=== PATIENT | female | born 1960 | race Caucasian/White ===

== ENCOUNTER 2017-11-21 17:51 | Emergency (ER) | payer BC, SELFPAY ==
[2017-11-21 17:53] VITALS: BP 120/68; PULSE 72; RESP 16; TEMP 36.8; O2SAT 98; BMI 24.0
--- NOTE | 2017-11-21 18:10 | ED.VISSUMM ---
- ER Visit Summary Date of Service: 11/21/17 Chief Complaint: Allergic reaction History of Present Illness: The patient is a 57 F presenting with allergic reaction. Patient states that she was outside spraying weeds with weed killer. She states she was wearing gloves. She believes she was stung by a bee on her left forearm. She began to have itching all over. She took 2 Benadryl which improved her itching. She then noticed an increasing rash of her trunk. Denies difficulty breathing or swallowing. Denies sensation of tongue swelling or throat swelling. Denies other complaints. Physical Examination: Vitals are stable. Patient is afebrile. Alert no acute distress. HEENT exam is unremarkable. No tongue swelling, no pharyngeal edema Neck is supple. Lungs are clear and equal bilaterally. Heart is regular rate and rhythm. Abdomen is soft nontender nondistended. Extremities are unremarkable. Skin is warm and dry. Maculopapular rash to the trunk and left upper extremity. No focal neurologic deficit. Remainder of exam is unremarkable. Emergency Department Course and Treatment: Patient is given Solu-Medrol IV. She was observed in the ED and has improvement of her symptoms. She is requesting to go home. Advised signs and symptoms for which to return to the ED. She is given a prescription for prednisone. Advised to return to ED for any worsening complaints. Advised to follow-up with primary care physician. Disposition: Discharge home Impression: Allergic reaction This note was generated with 2Peer (Qlipso) dictation software. It may contain incorrect words, spelling, and punctuation that were not noted in review of the chart prior to signing ED Disposition - Plan for ED Patient: Disposition: Home or Assisted Living Chief Complaint: Allergic Reaction Instructions: ED Bite Sting Insect Gen Allergic React Prescriptions: Prednisone 20 mg PO DAILY #5 tablet Referrals: Linda Tubbs MD [Primary Care Provider] -
[2017-11-21] MEDS: MethylPREDNISolone 125 MG/2 ML Vial IV (18:16)
--- NOTE | 2017-11-21 19:02 | ED.DEP ---
ED Disposition - Plan for ED Patient: Chief Complaint: Allergic Reaction Instructions: ED Bite Sting Insect Gen Allergic React Prescriptions: Prednisone 20 mg PO DAILY #5 tablet Referrals: Linda Tubbs MD [Primary Care Provider] -
[2017-11-21 19:39] VITALS: BP 119/77; PULSE 69; RESP 16; O2SAT 99
== END 2017-11-21 19:40 | disposition home or self-care (01) ==
LOC: ED 18:49
PROVIDERS: Emergency Provider Emergency Medicine; Family Provider Internal Medicine; PCP Internal Medicine
DX: T63.441A Toxic effect of venom of bees, accidental (unintentional), initial encounter (principal); R23.8 Other skin changes; Y92.9 Unspecified place or not applicable; E78.00 Pure hypercholesterolemia, unspecified; F32.9 Major depressive disorder, single episode, unspecified; Z79.899 Other long term (current) drug therapy
CPT/HCPCS: 96374; 99283; A4216

== ENCOUNTER → 2018-06-22 08:46 | Outpatient (CLI) | payer BC, SELFPAY ==
--- NOTE | 2018-06-22 08:49 | BI_ITS ---
MAMMOGRAPHY - BILATERAL SCREENING REASON FOR EXAM: Female, 57 years old. Routine annual screening examination. PERTINENT HISTORY: Non-contributory. TECHNIQUE: Digital bilateral breast jermaine (3D mammographic acquisition) in the CC and MLO projections. 2-D mediolateral oblique (MLO) and craniocaudad (CC) views of both breasts were obtained. CAD: Full Field Digital Mammography with Computer Added Detection was performed. COMPARISON: Comparison is made with prior study dated March 08, 2017 and March 04, 2016. FINDINGS: Breast Composition: There are scattered areas of fibroglandular density. There are no dominant masses or suspicious calcifications. No other significant abnormalities are identified. There has been no significant change since the prior study. BI/SCREENING MAMM (CAD), BILAT IMPRESSION: Stable bilateral screening mammogram. Yearly follow-up mammogram recommended. (A) ASSESSMENT CATEGORY: BIRADS Category 1: Negative. A letter regarding these results will be sent to the patient by the facility within 30 days. Approximately 10% of breast cancers are not detected by mammography. A normal mammogram should not delay biopsy of a clinically suspicious abnormality. [id number] Electronically Signed: Pancho Lopez, at 10:30 EST , Service support ,
[2018-06-26 09:49] LABS: HPV APTIMA, High Risk Negative (Negative)
== END ==
PROVIDERS: Family Provider Internal Medicine; PCP Internal Medicine; Referring Provider Obstetrics & Gynecology; Visit Provider Obstetrics & Gynecology
DX: Z12.4 Encounter for screening for malignant neoplasm of cervix (principal); Z12.31 Encounter for screening mammogram for malignant neoplasm of breast
CPT/HCPCS: 77063; 77067; 87624; 88175; G0145

== ENCOUNTER → 2018-09-16 | Outpatient (CLI) | payer BC, SELFPAY ==
[2018-06-22 09:31] VITALS: BMI 24.4
--- NOTE | 2018-09-16 08:19 | CT_ITS ---
STUDY: CT BRAIN WITH AND WITHOUT CONTRAST REASON FOR EXAM: Female, 58 years old. Severe headaches. RADIATION DOSAGE (If Supplied By Facility): CTDIvol = ( 44.99 ) mGy, DLP = ( 1468.48 ) mGycm TECHNIQUE: Transaxial CT imaging of the brain was performed pre and post contrast administration. The examination was performed with intravenous administration of 50 IV Isovue 370. Individualized dose optimization techniques were used for this CT. COMPARISON: None. FINDINGS: Normal soft tissue structures. Normal calvarium. Normal size ventricles and extra-axial spaces for the patient's age. Normal white matter tracts of the cerebral hemispheres. Normal basal ganglia and thalami. Normal brainstem. Normal cerebellum. There is no intracranial hemorrhage. There are no findings of an acute ischemic infarction. Normal visualized paranasal sinuses. CT/Brain/Head W/WO Contrast IMPRESSION: Normal unenhanced and enhanced CT scan of the brain. Electronically Signed: Pancho Lopez, at 14:17 EDT , Service support ,
== END | disposition home or self-care (01) ==
PROVIDERS: Family Provider Internal Medicine; PCP Internal Medicine; Referring Provider Internal Medicine; Visit Provider Internal Medicine
DX: R51 Headache (principal)
CPT/HCPCS: 70470; Q9967

== ENCOUNTER 2019-12-13 17:00 | Outpatient (RCR) | payer BC, SELFPAY ==
[2018-06-22 09:31] VITALS: BMI 24.4
--- NOTE | 2019-10-31 12:14 | HP.PTEVAL_ITS ---
Patient's Visit Information SHREYA LEARY is a 59 year old F referred to Physical Therapy by Dr. Gill Rene MD with a diagnosis of Impingement Syndrome L shoulder. Date of Evaluation: 10/31/19 Physical Therapist: WON Hastings - Visit Plan Frequency: 2-3x /Week Duration: 4 Weeks Plan: 2-3X/ week for 4 weeks for postural and scapular strength, PROM, AAROM, AROM, strengthening of the RC starting at below 90 degrees elevation and progressing to above 90 degrees elevation with HEP and modalities as needed. 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 Pt started having pain in her L shoulder last year sometime..... She has torqued her shoulder before and got a shot and it took care of it.... this time the shot did not help. This was at the end of June and did PT at home because she had sheets at home from the last time she was in PT. They went back in and had an MRI and she really wanted to do PT because she is done with it. She reports thtat she has constant throbbing but sometimes she does not notice it because she is used to it. It wakes her up at night and she notices that she has babysat her 1 year old beto daughter..... Sometimes the pain is across the front of the shoulder or along the deltiod. She now is compensates actoss her neck... Depends on what she has done. She is in the shower and uses the shower to crawl up the wall. SHe can not get her arm behind her back. Last Wed she got 2 hots and since then she can do her hair... it still hurts but it is better. She feels that she has gotten a little better cause she can now reach to do her hair with effort. She is Right handed. Wakes her up if she is laying on it. It is not jabbing like it used to be. No N&T. YES... she has neck pain she believes due to overcompenstation - Pain L shoulder pain Pain Intensity (Out of 10): 4 - Objective Posture: sit with L arm slightly in front of her... L shoulder flexion 130 degrees, abd 124 degrees, PSIS on the L IR, ER 49 degrees. R shoulder flexion, abd full ROM.... IR to T2 and ER, Er to 70 degrees. MMT: L shoulder: 4-/5 abdm flex , ER and IR. R shoulder: 4/5 flex, abd, ER andn IR. +HK for impingement. + Empty can for weakness and pain. Tender to palpation under the L acrominion. Discussed sleeping, daily posture, icing, sitting posture, and repetitive IR movements. - Goals Goal 1:: I HEP Goal Time Frame: 4-6 Weeks Goal 2:: Increase L shoulder AROM to 165 degrees elevation with no pain Goal Time Frame: 4-6 Weeks Goal 3:: Increase L shoulder strength by 1/2 muscle grade (at time of eval: L s houlder: 4-/5 abdm flex , ER and IR). Goal Time Frame: 4-6 Weeks Goal 4:: Decrease pain to less than 1/10 wtih overhead activities Goal Time Frame: 4-6 Weeks Goal 5:: Be able to sleep through the night without waking up in pain Goal Time Frame: 4-6 Weeks - Rehabilitation Potential Rehabilitation Potential: Good - Anticipated Interventions Patient/Client Instruction: Educate patient on: Condition, Plan of Care For the Purpose of:: To decrease pain, To decrease swelling/inflammation, To increase ROM, To improve nutrient delivery to tissue, To improve muscle performa nce and motor function, To improve ability to perform ADL's, To increase tolerance to activity/condition/position, To decrease level of supervision to perform tasks, To improve ability of physical actions for home/community/work/leisure, To improve health of tissue, To decrease soft tissue restriction, To increase flexibility/ROM Therapeutic Exercise to Include: Strength training, Postural training, Flexibilty training, Passive ROM, Active ROM, Scapular Strength/Stabilization For the Purpose of:: To decrease pain, To decrease swelling/inflammation, To increase ROM, To improve nutrient delivery to tissue, To improve muscle performance and motor function, To improve ability to perform ADL's, To increase tolerance to activity/condition/position, To improve performance and independence with ADL's, To decrease level of supervision to perform tasks, To improve ability of physical actions for home/community/work/leisure, To improve health of tissue, To decrease soft tissue restriction, To increase flexibility/ROM Manual Therapy Techniques to Include: Passive ROM, Soft tissue mobilization For the Purpose of:: To decrease pain, To decrease swelling/inflammation, To increase ROM, To improve nutrient delivery to tissue IF ES: Yes Cryotherapy (ice pack, ice massage): Yes Ultrasound (thermal/non thermal): Yes For the Purpose of:: To decrease pain, To decrease swelling/inflammation, To increase ROM, To improve nutrient delivery to tissue Thank you for the opportunity to evaluate your patient. For Medicare and Medicare HMO plans, please review the plan of care and approve it. It will need to be FAXED BACK to us at [phone] for Medicare purposes. For Medicare only, by signing this I certify the plan of care. Please let me know if there are questions or concerns regarding this plan of care. Physician Signature: Date:
--- NOTE | 2019-11-22 12:06 | HP.PTREVAL ---
Dr. Gill Rene MD, It has been my pleasure to treat SHREYA LEARY over the last 7 visits for Impingement Syndrome L shoulder. Please see the progress note below for an update on the physical therapy plan of care! Subjective: 5/10 today from doing exercises today and it is aching. Still struggles with washing her back, curling her hair, turning the steering wheel, lifting child or moderate heavy bag, quick movements, gardening, canoeing, make bed and ride bike. She has improved in the fact she can raise her arm overhead and can sleep better at night. She wakes up in pain ever so often still with pain. Objective/Function: L shoulder flex 145 degrees. L shoulder abd 145 degrees. L IR slowly with effort to L5 ( increase pain). L ER 35 degrees. L shoulder MMT: flex 4-/5, abd 4-/5, ER 4-/5, IR 4/5 Plan Plan: Would like to see pt for 8 additional visit for manual stretching of the L shoulder anteior and posterior joint capsule, PROM, Scapular stability and RC strengthening with US if needed for increase pain and soreness. Goals Goal 1:: I HEP Goal Time Frame: 4-6 Weeks Goal Progress: Progressing Goal 2:: Increase L shoulder AROM to 165 degrees elevation with no pain Goal Time Frame: 4-6 Weeks Goal Progress: Progressing Goal 3:: Increase L shoulder strength by 1/2 muscle grade (at time of eval: L shoulder: 4-/5 abdm flex , ER and IR). Goal Time Frame: 4-6 Weeks Goal 4:: Decrease pain to less than 1/10 wtih overhead activities Goal Time Frame: 4-6 Weeks Goal Progress: Progressing Goal 5:: Be able to sleep through the night without waking up in pain Goal Time Frame: 4-6 Weeks Goal Progress: Progressing Anticipated Interventions Patient/Client Instruction: Educate patient on: Condition, Plan of Care For the Purpose of:: To decrease pain, To decrease swelling/inflammation, To increase ROM, To improve nutrient delivery to tissue, To improve muscle performance and motor function, To improve ability to perform ADL's, To increase tolerance to activity/condition/position, To decrease level of supervision to perform tasks, To improve ability of physical actions for home/community/work/leisure, To improve health of tissue, To decrease soft tissue restriction, To increase flexibility/ROM Therapeutic Exercise to Include: Strength training, Postural training, Flexibilty training, Passive ROM, Active ROM, Scapular Strength/Stabilization For the Purpose of:: To decrease pain, To decrease swelling/inflammation, To increase ROM, To improve nutrient delivery to tissue, To improve muscle performance and motor function, To improve ability to perform ADL's, To increase tolerance to activity/condition/position, To improve performance and independence with ADL's, To decrease level of supervision to perform tasks, To improve ability of physical actions for home/community/work/leisure, To improve health of tissue, To decrease soft tissue restriction, To increase flexibility/ROM Manual Therapy Techniques to Include: Passive ROM, Soft tissue mobilization For the Purpose of:: To decrease pain, To decrease swelling/inflammation, To increase ROM, To improve nutrient delivery to tissue IF ES: Yes Cryotherapy (ice pack, ice massage): Yes Ultrasound (thermal/non thermal): Yes For the Purpose of:: To decrease pain, To decrease swelling/inflammation, To increase ROM, To improve nutrient delivery to tissue Please do not hesitate to contact me at [phone] by phone or if you have questions or concerns regarding this new plan of care! Sincerely, WON Hastings
--- NOTE | 2019-12-13 18:49 | HP.PTREVAL_ITS ---
Dr. Gill Rene MD, It has been my pleasure to treat SHREYA LEARY over the last 11 visits for Impingement Syndrome L shoulder. Please see the progress note below for an update on the physical therapy plan of care! Subjective: Pt reports that her IR is much better and she can reach up her back better since the scapular MT and ball at home. BUT not her anterior shoulder is painful from working on her IR ROM. Pt reports that she still has pain with certain movements with her shoulder and she tries to not over use it. Objective/Function: L shoulder flex and abd to 140 degrees AROM. ER to 44 degrees on the R. IR to T12 with increase pain at end range on the R. PROM R shoulder flex to appro 170 degrees and then pt had increase posterior shoulder pain. PROM R shoulder ABD to approx 175 degrees with pain at end range. Pain with End range PROM ER still. Plan Plan: Ask insurance for 4 additional visits as we are continuing to make progress with MT, mobilizations and HEP Goals Goal 1:: I HEP Goal Time Frame: 4-6 Weeks Goal Progress: Progressing Goal 2:: Increase L shoulder AROM to 165 degrees elevation with no pain Goal Time Frame: 4-6 Weeks Goal Progress: Progressing Goal 3:: Increase L shoulder strength by 1/2 muscle grade (at time of eval: L shoulder: 4-/5 abdm flex , ER and IR). Goal Time Frame: 4-6 Weeks Goal 4:: Decrease pain to less than 1/10 wtih overhead activities Goal Time Frame: 4-6 Weeks Goal Progress: Progressing Goal 5:: Be able to sleep through the night without waking up in pain Goal Time Frame: 4-6 Weeks Goal Progress: Progressing Anticipated Interventions Patient/Client Instruction: Educate patient on: Condition, Plan of Care For the Purpose of:: To decrease pain, To decrease swelling/inflammation, To increase ROM, To improve nutrient delivery to tissue, To improve muscle performance and motor function, To improve ability to perform ADL's, To increase tolerance to activity/condition/position, To decrease level of supervision to perform tasks, To improve ability of physical actions for home/community/work/leisure, To improve health of tissue, To decrease soft tissue restriction, To increase flexibility/ROM Therapeutic Exercise to Include: Strength training, Postural training, Flex ibilty training, Passive ROM, Active ROM, Scapular Strength/Stabilization For the Purpose of:: To decrease pain, To decrease swelling/inflammation, To increase ROM, To improve nutrient delivery to tissue, To improve muscle performance and motor function, To improve ability to perform ADL's, To increase tolerance to activity/condition/position, To improve performance and in dependence with ADL's, To decrease level of supervision to perform tasks, To improve ability of physical actions for home/community/work/leisure, To improve health of tissue, To decrease soft tissue restriction, To increase flexibility/ROM Manual Therapy Techniques to Include: Passive ROM, Soft tissue mobilization For the Purpose of:: To decrease pain, To decrease swelling/inflammation, To increase ROM, To improve nutrient delivery to tissue IF ES: Yes Cryotherapy (ice pack, ice massage): Yes Ultrasound (thermal/non thermal): Yes For the Purpose of:: To decrease pain, To decrease swelling/inflammation, To increase ROM, To improve nutrient delivery to tissue Please do not hesitate to contact me at [phone] by phone or if you have questions or concerns regarding this new plan of care! Sincerely, Saniya Pedro, MPT
--- NOTE | 2020-02-14 13:18 | HP.PTDCNRP_ITS ---
SHREYA LEARY was seen in my office for initial evaluation on 10/31/19. The following Plan of Care was established for this patient: Initial Frequency: 2-3x /Week Initial Duration: 4 Weeks Patient/Client Instruction: Educate patient on: Condition, Plan of Care For the Purpose of:: To decrease pain, To decrease swelling/inflammation, To increase ROM, To improve nutrient delivery to tissue, To improve muscle performance and motor function, To improve ability to perform ADL's, To increase tolerance to activity/condition/position, To decrease level of supervision to perform tasks, To improve ability of physical actions for home/community/work/leisure, To improve health of tissue, To decrease soft tissue restriction, To increase flexibility/ROM Therapeutic Exercise to Include: Strength training, Postural training, Flexibilty training, Passive ROM, Active ROM, Scapular Strength/Stabilization For the Purpose of:: To decrease pain, To decrease swelling/inflammation, To increase ROM, To improve nutrient delivery to tissue, To improve muscle performance and motor function, To improve ability to perform ADL's, To increase tolerance to activity/condition/position, To improve performance and independence with ADL's, To decrease level of supervision to perform tasks, To improve ability of physical actions for home/community/work/leisure, To improve health of tissue, To decrease soft tissue restriction, To increase flexibility /ROM Manual Therapy Techniques to Include: Passive ROM, Soft tissue mobilization For the Purpose of:: To decrease pain, To decrease swelling/inflammation, To increase ROM, To improve nutrient delivery to tissue IF ES: Yes Cryotherapy (ice pack, ice massage): Yes Ultrasound (thermal/non thermal): Yes For the Purpose of:: To decrease pain, To decrease swelling/inflammation, To increase ROM, To improve nutrient delivery to tissue This patient was last seen in our office 12/13/19. Pertinent comments regarding their Physical therapy will appear below: DC PT due to lack of additional insurance visits. At this point I will be discontinuing this patient from physical therapy. I would be happy to see this patient again in the future if found appropriate by the physician. Thank you! Saniya Pedro, MPT
== END 2019-12-13 19:00 | disposition home or self-care (01) ==
LOC: PT 17:00
PROVIDERS: PCP Internal Medicine; Referring Provider Orthopaedic Surgery Hand Surgery; Visit Provider Orthopaedic Surgery Hand Surgery
DX: M75.42 Impingement syndrome of left shoulder (principal)
CPT/HCPCS: 97110; 97140; 97161; 97164; 97530

== ENCOUNTER → 2020-02-07 08:25 | Outpatient (CLI) | payer BC, SELFPAY ==
[2018-06-22 09:31] VITALS: BMI 24.4
--- NOTE | 2020-02-07 08:25 | BI_ITS ---
MAMMOGRAPHY - BILATERAL SCREENING REASON FOR EXAM: Female, 59 years old. Routine annual screening examination. PERTINENT HISTORY: Non-contributory. TECHNIQUE: Digital bilateral breast katie (3D mammographic acquisition) in the CC and MLO projections. 2-D mediolateral oblique (MLO) and craniocaudad (CC) views of both breasts were obtained. CAD: Full Field Digital Mammography with Computer Added Detection was performed. COMPARISON: Comparison is made with prior study dated 06/22/2018 and 03/08/2017. FINDINGS: Breast Composition: There are scattered areas of fibroglandular density. There are no dominant masses or suspicious calcifications. No other significant abnormalities are identified. There has been no significant change since the prior study. BI/SCREEN MAMM (CAD) W/KATIE BILAT IMPRESSION: Stable bilateral screening mammogram. Yearly follow-up mammogram recommended. (A) ASSESSMENT CATEGORY: BIRADS Category 1: Negative. A letter regarding these results will be sent to the patient by the facility within 30 days. Approximately 10% of breast cancers are not detected by mammography. A normal mammogram should not delay biopsy of a clinically suspicious abnormality. [id number] Electronically Signed: Pancho Lopez, at 9:32 EDT , Service support ,
== END ==
PROVIDERS: PCP Internal Medicine; Referring Provider Obstetrics & Gynecology; Visit Provider Obstetrics & Gynecology
DX: Z12.31 Encounter for screening mammogram for malignant neoplasm of breast (principal)
CPT/HCPCS: 77063; 77067

== ENCOUNTER → 2021-02-13 12:43 | Outpatient (CLI) | payer BC, SELFPAY ==
--- NOTE | 2021-02-13 12:45 | BI_ITS ---
MAMMOGRAPHY - BILATERAL SCREENING REASON FOR EXAM: Female, 60 years old. Routine annual screening examination. PERTINENT HISTORY: Non-contributory. TECHNIQUE: Digital bilateral breast katie (3D mammographic acquisition) in the CC and MLO projections. 2-D mediolateral oblique (MLO) and craniocaudad (CC) views of both breasts were obtained. CAD: Full Field Digital Mammography with Computer Added Detection was performed. COMPARISON: Comparison is made with prior study dated 02/07/2020 and 06/22/2018. FINDINGS: Breast Composition: There are scattered areas of fibroglandular density. There are no dominant masses or suspicious calcifications. Stable small benign-appearing bilateral axillary lymph nodes. No other significant abnormalities are identified. There has been no significant change since the prior study. BI/SCRN MAMM (CAD)W/KATIE BILAT IMPRESSION: Stable bilateral screening mammogram. Yearly follow-up mammogram recommended. (A) ASSESSMENT CATEGORY: BIRADS Category 2: Benign. A letter regarding these results will be sent to the patient by the facility within 30 days. Approximately 10% of breast cancers are not detected by mammography. A normal mammogram should not delay biopsy of a clinically suspicious abnormality. [id number] Electronically Signed: Pancho Lopez MD at 14:14 EDT , Service support ,
== END ==
PROVIDERS: PCP Internal Medicine; Referring Provider Obstetrics & Gynecology; Visit Provider Obstetrics & Gynecology
DX: Z12.31 Encounter for screening mammogram for malignant neoplasm of breast (principal)
CPT/HCPCS: 77063; 77067

== ENCOUNTER → 2021-09-02 | Outpatient (CLI) | payer BC, SELFPAY ==
--- NOTE | 2021-09-02 10:25 | US_ITS ---
EXAM: US ABDOMEN LIMITED, RIGHT UPPER QUADRANT CLINICAL INDICATION: POSTPRANDIAL RUQ PAIN TECHNIQUE: Real-time ultrasound of the right upper quadrant with image documentation. This report was created using [employer] report generation technology. COMPARISON: None. FINDINGS: LIVER: 1.1 cm x 0.8 cm x 1 cm simple-appearing cyst in the left lobe of the liver. Also 1.5 cm x 1.2 cm x 1.4 cm right lobe hepatic cyst. Small hyperechoic focus in the right lobe of the liver measuring 8.3 mm maximum diameter may be small focus of focal fat or hemangioma, most likely benign and incidental. The liver is 13.7 cm in length, normal size. No intrahepatic biliary ductal dilation. GALLBLADDER: Normal gallbladder, only mildly distended with fold. Normal 2 mm wall.. No shadowing gallstone. No pericholecystic fluid. Negative sonographic Bob''s sign. COMMON BILE DUCT: Common duct 1.1 cm, mildly dilated, uncertain chronicity. PANCREAS: Tiny 7 mm x 6 mm x 7 mm cystic structure in the tail of the pancreas. Otherwise unremarkable pancreas. No pancreatic ductal dilatation. RIGHT KIDNEY: Right kidney 10.2 cm x 3.5 cm x 5.1 cm. There is no hydronephrosis. No shadowing calculus. No focal lesion or perinephric collection is demonstrated. US/Abdomen Limited IMPRESSION: 1. Normal gallbladder. 2. Mildly dilated common duct, please correlate with bilirubin. 3. CT could be considered if there is clinical suspicion for choledocholithiasis or duct stricture or obstructing mass. The proximal pancreas is not optimally seen. 4. Small hepatic cysts and tiny subcentimeter indeterminate cystic lesion in the tail of the pancreas. Since the pancreatic lesion is not clearly incidental and due to the patient''s age, CT or MRI with pancreas protocol is recommended. Electronically Signed: María Brown MD at 6:05 EDT ,
== END | disposition home or self-care (01) ==
LOC: US 10:16
PROVIDERS: PCP Internal Medicine; Visit Provider Internal Medicine
DX: R10.11 Right upper quadrant pain (principal)
CPT/HCPCS: 76705

== ENCOUNTER → 2021-09-03 | Outpatient (CLI) | payer BC, SELFPAY ==
--- NOTE | 2021-09-03 14:04 | CT_ITS ---
STUDY: CT ABDOMEN WITH CONTRAST REASON FOR EXAM: Female, 61 years old. PANCREATIC CYST/PSEUDOCYST -- DO PANCREASE PROTOCOL AND LOOK AT COMMON BILE DUCT RADIATION DOSAGE (If Supplied By Facility): CTDIvol = ( 8.60 ) mGy, DLP = ( 651.15 ) mGycm TECHNIQUE: Transaxial images were obtained post I.V. administration of IV 100mL Isovue-300, and without oral contrast. Sagittal and coronal images were reconstructed. Individualized dose optimization techniques were used for this CT. COMPARISON: Comparison is made with prior sonogram of the right upper quadrant dated 09/02/2021. FINDINGS: The visualized lung bases are unremarkable. The visualized portions of the heart are within normal limits. 2 small cysts are seen in the medial aspect of the right lobe of liver. The largest cyst measures 1.5 cm. And one some mucous cyst is also seen in the left lobe the common bile duct measures 1.6 cm in transverse dimension. Mildly prominent pancreatic duct. There is enlargement of the head of the pancreas measuring 2.6 cm x 3.1 cm. An 8mm cyst is seen in the tail of the pancreas. Normal spleen. Normal bilateral adrenal glands. Normal right kidney. Normal left kidney. Normal visualized stomach. Normal small intestine. Normal colon. The appendix is visualized and appears normal. There is scattered atherosclerotic calcification of the abdominal aorta, without a demonstrated aneurysm. Normal inferior vena cava. Normal retroperitoneum. Normal abdominal wall. There are degenerative changes of the visualized lumbar spine. CT/Abdomen WITH IV Contrast IMPRESSION: Small hepatic cysts. Mildly dilated common bile duct. Slight prominence of the head of the pancreas. 8 mm cyst in the tail of the pancreas. Correlation with MRCP recommended. Electronically Signed: Pancho Lopez MD at 14:25 EDT ,
[2021-09-03 14:05] LABS: CREATININE FINGERSTICK < 0.9 mg/dL (0.55-1.02); EGFR FINGERSTICK > 60.0000 mL/min (>60)
== END | disposition home or self-care (01) ==
LOC: CT 11:36
PROVIDERS: PCP Internal Medicine; Referring Provider Internal Medicine; Visit Provider Internal Medicine
DX: K83.8 Other specified diseases of biliary tract (principal); K86.9 Disease of pancreas, unspecified
CPT/HCPCS: 74160; Q9967

== ENCOUNTER → 2021-09-05 | Outpatient (CLI) | payer BC, SELFPAY ==
--- NOTE | 2021-09-05 09:15 | MRI_ITS ---
EXAM: MR ABDOMEN WITHOUT INTRAVENOUS CONTRAST, MRCP PROTOCOL CLINICAL INDICATION: ABN CT TECHNIQUE: Multiplanar and multisequence MR images of the abdomen without intravenous contrast obtained with MRCP sequence. Three-dimensional post-processing reconstructions were performed. This report was created using [employer] report generation technology. COMPARISON: CT abdomen 09/03/2021 FINDINGS: LOWER THORAX: Unremarkable. No pleural effusion. LIVER: Several small cystic lesions are identified within the liver. GALLBLADDER AND BILE DUCTS: Common bile duct measures 11 mm in maximum diameter without evidence of an obstructing stone or mass. No gallbladder distention or wall edema. PANCREAS: No mass noted within the head of the pancreas. 6 mm cyst noted along the body of the pancreas as well as 3 mm cyst involving the tail of the pancreas. Pancreatic duct is normal. SPLEEN: Unremarkable. Non-enlarged. ADRENALS: Unremarkable. No nodules. KIDNEYS AND URETERS: Unremarkable. Normal renal size and position. No hydronephrosis. INTRAPERITONEAL SPACE: Unremarkable. No ascites or other fluid collection. VASCULATURE: Unremarkable. Abdominal aorta is non-dilated. LYMPH NODES: No enlarged lymph nodes. MRI/Abdomen without Contrast IMPRESSION: 1. No evidence of solid pancreatic mass. 2. Simple appearing cystic lesions within the liver and pancreas. 3. Distended common bile duct without evidence of an obstructing stone or mass. Electronically Signed: Shay Arreola MD at 11:13 EDT ,
== END | disposition home or self-care (01) ==
LOC: MRI 08:41
PROVIDERS: PCP Internal Medicine; Referring Provider Internal Medicine; Visit Provider Internal Medicine
DX: R93.5 Abnormal findings on diagnostic imaging of other abdominal regions, including retroperitoneum (principal)
CPT/HCPCS: 74181

== ENCOUNTER → 2022-02-23 | Outpatient (CLI) | payer BC, SELFPAY ==
--- NOTE | 2022-02-23 10:25 | BI_ITS ---
MAMMOGRAPHY - BILATERAL SCREENING REASON FOR EXAM: Female, 61 years old. Routine annual screening examination. PERTINENT HISTORY: Non-contributory. TECHNIQUE: Digital bilateral breast katie (3D mammographic acquisition) in the CC and MLO projections. 2-D mediolateral oblique (MLO) and craniocaudad (CC) views of both breasts were obtained. CAD: Full Field Digital Mammography with Computer Added Detection was performed. COMPARISON: Comparison is made with prior study 02/13/2021 and 02/07/2020. FINDINGS: Breast Composition: There are scattered areas of fibroglandular density. There are no dominant masses or suspicious calcifications. No other significant abnormalities are identified. There has been no significant change since the prior study. BI/SCRN MAMM (CAD)W/KATIE BILAT IMPRESSION: Stable bilateral screening mammogram. Yearly follow-up mammogram recommended. (A) ASSESSMENT CATEGORY: BIRADS Category 1: Negative. A letter regarding these results will be sent to the patient by the facility within 30 days. Approximately 10% of breast cancers are not detected by mammography. A normal mammogram should not delay biopsy of a clinically suspicious abnormality. [id number] Electronically Signed: Pancho Lopez MD at 12:07 EDT ,
== END | disposition home or self-care (01) ==
LOC: OPBI 10:24
PROVIDERS: PCP Internal Medicine; Visit Provider Internal Medicine
DX: Z12.31 Encounter for screening mammogram for malignant neoplasm of breast (principal)
CPT/HCPCS: 77063; 77067

== ENCOUNTER → 2022-11-26 | Outpatient (CLI) | payer BC, SELFPAY ==
--- NOTE | 2022-11-26 10:07 | ECHOD_ITS ---
Reason For Study: Murmur Procedure This was a 2D Doppler, Color Flow transthoracic echocardiogram. Exam performed in department. Left Ventricle Normal LV size. Left ventricular systolic function is normal. The estimated ejection fraction is 55 %. No regional wall motion abnormalities noted. Right Ventricle Normal RV size. Normal systolic function. Atria Normal left atrium. Normal right atrium. Mitral Valve Bileaflet diffuse mitral valve thickening. Mild (1+) eccentric mitral valve insufficiency. Tricuspid Valve Normal tricuspid valve. Mild tricuspid valve insufficiency. Pulmonary artery systolic pressure is 20 mmHg. Aortic Valve Trisinus/trileaflet aortic valve. Trivial aortic valve insufficiency. Pulmonic Valve Normal pulmonic valve. Great Vessels Normal aortic root. The pulmonary artery is normal size. Normal inferior vena cava. Pericardium/Pleural No pericardial effusion. MMode/2D Measurements & Calculations LVIDd: 4.7 cm IVSd: 0.89 cm Ao root diam: 3.0 cm LVIDs: 3.0 cm LVPWd: 0.94 cm LA dimension: 3.5 cm RVDd: 3.6 cm FS: 36.0 % LAV(MOD-bp): 45.9 ml LVAd ap4: 26.6 cm2 SV(MOD-sp4): 51.4 ml LAV(MOD-bp) Indexed: 26.6 ml/m2 LVLd ap4: 7.6 cm LAV(MOD-sp2): 49.7 ml EDV(MOD-sp4): 76.7 ml LAV(MOD-sp4): 41.3 ml EDV(sp4-el): 78.9 ml LVAs ap4: 13.9 cm2 LVLs ap4: 6.4 cm ESV(MOD-sp4): 25.3 ml ESV(sp4-el): 25.6 ml EF(MOD-sp4): 67.0 % EF(sp4-el): 67.5 % SV(sp4-el): 53.3 ml LA A4 area: 16.3 cm2 RA A4 area: 13.9 cm2 Time Measurements MV dec time: 0.25 sec Doppler Measurements & Calculations MV E max bj: 80.8 cm/sec Lat Peak E' Bj: 11.4 cm/sec Med Peak E' Bj: 11.5 cm/sec MV A max bj: 77.8 cm/sec E/E' lat: 7.1 E/E' med: 7.0 MV E/A: 1.0 MV V2 max: 97.9 cm/sec MV P1/2t max bj: 96.9 cm/sec Ao V2 max: 152.8 cm/sec MV max P.8 mmHg MV P1/2t: 95.0 msec Ao max P.3 mmHg MV V2 mean: 59.3 cm/sec Ao V2 mean: 98.9 cm/sec MV mean P.7 mmHg MV dec slope: 298.9 cm/sec2 Ao mean P.6 mmHg MV V2 VTI: 40.4 cm MVA(P1/2t): 2.3 cm2 Ao V2 VTI: 33.3 cm AV (velocity ratio): 0.73 AI max bj: 364.7 cm/sec LV V1 max: 106.2 cm/sec MR max bj: 444.6 cm/sec AI max P.4 mmHg LV V1 max P.5 mmHg MR max P.1 mmHg AI dec slope: 116.1 cm/sec2 LV V1 mean P.6 mmHg AI P1/2t: 919.7 msec LV V1 mean: 75.7 cm/sec LV V1 VTI: 24.5 cm PA V2 max: 86.2 cm/sec PI dec slope: 197.3 cm/sec2 TR max bj: 203.9 cm/sec PA V2 mean: 61.9 cm/sec TR max P.6 mmHg ECHO/Echo Complete Interpretation Summary Normal LV size. Left ventricular systolic function is normal. The estimated ejection fraction is 55 %. Pulmonary artery systolic pressure is 20 mmHg. Ordering Physician: Linda Tubbs Referring Physician: Linda Tubbs Performed By: Richard Benites RCS
== END | disposition home or self-care (01) ==
LOC: CVS 10:05
PROVIDERS: PCP Internal Medicine; Referring Provider Internal Medicine; Visit Provider Internal Medicine
DX: Z12.31 Encounter for screening mammogram for malignant neoplasm of breast (principal); Z78.0 Asymptomatic menopausal state; R01.1 Cardiac murmur, unspecified
CPT/HCPCS: 93306

== ENCOUNTER → 2023-03-12 | Outpatient (CLI) | payer BC, SELFPAY ==
[2023-03-19 12:08] LABS: HPV APTIMA, High Risk Negative (Negative)
== END | disposition home or self-care (01) ==
LOC: LABSPEC 17:08
PROVIDERS: PCP Internal Medicine; Visit Provider Obstetrics & Gynecology
DX: Z12.4 Encounter for screening for malignant neoplasm of cervix (principal)
CPT/HCPCS: 87624; 88175; G0145

== ENCOUNTER → 2023-03-12 | Outpatient (CLI) | payer BC, SELFPAY ==
--- NOTE | 2023-03-12 13:44 | BI_ITS ---
MAMMOGRAPHY - BILATERAL SCREENING REASON FOR EXAM: Female, 62 years old. Routine annual screening examination. PERTINENT HISTORY: Non-contributory. TECHNIQUE: Digital bilateral breast katie (3D mammographic acquisition) in the CC and MLO projections. 2-D mediolateral oblique (MLO) and craniocaudad (CC) views of both breasts were obtained. CAD: Full Field Digital Mammography with Computer Added Detection was performed. COMPARISON: Comparison is made with prior examination dated February 23, 2022 and February 13, 2021. FINDINGS: Breast Composition: There are scattered areas of fibroglandular density. There are no dominant masses or suspicious calcifications. No other significant abnormalities are identified. There has been no significant change since the prior study. BI/SCRN MAMM (CAD)W/KATIE BILAT IMPRESSION: Stable bilateral screening mammogram. Yearly follow-up mammogram recommended. (A) ASSESSMENT CATEGORY: BIRADS Category 1: Negative. A letter regarding these results will be sent to the patient by the facility within 30 days. Approximately 10% of breast cancers are not detected by mammography. A normal mammogram should not delay biopsy of a clinically suspicious abnormality. [id number] Electronically Signed: Pancho Lopez MD at 14:54 EST ,
== END | disposition home or self-care (01) ==
LOC: OPBI 13:44
PROVIDERS: PCP Internal Medicine; Referring Provider Internal Medicine; Visit Provider Internal Medicine
DX: Z12.31 Encounter for screening mammogram for malignant neoplasm of breast (principal)
CPT/HCPCS: 77063; 77067

== ENCOUNTER 2023-04-11 03:32 | Emergency (ER) | payer BC, SELFPAY ==
[2023-04-11 03:33] VITALS: BP 124/76; PULSE 67; RESP 16; TEMP 35.8; O2SAT 99; BMI 27.3
--- NOTE | 2023-04-11 03:40 | EKG12_ITS ---
Test Reason : DYSRHYTHMIA Blood Pressure : / mmHG Vent. Rate : 063 BPM Atrial Rate : 063 BPM P-R Int : 166 ms QRS Dur : 088 ms QT Int : 442 ms P-R-T Axes : 056 -21 021 degrees QTc Int : 452 ms Normal sinus rhythm Normal ECG Confirmed by REKHA RENE, LILY ([id number]), editorial assistant EMILY VELAZCO ([id number]) on 04/12/2023 1:26:11 PM Referred By: Confirmed By:LILY DA SILVA MD
--- NOTE | 2023-04-11 04:00 | EX.ED.DYSGE1 ---
HPI History of Present Illness Chief Complaint: Other, Pain/Inj Informant: patient and spouse/S.O. Narrative Narrative: 62-year-old female presenting to the emergency room with a chief complaint of neck pain. Patient states she went to bed around 20 to 30 hours feeling fine. She woke around 0200 hrs. with a discomfort in her left side of her neck. She states starts at the base of the neck extends over to the shoulder down near the shoulder blade. Nothing seems to make it better or worse. She states this is causing her anxiety as 2 of her friends have recently had heart attacks. She notes a family history of coronary artery disease. Patient denies any actual chest pain. She states she is not really short of breath. No vomiting. No abdominal pain. No known injuries. No paresthesias in the arm or weakness. [facility] Medical History Anxiety Arthritis History of abnormal cervical Pap smear Hyperlipidemia Sjogrens syndrome Home Medications citalopram 20 mg tablet 20 mg PO QDAY #90 tabs 09/13/17 [Rx Last Taken Unknown] hydroxychloroquine 200 mg tablet 200 mg PO DAILY 11/21/17 [History Last Taken Unknown] vit B complex-methyltetrahydrofolate glucosamine 680 mcg DFE capsule 1 cap PO DAILY 03/09/22 [History Last Taken Unknown] vitamin D3 1,250 mcg (50,000 unit)-vitamin K2 200 mcg capsule 1 cap PO DAILY 03/09/22 [History Last Taken Unknown] rosuvastatin 10 mg tablet (Crestor) 10 mg PO DAILY 03/12/23 [History Last Taken Unknown] diazepam 5 mg tablet 5 mg PO QHS 04/11/23 [History Last Taken Unknown] zolpidem 5 mg tablet 5 mg PO QHS PRN sleep 04/11/23 [History Last Taken Unknown] Allergy/AdvReac Type Severity Reaction Status Date / Time Sulfa (Sulfonamide Allergy Hives Verified 04/11/23 03:33 Antibiotics) Family History Sister Brain tumor Surgical History History of carpal tunnel surgery History of endometrial ablation Hx of foot surgery Social History Smoking Status: Never smoker alcohol intake: never substance use type: does not use caffeine: Yes what type of physical activity do you participate in: none seatbelt use: always do you feel safe at home: Yes additional social history: Todd- ROS ROS ED Constitutional Constitutional ED: Denies chills or weight loss Eyes Eyes: Denies change in vision or diplopia ENT ENT ED: Denies ear pain, rhinorrhea or sore throat Cardiovascular Cardiovascular: Denies chest pain, orthopnea, palpitations or racing heartbeat Respiratory/Chest Respiratory/Chest: Denies cough, dyspnea or orthopnea Gastrointestinal Gastrointestinal: Denies abdominal pain, diarrhea, nausea or vomiting Genitourinary Genitourinary ED: Denies dysuria, hematuria or urinary frequency Musculoskeletal Musculoskeletal: Reports neck pain; Denies arthralgias, back pain or myalgias Integumentary Denies abscess or rash Neurologic Neurologic: Denies headache(s) or weakness Psychiatric Psychiatric: Denies anxiety, depression, suicidal ideation or suicidal thoughts Endocrine Endocrinology: Denies polydipsia, polyphagia or polyuria Allergic/Immunologic Allergic/Immunologic ED: Denies mouth swelling, tongue swelling or urticaria EXAM Physical Exam Const Vital Signs: 04/11/23 03:33 04/11/23 03:35 Temperature 96.5 F L Temperature Source Temporal Pulse Rate 67 Respiratory Rate 16 Respiratory Effort Normal Respiratory Pattern Normal Blood Pressure 124/76 H Blood Pressure Mean 92 Pulse Ox 99 Positive well nourished and well developed General Appearance ED: well developed HEENT Reports normocephalic, head/scalp atraumatic and moist mucous membranes Eyes PERRL and EOMs intact bilaterally Neck no lymphadenopathy, supple and no JVD Neck Narrative: Neck is nontender. I do not appreciate any areas of muscle spasm. Full range of motion. Resp normal respiratory effort and clear to auscultation bilaterally Cardio regular rate, regular rhythm and no murmurs GI normal to inspection, nondistended, normoactive bowel sounds and non-tender Palpation: soft Back/Spine no CVA tenderness and normal ROM Extremity normal to inspection General Extremety ED: Negative for edema General Extremity: Negative for edema Neuro oriented x3 and CN's II-XII intact bilaterally Sensorium / Orientation: alert Motor Exam: strength 5/5 throughout Psych mental status grossly normal Mood & Affect: anxious; Negative for depressed or tearful Skin no rashes or lesions noted and no wounds MDM MDM MDM Narrative Medical decision making narrative: My independent interpretation of the single view chest x-ray is no acute process. Troponin high-sensitivity is 8. D-dimer H corrects normal 0.58. White count 3.9 hemoglobin of 12. Platelet count of 217. EKG is a normal sinus rhythm. Patient received a dose of Toradol and resting more comfortably. Delta troponin was obtained and is negative. At this point I do not believe that this is representing acute coronary syndrome. I do not see evidence of pulmonary embolism pneumothorax or pneumonia. This could very well be musculoskeletal pain mixed with some anxiety which the patient does acknowledge is possible given her friends with recent ACS. History & Record Review Discussion w/independent historian: Patient and Significant other Lab Data Attestation: I reviewed the patient's lab results. Labs: Laboratory Results - last 24 hr 04/11/23 04:23 WBC 3.9 L RBC 3.78 L Hgb 12.0 Hct 35.2 L MCV 93.1 MCH 31.7 MCHC 34.1 RDW Std Deviation 44.0 H RDW Coeff of Iris 12.9 Plt Count 217 MPV 9.7 Immature Gran % (Auto) 0.000 Neut % (Auto) 39.6 L Lymph % (Auto) 37.6 [place] % (Auto) 12.4 H Eos % (Auto) 9.6 H Baso % (Auto) 0.8 Absolute Neuts (auto) 1.5 L Absolute Lymphs (auto) 1.45 Nucleated RBC % 0 D-Dimer Quant (PE/DVT) 0.58 H* Sodium 143 Potassium 3.5 Chloride 111 H Carbon Dioxide 26.0 Anion Gap 6 BUN 16 Creatinine 0.67 Estim Creat Clear Calc 74.21 Est GFR (MDRD) Af Amer 115 Est GFR (MDRD) Non-Af 95 BUN/Creatinine Ratio 24.0 H Glucose 99 Calcium 8.5 Troponin I High Sens 8 Radiography Diagnostic Testing: Clinical Impression(s) from Imaging Studies Chest X-Ray 04/11/23 04:30 IMPRESSION: No radiographic evidence of acute cardiopulmonary disease. Electronically Signed: Jeffery Samson MD at 4:55 EST , EKG Initial EKG: Attestation: I personally reviewed and interpreted this EKG as follows: Comments: Normal sinus rhythm ventricular rate of 63 bpm. Discharge Plan Triage Chief Complaint: Other, Pain/Inj ED Provider: Daniel العلي Dx/Rx/DC Orders Prescriptions: No Action vitamin D3-vitamin K2 1,250-200 mcg capsule 1 cap PO DAILY vit B [id number]-[id number] 400 mcg DFE capsule 1 cap PO DAILY rosuvastatin [Crestor] 10 mg tablet 10 mg PO DAILY hydroxychloroquine 200 MG tablet 200 mg PO DAILY diazepam 5 mg tablet 5 mg PO QHS Patient Comments: take 1 tablet by mouth at bedtime zolpidem 5 mg tablet 5 mg PO QHS PRN (Reason: sleep) citalopram 20 mg tablet 20 mg PO QDAY Qty: 90 4RF Primary Care Provider: Linda Tubbs Referrals: Linda Tubbs MD [Primary Care Provider] -
[2023-04-11 04:30] LABS: Absolute Lymphocyte Count 1.45 X10^3/uL (0.83-4.51); Absolute Neutrophil Count 1.5 X10^3/uL (2.0-7.7); Basophil# 0.03 X10^3/uL; Basophil% 0.8 % (0-1); Eosinophil# 0.37 X10^3/uL; Eosinophils% 9.6 % (0-5); Hematocrit 35.2 % (37-47); Lymphocyte # 1.45 X10^3/ul (0.83-4.51); Lymphocyte % 37.6 % (19-41); Mean Corp Hgb Conc 34.1 g/dL (32-36); Mean Corpuscular Hgb 31.7 pg (27.0-32.0); Mean Corpuscular Volume 93.1 fL (81-99); Mean Platelet Vol. 9.7 fl (6.2-12.0); Monocyte# 0.48 X10^3/uL; Monocyte% 12.4 % (0-10); NRBC Flagged by Analyzer 0 % (0-5); Neutrophil # 1.53 X10^3/uL (2.7-7.7); Neutrophil % 39.6 % (47-70); Platelet Count 217 K/mm3 (150-450); RBC Distribution Width CV 12.9 % (11.6-14.6); Red Blood Count 3.78 M/mm3 (4.2-5.4); White Blood Count 3.9 K/mm3 (4.4-11.0)
--- NOTE | 2023-04-11 04:30 | RAD_ITS ---
EXAM: XR CHEST, 1 VIEW CLINICAL INDICATION: pain TECHNIQUE: Frontal view of the chest. COMPARISON: No relevant prior studies available. FINDINGS: LUNGS AND PLEURAL SPACES: Unremarkable. No consolidation or edema. No pneumothorax. No effusion. HEART: Unremarkable. Cardiac silhouette not enlarged. MEDIASTINUM: Central airways and mediastinal contour are unremarkable. BONES/JOINTS: Unremarkable. No acute fracture. SOFT TISSUES: Unremarkable. RAD/Chest 1 View (Portable) IMPRESSION: No radiographic evidence of acute cardiopulmonary disease. Electronically Signed: Jeffery Samson MD at 4:55 EST ,
[2023-04-11 04:49] LABS: D-Dimer Quantitative (DVT/PE) 0.58 FEU/ug/m (0.27-0.49)
[2023-04-11 04:55] LABS: Anion Gap 6 (5-15); BUN 16 mg/dL (7-18); Calcium,Total 8.5 mg/dL (8.5-10.1); Chloride 111 mmol/L (98-107); Creatinine, Serum 0.67 mg/dL (0.55-1.02); EST Glomerular Filtration Rate 95 mL/min (>60); Est Glom Filt Rate - Afr Amer 115 mL/min (>60); Estimated Creatinine Clearance 74.21 ml/min; Glucose 99 mg/dL (74-106); Potassium 3.5 mmol/L (3.5-5.1); Sodium Level 143 mmol/L (136-145); Troponin-I HS 8 pg/mL (3.0-54.0)
[2023-04-11] MEDS: Ketorolac 30 MG/ML Syringe IV (05:11)
[2023-04-11 06:04] VITALS: BP 123/86
[2023-04-11 06:57] LABS: Troponin-I HS 9 pg/mL (3.0-54.0)
== END 2023-04-11 07:17 | disposition home or self-care (01) ==
PROVIDERS: Emergency Provider Emergency Medicine; PCP Internal Medicine; Visit Provider Emergency Medicine
DX: M54.2 Cervicalgia (principal); E78.5 Hyperlipidemia, unspecified; Z79.899 Other long term (current) drug therapy
CPT/HCPCS: 71045; 80048; 84484; 85025; 85379; 93005; 96374; 99284; A4216

== ENCOUNTER → 2024-04-03 | Outpatient (CLI) | payer BC, SELFPAY ==
--- NOTE | 2024-04-03 07:35 | BI_ITS ---
MAMMOGRAPHY - BILATERAL SCREENING REASON FOR EXAM: Female, 63 years old. Routine annual screening examination. PERTINENT HISTORY: Non-contributory. TECHNIQUE: Digital bilateral breast katie (3D mammographic acquisition) in the CC and MLO projections. 2-D mediolateral oblique (MLO) and craniocaudad (CC) views of both breasts were obtained. CAD: Full Field Digital Mammography with Computer Added Detection was performed. COMPARISON: Comparison is made with prior study March 12, 2023 and February 23, 2022. FINDINGS: Breast Composition: There are scattered areas of fibroglandular density. There are no dominant masses or suspicious calcifications. Stable small benign-appearing bilateral axillary lymph nodes. No other significant abnormalities are identified. There has been no significant change since the prior study. BI/SCRN MAMM (CAD)W/KATIE BILAT IMPRESSION: Stable bilateral screening mammogram. Yearly follow-up mammogram recommended. (A) ASSESSMENT CATEGORY: BIRADS Category 2: Benign. A letter regarding these results will be sent to the patient by the facility within 30 days. Approximately 10% of breast cancers are not detected by mammography. A normal mammogram should not delay biopsy of a clinically suspicious abnormality. [id number] Electronically Signed: Pancho Lopez MD at 8:25 EST ,
== END | disposition home or self-care (01) ==
PROVIDERS: PCP Internal Medicine; Referring Provider Internal Medicine; Visit Provider Internal Medicine
DX: Z12.31 Encounter for screening mammogram for malignant neoplasm of breast (principal)
CPT/HCPCS: 77063; 77067

== ENCOUNTER → 2024-12-22 | Outpatient (CLI) | payer MEDICARE, BC, SELFPAY ==
[2024-12-22 12:59] LABS: Hematocrit 37.6 % (37-47); Hemoglobin 12.6 g/dL (12.0-15.0); Immature Granulocytes Count 0.010 X10^3/uL (0.0-0.0); Mean Corp Hgb Conc 33.5 g/dL (32-36); Mean Corpuscular Volume 93.8 fL (81-99); Mean Platelet Vol. 11.1 fl (6.2-12.0); NRBC Flagged by Analyzer 0 % (0-5); Platelet Count 223 K/mm3 (150-450); RBC Distribution Width CV 12.7 % (11.6-14.6); RBC Distribution Width SD 43.8 fl (35.1-43.9); Red Blood Count 4.01 M/mm3 (4.2-5.4); White Blood Count 3.5 K/mm3 (4.4-11.0)
== END | disposition home or self-care (01) ==
LOC: MTLAB 10:09
PROVIDERS: PCP Internal Medicine; Referring Provider Internal Medicine; Visit Provider Internal Medicine
DX: D72.9 Disorder of white blood cells, unspecified (principal)
CPT/HCPCS: 36415; 85025

== ENCOUNTER → 2025-03-19 | Outpatient (CLI) | payer MEDICARE, BC, SELFPAY ==
[2025-03-19 15:09] LABS: Hematocrit 39.4 % (37-47); Hemoglobin 13.3 g/dL (12.0-15.0); Immature Granulocytes Count 0.010 X10^3/uL (0.0-0.0); Mean Corp Hgb Conc 33.8 g/dL (32-36); Mean Corpuscular Volume 92.7 fL (81-99); Mean Platelet Vol. 10.6 fl (6.2-12.0); NRBC Flagged by Analyzer 0 % (0-5); Platelet Count 254 K/mm3 (150-450); RBC Distribution Width CV 12.8 % (11.6-14.6); RBC Distribution Width SD 44.1 fl (35.1-43.9); Red Blood Count 4.25 M/mm3 (4.2-5.4); White Blood Count 3.5 K/mm3 (4.4-11.0)
[2025-03-19 16:01] LABS: AST(SGOT) 74 U/L (<=31); Alanine Aminotransfer ALT/SGPT 38 U/L (<=34); Albumin, Serum 4.4 g/dL (3.4-4.8); Alkaline Phosphatase 60 U/L (35-104); Anion Gap 12 (5-15); BUN 12 mg/dL (4-19); BUN/Creat Ratio 14.6 RATIO (10-20); Calcium,Total 9.3 mg/dL (7.6-11.0); Carbon Dioxide 25.8 mmol/L (21.0-32.0); Chloride 101 mmol/L (98-108); Globulin 3.1 g/dL (2.2-4.2); Glucose 94 mg/dL (70-99); Potassium 4.1 mmol/L (3.3-5.1); Vitamin D,25 Hydroxy 51.6 ng/mL (30-100)
== END | disposition home or self-care (01) ==
LOC: CIMLAB 11:49
PROVIDERS: PCP Internal Medicine; Referring Provider Internal Medicine; Visit Provider Internal Medicine
DX: E55.9 Vitamin D deficiency, unspecified (principal); M35.00 Sjogren syndrome, unspecified
CPT/HCPCS: 36415; 80053; 82306; 85025

== ENCOUNTER 2025-03-24 10:12 | Emergency (ER) | payer MEDICARE, BC, SELFPAY ==
[2025-03-24 10:14] VITALS: BP 125/75; PULSE 72; RESP 18; TEMP 36; O2SAT 98; BMI 25.3
--- NOTE | 2025-03-24 10:26 | RAD_ITS ---
PROCEDURE: SHOULDER MIN 2 VIEWS 03/24/2025 REASON FOR EXAM: FALL, PAIN TECHNIQUE: Procedure Code: RADSH Modality: DX Procedure: SHOULDER MIN 2 VIEWS Laterality: Left FINDINGS: No acute fracture or dislocations. No acute soft tissue abnormalities. No radiographic foreign body. RAD/Shoulder min 2 Views IMPRESSION: No acute fracture or dislocations. Reading Location: [id number]
--- NOTE | 2025-03-24 10:26 | RAD_ITS ---
PROCEDURE: CHEST PA AND LATERAL 03/24/2025 REASON FOR EXAM: LEFT SIDED CHEST WALL PAIN AFTER FALL TECHNIQUE: Procedure Code: RADCXR Modality: DX Procedure: CHEST PA AND LATERAL COMPARISON: 02/16/2024 FINDINGS: No focal consolidation. No pleural effusion or pneumothorax. Cardiac silhouette is within normal limits. No acute fractures. RAD/Chest PA and Lateral IMPRESSION: No focal consolidations. No acute fractures on this limited chest radiograph. Reading Location: [id number]
--- NOTE | 2025-03-24 10:29 | EX.ED.UPPERE ---
HPI History of Present Illness Chief Complaint: Upper Extremity Injury Narrative Narrative: Patient is a 64-year-old female presenting to the emergency department for left shoulder pain after a fall 1 week ago. She states [place] cow maneuver on the ground that she was try to walk around when she tripped and fell. She states that she thinks she tucked her left arm up under her chest. She states that she did not hit her head had no loss of consciousness and is not on any oral anticoagulation. Denies any other injuries. Denies any neck or back pain. States that she has been taking Aleve at home for pain control. She states that the pain is still present which is why she is here today. She is that she was able to work out still. [facility] Medical History (Updated 03/24/25 @ 11:[address] Gely Saunders MD) Non-smoker Sjogrens syndrome History of abnormal cervical Pap smear Hyperlipidemia Arthritis Anxiety Home Medications ?Medication ?Instructions ?Recorded ?Last Taken ?Type citalopram 20 mg tablet 20 mg PO QDAY #90 tabs 09/13/17 Unknown Rx hydroxychloroquine 200 mg tablet 200 mg PO DAILY 11/21/17 Unknown History vit B 1 cap PO DAILY 03/09/22 Unknown History complex-methyltetrahydrofolate glucosamine 680 mcg DFE capsule vitamin D3 1,250 mcg (50,000 1 cap PO DAILY 03/09/22 Unknown History unit)-vitamin K2 200 mcg capsule rosuvastatin 10 mg tablet (Crestor) 10 mg PO DAILY 03/12/23 Unknown History diazepam 5 mg tablet 5 mg PO QHS 04/11/23 Unknown History zolpidem 5 mg tablet 5 mg PO QHS PRN sleep 04/11/23 Unknown History Allergy/AdvReac Type Severity Reaction Status Date / Time Sulfa (Sulfonamide Allergy Hives Verified 03/24/25 10:14 Antibiotics) Family History Sister Brain tumor Surgical History History of endometrial ablation History of carpal tunnel surgery Hx of foot surgery Social History number of children: 2 Smoking Status: Never smoker alcohol intake: never substance use type: does not use caffeine: Yes what type of physical activity do you participate in: none seatbelt use: always do you feel safe at home: Yes additional social history: - Todd ROS ROS ED ROS Narrative see HPI EXAM Physical Exam Narrative Exam Narrative: Vital signs: Reviewed General: Alert and orientedx3. No acute distress. Well-appearing, nontoxic. HEENT: Head is normocephalic and atraumatic, sinuses nontender, pupils equal round and reactive. Nares are patent. Oropharynx and throat exams normal. Neck: Supple without lymphadenopathy nontender. No midline cervical spinal tenderness to palpation. No step-offs or deformities. Cardiovascular: Regular rate and rhythm, no murmurs. No rubs or gallops. Normal S1 and S2 Respiratory: Clear to auscultation bilaterally. No wheezes, rales, rhonchi Chest: There is mild left lateral chest wall tenderness to palpation. No crepitus, ecchymosis or erythema. Abdominal: Soft and nontender. Normal bowel sounds. No guarding or rebound. Nonsurgical abdomen Extremities: No tenderness to palpation of the left clavicle. There is some very mild tenderness to palpation of the proximal humerus. No tenderness to palpation of the distal humerus, elbow, forearm, wrist or hand. Radial pulse intact. Sensation and tact specifically over the axillary nerve. Patient able to fully AB duct and adduct the left shoulder. No midline thoracic or lumbar spinal tenderness to palpation. No step-offs or deformities. Skin: No rash or redness. The rest of the physical exam is unremarkable Const Vital Signs: 03/24/25 10:14 Temperature 96.8 F L Temperature Source Temporal Pulse Rate 72 Respiratory Rate 18 Blood Pressure 125/75 H Blood Pressure Mean 91 Pulse Ox 98 Oxygen Delivery Method Room Air MDM MDM MDM Narrative Medical decision making narrative: Patient is a 64-year-old female presenting to the emergency department for a fall and left shoulder pain. Patient was seen and examined. Vitals are stable. Patient resting in bed comfortably no acute distress. Differential includes but is not limited to: Shoulder sprain, fracture, dislocation, rib fractures, pneumothorax Patient offered analgesia but declined at this time. X-ray of the left shoulder and chest x-ray were obtained. X-rays reviewed by myself. On chest x-ray reviewed there is no pneumothorax and no rib fractures that I see. On review of the shoulder x-ray there is no clavicle fracture, humerus fracture, no dislocations. Radiology read in agreement with negative reads for both. Patient and at bedside were updated on the negative x-rays. Instructed on RICE therapy for home. Patient discharged from the Emergency Department. I do not feel that the patient's evaluation reveals any acute reason for admission at this time. I instructed them to either follow-up with their primary care physician or promptly return to the Emergency Department for reevaluation should symptoms worsen or new symptoms develop. I explained what symptoms would indicate the need to return to the emergency department. Shared decision making was used. The patient voiced understanding of the treatment plan and is agreeable with it. Clinical impression Fall Left shoulder pain Chest wall pain History & Record Review Discussion w/independent historian: Patient and Significant other Radiography Chest X-Ray - ED: 2 View, Read by ED Physician, Normal, Lungs (no pneumo), No Acute Disease and No Infiltrates X-Ray: Read by ED Physician and No Fracture Discharge Plan Triage Chief Complaint: Upper Extremity Injury Other Complaint: Back ED Provider: Gely Saunders Dx/Rx/DC Orders Clinical Impression: Acute shoulder pain due to trauma, Acute chest wall pain, Fall Instructions: ED Contusion, Upper Extremity, ED Fall Prevention, ED RICE Prescriptions: No Action vitamin D3-vitamin K2 1,250-200 mcg capsule 1 cap PO DAILY vit B [id number] 400 mcg DFE capsule 1 cap PO DAILY rosuvastatin [Crestor] 10 mg tablet 10 mg PO DAILY hydroxychloroquine 200 MG tablet 200 mg PO DAILY diazepam 5 mg tablet 5 mg PO QHS Patient Comments: take 1 tablet by mouth at bedtime zolpidem 5 mg tablet 5 mg PO QHS PRN (Reason: sleep) citalopram 20 mg tablet 20 mg PO QDAY Qty: 90 4RF Primary Care Provider: Linda Tubbs Referrals: Linda Tubbs MD [Primary Care Provider, Internal Medicine] - As soon as possible Activity Restrictions/Additional Instructions: Refer to the RICE therapy below to help with pain. Your evaluation in the Emergency Department did not reveal any acute reason for admission. However, I want to emphasize that you may be early in the course of a disease process or illness even if it is not present. For this reason you should follow-up within 24 hours for reevaluation with either your primary care physician or if necessary back here in the Emergency Department. You should return to the Emergency Department immediately if your symptoms worsen or new symptoms develop. Print Language: Citizen [place] Disposition Disposition: Home, Self Care
--- OUTSIDE RECORDS SUMMARY | 2025-03-24 10:53 | XMS RPT_ITS | CCD ---
Author Organization [facility] Care Team Providers Care Assistant Financial Accountant Name Role Phone Julia Brown Unavailable Deacon Smith Unavailable Maira Maravilla Unavailable Ho Alvarado Unavailable Hearing Services-- Pat Kat, [place] Unavail able Gama Swann Unavailable JASPAL Gary Unavailable Unavailable Unavailable Unavailable Unavailable Unavailable Manchak, Esme Unavailable Unavailable Gravius, Nicole Unavailable Unavailable Fast, Sally A Unavailable Manmiguelk, Esme Unavailable Unavailable Gravius, Nicole Unavailable Unavailable JASPAL Gary Unavailable Unavailable Julia Brown MD Unavailable Deacon Smith MD Unavailable Maira Maravilla Unavailable Dr. Ho Alvarado Unavailable Hearing Services-- Pat Kat, [place] Unavail able Shree Gama Unavailable Manlizbeth PEDRO, Esme Unavailable Unavailable Scarlet Hazel LPN Unavailable Unavailable Unavailable Unavailable JASPAL Gary LPN Unavailable Unavailable Julia Brown MD Unavailable Slalexus GREENEN, Saniya Unavailable Unavailable Julia Brown MD Attending Unavailable Julia Brown MD Referring Unavailable Julia Brown MD Consulting Unavailable [place] WILLIS, Kayela Unavailable Unavailable Dr. Julia Brown Primary Care Provider Dr. Sebastian Chin Attending Provider Dr. Julia Brown Primary Care Provider Dr. Sebastian Chin Attending Provider Dr. Julia Brown Referring Provider Dr. Susie Muir Attending Provider Julia Brown MD Primary Care Provider JULIA BROWN Primary Care Unavailable Rui, Dr. Mckeon Primary Care Provider Bonezzi, Julia Referring Unavailable Bonezzi, Julia Primary Care Unavailable Susie Muir Attending Unavailable Elsy, Sebastian Attending Unavailable Bonezzi, Julia Primary Care Unavailable Bonezzi, Julia Attending Unavailable Bonezzi, Julia Referring Unavailable Bonezzi, Julia Primary Care Unavailable Bonezzi, Julia Attending Unavailable Bonezzi, Julia Referring Unavailable Bonezzi, Julia Primary Care Unavailable Rui RENE, Dr. Mckeon Primary Care Physician [phone] Rui RENE, Dr. Mckeon Attending Physician Rui RENE, Dr. Mckeon Referring Provider Allergies Allergy Classification Reported Allergen(s) Allergy Type Date of Onset Reaction(s) Facility Amoxicillin / Clavulanate (4 sources) Amoxicillin / Clavulanate; Translations: [Augmentin *PENICILLINS*] Drug All[facility] Work Phone: Comment on above: diarrhea Cephalosporins (antibiotic) (4 sources) cefdinir; Translations: [Cefdinir *CEPHALOSPORINS*] Drug Allergy [facility] Work Phone: Sulfonamides (antibiotic) (1 source) Sulfonamides (Antibiotic); Translations: [SULFA (SULFONAMIDE ANTIBIOTICS)] Drug Allergy 4 [facility] Repository (20 sources) Amoxicillin / Clavulanate; Translations: [Augmentin *PENICILLINS*] Drug Allergy [facility] Work Phone: Comment on above: diarrhea (20 sources) cefdinir; Translations: [Cefdinir *CEPHALOSPORINS*] Drug Allergy [facility] Work Phone: (1 source) allergy to substance [facility] Work Phone: (20 sources) LevoFLOXacin *CHEMICALS*; Translations: [LevoFLOXacin *CHEMICALS*] drug allergy [facility] Work Phone: (1 source) allergy to substance [facility] Work Phone: (1 source) allergy to substance [facility] Work Phone: (1 source) allergy to substance [facility] Work Phone: (1 source) allergy to substance [facility] Work Phone: (1 source) allergy to substance [facility] Work Phone: (1 source) allergy to substance [facility] Work Phone: (1 source) allergy to substance [facility] Work Phone: (1 source) allergy to substance [facility] Work Phone: (1 source) allergy to substance [facility] Work Phone: (1 source) allergy to substance [facility] Work Phone: (1 source) allergy to substance [facility] Work Phone: (1 source) allergy to substance [facility] Work Phone: (1 source) allergy to substance [facility] Work Phone: (1 source) allergy to substance [facility] Work Phone: (1 source) allergy to substance [facility] Work Phone: (20 sources) sulfate (Renamed from Aspirin (Salicylates)) allergy to substance [facility] Work Phone: (20 sources) Acetaminophen / HYDROcodone; Translations: [HYDROcodone-Acet aminophen *ANALGESICS - OPIOID*] Drug Allergy [facility] Work Phone: Comment on above: nausea and vomiting (11 sources) Sulfonamides (Antibiotic); Translations: [Sulfa (Sulfonamide Antibiotics)] Allergy to substance 4 [facility] Medications Current Medications Medication Drug Class(es) Dates Sig (Normalized) Sig (Original) cycloSPORINE 0.5 mg/ml ophthalmic suspension (1 source) Calcineurin Inhibitor Immunosuppressant Start: 06-30-2016 RESTASIS 0.05 % ophthalmic emulsion diazePAM 5 mg oral tablet (2 sources) Benzodiazepine Start: 04-11-2023 take 1 tablet by mouth at bedtime doxycycline hyclate 100 mg oral tablet (20 sources) Tetracycline-class Drug Start: 10-29-2023 End: 11-05-2023 take 1 tablet by mouth twice daily doxycycline (VIBRA-TABS) 100 mg tablet Indications: Rhinosinusitis Take 1 tablet by mouth two times a day for 7 days. 14 tablet 0 10/29/2023 11/05/2023 Active Start: 09-20-2018 End: 09-27-2018 take 1 tablet by mouth twice daily Doxycycline Hyclate 100 MG Oral Tablet 1 (one) Tablet bid for 7 days Quantity: 14 {Tablet} Refills: 0 Ordered: 20-Sep-2018 Esme Boston CMA Start : 20-Sep-2018 End : 27-Sep-2018 Inactive fluticasone propionate 0.05 mg/actuat metered dose nasal spray (20 sources) Corticosteroid Start: 06-03-2018 take 2 spray(s) by mouth once daily fluticasone (FLONASE) 50 mcg/actuation nasal spray Indications: Sinobronchitis Use 2 Sprays in each nostril once daily. Rinse mouth after use. 1 Bottle 0 06/03/2018 Active Start: 09-16-2017 Flonase 50 MCG /ACT Nasal Suspension 1 (one) [place] 2 spray each day on left nostril for 0 days Quantity: 1 {Bottle} Refills: 0 Ordered: 16-Sep-2017 Rui RENE, Julia South MD Start : 16-Sep-2017 Active hydroxychloroquine sulfate 200 mg oral tablet (20 sources) Antimalarial, Antirheumatic Agent Start: 09-16-2017 Plaquenil 200 MG Oral Tablet 1 1/2 Tablet Tablet bid for 0 days Quantity: 60 {Tablet} Refills: 0 Ordered: 16-Sep-2017 Julia Brown MD, MD, Dana M Start : 16-Sep-2017 Active Start: 07-21-2016 take 1 tablet by mouth once da amrita methylPREDNISolone (1 source) Corticosteroid Start: 10-29-2023 End: 11-04-2023 methylPREDNISolone (MEDROL, ALYSE,) 4 mg Dose-Pack Indications: Acute cough Follow dosing instructions, take with food. 21 tablet 0 10/29/2023 11/04/2023 Active multivitamin ORAL tablet (1 source) take 1 tablet by mouth once daily multivitamin ORAL tablet Take 1 tablet by mouth once daily. 0 Active rosuvastatin calcium 10 mg oral tablet (20 sources) HMG-CoA Reductase Inhibitor Start: 03-12-2023 take 1 tablet by mouth once daily Start: 10-26-2022 take 1 tablet by angel th in the morning rosuvastatin 10 mg oral tablet 1 (one) Tablet in am for 0 days Quantity: 30 {Tablet} Refills: 6 Ordered: 26-Oct-2022 Julia Brown MD, MD, Dana M Start : 26-Oct-2022 Active Start: 06-08-2016 End: 06-08-2016 take 1 tablet by mouth in the morning Rosuvastatin Calcium 10 MG Oral Tablet 1 (one) Tablet Tablet in am for 0 days Quantity: 30 {Tablet} Refills: 6 Ordered: 08-Jun-2016 Julia Brown MD, MD, Dana M Start : 08-Jun-2016 End : 08-Jun-2016 Inactive Comments: myalgia Comment on above: myalgia Vit B Dfzt-Y-Snvrbrfqjvhack te (4 sources) Start: 03-09-2022 take 1 capsule by mouth once daily Vit B Ooca-S-Yjduekpibnsxxi te Active 1 CAP PO DAILY March 09, 2022 12:00am Start: 03-09-2022 Vit B Comp-M-T etrahydrofolate Active CAP PO March 09, 2022 12:00am Start: 03-09-2022 Vit B Comp-M-T etrahydrofolate Active CAP PO March 09, 2022 1:00am Vit B Fmrh-J-Vzgfdqbsdflleth e 400 mcg DFE capsule (1 source) Start: 03-09-2022 Vitamin D3-Vitamin K2 (5 sources) Start: 03-09-2022 Start: 03-09-2022 take 1 capsule by [facility] once daily Vitamin D3-Vitamin K2 Active 1 CAP PO DAILY March 09, 2022 12:00am Start: 03-09-2022 Vitamin D3-Vit cavazos K2 Active CAP PO March 09, 2022 12:00am Start: 03-09-2022 Vitamin D3-Vit cavazos K2 Active CAP PO March 09, 2022 1:00am zolpidem tartrate 5 mg oral tablet (20 sources) gamma-Aminobutyric Acid-ergic Agonist Start: 04-11-2023 take 1 tablet by mouth at bedtime as needed for sleep Start: 04-23-2022 Ambien 5 mg or al tablet 1 (one) Tablet at night prn for 0 days Quantity: 30 {Tablet} Refills: 3 Ordered: 26-Oct-2022 Julia Brown MD, MD, Dana M Start : 26-Oct-2022 Active Comments: thirty Start: 08-06-2021 Ambien 5 MG Or al Tablet 1 (one) Tablet at night prn for 0 days Quantity: 30 {Tablet} Refills: 3 Ordered: 06-Aug-2021 Julia Brown MD, MD, Dana M Start : 06-Aug-2021 Active Comments: [id number] [facility] to [facility] Start: 08-22-2020 Ambien 5 MG Or al Tablet 1 (one) Tablet at night prn for 0 days Quantity: 30 {Tablet} Refills: 3 Ordered: 22-Aug-2020 Rui RENE, Julia South MD Start : 22-Aug-2020 Active Comments: thirty Start: 02-07-2020 Ambien 5 MG Or al Tablet 1 (one) Tablet at night prn for 0 days Quantity: 30 {Tablet} Refills: 3 Ordered: 07-Feb-2020 Julia Brown MD, MD, Dana M Start : 07-Feb-2020 Active Comments: [id number] [facility] to [facility] Start: 07-21-2016 Ambien 5 MG Or al Tablet 1 (one) Tablet at night prn for 0 days Quantity: 30 {Tablet} Refills: 3 Ordered: 30-Jun-2019 Julia Brown MD, MD, Dana M Start : 30-Jun-2019 Active Comments: [id number] called to [facility] AMBIEN ALYSE 5 MG TAB Comment on above: 5-13-19 called to [facility] [id number] goff d to [facility] [id number] called to [facility] ayden reviewed Completed/Discontinued Medications Medication Drug Class(es) Dates Sig (Normalized) Sig (Original) acetaminophen 300 mg / codeine phosphate 30 mg oral tablet (20 sources) Opioid Agonist Start: 06-30-2019 End: 06-16-2021 take 1-2 tablets by mouth every six hours as needed for pain Tylenol with Codeine #3 300-30 MG Oral Tablet 1-2 Tablet every 6 hours prn pain for 0 days Quantity: 20 {Tablet} Refills: 0 Ordered: 30-Jun-2019 Julia Brown MD, MD, Dana M Start : 30-Jun-2019 End : 16-Jun-2021 Discontinued Comments: This order discontinued per -. Start: 08-09-2017 End: 09-16-2017 take 1-2 tablets by mouth every six hours as needed for pain Tylenol with Codeine #3 300-30 MG Oral Tablet 1-2 Tablet every 6 hours prn pain for 0 days Quantity: 20 {Tablet} Refills: 0 Ordered: 16-Sep-2017 JASPAL Gary LPN Start : 09-Aug-2017 End : 16-Sep-2017 Inactive Comments: twenty Comment on above: twenty This order discontin ued per -Span. acetaminophen 325 mg / HYDROcodone bitartrate 5 mg oral tablet (20 sources) Opioid Agonist Start: 05-09-19 End: 06-16-19 HYDROcodone-Acetam inophen 5-325 MG Oral Tablet 1-2 Tablet every 6 hours as needed for pain for 0 days Quantity: 20 {Tablet} Refills: 0 Ordered: 16-Jun-2021 JASPAL Gary LPN Start : 09-May-2021 End : 16-Jun-2021 Inactive Comments: Medication taken as needed. twenty Comment on above: Medication taken as needed. twenty [id number] 200 actuat albuterol 0.09 mg/actuat metered dose inhaler (20 sources) beta2-Adrenergic Agonist Start: 07-20-19 13 End: 03-13-20 14 take 2 puff(s) by inhalation three times daily as needed PROAIR HFA, 108 (90 Base)MCG/ACT (Inhalation Aerosol Solution) 2 (two) Puff(s) tid prn for 0 days Quantity: 1 {[place](s)} Refills: 0 Ordered: 13-Mar-2014 Padmini Coe RN Start : 19-Jul-2012 End : 13-Mar-2014 Inactive Start: 07-19-2012 End: 03-13-2014 take 2 puff(s) by inhalation three times daily as needed PROAIR HFA, 108 (90 Base)MCG/ACT (Inhalation Aerosol Solution) 2 (two) Puff(s) tid prn for 0 days Quantity: 1 {[place](s)} Refills: 0 Ordered: 13-Mar-2014 Padmini Coe RN Start : 19-Jul-2012 End : 13-Mar-2014 Inactive aspirin 81 mg chewable tablet (20 sources) Platelet Aggregation Inhibitor, Nonsteroidal Anti-inflammatory Drug Start: 09-16-2017 End: 08-25-2021 take 1 tablet by mouth in the morning Aspirin 81 81 MG Oral Tablet Chewable 1 (one) Tablet Tablet in am for 0 days Quantity: 30 {Tablet} Refills: 0 Ordered: 25-Aug-2021 Rui RENE, Julia South MD Start : 16-Sep-2017 End : 25-Aug-2021 Discontinued Start: 07-14-2010 End: 03-03-2012 ASPIRIN EC LO-DOSE, 81MG (Or al Tablet Delayed Release) [address] daily for 0 days Quantity: 30 {Tablet_DR} Refills: 0 Ordered: 03-Mar-2012 Padmini Coe RN Start : 14-Jul-2010 End : 03-Mar-2012 Inactive azithromycin 250 mg oral tablet (20 sources) Macrolide Antimicrobial Start: 07-07-2010 End: 07-14-2010 ZITHROMAX Z-ALYSE, 250MG (Oral Tablet) 1 Tablet uad for 0 days Quantity: 1 {Package(s)} Refills: 0 Ordered: 14-Jul-2010 JASPAL Gary LPN Start : 07-Jul-2010 End : 14-Jul-2010 Inactive Comments: will call if need Comment on above: will call if need benzonatate 100 mg oral capsule (20 sources) Non-narcotic Antitussive Start: 07-19-2012 End: 12-22-2013 take 1 capsule by mouth three times daily TESSALON PERLES, 100MG (Oral Capsule) 1 Capsule tid for 0 days Quantity: 30 {Capsule} Refills: 0 Ordered: 22-Dec-2013 JASPAL Gary LPN Start : 19-Jul-2012 End : 22-Dec-2013 Inactive augmented betamethasone 0.5 mg/ml topical cream (20 sources) Corticosteroid Start: 06-20-2018 End: 09-05-2018 Betamethasone Dipropionate Aug 0.05 % External Cream uad Application Application apply to affected area(s) prn for 0 days Quantity: 30 {Gram} Refills: 3 Ordered: 05-Sep-2018 JASPAL Gary LPN Start : 20-Jun-2018 End : 05-Sep-2018 Inactive cefdinir 300 mg oral capsule (20 sources) Cephalosporin Antibacterial Start: 03-22-2017 End: 03-31-2017 take 1 capsule by mouth twice daily Cefdinir 300 MG Oral Capsule 1 (one) Capsule Capsule bid for 0 days Quantity: 20 {Capsule} Refills: 0 Ordered: 31-Mar-2017 Amy Huizar Start : 22-Mar-2017 End : 31-Mar-2017 Discontinued cefuroxime 500 mg oral tablet (20 sources) Cephalosporin Antibacterial Start: 06-18-2022 End: 10-26-2022 take 1 tablet by mouth twice daily cefUROXime axetiL 500 mg oral tablet 1 (one) Tablet bid for 0 days Quantity: 20 {Tablet} Refills: 0 Ordered: 26-Oct-2022 Rui RENE, Julia Brown MD, Julia Bhardwaj Start : 18-Jun-2022 End : 26-Oct-2022 Inactive Start: 06-16-2021 End: 08-19-2021 take 1 tablet by mouth twice daily Cefuroxime Axetil 500 MG Oral Tablet 1 (one) Tablet bid for 0 days Quantity: 20 {Tablet} Refills: 0 Ordered: 19-Aug-2021 JASPAL Gary LPN Start : 16-Jun-2021 End : 19-Aug-2021 Inactive Start: 05-08-2021 take 1 tablet by angel twice daily Cefuroxime Axetil 500 MG Oral Tablet 1 (one) Tablet bid for 0 days Quantity: 20 {Tablet} Refills: 0 Ordered: 08-May-2021 Julia Brown MD, MD, Dana M Start : 08-May-2021 Active cholecalciferol 1.25 mg oral tablet (9 sources) Vitamin D Start: 02-07-2020 End: 03-09-2022 Cholecalciferol (Vitamin D3) (Dialyvite Vitamin D3 Max) 1,250 mcg (50,000 unit) tablet Discontinued 1250 ug PO EVERY WEEK February 07, 2020 12:00am March 09, 2022 9:43am citalopram 20 mg oral tablet (20 sources) Serotonin Reuptake Inhibitor Start: 12-12-2018 take 1 tablet by mouth once daily Citalopram Hydrobromide 10 MG Oral Tablet 1 (one) Tablet qd for 0 days Quantity: 90 {Tablet} Refills: 3 Ordered: 12-Dec-2018 Julia Brown MD, MD, Dana M Start : 12-Dec-2018 Active Comments: Mail order. Start: 05-12-2018 take 1 tablet by angel th once daily, then take 1 tablet by mouth once daily Citalopram Hydrobromide 10 MG Oral Tablet 1 (one) Tablet qd for 0 days Quantity: 30 {Tablet} Refills: 0 Ordered: 12-May-2018 Julia Brown MD, MD, Dana M Start : 12-May-2018 Active Comments: 05-12-18 patient says only taking one qd and she is fine Start: 09-16-2017 take 5.5 tablets by mouth once daily Citalopram Hydrobromide 10 MG Oral Tablet 11/2 Tablet qd for 0 days Quantity: 30 {Tablet} Refills: 0 Ordered: 16-Sep-2017 Julia Brown MD, MD, Dana M Start : 16-Sep-2017 Active Start: 03-09-2016 End: 09-13-2017 take 1 tablet by mouth once daily Citalopram 20 mg tablet Discontinued 20 mg PO daily August 30, 2017 12:00am September 13, 2017 8:08pm Comment on above: 05-12-18 patient says only taking one qd and she is fine Mail order. 24 hr clarithromycin 500 mg extended release oral tablet (20 sources) Macrolide Antimicrobial Start: 3 End: 3 take 2 tablets by mouth once daily BIAXIN XL PAC, 500MG (Oral Tablet Extended Release 24 Hour) 2 (two) Tablet ER 24HR daily for 10 days Quantity: 20 {Tablet_ER_24HR} Refills: 0 Ordered: 19-Jul-2012 Supriya Neumann Start : 19-Jul-2012 End : 29-Jul-2012 Inactive Start: 07-19-2012 End: 07-29-2012 take 2 tablets by mouth once daily BIAXIN XL PAC, 500MG (Oral Tablet Extended Release 24 Hour) 2 (two) Tablet ER 24HR daily for 10 days Quantity: 20 {Tablet_ER_24HR} Refills: 0 Ordered: 19-Jul-2012 Supriya Neumann CNP Start : 19-Jul-2012 End : 29-Jul-2012 Inactive codeine phosphate 2 mg/ml / guaiFENesin 20 mg/ml oral solution (20 sources) Opioid Agonist Start: 08-08-2018 End: 09-05-2018 take 5 mL by mouth every six hours as needed Cheratussin AC 100-10 MG/5ML Oral Syrup 5 Milliliter every 6 hours prn for 0 days Quantity: 60 {Milliliter} Refills: 0 Ordered: 05-Sep-2018 JASPAL Gary LPN Start : 08-Aug-2018 End : 05-Sep-2018 Inactive Start: 07-07-2010 End: 07-14-2010 CHERATUSSIN AC, 100-10MG/5ML (Oral Syrup) 1-2 Teaspoon(s) every 6 hours prn for 0 days Quantity: 6 {Ounce(s)} Refills: 0 Ordered: 14-Jul-2010 JASPAL Gary Start : 07-Jul-2010 End : 14-Jul-2010 Inactive ergocalciferol 1.25 mg oral capsule (20 sources) Provitamin D2 Compound Start: 08-25-2021 End: 08-25-2021 take 1 capsule by mouth every week Ergocalciferol 1.25 MG (04533 UT) Oral Capsule 1 (one) Capsule q weekly for 0 days Quantity: 12 {Capsule} Refills: 3 Ordered: 25-Aug-2021 Rui RENE, Julia Brown MD, Julia Bhardwaj Start : 25-Aug-2021 End : 25-Aug-2021 Discontinued Comments: Mail order. Start: 07-16-2020 take 1 capsule by mo tnh every week Ergocalciferol 1.25 MG (20613 UT) Oral Capsule 1 (one) Capsule q weekly for 0 days Quantity: 12 {Capsule} Refills: 3 Ordered: 16-Jul-2020 Julia Brown MD, MD, Dana M Start : 16-Jul-2020 Active Comments: Mail order. Start: 08-28-2019 take 1 capsule by mo ut every week Ergocalciferol 1.25 MG (38784 UT) Oral Capsule 1 (one) Capsule q weekly for 0 days Quantity: 12 {Capsule} Refills: 3 Ordered: 28-Aug-2019 Rui RENE, Julia South MD Start : 28-Aug-2019 Active Comments: Mail order. Start: 09-28-2018 take 1 capsule by mo [facility] every week Ergocalciferol 71328 UNIT Oral Capsule 1 (one) Capsule q weekly for 0 days Quantity: 90 {Capsule} Refills: 3 Ordered: 28-Sep-2018 Rui RENE, Julia South MD Start : 28-Sep-2018 Active Comments: Mail order. Start: 09-16-2017 take 1 capsule by mo [facility] every week Ergocalciferol [id number] UNIT Oral Capsule 1 (one) Capsule q weekly for 0 days Quantity: 12 {Capsule} Refills: 3 Ordered: 15-Jul-2018 Julia Brown MD, MD, Dana M Start : 15-Jul-2018 Active Start: 06-17-2016 ergocalciferol , vitamin D2, (DRISDOL) 50,000 unit capsule Comment on above: Mail order. estradiol 0.01 mg vaginal insert (20 sources) Estrogen Start: 12-22-2013 End: 11-03-2016 Vagifem 10 MCG Vaginal Tablet 1 Tablet three times a week for 0 days Quantity: 12 {Tablet} Refills: 7 Ordered: 03-Nov-2016 JASPAL Gary LPN Start : 22-Dec-2013 End : 03-Nov-2016 Inactive FLUoxetine 10 mg oral capsule (20 sources) Serotonin Reuptake Inhibitor Start: 11-01-2014 End: 11-03-2016 take 1 capsule by mouth once daily FLUoxetine HCl 10 MG Oral Capsule 1 Capsule qd for 0 days Quantity: 90 {Capsule} Refills: 3 Ordered: 03-Nov-2016 JASPAL Gary LPN Start : 01-Nov-2014 End : 03-Nov-2016 Inactive Comments: Mail order. take 1 tablet by mouth once carl y SARAFEM, 10MG (Oral Tablet) 1 qd (10 MG) Inactive Comment on above: Mail order. hydrocortisone valerate 2 mg/ml topical cream (20 sources) Corticosteroid Start: 11-24-2022 hydrocortisone valerate 0.2 % topical cream uad Cream apply bid prn on ezcema for 0 days Quantity: 15 {Gram} Refills: 1 Ordered: 24-Nov-2022 Julia Brown MD, MD, Dana M Start : 24-Nov-2022 Active Start: 10-26-2022 hydrocortisone valerate 0.2 % topical cream uad Cream apply bid prn on ezcema for 0 days Quantity: 15 {Gram} Refills: 1 Ordered: 26-Oct-2022 Julia Brown MD, MD, Julia Bhardwaj Start : 26-Oct-2022 Active Start: 06-20-2018 End: 06-22-2019 Hydrocortisone Valerate 0.2 % External Cream uad Cream apply bid for 0 days Quantity: 15 {Gram} Refills: 3 Ordered: 22-Jun-2019 JASPAL Gary LPN Start : 20-Jun-2018 End : 22-Jun-2019 Inactive Start: 03-08-2017 End: 09-16-2017 Hydrocortisone Valerate 0.2 % External Cream uad Cream apply bid for 0 days Quantity: 1 {Tube} Refills: 3 Ordered: 16-Sep-2017 JASPAL Gary Start : 08-Mar-2017 End : 16-Sep-2017 Inactive hydrOXYzine hydrochloride 25 mg oral tablet (20 sources) Antihistamine Start: 03-19-2020 End: 08-25-2021 take 1 tablet by mouth every six hours as needed hydrOXYzine HCl 25 MG Oral Tablet 1 (one) Tablet q 6 hours prn itching for 0 days Quantity: 20 {Tablet} Refills: 0 Ordered: 25-Aug-2021 JASPAL Gary LPN Start : 19-Mar-2020 End : 25-Aug-2021 Inactive Start: 02-08-2018 End: 06-22-2019 take 1 tablet by mouth every six hours as needed hydrOXYzine HCl 25 MG Oral Tablet 1 (one) Tablet Tablet q 6 hours prn itching for 0 days Quantity: 20 {Tablet} Refills: 0 Ordered: 22-Jun-2019 JASPAL Gary LPN Start : 08-Feb-2018 End : 22-Jun-2019 Inactive ibuprofen 600 mg oral tablet (20 sources) Nonsteroidal Anti-inflammatory Drug Start: 06-08-2012 End: 03-13-2014 take 1 tablet by mouth every eight hours as needed IBUPROFEN, 600MG (Oral Tablet) 1 Tablet q 8 hr prn with food for 0 days Quantity: 90 {Tablet} Refills: 0 Ordered: 13-Mar-2014 Padmini Coe RN Start : 08-Jun-2012 End : 13-Mar-2014 Inactive Start: 11-20-2010 take 200-400 mg by m outh every two hours as needed ibuprofen (ADVIL) 200 mg ORAL tablet Take 1-2 tablets by mouth every 2 hours as needed. FOR PAIN. 0 11/20/2010 Active levoFLOXacin 500 mg oral tablet (20 sources) Quinolone Antimicrobial Start: 03-31-2017 End: 04-07-2017 take 1 tablet by mouth once daily LevoFLOXacin 500 MG Oral Tablet 1 (one) Tablet daily for 7 days Quantity: 7 {Tablet} Refills: 0 Ordered: 31-Mar-2017 Amy Huizar Start : 31-Mar-2017 End : 07-Apr-2017 Inactive Comments: with probiotic Comment on above: with probiotic LORazepam 0.5 mg oral tablet (20 sources) Benzodiazepine Start: 12-22-2013 End: 11-03-2016 Ativan 0.5 MG Oral Tablet 1 (one) Tablet Tablet at night prn sleep for 0 days Quantity: 30 {Tablet} Refills: 0 Ordered: 03-Nov-2016 JASPAL Gary LPN Start : 22-Dec-2013 End : 03-Nov-2016 Inactive Comments: thirty Comment on above: thirty metaxalone 800 mg oral tablet (20 sources) Start: 06-21-2012 End: 12-22-2013 take 1 tablet by mouth three times daily as needed METAXALONE, 800MG (Oral Tablet) 1 Tablet tid prn for 0 days Quantity: 30 {Tablet} Refills: 0 Ordered: 22-Dec-2013 JASPAL Gary LPN Start : 21-Jun-2012 End : 22-Dec-2013 Inactive Comments: thirty Comment on above: thirty omeprazole 20 mg delayed release oral tablet (20 sources) Proton Pump Inhibitor Start: 01-05-2022 take 1 tablet by mouth in the morning omeprazole 20 mg oral tablet, delayed release (enteric coated) 1 (one) Tablet in am for 0 days Quantity: 30 {Tablet} Refills: 1 Ordered: 05-Jan-2022 Rui RENE, Julia South MD Start : 05-Jan-2022 Active Start: 10-17-2021 take 1 tablet by angel th in the morning Omeprazole 20 MG Oral Tablet Delayed Release 1 (one) Tablet in am for 0 days Quantity: 30 {Tablet} Refills: 1 Ordered: 17-Oct-2021 Rui RENE, Julia South MD Start : 17-Oct-2021 Active Start: 08-25-2021 take 1 tablet by angel th in the morning Omeprazole 20 MG Oral Tablet Delayed Release 1 (one) Tablet in am for 0 days Quantity: 30 {Tablet} Refills: 1 Ordered: 25-Aug-2021 Rui RENE, Julia Brown MD, Julia Bhardwaj Start : 25-Aug-2021 Active ospemifene 60 mg oral tablet (20 sources) Start: 06-27-2018 End: 03-12-2023 take 1 tablet by mouth once daily at mealtime Ospemifene (Osphena) 60 mg tablet Discontinued 0 .ROUTE .COMPLEX 90 3 May 18, 2022 9:50am March 12, 2023 3:39pm take 1 tablet by mouth once daily WITH A HIGH FAT MEAL prasterone 50 mg oral capsule (20 sources) Start: 03-03-2012 End: 03-13-2014 take 1 capsule by mouth once daily DHEA, 50MG (Oral Capsule) 1 Capsule daily for 0 days Quantity: 30 {Capsule} Refills: 0 Ordered: 13-Mar-2014 Padmini Coe RN Start : 03-Mar-2012 End : 13-Mar-2014 Inactive predniSONE 20 mg oral tablet (20 sources) Start: 06-18-2022 End: 10-26-2022 predniSONE 20 mg oral tablet 1 (one) Tablet bid for three days for 0 days Quantity: 6 {Tablet} Refills: 0 Ordered: 26-Oct-2022 Griffin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 [facility] [address] [place], [address] Hemoglobin (Bld) [Mass/Vol] 12.6 g/dL Normal 12.0-15.0 [facility] Comment on above: Performed By: #### L 100.0100 #### [facility] [address] [place], [address] IG% 0.300 Normal 0.0-0.9 [facility] Comment on above: Result Comment: IG% - Immature Granulocytes (promyelocytes, myelocytes and metamyelocytes) > 1% indicates that a LEFT SHIFT is Present. Performed By: #### L 100.0100 #### [facility] [address] [place], [address] Lymphocytes/100 WBC (Bld) 32.7 % Normal 19-41 [facility] Comment on above: Performed By: #### L 100.0100 #### [facility] [address] [place], [address] MCH (RBC) [Entitic mass] 31.4 pg Normal 27.0-32.0 [facility] Comment on above: Performed By: #### L 100.0100 #### [facility] [address] [place], [address] MCHC (RBC) [Mass/Vol] 33.5 g/dL Normal 32-36 [facility] Comment on above: Performed By: #### L 100.0100 #### [facility] [address] [place], [address] MCV (RBC) [Entitic vol] 93.8 fL Normal 81-99 [facility] Comment on above: Performed By: #### L 100.0100 #### [facility] [address] [place], [address] Monocytes/100 WBC (Bld) 13.3 % High 0-10 [facility] Comment on above: Performed By: #### L 100.0100 #### [facility] [address] [place], [address] Neutrophils/100 WBC (Bld) 39.2 % Low 47-70 [facility] Comment on above: Performed By: #### L 100.0100 #### [facility] [address] [place], [address] Nucleated RBC (Bld) [#/Vol] 0 10*3/uL Normal 0-5 [facility] Comment on above: Performed By: #### L 100.0100 #### [facility] [address] [place], [address] Platelet mean volume (Bld) [Entitic vol] 11.1 fL Normal 6.2-12.0 [facility] Comment on above: Performed By: #### L 100.0100 #### [facility] [address] [place], [address] Platelets (Bld) [#/Vol] 223 10*3/uL Normal 150-450 [facility] Comment on above: Performed By: #### L 100.0100 #### [facility] [address] [place], [address] RBC (Bld) [#/Vol] 4.01 10*6/uL Low 4.2-5.4 [facility] Comment on above: Performed By: #### L 100.0100 #### [facility] [address] [place], [address] RDW SD 43.8 fl Normal 35.1-43.9 [facility] Comment on above: Performed By: #### L 100.0100 #### [facility] [address] [place], [address] WBC (Bld) [#/Vol] 3.5 10*3/uL Low 4.4-11.0 [facility] Comment on above: Performed By: #### L 100.0100 #### [facility] [address] [place], [address] Eosinophil percentageOrdered By: Julia Brown on 12-22-2024 Eosinophils/100 WBC (Bld) 13.3 % High 0-5 [facility] Erythrocyte distribution wid th ratioOrdered By: Julia Brown on 12-22-2024 Erythrocyte distribution width (RBC) [Ratio] 12.7 % 11.6-14.6 [facility] Erythrocyte distribution wid th standard deviationOrdered By: Julia Brown on 12-22-2024 Erythrocyte distribution width (RBC) [Ratio] 43.8 fl 35.1-43.9 [facility] Hematocrit Auto (Bld) [Volum e fraction]Ordered By: Julia Brown on 12-22-2024 Hematocrit (Bld) [Volume fraction] 37.6 % 37-47 [facility] Hemoglobin measurementOrdere d By: Julia Brown on 12-22-2024 Hemoglobin (Bld) [Mass/Vol] 12.6 g/dL 12.0-15.0 [facility] Immature granulocytes/100 WB C Auto (Bld)Ordered By: Julia Brown on 12-22-2024 Immature granulocytes/100 WBC (Bld) 0.300 % 0.0-0.9 [facility] Comment on above: IG% - Immature Granu locytes (promyelocytes, myelocytes and metamyelocytes) > 1% indicates that a LEFT SHIFT is Present. MCV (mean corpuscular volume ) determinationOrdered By: Julia Brown on 12-22-2024 MCV (RBC) [Entitic vol] 93.8 fL 81-99 [facility] Mean corpuscular hemoglobin (MCH) determinationOrdered By: Julia Brown on 12-22-2024 MCH (RBC) [Entitic mass] 31.4 pg 27.0-32.0 [facility] Mean corpuscular hemoglobin concentration (MCHC) determinationOrdered By: Julia Brown on 12-22-2024 MCHC (RBC) [Mass/Vol] 33.5 g/dL 32-36 [facility] Mean platelet volume determi nationOrdered By: Julia Brown on 12-22-2024 Platelet mean volume (Bld) [Entitic vol] 11.1 fL 6.2-12.0 [facility] Monocyte percentageOrdered B y: Julia Brown on 12-22-2024 Monocytes/100 WBC (Bld) 13.3 % High 0-10 [facility] Neutrophil percentageOrdered By: Julia Brown on 12-22-2024 Neutrophils/100 WBC (Bld) 39.2 % Low 47-70 [facility] Nucleated red blood cell per centageOrdered By: Julia Brown on 12-22-2024 Nucleated RBC/100 WBC (Bld) [Ratio] 0 % 0-5 [facility] Platelet countOrdered By: Paras Brown on 12-22-2024 Platelets (Bld) [#/Vol] 223 10*3/uL 150-450 [facility] RBC Auto (Bld) [#/Vol]Ordere d By: Julia Rui on 12-22-2024 RBC (Bld) [#/Vol] 4.01 10*6/uL Low 4.2-5.4 [facility] White blood cell (WBC) count Ordered By: Julia Rui on 12-22-2024 WBC (Bld) [#/Vol] 3.5 10*3/uL Low 4.4-11.0 [facility]ger Office Visit Reporton 04-03-2024 [facility] Office Visit Report [facility] [address], [address] [place] [address] OFFICE VISIT Date of Service: 04/03/24 MR#: [id number] Acct: [id number] Name: SARAH LEARY Rep #: [id number] : 1960 Provider: Dr. Susie ceja MD Age/Sex: 63/F [place] [facility] [place]: Signed Intake Vital Signs 03/12/23 14:44 04/11/23 03:33 02/16/24 12:12 04/03/24 08:01 Height 5 ft 4 in 5 ft 4 in 5 ft 4 in 5 ft 4 in Weight: 151 lb BMI 25.9 BP 116/75 Intake Visit Reasons: Annual (ETL LEAD) [employer] Required: No Is patient in pain?: No Feel stressed/tense/nervous/an xious/difficulty sleeping: not at all Allergies Sulfa (Sulfonamide Antibiotics) Allergy (Verified 04/03/24 08:03) Hives Medications ???Medication ???Instructions ???Recorded ???Confirmed ???Type citalopram 20 mg tablet 20 mg PO QDAY #90 tabs 09/13/17 04/03/24 Rx hydroxychloroquine 200 mg tablet 200 mg PO DAILY 11/21/17 04/03/24 History vit B 1 cap PO DAILY 03/09/22 04/03/24 History complex-methyltetrahydrof olate glucosamine 680 mcg DFE capsule vitamin D3 1,250 mcg (50,000 1 cap PO DAILY 03/09/22 04/03/24 History unit)-vitamin K2 200 mcg capsule rosuvastatin 10 mg tablet (Crestor) 10 mg PO DAILY 03/12/23 04/03/24 History diazepam 5 mg tablet 5 mg PO QHS 04/11/23 04/03/24 History zolpidem 5 mg tablet 5 mg PO QHS PRN sleep 04/11/23 04/03/24 History Is last menstrual period known: No Post menopausal: Yes Patient : No : No [facility] Medical History (Updated 04/19/23 @ 00:00 by Zahra King) Sjogrens syndrome History of abnormal cervical Pap smear Hyperlipidemia Arthritis Anxiety Surgical History History of endometrial ablation History of carpal tunnel surgery Hx of foot surgery Family History Sister Brain tumor Social History (Updated 04/03/24 @ 08:05 by Marisela Monroy) number of children: 2 Smoking Status: Never smoker alcohol intake: never substance use type: does not use caffeine: Yes what type of physical activity do you participate in: none seatbelt use: always do you feel safe at home: Yes additional social history: - Mary History 2 Elective abortions Hx Para 2 Spontaneous abortions Hx # Term Pregnancies Ectopic pregnancies Hx # Pregnancies Multiple births # of living children Past Pregnancies Del. Date Name GA/Weeks Outcome Route Bth Weight Infant Gen Labor Lgth Anesthesia Del Locatn Provider FOB Unknown 1986 Kamran Unknown 1989 Rosario HPI Encounter for routine gynecological examination Details: SARAH LEARY is a 63 year old who presents for annual exam. Last PAP: 03/12/2023 - showed atrophy and inflammation History of abnormal PAP: no severe Last mammogram: today History of abnormal mammogram: Colon cancer screening: Up to date on colonoscopy Other preventative health care screenings: Dr. Brown - PCP monitors routine labs Female Reproductive History Questions: metorrhagia: No, sexually active: Yes, dyspareunia: No and PCB: No Menopausal Symptoms: No hot flashes, No night sweats, No weight change, No mood changes, No difficulty concentrating, No sleep problems and No change in libido ROS Const Constitutional: Reports as per HPI; Denies fatigue, increased appetite, poor appetite, night sweats, weight gain or weight loss Cardio Card: Denies chest pain Resp Resp: Denies cough or dyspnea GI GI: Reports as per HPI; Denies abdominal pain, bloating, constipation, nausea or vomiting : Reports as per HPI and other; Denies difficulty voiding, dysuria, hematuria, hot flashes, nipple discharge, pelvic pain, prolapse symptoms, urinary frequency, urinary incontinence, urinary urgency, vaginal discharge, vaginal dryness, vaginal odor or vaginal pruritus Skin Skin/Breast: Denies changing lesions, breast mass, breast pain, breast skin changes or nipple discharge Psych Psych: Denies anxiety, change in libido, depression or difficulty concentrating Exam Const General: cooperative, healthy appearing, comfortable, no acute distress, well developed and well groomed HENMT Head: normal to inspection and normocephalic Ears: hearing grossly normal bilaterally and external ears normal Nose: external nose normal Face and sinus: normal facial exam Neck Neck: normal visual inspection, full ROM and no lymphadenopathy Thyroid: thyroid normal Chest Chest palpation inspection: normal inspection of the chest Breast inspection: normal inspection of the breasts and normal inspection of the axillae Breast palpation: normal palpation of the breasts, normal palpation of the axillae and no axillary lymphaden (more content not included)... Normal [facility] SCRN MAMM (CAD)W/KATIE BILATo n 04-03-2024 SCRN MAMM (CAD)W/KATIE BILAT [facility] Services [address] [place], [place] [id number] SCRN MAMM (CAD)W/KATIE BILAT MR#: [id number] Acct: [id number] Name: SARAH LEARY Rep #: [id number] : 1960 F 63 From: Pancho norton MD PCP: Dr. Julia Brown MD Status: REG [facility] Study: SCRN MAMM (CAD)W/KATIE BILAT Date of Exam: 01/17 Exam# [id number] Ordering Dr: Julia Brown MD [id number] MAMMOGRAPHY - BILATERAL SCREENING REASON FOR EXAM: Female, 63 years old. Routine annual screening examination. PERTINENT HISTORY: Non-contributory. TECHNIQUE: Digital bilateral breast katie (3D mammographic acquisition) in the CC and MLO projections. 2-D mediolateral oblique (MLO) and craniocaudad (CC) views of both breasts were obtained. CAD: Full Field Digital Mammography with Computer Added Detection was performed. COMPARISON: Comparison is made with prior study March 12, 2023 and February 23, 2022. FINDINGS: Breast Composition: There are scattered areas of fibroglandular density. There are no dominant masses or suspicious calcifications. Stable small benign-appearing bilateral axillary lymph nodes. No other significant abnormalities are identified. There has been no significant change since the prior study. BI/SCRN MAMM (CAD)W/KATIE BILAT IMPRESSION: Stable bilateral screening mammogram. Yearly follow-up mammogram recommended. (A) ASSESSMENT CATEGORY: BIRADS Category 2: Benign. A letter regarding these results will be sent to the patient by the facility within 30 days. Approximately 10% of breast cancers are not detected by mammography. A normal mammogram should not delay biopsy of a clinically suspicious abnormality. [id number] Electronically Signed: Pancho Lopez MD at 8:25 EST , CC: Dr. Julia Brown MD Assistant In Nursing: Signed Normal [facility] Chest PA and Lateralon 02-15 Chest PA and Lateral [facility] [address] [place] [address] Chest PA and Lateral MR#: [id number] Acct: [id number] Name: SARAH LEARY Rep #: [id number] : 1960 F 63 From: Ray Pardo MD PCP: Dr. Julia Brown MD Status: DEP AMB Study: Chest PA and Lateral Date of Exam: 02/16/24 Exam# [id number] Ordering Dr: Julia Brown MD [id number] EXAM: XR CHEST, 2 VIEWS CLINICAL INDICATION: cough TECHNIQUE: Frontal and lateral views of the chest. COMPARISON: 04/11/2023 FINDINGS: LUNGS AND PLEURAL SPACES: Unremarkable. No consolidation or edema. No pneumothorax. No effusion. HEART: Unremarkable. Cardiac silhouette not enlarged. MEDIASTINUM: Central airways and mediastinal contour are unremarkable. BONES/JOINTS: Unremarkable. No acute fracture. SOFT TISSUES: Unremarkable. RAD/Chest PA and Lateral IMPRESSION: No radiographic evidence of acute cardiopulmonary disease. Electronically Signed: Ray Pardo MD at 23:58 EDT , CC: Dr. Julia Brown MD [facility]: [facility] ([facility] ) ----- SARAH LEARY ([id number]) 1960 F Date Time Provider Department 10/29/23 7:45 PM [facility] During your visit today, we recorded the following information about you: Temperature Pulse Respiration Blood pressure 99.9 degrees 78/minute 16/minute 106/60 Weight 67.6 kg Sukhjinder Martin APRN.MACHINE MAINTENANCE REPAIRER 10/29/2023 8:01 PM Signed CC: Patient presents with: Cough: Congestion x2 weeks HPI: Sarah Leary is a 63 year old female who presents to the office with complaint of head congestion and cough, nonproductive for 2 weeks. Symptoms are worsening Associated symptoms includes wheezing and dyspnea. Denies fever, nausea, vomiting , and diarrhea. Treatments tried include nothing so far. with no relief of symptoms. Sick contacts: unknown. History of asthma, frequent episodes of bronchitis, chronic bronchitis, bronchiectasis or COPD: No Smoker: No Seasonal/environmental allergies: No The ROS is otherwise negative. The patient's pmh, medications, allergies, and past visits are reviewed. PHYSICAL EXAM: BP 106/60 Pulse 78 Temp 37.7 ?C (99.9 ?F) Resp 16 Wt 67.6 kg (149 lb 0.5 oz) LMP 02/13/2006 SpO2 97% BMI 25.76 kg/m? General appearance: alert, cooperative, pleasant, in no acute distress Head: Normocephalic Eyes: EOM's intact, conjunctiva pink and moist, no icterus, sclera white, non-injected Ears: Right ear: External ear/canal- Normal, TM - clear with good landmarks. Left ear: External ear/canal- Normal, TM - clear with good landmarks Oropharynx:moist without lesions, No erythema, exudates or tonsillar hypertrophy. Heart: Negative. RRR without obvious murmur, gallop, or rubs. No ectopy. Lungs: clear to auscultation, without rales or wheeze, good air exchange PAST MEDICAL HISTORY Diagnosis Date Depression Excessive or frequent menstruation Resolved Mixed hyperlipidemia Hyperlipidemia PAST SURGICAL HISTORY Procedure Laterality Date DILATION AND CURETTAGE DXAND/THER NONOBSTETRIC 1984 LIG/TRNSXJ FLP TUBE ABDL/VAG APPR UNI/BI Tubal ligation PAST SURGICAL HISTORY OF 2004 finger PAST SURGICAL HISTORY OF 01/12/06 marisel PAST SURGICAL HISTORY OF carpal tunnel PAST SURGICAL HISTORY OF planter fascitis ALLERGIES Sulfa (Sulfonamide Antibiotics) MEDICATIONS fluticasone (FLONASE) 50 mcg/actuation nasal spray Use 2 Sprays in each nostril once daily. Rinse mouth after use. RESTASIS 0.05 % ophthalmic emulsion ergocalciferol, vitamin D2, (DRISDOL) 50,000 unit capsule hydroxychloroquine (PLAQUENIL) 200 mg tablet simvastatin (ZOCOR) 10 mg tablet zolpidem (AMBIEN) 5 mg tablet citalopram (CELEXA) 20 mg tablet Take 1 tablet by mouth once daily. ibuprofen (ADVIL) 200 mg ORAL tablet Take 1-2 tablets by mouth every 2 hours as needed. FOR PAIN. methylPREDNISolone (MEDROL, ALYSE,) 4 mg Dose-Pack Follow dosing instructions, take with food. doxycycline (VIBRA-TABS) 100 mg tablet Take 1 tablet by mouth two times a day for 7 days. traZODone (DESYREL) 50 mg tablet Take 1 tablet by mouth daily at bedtime. AMBIEN ALYSE 5 MG TAB LORazepam (ATIVAN) 0.5 mg tab Take by mouth three times daily as needed. multivitamin ORAL tablet Take 1 tablet by mouth once daily. FAMILY HISTORY Problem Relation Age of Onset Heart Father By-pass surgery Diabetes Mother Hypertension Father Allergies Mother Cancer Sister Brain Heart Failure Sister Arthritis Mother Heart Failure Father Social History Tobacco Use Smoking status: Never Smokeless tobacco: Never Substance Use Topics Alcohol use: Yes Comment: 2 glass of wine Occasionally Drug use: No ASSESSMENT/PLAN: 1. Rhinosinusitis - ICD9: 473.9, ICD10: J32.9 (primary diagnosis) - DOXYCYCLINE HYCLATE 100 MG TABLET 2. Acute cough - ICD9: 786.2, ICD10: R05.1 - METHYLPREDNISOLONE 4 MG TABLETS IN A DOSE PACK Treated for sinus infection and possible pneumonia no xray available at this time. Prescription instructions reviewed with patient as applicable. Potential red flag symptoms discussed with the patient. Reviewed appropriate action plan to take if red flag symptoms occur. Patient agreeable to treatment plan. Sukhjinder Martin APRN.MACHINE MAINTENANCE REPAIRER Allergies As of Date: 10/29/2023 Noted Allergy Reaction SULFA (SULFONAMIDE ANTIBIOTICS) 12/27/2013 2 - Rash Date Reviewed: 10/29/2023 Reviewed by: Tamiko Alvarado - Fully Assessed Reason for Visit: Cough [28] Cmt: Congestion x2 weeks Primary Visit Diagnosis:Rhinosinusitis [J32.9] Other Visit Diagnosis:Acute cough [R05.1] Order(s):methylPREDNISolo ne (MEDROL, ALYSE,) 4 mg Dose-PackFollow dosing instructions, take with food.Disp: 21 tabletRfl: 0 doxycycline (VIBRA-TABS) 100 mg tabletTake 1 tablet by mouth two times a day for 7 days.Disp: 14 tabletRfl: 0 Prescriptions as of 10/29/2023 - methylPREDNISolone (MEDROL, ALYSE,) 4 mg Dose-Pack Follow dosing instruc (more content not included)... Normal [facility] Absolute lymphocyte countOrd ered By: Daniel Marcelo on 04-11-2023 Lymphocytes Auto (Unsp spec) [#/Vol] 1.45 10*3/uL 0.83-4.51 [facility] Basophil percentageOrdered B y: Daniel Marcelo on 04-11-2023 Basophils/100 WBC (Bld) 0.8 % 0-1 [facility] Chloride [Moles/Vol] 111 mmol/L 98-107 [facility] Eosinophils/100 WBC (Bld) 9.6 % 0-5 [facility] Glucose [Mass/Vol] 99 mg/dL 74-106 [facility] Neutrophils (Bld) [#/Vol] 1.5 10*3/uL 2.0-7.7 [facility] Neutrophils/100 WBC (Bld) 39.6 % 47-70 [facility] Potassium [Moles/Vol] 3.5 mmol/L 3.5-5.1 [facility] Sodium [Moles/Vol] 143 mmol/L 136-145 [facility] WBC (Bld) [#/Vol] 3.9 10*3/uL 4.4-11.0 [facility] Blood erythrocytes count (nu mber/volume)Ordered By: Daniel Marcelo on 04-11-2023 RBC (Bld) [#/Vol] 3.78 10*6/uL 4.2-5.4 [facility] Blood hemoglobin measurement (mass/volume)Ordered By: Daniel Marcelo on 04-11-2023 Hemoglobin (Bld) [Mass/Vol] 12.0 g/dL 12.0-15.0 [facility] Blood lymphocytes/100 leukoc ytesOrdered By: Daniel Marcelo on 04-11-2023 Lymphocytes/100 WBC (Bld) 37.6 % 19-41 [facility] Blood monocytes/100 leukocyt esOrdered By: Daniel Marcelo on 04-11-2023 Monocytes/100 WBC (Bld) 12.4 % 0-10 [facility] Blood platelet mean volumeOr dered By: Daniel Marcelo on 04-11-2023 Platelet mean volume (Bld) [Entitic vol] 9.7 fL 6.2-12.0 [facility] Determination of erythrocyte mean corpuscular volume (MCV)Ordered By: Daniel Marcelo on 04-11-2023 MCV (RBC) [Entitic vol] 93.1 fL 81-99 [facility] Hematocrit Auto (Bld) [Volum e fraction]Ordered By: Daniel Marcelo on 04-11-2023 Hematocrit (Bld) [Volume fraction] 35.2 % 37-47 [facility] - Chemistry and C hemistry - challengeOrdered By: Daniel Marcelo on 04-11-2023 CO2 [Moles/Vol] 26.0 mmol/L 21.0-32.0 [facility] Urea nitrogen/Creatinine [Mass ratio] 24.0 mg/mg 10-20 [facility] - Hematology and Cell countsOrdered By: Daniel Marcelo on 04-11-2023 Erythrocyte distribution width (RBC) [Entitic vol] 44.0 fL 35.1-43.9 [facility] Erythrocyte distribution width (RBC) [Ratio] 12.9 % 11.6-14.6 [facility] Immature granulocytes/100 WBC (Bld) 0.000 % 0.0-0.9 [facility] Comment on above: IG% - Immature Granu locytes (promyelocytes, myelocytes and metamyelocytes) > 1% indicates that a LEFT SHIFT is Present. MCH (RBC) [Entitic mass] 31.7 pg 27.0-32.0 [facility] Nucleated RBC/100 WBC (Bld) [Ratio] 0 % 0-5 [facility] MCHC Auto (RBC) [Mass/Vol]Or dered By: Daniel Marcelo on 04-11-2023 MCHC (RBC) [Mass/Vol] 34.1 g/dL 32-36 [facility] No Panel InformationOrdered By: Daniel Marcelo on 04-11-2023 Troponin I High Sensitivity 9 pg/mL 3.0-54.0 [facility] Comment on above: Please Note: New [place] t Units and Gender Specific Reference Ranges. For more information see Policy Stat Procedure [place] High Sensitivity Troponin (TNIH) and attachments. D-Dimer Quantitative (PE/DVT) 0.58 FEU/ug/m 0.27-0.49 [facility] Comment on above: D-Dimer ELEVATED (>0 .49): Additional studies and clinicalassessments are indicated to conclude diagnosis of:Deep Vein Thrombosis (DVT) or Pulmonary Embolism (PE)CRITICAL VALUE VERIFIED. CALLED TO DR. DANIEL MARCELO04/11/23 1109 Deacon Turner.RESULTS READ BACK BY SAME . Estimated Creatinine Clearance Calc 74.21 ml/min [facility] Estimated GFR (MDRD) Amer 115 mL/min >60 [facility] Comment on above: GFR Calc Estimated GFR (MDRD) Non-Af Amer 95 mL/min >60 [facility] Comment on above: Non- GFR Calc Platelets bldOrdered By: Koko Marcelo on 04-11-2023 Platelets (Bld) [#/Vol] 217 10*3/uL 150-450 [facility] Serum or plasma calcium fely urement (mass/volume)Ordered By: Daniel Marcelo on 04-11-2023 Calcium [Mass/Vol] 8.5 mg/dL 8.5-10.1 [facility] Serum or plasma creatinine m easurement (mass/volume)Ordered By: Daniel Marcelo on 04-11-2023 Creatinine [Mass/Vol] 0.67 mg/dL 0.55-1.02 [facility] Comment on above: The validity of the calculated GFR & GFRAA in patients over 70 years has not been determined. Clinical correlation is essential. Serum or plasma urea nitroge n measurement (mass/volume)Ordered By: Daniel Marcelo on 04-11-2023 Urea nitrogen [Mass/Vol] 16 mg/dL 7-18 [facility] Thin prep Papanicolaou smear with manual screeningOrdered By: Daniel Marcelo on 04-11-2023 Thin prep Papanicolaou smear with manual screening 6 5-15 [facility] Cervical or vagninal specime n microscopic examination by cytology stain (reported asOrdered By: Susie Muir on 03-12-2023 Cytology report Cyto stain Doc (Cvx/Vag) Comment . [facility] Comment on above: The Pap smear is a s creening test designed to aid in thedetection of premalignant and malignant conditions of theuterine cervix. It is not a diagnostic procedure andshould not be used as the sole means of detecting cervicalcancer. Both false-positive and false-negative reports dooccur. Detection in cervical specim en of any of human papilloma virus (HPV) 16, 18, 31, 33,Ordered By: Susie Muir on 03-12-2023 HPV 16+18+31+33+35+39+45+ 51+52+56+58+59+66+68 DNA Probe+sig amp Ql (Cvx) Negative Negative [facility] Comment on above: This nucleic acid am plification test detects fourteen high- risk HPV types (16,18,31,33,35,39,45,51,52,56,58,59,66,68)without differentiation. Laboratory - CytologyOrdered By: Susie uMir on 03-12-2023 Fountain Worker Cyto stain Nom (Cvx/Vag) [ID] Comment . [facility] Comment on above: Nikki cohen, School Business Manager (ASCP) Laboratory - Miscellaneous t estsOrdered By: Susie Muir on 03-12-2023 Service comment (Unsp spec) [Interp] Comment . [facility] Comment on above: This liquid based Th inPrep(R) pap test was screened withthe use of an image guided system. Service comment (Unsp spec) [Interp] . . [facility] Liquid-based cerv Pap + CT/G C by KEYLA w reflex to high-risk HPV for ASCUSOrdered By: Susie Muir on 03-12-2023 Cytology report Cyto stain.thin prep Doc (Cvx/Vag) Comment . [facility] Comment on above: Criteria not met, HP V Genotype not performed.Performed at: - [address] [id number] Director: Salma Rachel MD, Phone: [phone] at: = - [facility] [id number] Director: Salma Rachel MD, Phone: [phone] No Panel InformationOrdered By: Susie Muir on 03-12-2023 Pap Smear QC Review Comment . [facility] Comment on above: Betty Stafford, Cytot echnologist ([facility]) Pathology report final diagnosis Narrative Comment . [facility] Comment on above: NEGATIVE FOR INTRAEP ITHELIAL LESION OR MALIGNANCY.CELLULAR CHANGES ASSOCIATED WITH ATROPHY AND INFLAMMATION ARE PRESENT.THIS SPECIMEN WAS RESCREENED PART OF OUR [employer] REPORTER PROGRAM. CALCIFEDIOL (67182)Ordered B y: Financial Assistant on 09-14-2022 25-hydroxyvitamin D [Mass/Vol] 58.8 ng/mL Normal 30.0-100.0 [facility] Work Phone: Comment on above: Vitamin D deficiency has been defined by the [place] ofMedicine and an Endocrine Society practice guideline as alevel of serum 25-OH vitamin D less than 20 ng/mL (1,2).The Endocrine Society went on to further define vitamin Dinsufficiency as a level between 21 and 29 ng/mL (2).1. IOM ([place] of Medicine). 2010. Dietary reference intakes for calcium and D. [place]: The National Academies Press.2. Hayder MF, Delfina NC, Gi MADRID, et al. Evaluation, treatment, and prevention of vitamin D deficiency: an Endocrine Society clinical practice guideline. JCEM. 2010; 96(7):1911-30. PATIENT WAS FASTINGP ERFORMED BY: [facility]6[address] [facility] [id number] Basophil percentageon 2021 Basophil percentage < 0.9 mg/dL 0.55-1.02 [facility] Work Phone: No Panel Informationon 09-03 Bedside Estimated GFR (eGFR) > 60.0000 mL/min >60 [facility] Work Phone: Amylase (23754)Ordered By: S ystem Technical Coordinator on 08-25-2021 Amylase [Catalytic activity/Vol] 73 U/L Normal 31-110 [facility]; [facility] Work Phone: Comment on above: PATIENT NOT FASTINGP ERFORMED BY: CHADWICK [facility] Gxahjo5482 [address] RoadDublin [place] [id number] Lipase (83395)Ordered By: stem Technical Coordinator on 08-25-2021 Lipase [Catalytic activity/Vol] 35 U/L Normal 14-72 [facility]; [facility] Work Phone: Comment on above: PATIENT NOT FASTINGP ERFORMED BY: CB [facility] Ewyjri9648 [address] RoadDublin [place] [id number] CBC WITH MANUAL DIFF (89505) Ordered By: Financial Assistant on 08-04-2021 Basophils (Bld) [#/Vol] 0.1 10*3/uL Normal 0.0-0.2 [facility]; [facility] Work Phone: Comment on above: fax a copy to Aaron Rendon MACHINE MAINTENANCE REPAIRER [phone]; PATIENT WAS FASTINGPERFORMED BY: CHADWICK [facility] Bcbxev0818 [address] RoadDublin [place] [id number]; patient on prednisone copy faxed to rheum. fu db 4-12 Basophils/100 WBC (Bld) 2 % Normal [facility]; [facility] Work Phone: Comment on above: fax a copy to Aaron Rendon MACHINE MAINTENANCE REPAIRER [phone]; PATIENT WAS FASTINGPERFORMED BY: CB [facility] Wkfztu0005 [address] RoadDublin [place] [id number]; patient on prednisone copy faxed to rheum. fu db 4-12 Eosinophils (Bld) [#/Vol] 0.3 10*3/uL Normal 0.0-0.4 [facility]; [facility] Work Phone: Comment on above: fax a copy to Aaron Rendon MACHINE MAINTENANCE REPAIRER [phone]; PATIENT WAS FASTINGPERFORMED BY: [facility] Uhrgaq3666 Chicas RoadDublin [place] [id number]; patient on prednisone copy faxed to rheum. fu db 4-12 Eosinophils/100 WBC (Bld) 10 % Normal [facility]; [facility] Work Phone: Comment on above: fax a copy to Aaron Rendon [facility] [phone]; PATIENT WAS FASTINGPERFORMED BY: [employer] LabHubbub70 [address] Implicit Monitoring SolutionsSelect Specialty Hospital [id number]; patient on prednisone copy faxed to rheum. fu db 4-12 Erythrocyte distribution width (RBC) [Ratio] 12.5 % Normal 11.7-15.4 [facility]; [facility] Work Phone: Comment on above: fax a copy to Aaron Rendon [facility] [phone]; PATIENT WAS FASTINGPERFORMED BY: Perceivant70 [address] SafeMeds SolutionsFirstHealth [facility] [id number]; patient on prednisone copy faxed to rheum. fu db 4-12 Hematocrit (Bld) [Volume fraction] 38.5 % Normal 34.0-46.6 [facility]; [facility] Work Phone: Comment on above: fax a copy to Aaron Rendon [facility] [phone]; PATIENT WAS FASTINGPERFORMED BY: 2can [address] SafeMeds SolutionsFirstHealth [facility] [id number]; patient on prednisone copy faxed to rheum. fu db 4-12 Hemoglobin (Bld) [Mass/Vol] 12.9 g/dL Normal 11.1-15.9 [facility]; [facility] Work Phone: Comment on above: fax a copy to Aaron Rendon [facility] [phone]; PATIENT WAS FASTINGPERFORMED BY: Perceivant70 [address] SafeMeds SolutionsFirstHealth [facility] [id number]; patient on prednisone copy faxed to rheum. fu db 4-12 Immature granulocytes (Bld) [#/Vol] 0.0 10*3/uL Normal 0.0-0.1 [facility]; [facility] Work Phone: Comment on above: fax a copy to Aaron Rendon [facility] [phone]; PATIENT WAS FASTINGPERFORMED BY: Birst Gjcsef8628 [address] SafeMeds SolutionsFirstHealth [facility] [id number]; patient on prednisone copy faxed to rheum. fu db 4-12 Immature granulocytes/100 WBC (Bld) 0 % Normal [facility]; [facility] Work Phone: Comment on above: fax a copy to Aaron Rendon [facility] [phone]; PATIENT WAS FASTINGPERFORMED BY: CHADWICK [facility] Miwqgk8134 [address] SafeMeds Solutionsblin [place] [id number]; patient on prednisone copy faxed to rheum. fu db 4-12 Lymphocytes (Bld) [#/Vol] 1.1 10*3/uL Normal 0.7-3.1 [facility]; [facility] Work Phone: Comment on above: fax a copy to Aaron Rendon [facility] [phone]; PATIENT WAS FASTINGPERFORMED BY: CHADWICK [facility] Oflyvl9788 [address] Implicit Monitoring Solutionsin [place] [id number]; patient on prednisone copy faxed to rheum. fu db 4-12 Lymphocytes/100 WBC (Bld) 37 % Normal [facility]; [facility] Work Phone: Comment on above: fax a copy to Aaron Rendon [facility] [phone]; PATIENT WAS FASTINGPERFORMED BY: CHADWICK LabPaomianba.comrp Skosqd5414 [address] SafeMeds SolutionsFirstHealth [facility] [id number]; patient on prednisone copy faxed to rheum. fu db 4-12 MCH (RBC) [Entitic mass] 30.4 pg Normal 26.6-33.0 [facility]; [facility] Work Phone: Comment on above: fax a copy to Aaron Rendon [facility] [phone]; PATIENT WAS FASTINGPERFORMED BY: CB LabPaomianba.comrp Rduxts2684 [address] SafeMeds SolutionsFirstHealth [facility] [id number]; patient on prednisone copy faxed to rheum. fu db 4-12 MCHC (RBC) [Mass/Vol] 33.5 g/dL Normal 31.5-35.7 [facility] prehensive [facility]; [facility] Work Phone: Comment on above: fax a copy to Aaron Rendon [facility] [phone]; PATIENT WAS FASTINGPERFORMED BY: CB LabPaomianba.comrp Stfrhn0238 [address] SafeMeds SolutionsFirstHealth [facility] [id number]; patient on prednisone copy faxed to rheum. fu db 4-12 MCV (RBC) [Entitic vol] 91 fL Normal 79-97 [facility]; [facility] Work Phone: Comment on above: fax a copy to Aaron Rendon MACHINE MAINTENANCE REPAIRER [phone]; PATIENT WAS FASTINGPERFORMED BY: CB [facility] Mmhtlb9746 [address] RoadDublin [place] [id number]; patient on prednisone copy faxed to rheum. fu db 4-12 Monocytes (Bld) [#/Vol] 0.4 10*3/uL Normal 0.1-0.9 [facility]; [facility] Work Phone: Comment on above: fax a copy to Aaron Rendon MACHINE MAINTENANCE REPAIRER [phone]; PATIENT WAS FASTINGPERFORMED BY: CB [facility] Kzjonh4049 [address] RoadDublin [place] [id number]; patient on prednisone copy faxed to rheum. fu db 4-12 Monocytes/100 WBC (Bld) 14 % Normal [facility]; [facility] Work Phone: Comment on above: fax a copy to Aaron Rendon MACHINE MAINTENANCE REPAIRER [phone]; PATIENT WAS FASTINGPERFORMED BY: CB [facility] Tluwqi8917 [address] RoadDublin [place] [id number]; patient on prednisone copy faxed to rheum. fu db 4-12 Neutrophils (Bld) [#/Vol] 1.1 10*3/uL Abnormal 1.4-7.0 [facility]; [facility] Work Phone: Comment on above: fax a copy to Aaron Rendon MACHINE MAINTENANCE REPAIRER [phone]; PATIENT WAS FASTINGPERFORMED BY: CB [facility] Ttvacp6401 [address] RoadDublin [place] [id number]; patient on prednisone copy faxed to rheum. fu db 4-12 Neutrophils/100 WBC (Bld) 37 % Normal [facility]; [facility] Work Phone: Comment on above: fax a copy to Aaron Rendon [facility] [phone]; PATIENT WAS FASTINGPERFORMED BY: CB [facility] Vzrjie2680 [address] RoadDublin [place] [id number]; patient on prednisone copy faxed to rheum. fu db 4-12 Platelets (Bld) [#/Vol] 215 10*3/uL Normal 150-450 [facility]; [facility] Work Phone: Comment on above: fax a copy to Aaron Rendon [facility] [phone]; PATIENT WAS FASTINGPERFORMED BY: CHADWICK [facility] Hldktw1101 [address] [facility]in [place] [id number]; patient on prednisone copy faxed to rheum. fu db 4-12 RBC (Bld) [#/Vol] 4.24 10*6/uL Normal 3.77-5.28 [facility]; [facility] Work Phone: Comment on above: fax a copy to Aaron Rendon [facility] [phone]; PATIENT WAS FASTINGPERFORMED BY: CHADWICK [facility] Xivlpq5633 [address] [facility] [id number]; patient on prednisone copy faxed to rheum. fu db 4-12 WBC (Bld) [#/Vol] 3.0 10*3/uL Abnormal 3.4-10.8 [facility]; [facility] Work Phone: Comment on above: fax a copy to Aaron Rendon [facility] [phone]; PATIENT WAS FASTINGPERFORMED BY: CHADWICK [facility] Wyrlbd0026 [address] [facility] [id number]; patient on prednisone copy faxed to rheum. fu db 4-12 Metabolic Panel, Comprehensi ve ([id number])Ordered By: Financial Assistant on 08-04-2021 Albumin [Mass/Vol] 4.3 g/dL Normal 3.8-4.8 [facility]; [facility] Work Phone: Comment on above: PATIENT WAS FASTINGP ERFORMED BY: CHADWICK [facility] Ssdcoz7415 [facility] [id number] Albumin/Globulin [Mass ratio] 1.6 {ratio} Normal 1.2-2.2 [facility]; [facility] Work Phone: Comment on above: PATIENT WAS FASTINGP ERFORMED BY: CHADWICK Labs[facility] Aowrhj9291 [address] RoadDublin [place] [id number] ALP [Catalytic activity/Vol] 41 U/L Abnormal 44-121 [facility]; [facility] Work Phone: Comment on above: PATIENT WAS FASTINGP ERFORMED BY: CHADWICK Labsaint [facility] Oeejmn7241 [address] RoadDublin [place] [id number] ALT [Catalytic activity/Vol] 23 U/L Normal 0-32 [facility]; [facility] Work Phone: Comment on above: PATIENT WAS FASTINGP ERFORMED BY: LabMy[facility]aw6370 [address] RoadDublin [place] [id number] AST [Catalytic activity/Vol] 27 U/L Normal 0-40 [facility]; [facility] Work Phone: Comment on above: PATIENT WAS FASTINGP ERFORMED BY: CHADWICK [facility] Ordysx5563 [address] RoadDuin [place] [id number] Bilirubin [Mass/Vol] 0.3 mg/dL Normal 0.0-1.2 Comp rehensive [facility] Medicine; [facility] Work Phone: Comment on above: PATIENT WAS FASTINGP ERFORMED BY: [facility] Efnloz6747 [address] Roadblin [place] [id number] Calcium [Mass/Vol] 9.1 mg/dL Normal 8.7-10.3 [facility]; [facility] Work Phone: Comment on above: PATIENT WAS FASTINGP ERFORMED BY: LabMy[facility]6[address] RoadDublin [place] [id number] Chloride [Moles/Vol] 106 mmol/L Normal 96-106 Comp rehensive [facility]; [facility] Work Phone: Comment on above: PATIENT WAS FASTINGP ERFORMED BY: [facility] Krugsl2481 [address] RoadDublin [place] [id number] CO2 [Moles/Vol] 23 mmol/L Normal 20-29 Comprehen [facility]; [facility] Work Phone: Comment on above: PATIENT WAS FASTINGP ERFORMED BY: [facility] Rgjybl2181 [address] [facility]in [place] [id number] Creatinine [Mass/Vol] 0.75 mg/dL Normal 0.57-1.00 [facility] prehensive Internal Medicine; [facility] Work Phone: Comment on above: PATIENT WAS FASTINGP ERFORMED BY: Labsaint [facility] Oofoxc5082 [facility] [id number] GFR/1.73 sq M.predicted among non-blacks MDRD (S/P/Bld) [Vol rate/Area] 90 mL/min/{1.73_m2} Normal Comprehensiv e Internal Medicine; [facility] Work Phone: Comment on above: PATIENT WAS FASTINGP ERFORMED BY: CHADWICK LabMy[facility]6370 [facility] [id number] Globulin (S) [Mass/Vol] 2.7 g/dL Normal 1.5-4.5 [facility]; [facility] Work Phone: Comment on above: PATIENT WAS FASTINGP ERFORMED BY: Labs[facility] Pkccux2577 [address] [facility] [id number] Glucose [Mass/Vol] 85 mg/dL Normal 65-99 [facility]; [facility] Work Phone: Comment on above: PATIENT WAS FASTINGP ERFORMED BY: Labsaint [facility] Rqhwvy3243 [facility] [id number] Potassium [Moles/Vol] 4.2 mmol/L Normal 3.5-5.2 [facility] prehensive Internal Medicine; [facility] Work Phone: Comment on above: PATIENT WAS FASTINGP ERFORMED BY: [facility] Aptipa1502 [address] [facility] [place] [id number] Protein [Mass/Vol] 7.0 g/dL Normal 6.0-8.5 [facility]; [facility] Work Phone: Comment on above: PATIENT WAS FASTINGP ERFORMED BY: [facility] Fbcdxa0847 [address] [facility]in [place] [id number] Sodium [Moles/Vol] 142 mmol/L Normal 134-144 Compre hensive [facility] Medicine; [facility] Work Phone: Comment on above: PATIENT WAS FASTINGP ERFORMED BY: CHADWICK Labeleuterio SchultzQnfnee8447 [address] RoadDublin [place] [id number] Urea nitrogen [Mass/Vol] 12 mg/dL Normal 8-27 [facility]; [facility] Work Phone: Comment on above: PATIENT WAS FASTINGP ERFORMED BY: CHADWICK [facility] Jouwgk1521 [address] RoadDublin [place] [id number] Urea nitrogen/Creatinine [Mass ratio] 16 mg/mg Normal 12-28 [facility]; [facility] Work Phone: Comment on above: PATIENT WAS FASTINGP ERFORMED BY: CHADWICK Labeleuterio SchultzChxxwh7766 [address] RoadDublin [place] [id number] URINALYSIS ([id number])Ordered By : Financial Assistant on 08-04-2021 Appearance (U) Clear Normal Comprehens hanane [facility]; [facility] Work Phone: Comment on above: PATIENT WAS FASTINGP ERFORMED BY: CHADWICK [facility] Nkbddd8085 [address] RoadDublin [place] [id number] Bilirubin Ql (U) Negative Normal Comprehe nsive Internal Medicine; [facility] Work Phone: Comment on above: PATIENT WAS FASTINGP ERFORMED BY: CHADWICK Labeleuterio Qzhvcd4736 [address] RoadDublin [place] [id number] Color (U) Yellow Normal [facility]; [facility] Work Phone: Comment on above: PATIENT WAS FASTINGP ERFORMED BY: CHADWICK [facility] Nnwtou4529 [address] RoadDublin [place] [id number] Glucose Ql (U) Negative Normal Comprehens hanane [facility]; [facility] Work Phone: Comment on above: PATIENT WAS FASTINGP ERFORMED BY: CHADWICK [facility] Uqihtd7252 [address] RoadDublin [place] [id number] Hemoglobin Ql (U) Negative Normal Compreh ensive [facility]; [facility] Work Phone: Comment on above: PATIENT WAS FASTINGP ERFORMED BY: CHADWICK Gambino6370 [address] RoadDublin [place] [id number] Ketones Ql (U) Negative Normal Comprehens hanane [facility]; [facility] Work Phone: Comment on above: PATIENT WAS FASTINGP ERFORMED BY: CHADWICK Gambino6370 [address] RoadDublin [place] [id number] Leukocyte esterase Test strip Ql (U) Negative Normal [facility]; [facility] Work Phone: Comment on above: PATIENT WAS FASTINGP ERFORMED BY: CHADWICK Gambino6370 [address] RoadDublin [place] [id number] Microscopic observation LM Nom (Urine sed) MICNIP Normal [facility]; [facility] Work Phone: Comment on above: Microscopic not renetta cated and not performed. PATIENT WAS FASTINGP ERFORMED BY: CHADWICK Gambino6370 [address] RoadDublin [place] [id number] Nitrite Ql (U) Negative Normal Comprehens hanane [facility]; [facility] Work Phone: Comment on above: PATIENT WAS FASTINGP ERFORMED BY: CHADWICK Gambino6370 [address] RoadDublin [place] [id number] pH (U) 5.5 [pH] Normal 5.0-7.5 [facility]; [facility] Work Phone: Comment on above: PATIENT WAS FASTINGP ERFORMED BY: CHADWICK Schultzlin6370 [address] RoadDublin [place] [id number] Protein Ql (U) Negative Normal Comprehens hanane [facility]; [facility] Work Phone: Comment on above: PATIENT WAS FASTINGP ERFORMED BY: CHADWICK Schultzlin6370 [address] RoadDublin [place] [id number] Specific gravity (U) [Rel density] 1.016 1 Normal 1.005-1.03 0 [facility]; [facility] Work Phone: Comment on above: PATIENT WAS FASTINGP ERFORMED BY: CHADWICK Schultzlin6370 [address] RoadDublin [place] [id number] Urobilinogen (U) [Mass/Vol] 0.2 mg/dL Normal 0.2-1.0 [facility]; [facility] Work Phone: Comment on above: PATIENT WAS FASTINGP ERFORMED BY: Birst Csuxry7256 [facility] [id number] CBC WITH MANUAL DIFF ([id number]) Ordered By: Financial Assistant on 07-29-2020 Basophils (Bld) [#/Vol] 0.1 {x10E3/uL} Normal 0.0-0.2 [facility]; [facility] Work Phone: Comment on above: Test(s) 632149-JZX-Y ; 980029-IWG-V; 841972-Hlskfxrikeozi; 236631-Schftscxhvz, Total; 245400-GKK-Q (Total); 842172-Onwhv LDL-P; 943727-BTZ Size; 304155-AV-CE Scorewas developed and its performance characteristics determinedby [employer]. It has not been cleared or approved by the Foodand Drug Administration.PATIENT WAS FASTINGPERFORMED BY: [employer] [address] [id number] BY: Mobule6370 [facility] [id number] Basophils (Bld) [#/Vol] 0.1 10*3/uL Normal 0.0-0.2 [facility]; [facility] Work Phone: Comment on above: Test(s) 162186-FKR-Z ; 596816-PAX-R; 791601-Bksbercnqxubv; 497924-Xwtkucvswbi, Total; 841458-PZY-R (Total); 893552-Filrs LDL-P; 201520-WGU Size; 943268-JO-CW Scorewas developed and its performance characteristics determinedby [employer]. It has not been cleared or approved by the Foodand Drug Administration.PATIENT WAS FASTINGPERFORMED BY: [employer] [address] [id number] BY: 1000memories Wrvowq9101 [facility] [id number] Basophils/100 WBC (Bld) 2 % Normal [facility]; [facility] Work Phone: Comment on above: Test(s) 285505-BJG-D ; 363823-KSV-X; 030156-Oyydkslrdxmht; 968638-Elfdwcunbbw, Total; 838449-NJW-G (Total); 148058-Wrsxz LDL-P; 227833-TFM Size; 055440-UB-JJ Scorewas developed and its performance characteristics determinedby [employer]. It has not been cleared or approved by the Foodand Drug Administration.PATIENT WAS FASTINGPERFORMED BY: [employer] [address] [id number] BY: [facility] Xafmps7981 [facility] [id number] Eosinophils (Bld) [#/Vol] 0.3 {x10E3/uL} Normal 0.0-0.4 [facility]; [facility] Work Phone: Comment on above: Test(s) 655688-NZP-L ; 870793-COX-A; 103066-Pvlrpgwcmvzgx; 866168-Stdagkphqos, Total; 506629-AHZ-A (Total); 121573-Sleya LDL-P; 930192-MNC Size; 895323-TR-SO Scorewas developed and its performance characteristics determinedby [employer]. It has not been cleared or approved by the Foodand Drug Administration.PATIENT WAS FASTINGPERFORMED BY: [employer] [address] [id number] BY: FamilonetBacharach Institute for RehabilitationYryple5293 [facility] [id number] Eosinophils (Bld) [#/Vol] 0.3 10*3/uL Normal 0.0-0.4 [facility]; [facility] Work Phone: Comment on above: Test(s) 345375-NGI-S ; 448913-JEL-P; 195363-Kcthfkynebaov; 945792-Qktmbzknjzk, Total; 608077-CZS-W (Total); 038686-Tlafc LDL-P; 973321-JVC Size; 291229-QX-JB Scorewas developed and its performance characteristics determinedby [employer]. It has not been cleared or approved by the Foodand Drug Administration.PATIENT WAS FASTINGPERFORMED BY: [employer] [address] [id number] BY: Mobule6370 [facility] [id number] Eosinophils/100 WBC (Bld) 8 % Normal [facility]; [facility] Work Phone: Comment on above: Test(s) 787227-NEZ-R ; 501786-CYL-W; 967424-Dtfdmwdnzjbnn; 372141-Igseowrirsc, Total; 594916-TXD-Q (Total); 276578-Hnaox LDL-P; 779915-TVM Size; 507004-FX-EC Scorewas developed and its performance characteristics determinedby [employer]. It has not been cleared or approved by the Foodand Drug Administration.PATIENT WAS FASTINGPERFORMED BY: [employer] [address] [id number] BY: Mobule6[address] SafeMeds SolutionsFirstHealth [facility] [id number] Erythrocyte distribution width (RBC) [Ratio] 12.9 % Normal 11.7-15.4 [facility]; [facility] Work Phone: Comment on above: Test(s) 450402-EUF-P ; 212270-UNT-H; 327163-Uijvrnnkwyzit; 055452-Krlcerkabdm, Total; 977363-TNQ-K (Total); 160655-Cemgc LDL-P; 250919-IJF Size; 967186-HO-PW Scorewas developed and its performance characteristics determinedby [employer]. It has not been cleared or approved by the Foodand Drug Administration.PATIENT WAS FASTINGPERFORMED BY: [employer] [address] [id number] BY: 1000memories Khjbue0814 [facility] [id number] Hematocrit (Bld) [Volume fraction] 37.3 % Normal 34.0-46.6 [facility]; [facility] Work Phone: Comment on above: Test(s) 526649-GHQ-Z ; 863697-FJT-W; 617743-Mtlgcxbdlclqn; 862896-Yhrklqultup, Total; 254795-YIE-O (Total); 910339-Wswux LDL-P; 321309-BOJ Size; 444833-XD-OP Scorewas developed and its performance characteristics determinedby [employer]. It has not been cleared or approved by the Foodand Drug Administration.PATIENT WAS FASTINGPERFORMED BY: [employer] [address] [id number] BY: [email or web address] [facility] [id number] Hemoglobin (Bld) [Mass/Vol] 12.5 g/dL Normal 11.1-15.9 [facility]; [facility] Work Phone: Comment on above: Test(s) 520293-TLG-G ; 436906-XFU-S; 955627-Xrqzootechpfg; 604811-Rkxfkiqshos, Total; 273392-NSV-S (Total); 629075-Gekdt LDL-P; 975890-YWW Size; 463669-QQ-FN Scorewas developed and its performance characteristics determinedby [employer]. It has not been cleared or approved by the Foodand Drug Administration.PATIENT WAS FASTINGPERFORMED BY: [employer] [address] [id number] BY: Mobule6370 [facility] [id number] Immature granulocytes (Bld) [#/Vol] 0.0 {x10E3/uL} Normal 0.0-0.1 [facility]; [facility] Work Phone: Comment on above: Test(s) 217706-MWA-E ; 790645-CYG-Q; 564530-Xicphlrfybhgq; 627950-Trmjksildvu, Total; 138376-TYQ-A (Total); 030607-Epfmb LDL-P; 647265-NAG Size; 607330-KS-QY Scorewas developed and its performance characteristics determinedby [employer]. It has not been cleared or approved by the Foodand Drug Administration.PATIENT WAS FASTINGPERFORMED BY: [employer] [address] [id number] BY: FamilonetNew Mexico Behavioral Health Institute at Las VegasHrfvrs0298 [facility] [id number] Immature granulocytes (Bld) [#/Vol] 0.0 10*3/uL Normal 0.0-0.1 [facility]; [facility] Work Phone: Comment on above: Test(s) 125621-JJW-M ; 335850-DRI-W; 098347-Otlxfvyztecjm; 752704-Ukytqsmdzpo, Total; 713079-DGM-M (Total); 171210-Lbpvz LDL-P; 292219-PTD Size; 092962-ZT-MM Scorewas developed and its performance characteristics determinedby [employer]. It has not been cleared or approved by the [employer] Drug Administration.PATIENT WAS FASTINGPERFORMED BY: [employer] [address] [id number] BY: 1000memories Hjktik5596 [facility] [id number] Immature granulocytes/100 WBC (Bld) 0 % Normal [facility]; [facility] Work Phone: Comment on above: Test(s) 304948-YKE-L ; 070644-VLU-M; 793480-Illtuxwrcgkri; 399414-Kehuatytwsa, Total; 778033-INK-A (Total); 199429-Dgcer LDL-P; 030515-MZN Size; 103332-OD-MD Scorewas developed and its performance characteristics determinedby [employer]. It has not been cleared or approved by the Foodand Drug Administration.PATIENT WAS FASTINGPERFORMED BY: [employer] [address] [id number] BY: FamilonetBacharach Institute for RehabilitationYkfehc0642 [facility] [id number] Lymphocytes (Bld) [#/Vol] 0.8 {x10E3/uL} Normal 0.7-3.1 [facility]; [facility] Work Phone: Comment on above: Test(s) 470937-UKC-I ; 232430-VSC-B; 455314-Gqixgmuortjrz; 490974-Ydcrocxtgqn, Total; 826694-UVE-R (Total); 484561-Vwvlb LDL-P; 464662-MOJ Size; 586319-YK-TZ Scorewas developed and its performance characteristics determinedby [employer]. It has not been cleared or approved by the Foodand Drug Administration.PATIENT WAS FASTINGPERFORMED BY: [employer] [address] [id number] BY: [id number] [facility] [id number] Lymphocytes (Bld) [#/Vol] 0.8 10*3/uL Normal 0.7-3.1 [facility]; [facility] Work Phone: Comment on above: Test(s) 581318-LIN-A ; 847053-NQX-C; 503720-Enegowkahqdue; 754298-Oblknwusekz, Total; 448059-WAD-M (Total); 085240-Ebaay LDL-P; 564555-EIU Size; 171761-WE-YY Scorewas developed and its performance characteristics determinedby [employer]. It has not been cleared or approved by the Foodand Drug Administration.PATIENT WAS FASTINGPERFORMED BY: [employer] [address] [id number] BY: Mobule6370 [facility] [id number] Lymphocytes/100 WBC (Bld) 26 % Normal [facility]; [facility] Work Phone: Comment on above: Test(s) 528734-ZNS-W ; 619505-AJQ-I; 111243-Eqgzysyerijho; 276497-Mizrmcnwipk, Total; 506982-POH-P (Total); 175976-Qxpem LDL-P; 439496-PGN Size; 684361-ZX-KW Scorewas developed and its performance characteristics determinedby [employer]. It has not been cleared or approved by the Foodand Drug Administration.PATIENT WAS FASTINGPERFORMED BY: BN [employer] [id number] BY: Familonet Uqinez9372 [facility] [id number] MCH (RBC) [Entitic mass] 30.8 pg Normal 26.6-33.0 [facility]; [facility] Work Phone: Comment on above: Test(s) 201503-JHV-U ; 273771-YAL-Q; 122722-Ksyemyaqgrnpt; 963943-Tyqqfizmomu, Total; 115797-ZBJ-P (Total); 732633-Uzkzv LDL-P; 090048-XTI Size; 033182-NG-SY Scorewas developed and its performance characteristics determinedby [employer]. It has not been cleared or approved by the Foodand Drug Administration.PATIENT WAS FASTINGPERFORMED BY: [employer] [address] [id number] BY: Mobule6370 [facility] [id number] MCHC (RBC) [Mass/Vol] 33.5 g/dL Normal 31.5-35.7 [facility] Internal [facility]; [facility] Work Phone: Comment on above: Test(s) 267842-QDJ-G ; 093674-CRG-I; 114341-Lwkvswivwttuz; 355874-Pijjghcumrt, Total; 105610-RBU-T (Total); 883030-Wffqm LDL-P; 466848-FBG Size; 619019-AC-GB Scorewas developed and its performance characteristics determinedby [employer]. It has not been cleared or approved by the Foodand Drug Administration.PATIENT WAS FASTINGPERFORMED BY: Familonet[address] [id number] BY: Groopt Isthid4184 [facility] [id number] MCV (RBC) [Entitic vol] 92 fL Normal 79-97 [facility]; [facility] Work Phone: Comment on above: Test(s) 796382-JAY-F ; 975684-HVF-Y; 211214-Resxyakbgfvhc; 022120-Qwwjlmeilsk, Total; 884961-WZT-H (Total); 315963-Ukhoq LDL-P; 379202-ULE Size; 240313-FA-FC Scorewas developed and its performance characteristics determinedby [employer]. It has not been cleared or approved by the Foodand Drug Administration.PATIENT WAS FASTINGPERFORMED BY: Familonet[address] [id number] BY: FamilonetCourtney Ville [id number] [facility] [id number] Monocytes (Bld) [#/Vol] 0.3 {x10E3/uL} Normal 0.1-0.9 [facility]; [facility] Work Phone: Comment on above: Test(s) 142777-ZDX-E ; 179390-JME-G; 658993-Dihneoiolmaah; 695282-Xruorlevopf, Total; 244906-MUU-C (Total); 583618-Ypqhn LDL-P; 455610-SFY Size; 532083-TH-KI Scorewas developed and its performance characteristics determinedby [employer]. It has not been cleared or approved by the Foodand Drug Administration.PATIENT WAS FASTINGPERFORMED BY: Familonet[address] [id number] BY: FamilonetBacharach Institute for RehabilitationBvabiy6520 [facility] [id number] Monocytes (Bld) [#/Vol] 0.3 10*3/uL Normal 0.1-0.9 [facility]; [facility] Work Phone: Comment on above: Test(s) 108249-KJW-D ; 352661-GQC-P; 730314-Eekwrryrvyjxt; 975809-Auvjluruzre, Total; 684431-YNS-S (Total); 238710-Kngvr LDL-P; 990956-GEG Size; 917243-NS-DA Scorewas developed and its performance characteristics determinedby [employer]. It has not been cleared or approved by the Foodand Drug Administration.PATIENT WAS FASTINGPERFORMED BY: Familonet[address] [id number] BY: Mobule6370 [facility] [id number] Monocytes/100 WBC (Bld) 11 % Normal [facility]; [facility] Work Phone: Comment on above: Test(s) 561060-MDO-E ; 961984-YEN-T; 730517-Lglmqcrrigsyw; 190378-Ehzxedmrjfz, Total; 119418-IBD-Y (Total); 214619-Fabeu LDL-P; 175628-GGM Size; 005081-IT-PN Scorewas developed and its performance characteristics determinedby [employer]. It has not been cleared or approved by the Foodand Drug Administration.PATIENT WAS FASTINGPERFORMED BY: [employer] [address] [id number] BY: Mobule6370 [facility]Select [facility] [id number] Neutrophils (Bld) [#/Vol] 1.7 {x10E3/uL} Normal 1.4-7.0 [facility]; [facility] Work Phone: Comment on above: Test(s) 521773-JDQ-A ; 318458-BBA-K; 146021-Kmjxbgxsjpket; 793920-Gktyozfouml, Total; 352014-TNT-A (Total); 962701-Kjjlc LDL-P; 026836-CRF Size; 459260-FB-VO Scorewas developed and its performance characteristics determinedby [employer]. It has not been cleared or approved by the Foodand Drug Administration.PATIENT WAS FASTINGPERFORMED BY: [employer] [address] [id number] BY: 1000memories Fzxgrt0794 [facility] [id number] Neutrophils (Bld) [#/Vol] 1.7 10*3/uL Normal 1.4-7.0 [facility]; [facility] Work Phone: Comment on above: Test(s) 208662-OZJ-K ; 452064-GKE-E; 937587-Tfedemmurhvbg; 829880-Miwcyfbeonr, Total; 773930-HLT-Q (Total); 541864-Uyzpo LDL-P; 134893-IJN Size; 449362-LG-GY Scorewas developed and its performance characteristics determinedby [employer]. It has not been cleared or approved by the Foodand Drug Administration.PATIENT WAS FASTINGPERFORMED BY: [employer] [address] [id number] BY: [email or web address] Chicas SafeMeds SolutionsFirstHealth [facility] [id number] Neutrophils/100 WBC (Bld) 53 % Normal [facility]; [facility] Work Phone: Comment on above: Test(s) 934602-VAJ-V ; 749289-OTK-E; 358104-Ydljsljsaykre; 712576-Gbpchrhlzfo, Total; 277245-GQR-Q (Total); 258273-Rvqbt LDL-P; 886702-QXA Size; 108200-FQ-SQ Scorewas developed and its performance characteristics determinedby [employer]. It has not been cleared or approved by the Foodand Drug Administration.PATIENT WAS FASTINGPERFORMED BY: [employer] [address] [id number] BY: [email or web address] [place] SafeMeds SolutionsFirstHealth [facility] [id number] Platelets (Bld) [#/Vol] 237 {x10E3/uL} Normal 150-450 [facility]; [facility] Work Phone: Comment on above: Test(s) 000189-VMK-A ; 858435-FMA-X; 458306-Whliwizlftohm; 590132-Wyhwiwgasfl, Total; 362574-ZJY-L (Total); 275174-Jmwen LDL-P; 097136-MQH Size; 392806-HD-EZ Scorewas developed and its performance characteristics determinedby [employer]. It has not been cleared or approved by the Foodand Drug Administration.PATIENT WAS FASTINGPERFORMED BY: [employer] [address] [id number] BY: Shelby.[email or web address] Chicas Implicit Monitoring SolutionsSelect Specialty Hospital [id number] Platelets (Bld) [#/Vol] 237 10*3/uL Normal 150-450 [facility] Internal Medicine; [facility] Work Phone: Comment on above: Test(s) 103509-SRQ-F ; 153573-ZST-D; 609243-Osiqtzsvsvgzw; 859770-Uhuukatbfcy, Total; 369446-LIL-P (Total); 986261-Aisbv LDL-P; 695199-LMC Size; 803233-US-WM Scorewas developed and its performance characteristics determinedby [employer]. It has not been cleared or approved by the Foodand Drug Administration.PATIENT WAS FASTINGPERFORMED BY: Dibbz[address] [id number] BY: [email or web address] [facility] [id number] RBC (Bld) [#/Vol] 4.06 {x10E6/uL} Normal 3.77-5.28 [facility] Internal [facility]; [facility] Internal Medicine Work Phone: Comment on above: Test(s) 922409-ACS-U ; 630613-CGP-T; 251245-Qpegcegnxpnqd; 381459-Tlwebiwahyp, Total; 808812-LEA-Z (Total); 136759-Jyynj LDL-P; 970026-IRH Size; 967493-TI-CC Scorewas developed and its performance characteristics determinedby [employer]. It has not been cleared or approved by the Foodand Drug Administration.PATIENT WAS FASTINGPERFORMED BY: Dibbz[address] [id number] BY: 1000memories Sdjecq2987 [facility] [id number] RBC (Bld) [#/Vol] 4.06 10*6/uL Normal 3.77-5.28 [facility] Internal Medicine; [facility] Work Phone: Comment on above: Test(s) 179907-QNE-L ; 254256-CKS-S; 456282-Vlmabgkinrqcb; 406332-Tozwohyskzz, Total; 979351-KTX-M (Total); 760831-Wpayv LDL-P; 848501-IQM Size; 586653-TH-KA Scorewas developed and its performance characteristics determinedby P[employer]. It has not been cleared or approved by the Foodand Drug Administration.PATIENT WAS FASTINGPERFORMED BY: Familonet[address] [id number] BY: Familonet Nfkrlq3100 [place] SafeMeds SolutionsFirstHealth [facility] [id number] WBC (Bld) [#/Vol] 3.2 {x10E3/uL} Abnormal 3.4-10.8 [facility] Internal Medicine; [facility] Work Phone: Comment on above: Test(s) 079229-HVC-H ; 673508-SZJ-E; 172060-Oetchhjkrqsef; 756794-Waabedlxxwv, Total; 293554-DNW-G (Total); 879183-Nesrn LDL-P; 607616-VPD Size; 154193-JR-LC Scorewas developed and its performance characteristics determinedby [employer]. It has not been cleared or approved by the Foodand Drug Administration.PATIENT WAS FASTINGPERFORMED BY: [employer] [address] [id number] BY: Groopt Akkdxd7239 [facility] [id number] WBC (Bld) [#/Vol] 3.2 10*3/uL Abnormal 3.4-10.8 [facility] Internal Medicine; [facility] Work Phone: Comment on above: Test(s) 826001-UNR-A ; 608479-FHT-H; 536605-Ehgxjlkrgtbxu; 253786-Ilhlpnahvnw, Total; 110105-LEY-H (Total); 252698-Lezcz LDL-P; 933678-JVD Size; 707435-HD-FF Scorewas developed and its performance characteristics determinedby [employer]. It has not been cleared or approved by the Foodand Drug Administration.PATIENT WAS FASTINGPERFORMED BY: [facility] [address] [id number] BY: Shelby.[email or web address] [facility] [id number] HEPATITIS C ANTIBODY (73634) Ordered By: Financial Assistant on 07-29-2020 HCV Ab Signal/Cutoff IA [Rel units/Vol] {ratio} Normal 0.0-0.9 [facility]; [facility] Work Phone: Comment on above: Negative: < 0.8 Inde terminate: 0.8 - 0.9 Positive: > 0.9 . The CDC recommends that a positive HCV antibody result be followed up with a HCV Nucleic Acid Amplification test (450688). Test(s) 964554-KHL-Q ; 554039-CKU-M; 629330-Tzajizbispjmz; 207447-Tunoxhquerl, Total; 699135-PAJ-J (Total); 861294-Sslpz LDL-P; 875431-TKM Size; 076700-XU-UV Scorewas developed and its performance characteristics determinedby [employer]. It has not been cleared or approved by the Foodand Drug Administration.PATIENT WAS FASTINGPERFORMED BY: [employer] [place] [address] [id number] BY: BCNX [facility] [id number] HCV Ab Signal/Cutoff IA [Rel units/Vol] {ratio} Normal 0.0-0.9 [facility]; [facility] Work Phone: Comment on above: Negative: < 0.8 Inde terminate: 0.8 - 0.9 Positive: > 0.9 . The CDC recommends that a positive HCV antibody result be followed up with a HCV Nucleic Acid Amplification test (373823). Test(s) 016321-OHD-F ; 963943-MVV-U; 139927-Svlfjpkswzoha; 330304-Vdbdjjgicqb, Total; 648309-NWE-T (Total); 390748-Nfjrn LDL-P; 746061-FVK Size; 519659-BD-FV Scorewas developed and its performance characteristics determinedby [employer]. It has not been cleared or approved by the Foodand Drug Administration.PATIENT WAS FASTINGPERFORMED BY: Dibbzton1447 [facility] [id number] BY: Q-Botox RoadDublin [place] [id number] Metabolic Panel, Comprehensi ve (32741)Ordered By: Financial Assistant on 07-29-2020 Albumin [Mass/Vol] 4.1 g/dL Normal 3.8-4.8 [facility] Internal Medicine; [facility] Work Phone: Comment on above: Test(s) 894564-GWO-A ; 948272-WDV-W; 452949-Racwcybydgiji; 955721-Wnfvhvioxhy, Total; 325245-QOY-F (Total); 316644-Bwwgo LDL-P; 685823-GEG Size; 113831-VM-TX Scorewas developed and its performance characteristics determinedby [employer]. It has not been cleared or approved by the Foodand Drug Administration.PATIENT WAS FASTINGPERFORMED BY: [employer] [address] [id number] BY: Mobule6370 [facility] [id number] Albumin/Globulin [Mass ratio] 1.5 {ratio} Normal 1.2-2.2 [facility]; [facility] Work Phone: Comment on above: Test(s) 939595-JZR-L ; 828928-GXN-R; 987986-Oqppdnbtbgfax; 670780-Kecejycwyxd, Total; 362010-TMT-F (Total); 893794-Lmeer LDL-P; 282143-DRQ Size; 521649-WJ-MB Scorewas developed and its performance characteristics determinedby [employer]. It has not been cleared or approved by the Foodand Drug Administration.PATIENT WAS FASTINGPERFORMED BY: [employer] [address] [id number] BY: Mobule6370 [facility] [id number] ALP [Catalytic activity/Vol] 56 [iU]/L Normal 39-117 [facility]; [facility] Work Phone: Comment on above: Test(s) 398752-JGV-L ; 440620-XGQ-F; 264205-Vgozsfnmhynmf; 200248-Bhwyntuhrij, Total; 990636-ESY-A (Total); 360110-Nnalo LDL-P; 099153-RLQ Size; 642385-VS-BT Scorewas developed and its performance characteristics determinedby [employer]. It has not been cleared or approved by the Foodand Drug Administration.PATIENT WAS FASTINGPERFORMED BY: Familonet[address] [id number] BY: Familonet Shdiim6907 [facility]First[facility] [id number] ALP [Catalytic activity/Vol] 56 U/L Normal 39-117 [facility]; [facility] Work Phone: Comment on above: Test(s) 104046-SKH-S ; 981033-VTX-J; 674119-Pmgqnlvoniaaj; 985909-Ybzoqsbgipa, Total; 903767-PIF-F (Total); 561798-Odywa LDL-P; 603147-XNL Size; 104441-CQ-EM Scorewas developed and its performance characteristics determinedby [employer]. It has not been cleared or approved by the Foodand Drug Administration.PATIENT WAS FASTINGPERFORMED BY: [employer] [address] [id number] BY: [email or web address] [place] SafeMeds SolutionsFirstHealth [facility] [id number] ALT [Catalytic activity/Vol] 15 [iU]/L Normal 0-32 [facility]; [facility] Work Phone: Comment on above: Test(s) 336267-UUR-G ; 674092-HOB-T; 461959-Ukcyofyxwhfwf; 861097-Snytedhonab, Total; 295649-KEX-K (Total); 812835-Xdmma LDL-P; 488690-TTY Size; 552894-VL-EO Scorewas developed and its performance characteristics determinedby [employer]. It has not been cleared or approved by the Foodand Drug Administration.PATIENT WAS FASTINGPERFORMED BY: Familonet[address] [id number] BY: Groopt Hbjulb0254 [place] SafeMeds SolutionsFirstHealth [facility] [id number] ALT [Catalytic activity/Vol] 15 U/L Normal 0-32 [facility]; [facility] Work Phone: Comment on above: Test(s) 960255-ZUG-X ; 367601-CAZ-I; 953900-Vgsjmnhqcbdob; 246134-Wjqkoghdkbp, Total; 067685-TSK-D (Total); 588539-Yoymd LDL-P; 015249-XUQ Size; 387005-OO-NM Scorewas developed and its performance characteristics determinedby [employer]. It has not been cleared or approved by the Foodand Drug Administration.PATIENT WAS FASTINGPERFORMED BY: Familonet[address] [id number] BY: FamilonetBacharach Institute for RehabilitationOiawzr7695 [facility] [id number] AST [Catalytic activity/Vol] 26 [iU]/L Normal 0-40 [facility]; [facility] Work Phone: Comment on above: Test(s) 107556-VVE-W ; 777692-TRU-I; 379723-Ljbagamozoblh; 930755-Savajcbpqyx, Total; 981360-XRH-G (Total); 983375-Ndhxz LDL-P; 361874-DUN Size; 709098-VR-NF Scorewas developed and its performance characteristics determinedby [employer]. It has not been cleared or approved by the Foodand Drug Administration.PATIENT WAS FASTINGPERFORMED BY: Familonet[address] [id number] BY: FamilonetBacharach Institute for RehabilitationPhsuwb8544 [facility] [id number] AST [Catalytic activity/Vol] 26 U/L Normal 0-40 [facility]; [facility] Work Phone: Comment on above: Test(s) 716011-RWU-K ; 487527-VOD-B; 935144-Ledwknfuxzsuu; 914849-Afwgrqrljlt, Total; 262727-ZXY-F (Total); 637673-Vpglv LDL-P; 659388-KAG Size; 224031-SM-FA Scorewas developed and its performance characteristics determinedby [employer]. It has not been cleared or approved by the Foodand Drug Administration.PATIENT WAS FASTINGPERFORMED BY: Soneter[address] [id number] BY: Familonet Tcvvfu4301 [facility] [id number] Bilirubin [Mass/Vol] 0.3 mg/dL Normal 0.0-1.2 [facility]; [facility] Work Phone: Comment on above: Test(s) 882144-MUH-B ; 328022-CMB-O; 251102-Ebrxuvebbahye; 766390-Jikhldbzjnr, Total; 114104-RAL-L (Total); 713624-Lwsqb LDL-P; 280689-SLQ Size; 459214-XG-IH Scorewas developed and its performance characteristics determinedby [employer]. It has not been cleared or approved by the Foodand Drug Administration.PATIENT WAS FASTINGPERFORMED BY: Dibbz[address] [id number] BY: Familonet Dlbasi5029 [facility] [id number] Calcium [Mass/Vol] 9.0 mg/dL Normal 8.7-10.3 [facility] Internal Medicine; [facility] Work Phone: Comment on above: Test(s) 845389-IED-H ; 842187-WKS-Y; 115584-Evpfksaaneabs; 869528-Gyzelllxjlb, Total; 962943-LWG-B (Total); 416949-Rdwmd LDL-P; 558032-UOO Size; 735084-LK-TT Scorewas developed and its performance characteristics determinedby [employer]. It has not been cleared or approved by the Foodand Drug Administration.PATIENT WAS FASTINGPERFORMED BY: Familonet[address] [id number] BY: FamilonetNew Mexico Behavioral Health Institute at Las VegasFcgqmf8695 [facility] [id number] Chloride [Moles/Vol] 106 mmol/L Normal 96-106 [facility]; [facility] Work Phone: Comment on above: Test(s) 244504-APO-N ; 951160-NQQ-B; 133539-Qgrgagjhexnxz; 731692-Lnwoqfmuamj, Total; 475731-GYB-A (Total); 510665-Zxavm LDL-P; 700990-TLZ Size; 861451-LE-RG Scorewas developed and its performance characteristics determinedby [employer]. It has not been cleared or approved by the Foodand Drug Administration.PATIENT WAS FASTINGPERFORMED BY: Dibbz[address] [id number] BY: [email or web address] [facility] [id number] CO2 [Moles/Vol] 22 mmol/L Normal 20-29 [facility] Internal Medicine; [facility] Work Phone: Comment on above: Test(s) 637829-NTM-H ; 248358-ECQ-C; 282112-Vftbrlnvhpeam; 582176-Jaxnfndjacb, Total; 914764-AQA-E (Total); 634005-Ydlsd LDL-P; 423944-ZIN Size; 716805-IT-EE Scorewas developed and its performance characteristics determinedby Pitch[employer]. It has not been cleared or approved by the Foodand Drug Administration.PATIENT WAS FASTINGPERFORMED BY: Dem[employer]base [address] [id number] BY: Mobule6370 [facility] [id number] Creatinine [Mass/Vol] 0.65 mg/dL Normal 0.57-1.00 [facility]; [facility] Work Phone: Comment on above: Test(s) 728346-KKG-F ; 985945-PEG-X; 806290-Eeakgcquwohwi; 525269-Dijtdbqkpzd, Total; 736496-BNC-B (Total); 403971-Toshy LDL-P; 108439-KFI Size; 374940-KQ-ZX Scorewas developed and its performance characteristics determinedby Pitchbrite. It has not been cleared or approved by the Foodand Drug Administration.PATIENT WAS FASTINGPERFORMED BY: Demandbase [place] [address] [facility] [id number] BY: Mobule6370 [facility] [id number] GFR/1.73 sq M predicted among blacks CKD-EPI (S/P/Bld) [Vol rate/Area] 111 mL/min/1.73 Normal [facility]; [facility] Work Phone: Comment on above: Test(s) 657762-NKK-D ; 462858-KKS-F; 245673-Thqektktbknyh; 846856-Kbybwdkyiqs, Total; 575620-MZT-Z (Total); 216094-Omxbr LDL-P; 800056-LOZ Size; 849878-XU-LU Scorewas developed and its performance characteristics determinedby Pitchbrite. It has not been cleared or approved by the Foodand Drug Administration.PATIENT WAS FASTINGPERFORMED BY: [employer] [address] [id number] BY: Mobule6370 [facility] [id number] GFR/1.73 sq M predicted among non-blacks CKD-EPI (S/P/Bld) [Vol rate/Area] 96 mL/min/1.73 Normal [facility]; [facility] Work Phone: Comment on above: Test(s) 534886-ZAB-T ; 680519-VZA-M; 492519-Gacucscouixhy; 187712-Ccqsmpqqcdz, Total; 684063-JHV-R (Total); 837660-Olpup LDL-P; 012728-UBY Size; 838368-AT-DA Scorewas developed and its performance characteristics determinedby [employer]. It has not been cleared or approved by the Foodand Drug Administration.PATIENT WAS FASTINGPERFORMED BY: [employer] [address] [id number] BY: Mobule6370 [facility] [id number] Globulin (S) [Mass/Vol] 2.7 g/dL Normal 1.5-4.5 [facility]; [facility] Work Phone: Comment on above: Test(s) 561897-SBS-B ; 727437-BHT-G; 275360-Tvwtagtusccwm; 613733-Tuttkcccfkn, Total; 738602-DWW-Z (Total); 515202-Zmwzv LDL-P; 967229-NFV Size; 584482-HH-UK Scorewas developed and its performance characteristics determinedby [employer]. It has not been cleared or approved by the Foodand Drug Administration.PATIENT WAS FASTINGPERFORMED BY: [employer] [address] [id number] BY: [email or web address] [facility] [id number] Glucose [Mass/Vol] 91 mg/dL Normal 65-99 [facility] Internal Medicine; [facility] Work Phone: Comment on above: Test(s) 767111-UYF-S ; 910759-SHD-V; 125991-Prljyrwoqfdtb; 141704-Zylylxzywiv, Total; 447653-MIF-X (Total); 287895-Wtbcw LDL-P; 807376-JTJ Size; 682296-FT-WL Scorewas developed and its performance characteristics determinedby [employer]. It has not been cleared or approved by the Foodand Drug Administration.PATIENT WAS FASTINGPERFORMED BY: [employer] [address] [id number] BY: Mobule6370 [facility] [id number] Potassium [Moles/Vol] 4.3 mmol/L Normal 3.5-5.2 [facility] Internal Medicine; [facility] Work Phone: Comment on above: Test(s) 037509-QPP-F ; 320402-FRK-D; 398208-Hvcwtwmquewjc; 167580-Roixbusskof, Total; 191282-USZ-C (Total); 875208-Lbsdl LDL-P; 097335-KHM Size; 877005-DF-GP Scorewas developed and its performance characteristics determinedby P[employer]. It has not been cleared or approved by the Foodand Drug Administration.PATIENT WAS FASTINGPERFORMED BY: Soneter[address] [id number] BY: Familonet Vyjpvy4208 [place] SafeM[facility] SolutionsFirst[facility] [id number] Protein [Mass/Vol] 6.8 g/dL Normal 6.0-8.5 [facility] Internal Medicine; [facility] Work Phone: Comment on above: Test(s) 363548-VEU-Z ; 440416-FCZ-A; 268925-Lihigphdywqar; 280823-Nalaxstcmfq, Total; 969389-RAE-H (Total); 154542-Owirs LDL-P; 624470-VZK Size; 490692-FP-RY Scorewas developed and its performance characteristics determinedby [employer]. It has not been cleared or approved by the Foodand Drug Administration.PATIENT WAS FASTINGPERFORMED BY: Dem[employer]base [address] [id number] BY: Groopt Xopmvm1552 [place] SafeMeds SolutionsFirstHealth [facility] [id number] Sodium [Moles/Vol] 140 mmol/L Normal 134-144 [facility] Internal Medicine; [facility] Work Phone: Comment on above: Test(s) 031848-VMG-K ; 724308-TJK-R; 195791-Okprxhwnxpefa; 274589-Qijckcqqoss, Total; 575974-WGD-E (Total); 949751-Yjlyo LDL-P; 726448-JPF Size; 950737-OK-YN Scorewas developed and its performance characteristics determinedby P[employer]. It has not been cleared or approved by the Foodand Drug Administration.PATIENT WAS FASTINGPERFORMED BY: Soneter[address] [id number] BY: GrooptBacharach Institute for RehabilitationLlfbyg6594 [facility] [id number] Urea nitrogen [Mass/Vol] 11 mg/dL Normal 8-27 [facility]; [facility] Work Phone: Comment on above: Test(s) 541202-RIL-G ; 542949-VTT-I; 454802-Tcrmxveidyfra; 225188-Iihvzmuivsy, Total; 268295-OWA-K (Total); 325807-Uvdgl LDL-P; 689024-CMK Size; 138122-ET-QB Scorewas developed and its performance characteristics determinedby [employer]. It has not been cleared or approved by the Foodand Drug Administration.PATIENT WAS FASTINGPERFORMED BY: [employer] [address] [id number] BY: GrooptNew Mexico Behavioral Health Institute at Las VegasSgyfro6481 [facility] [id number] Urea nitrogen/Creatinine [Mass ratio] 17 mg/mg Normal 12-28 [facility]; [facility] Work Phone: Comment on above: Test(s) 549702-CGD-W ; 222640-YLP-G; 861082-Cemkmknsoexph; 225190-Hvhrsmwtxdp, Total; 367671-PQY-U (Total); 875131-Dlxzz LDL-P; 379598-FRA Size; 779647-DW-FJ Scorewas developed and its performance characteristics determinedby P[employer]. It has not been cleared or approved by the Foodand Drug Administration.PATIENT WAS FASTINGPERFORMED BY: Dem[employer] [address] [id number] BY: GrooptNew Mexico Behavioral Health Institute at Las VegasSfexdp6186 [facility] [id number] NMR Profile (33129)Ordered B y: Financial Assistant on 07-29-2020 Cholesterol [Mass/Vol] 224 mg/dL Abnormal 100-199 [facility]; [facility] Work Phone: Comment on above: Test(s) 277374-VBK-Q ; 023288-HIZ-X; 683210-Dbnjcgoojgmgd; 956059-Dtfmvtsequg, Total; 704987-ZWE-M (Total); 314839-Siazw LDL-P; 493935-JWR Size; 358788-YQ-BE Scorewas developed and its performance characteristics determinedby [employer]. It has not been cleared or approved by the Foodand Drug Administration.PATIENT WAS FASTINGPERFORMED BY: Dem[employer] [address] [id number] BY: FamilonetBacharach Institute for RehabilitationPqyphb6125 [facility] [id number] Lipoprotein.alpha [Moles/Vol] 38.1 umol/L Normal [facility]; [facility] Work Phone: Comment on above: Test(s) 097702-WUV-V ; 862226-HJI-O; 875866-Mawatozjrthbn; 587449-Ciyopvfktvu, Total; 583162-SCN-N (Total); 465196-Xzosh LDL-P; 159294-TKL Size; 725308-CF-GU Scorewas developed and its performance characteristics determinedby P[employer]br[employer]. It has not been cleared or approved by the Foodand Drug Administration.PATIENT WAS FASTINGPERFORMED BY: Familonet[address] [id number] BY: Customizer Storage Solutionslin6370 [facility] [id number] Lipoprotein.beta.subp article [Entitic length] 21.4 nm Normal [facility]; [facility] Work Phone: Comment on above: INTERPRETATIVE INFORMATION PARTICLE CONCENTRATION AND SIZE <--Lower CVD Risk Higher CVD Risk--> LDL AND HDL PARTICLES Percentile in Reference Population HDL-P (total) High 75th 50th 25th Low >34.9 34.9 30.5 26.7 <26.7 . Small LDL-P Low 25th 50th 75th High <117 117 527 839 >839 . LDL Size <-Large (Pattern A)-> <-Small (Pattern B)-> 23.0 20.6 20.5 19.0 Small LDL-P and LDL Size are associated with CVD risk, but not afterLDL-P is taken into account. Test(s) 536168-REY-J ; 431724-HCZ-D; 645394-Safefvrezuqeh; 107021-Vwdxxyvqnps, Total; 222151-MQT-R (Total); 728240-Mvolk LDL-P; 012715-TAI Size; 156925-FM-KT Scorewas developed and its performance characteristics determinedby P[employer]br[employer]. It has not been cleared or approved by the Foodand Drug Administration.PATIENT WAS FASTINGPERFORMED BY: Dem[employer]base [address] [id number] BY: [email or web address] [place] SafeMeds SolutionsFirstHealth [facility] [id number] Lipoprotein.beta.subp article [Moles/Vol] 1188 nmol/L Abnormal Comprehensiv e Internal Medicine; [facility] Work Phone: Comment on above: Low < 1000 Moderate 1000 - 1299 Borderline-High 1300 - 1599 High 1600 - 2000 Very High > 2000 Test(s) 352967-UOP-D ; 005717-WUA-P; 600987-Niiymzjuhlypc; 810697-Hieygltsbmj, Total; 759310-ZLV-P (Total); 215555-Jdukw LDL-P; 864394-VMO Size; 083255-ZJ-ZF Scorewas developed and its performance characteristics determinedby Pitchbr[employer]. It has not been cleared or approved by the Foodand Drug Administration.PATIENT WAS FASTINGPERFORMED BY: Demandbase [address] [id number] BY: [email or web address] [facility] [id number] Lipoprotein.beta.subp article.small [Moles/Vol] <90 Normal [facility]; [facility] Work Phone: Comment on above: Test(s) 138222-UGT-W ; 926176-LIM-K; 289270-Qwqhsjaumzokt; 445992-Eudgucvhihp, Total; 205347-GWV-X (Total); 952332-Iipls LDL-P; 613538-BLW Size; 449853-WV-AS Scorewas developed and its performance characteristics determinedby P[employer]. It has not been cleared or approved by the Foodand Drug Administration.PATIENT WAS FASTINGPERFORMED BY: Demandbase [address] [id number] BY: FamilonetBacharach Institute for RehabilitationXmcejg0329 [facility] [id number] Triglyceride [Mass/Vol] 58 mg/dL Normal 0-149 [facility]; [facility] Work Phone: Comment on above: Test(s) 808267-MLD-U ; 276642-NQN-W; 244865-Jyhzfjxvnfxtb; 498606-Oroffkckilo, Total; 239895-JSO-Z (Total); 732375-Daadr LDL-P; 711646-QWW Size; 194979-PY-EX Scorewas developed and its performance characteristics determinedby BlogCN. It has not been cleared or approved by the Foodand Drug Administration.PATIENT WAS FASTINGPERFORMED BY: Demandbase [address] [id number] BY: 1000memories Fodpsk2225 [facility] [id number] NMR Profile (34461) 93 mg/dL Normal Compr ehensive Internal Medicine; [facility] Work Phone: Comment on above: Test(s) 425230-OPO-Q ; 806208-EVQ-Y; 184539-Zasxjbejmxpky; 913842-Brbgvlxtnkb, Total; 016068-IIS-M (Total); 998755-Szlac LDL-P; 325950-YHU Size; 002139-BC-AJ Scorewas developed and its performance characteristics determinedby BlogCN. It has not been cleared or approved by the Foodand Drug Administration.PATIENT WAS FASTINGPERFORMED BY: Demandbase [address] [id number] BY: FamilonetBacharach Institute for RehabilitationCjvhse5424 [facility] [id number] NMR Profile (38743) 121 mg/dL Abnormal 0-99 Compr ehensive Internal Medicine; [facility] Work Phone: Comment on above: . Optimal < 100 Abov e optimal 100 - 129 Borderline 130 - 159 High 160 - 189 Very high > 189 . Test(s) 077721-OMV-A ; 781979-FMM-Z; 533391-Ldiyqluygqzkx; 661646-Qtejkfxubka, Total; 837073-UNV-B (Total); 309913-Cmpop LDL-P; 968252-BJP Size; 527859-FU-OH Scorewas developed and its performance characteristics determinedby P[employer]br[employer]. It has not been cleared or approved by the Foodand Drug Administration.PATIENT WAS FASTINGPERFORMED BY: Demandbase [address] [id number] BY: [email or web address] [facility] [id number] URINALYSIS (68523)Ordered By : Financial Assistant on 07-29-2020 Appearance (U) Clear Normal Comprehens hanane Internal Medicine; [facility] Work Phone: Comment on above: Test(s) 144731-XFY-K ; 316518-LSW-I; 563507-Qwildxulgtcyf; 083368-Gqvovgjzyoe, Total; 073079-LUG-R (Total); 490553-Ywwkr LDL-P; 869091-CMR Size; 613894-DS-AD Scorewas developed and its performance characteristics determinedby P[employer]. It has not been cleared or approved by the Foodand Drug Administration.PATIENT WAS FASTINGPERFORMED BY: Demandbase [address] [id number] BY: [email or web address] [facility] [id number] Bilirubin Ql (U) Negative Normal Comprehe nsive Internal Medicine; [facility] Work Phone: Comment on above: Test(s) 686297-YWR-P ; 925108-FYB-G; 076686-Grdpubnebdyzp; 711761-Zvpoqrzmltj, Total; 209116-CYH-Y (Total); 555165-Wvlyq LDL-P; 828571-PVK Size; 385662-GT-SJ Scorewas developed and its performance characteristics determinedby P[employer]. It has not been cleared or approved by the Foodand Drug Administration.PATIENT WAS FASTINGPERFORMED BY: Soneter[address] [id number] BY: Familonet Jmahkn5122 [facility] [id number] Bilirubin Ql (U) Negative Normal Comprehe nsive Internal Medicine; [facility] Work Phone: Comment on above: Test(s) 765086-IJF-Y ; 265034-JEN-G; 467526-Hfqaxntaxoikj; 860093-Jqhdjlnbved, Total; 392341-FHZ-F (Total); 789900-Vdfht LDL-P; 305403-RRP Size; 569033-PX-KW Scorewas developed and its performance characteristics determinedby [employer]. It has not been cleared or approved by the Foodand Drug Administration.PATIENT WAS FASTINGPERFORMED BY: Demandbase [address] [id number] BY: [email or web address] [facility] [id number] Color (U) Yellow Normal [facility]; [facility] Work Phone: Comment on above: Test(s) 510594-VHD-Z ; 254183-HNX-M; 509862-Onctnvaedcljm; 856919-Pfavcrqcmlw, Total; 331651-QVN-M (Total); 907331-Fsozp LDL-P; 487333-DZG Size; 541542-CE-YZ Scorewas developed and its performance characteristics determinedby P[employer]br[employer]. It has not been cleared or approved by the Foodand Drug Administration.PATIENT WAS FASTINGPERFORMED BY: Soneter[address] [id number] BY: FamilonetBacharach Institute for RehabilitationByguoa1036 [facility] [id number] Glucose Ql (U) Negative Normal Comprehens hanane Internal Medicine; [facility] Work Phone: Comment on above: Test(s) 832995-LJU-K ; 065523-UXG-I; 786607-Iqhlrxpbvukwq; 107703-Kfdofrbyavx, Total; 410218-FOL-G (Total); 815766-Jmpdf LDL-P; 926545-WJS Size; 348400-HH-ZU Scorewas developed and its performance characteristics determinedby P[employer]. It has not been cleared or approved by the Foodand Drug Administration.PATIENT WAS FASTINGPERFORMED BY: Soneter[address] [id number] BY: Familonet Wiokif9796 [facility] [id number] Glucose Ql (U) Negative Normal Comprehens hanane Internal Medicine; [facility] Work Phone: Comment on above: Test(s) 367159-HIH-R ; 981585-TGU-W; 106256-Yllaqqmbcdtna; 040984-Tqfvwpljhqj, Total; 736651-SAE-B (Total); 980498-Ynsyg LDL-P; 604296-BGA Size; 450630-FC-NP Scorewas developed and its performance characteristics determinedby [employer]. It has not been cleared or approved by the Foodand Drug Administration.PATIENT WAS FASTINGPERFORMED BY: Demandbase [address] [id number] BY: [email or web address] [facility] [id number] Hemoglobin Ql (U) Negative Normal Compreh ensive Internal Medicine; [facility] Work Phone: Comment on above: Test(s) 107741-GSN-X ; 698102-RSN-K; 922083-Tbitrtgwdzpdc; 101150-Cbbrjubgtto, Total; 608497-PJC-T (Total); 349403-Ujujf LDL-P; 589764-MLF Size; 299708-UP-MK Scorewas developed and its performance characteristics determinedby P[employer]brite. It has not been cleared or approved by the Food[employer] Drug Administration.PATIENT WAS FASTINGPERFORMED BY: Demandbase [address] [id number] BY: GrooptNew Mexico Behavioral Health Institute at Las VegasBqpaae6175 [facility] [id number] Hemoglobin Ql (U) Negative Normal Compreh ensive Internal Medicine; [facility] Work Phone: Comment on above: Test(s) 346844-JNQ-E ; 603721-EHD-L; 591436-Vsfmokkuhkxdj; 294515-Pqhnntxjqzw, Total; 591656-CBA-X (Total); 291458-Kgfzd LDL-P; 378588-UIT Size; 366878-RF-BA Scorewas developed and its performance characteristics determinedby P[employer]br[employer]. It has not been cleared or approved by the Foodand Drug Administration.PATIENT WAS FASTINGPERFORMED BY: Demandbase [address] [id number] BY: [email or web address] [facility] [id number] Ketones Ql (U) Negative Normal Comprehens hanane Internal Medicine; [facility] Work Phone: Comment on above: Test(s) 844312-MGC-N ; 024081-WIO-Y; 227306-Mwuknctroagwv; 032059-Aslcuedirfb, Total; 350661-BOX-Q (Total); 932312-Iuipb LDL-P; 429253-HTE Size; 175205-RH-HC Scorewas developed and its performance characteristics determinedby P[employer]brite. It has not been cleared or approved by the Foodand Drug Administration.PATIENT WAS FASTINGPERFORMED BY: Demandbase [address] [id number] BY: [email or web address] [facility] [id number] Ketones Ql (U) Negative Normal Comprehens hanane [facility] Medicine; [facility] Work Phone: Comment on above: Test(s) 742110-OYA-L ; 168441-RZY-Q; 384962-Ckxchfpabwsps; 938137-Gtjiyuaovah, Total; 747452-LSP-O (Total); 906437-Snmqu LDL-P; 132472-ENI Size; 253073-SW-VF Scorewas developed and its performance characteristics determinedby P[employer]br[employer]. It has not been cleared or approved by the Foodand Drug Administration.PATIENT WAS FASTINGPERFORMED BY: Demandbase [address] [id number] BY: [email or web address] [facility] [id number] Leukocyte esterase Test strip Ql (U) Negative Normal [facility]; [facility] Work Phone: Comment on above: Test(s) 373805-AXO-K ; 156843-JJD-N; 109760-Crlxiyjpfuofy; 470269-Umbeqtawsag, Total; 346753-EJQ-U (Total); 986419-Mbcjw LDL-P; 035634-POL Size; 518699-EE-OU Scorewas developed and its performance characteristics determinedby P[employer]brite. It has not been cleared or approved by the Foodand Drug Administration.PATIENT WAS FASTINGPERFORMED BY: Dibbz[address] [id number] BY: [email or web address] [facility] [id number] Leukocyte esterase Test strip Ql (U) Negative Normal [facility]; [facility] Work Phone: Comment on above: Test(s) 560109-JTS-W ; 787070-SHG-X; 586595-Twrrrwgniehxi; 857875-Oyxehmttjpl, Total; 078913-AEQ-F (Total); 933932-Lxqvs LDL-P; 480830-OJH Size; 164184-PY-CZ Scorewas developed and its performance characteristics determinedby Pitchbrite. It has not been cleared or approved by the Foodand Drug Administration.PATIENT WAS FASTINGPERFORMED BY: Demandbase [address] [id number] BY: 1000memories Kvhtvd3301 [facility] [id number] Microscopic observation LM Nom (Urine sed) MICNIP Normal [facility]; [facility] Work Phone: Comment on above: Microscopic not renetta cated and not performed. Test(s) 082422-DQQ-E ; 980260-XZW-R; 380518-Ncoskmsxdunnb; 331531-Mfdnkmjktjp, Total; 815859-RAW-I (Total); 165257-Lixdr LDL-P; 803302-VSC Size; 575575-CF-JZ Scorewas developed and its performance characteristics determinedby Pitchbrite. It has not been cleared or approved by the Foodand Drug Administration.PATIENT WAS FASTINGPERFORMED BY: Soneter[address] [id number] BY: FamilonetNew Mexico Behavioral Health Institute at Las VegasNvyzwf7351 [facility] [id number] Nitrite Ql (U) Negative Normal Comprehens hanane [facility]; [facility] Work Phone: Comment on above: Test(s) 900121-RCZ-L ; 292812-ZDY-L; 709834-Sgcjqvgzgvngv; 097612-Ogmimvwnllq, Total; 099828-AMU-M (Total); 189659-Ceevo LDL-P; 297194-XPA Size; 382898-PK-XT Scorewas developed and its performance characteristics determinedby P[employer]brite. It has not been cleared or approved by the Foodand Drug Administration.PATIENT WAS FASTINGPERFORMED BY: Dibbz[address] [id number] BY: Mobule6370 [facility] [id number] Nitrite Ql (U) Negative Normal Comprehens hanane [facility]; [facility] Work Phone: Comment on above: Test(s) 215443-KGN-J ; 994751-LOW-F; 201064-Dvzdehyoxhcob; 303357-Fnjiztfiqnl, Total; 267461-YXE-Z (Total); 777453-Zlhkv LDL-P; 900400-BAR Size; 635276-YI-LE Scorewas developed and its performance characteristics determinedby Pitchbr[employer]. It has not been cleared or approved by the Foodand Drug Administration.PATIENT WAS FASTINGPERFORMED BY: Demandbase [address] [id number] BY: GrooptBacharach Institute for RehabilitationNauiqo4989 [facility] [id number] pH (U) 7.0 [pH] Normal 5.0-7.5 [facility]; [facility] Work Phone: Comment on above: Test(s) 133396-ZLT-Y ; 336326-GVQ-V; 444035-Dmsmkgbguiafs; 059599-Ucbmgjhaffi, Total; 398036-WUH-J (Total); 801685-Qmckg LDL-P; 529193-ENE Size; 614766-WQ-YC Scorewas developed and its performance characteristics determinedby P[employer]brite. It has not been cleared or approved by the Foodand Drug Administration.PATIENT WAS FASTINGPERFORMED BY: Demandbase [address] [id number] BY: [id number] [facility] [id number] Protein Ql (U) Negative Normal Comprehens hanane [facility]; [facility] Work Phone: Comment on above: Test(s) 438424-DNX-L ; 298847-RYZ-O; 376948-Gahqfwfzlybes; 778582-Wofynkctfnt, Total; 286465-UWY-B (Total); 389463-Fason LDL-P; 756971-OIZ Size; 849616-NJ-HF Scorewas developed and its performance characteristics determinedby P[employer]br[employer]. It has not been cleared or approved by the Foodand Drug Administration.PATIENT WAS FASTINGPERFORMED BY: Demandbase [address] [id number] BY: [email or web address] [facility] [id number] Protein Ql (U) Negative Normal Comprehens hanane [facility]; [facility] Work Phone: Comment on above: Test(s) 925142-PBA-P ; 724237-MTL-H; 205412-Ygkpixiwyqrsj; 976048-Ivjoekdxcfz, Total; 404040-GYR-S (Total); 839971-Auoyd LDL-P; 194882-FPX Size; 143514-XS-KM Scorewas developed and its performance characteristics determinedby [employer]. It has not been cleared or approved by the Foodand Drug Administration.PATIENT WAS FASTINGPERFORMED BY: Demandbase [address] [id number] BY: [email or web address] [facility] [id number] Specific gravity (U) [Rel density] 1.014 1 Normal 1.005-1.03 0 [facility] Internal [facility]; [facility] Work Phone: Comment on above: Test(s) 772225-DIO-R ; 313910-RAC-V; 937535-Lahqquvlguilu; 726156-Fhfmjoncigj, Total; 304748-XGE-P (Total); 440885-Ahwci LDL-P; 506692-TYU Size; 620536-ZI-UM Scorewas developed and its performance characteristics determinedby [employer]. It has not been cleared or approved by the Foodand Drug Administration.PATIENT WAS FASTINGPERFORMED BY: Dib[address] [id number] BY: Zavedenia.com70 [facility] [id number] Urobilinogen (U) [Mass/Vol] 1.0 mg/dL Normal 0.2-1.0 [facility] Internal Medicine; [facility] Internal Medicine Work Phone: Comment on above: Test(s) 315150-IGS-Z ; 004835-HDN-Q; 978229-Cqfwpsenwlsny; 995998-Vgmfimyeyuj, Total; 645949-MUA-E (Total); 531800-Apkgv LDL-P; 951312-AWL Size; 016604-GL-QY Scorewas developed and its performance characteristics determinedby [employer]. It has not been cleared or approved by the Foodand Drug Administration.PATIENT WAS FASTINGPERFORMED BY: [employer] [address] [id number] BY: Shelby.tvlin6370 [facility] [id number] Urobilinogen Test strip (U) [Mass/Vol] 1.0 mg/dL Normal 0.2-1.0 [facility] Internal Medicine; [facility] Internal Medicine Work Phone: Comment on above: Test(s) 635490-OJJ-G ; 804077-OCN-W; 258441-Iospgczfqhmmw; 645654-Uiohurqcqon, Total; 081634-PDY-Y (Total); 985203-Otuqd LDL-P; 128436-BCS Size; 227864-DT-IL Scorewas developed and its performance characteristics determinedby [facility]. It has not been cleared or approved by the Foodand Drug Administration.PATIENT WAS FASTINGPERFORMED BY: [place] 045487 [facility] [id number] BY: [facility]6370 [facility] [id number] CALCIFIDIOL (74280) VIT D 25 Ordered By: Financial Assistant on 03-19-2020 25-Hydroxyvitamin D2+25-Hydroxyvitamin D3 [Mass/Vol] 37.3 ng/mL Normal 30.0-100.0 [facility] Work Phone: Comment on above: Vitamin D deficiency has been defined by the [place] ofMedicine and an Endocrine Society practice guideline as alevel of serum 25-OH vitamin D less than 20 ng/mL (1,2).The Endocrine Society went on to further define vitamin Dinsufficiency as a level between 21 and 29 ng/mL (2).1. IOM ([place] of Medicine). 2010. Dietary reference intakes for calcium and D. [place]: The National Academies Press.2. Hayder MF, Delfina NC, Gi MADRID, et al. Evaluation, treatment, and prevention of vitamin D deficiency: an Endocrine Society clinical practice guideline. JCEM. 2010; 96(7):1911-30. PATIENT NOT FASTINGP ERFORMED BY: [facility]6370 [facility] [id number] METABOLIC PANEL, COMPREHENSI VE (83338)Ordered By: Financial Assistant on 03-19-2020 Albumin [Mass/Vol] 4.2 g/dL Normal 3.8-4.9 [facility] Internal Medicine Work Phone: Comment on above: PATIENT NOT FASTINGP ERFORMED BY: [facility]6370 [facility] [id number] Albumin/Globulin [Mass ratio] 1.6 {ratio} Normal 1.2-2.2 [facility] Work Phone: Comment on above: PATIENT NOT FASTINGP ERFORMED BY: [facility] Zrxsqi9354 [address] RoadDublin [place] [id number] ALP [Catalytic activity/Vol] 60 [iU]/L Normal 39-117 [facility] Work Phone: Comment on above: PATIENT NOT FASTINGP ERFORMED BY: CB [facility] Omthus9782 [address]icas RoadDublin [place] [id number] ALP [Catalytic activity/Vol] 60 U/L Normal 39-117 [facility]; [facility] Work Phone: Comment on above: PATIENT NOT FASTINGP ERFORMED BY: CHADWICK [facility] Etidvg3596 [address]icas RoadDublin [place] [id number] ALT [Catalytic activity/Vol] 16 [iU]/L Normal 0-32 [facility] Work Phone: Comment on above: PATIENT NOT FASTINGP ERFORMED BY: CHADWICK [facility] Ebhstx0144 [address] RoadDublin [place] [id number] ALT [Catalytic activity/Vol] 16 U/L Normal 0-32 [facility]; [facility] Work Phone: Comment on above: PATIENT NOT FASTINGP ERFORMED BY: CHADWICK [facility] Nziaek9632 [address] RoadDublin [place] [id number] AST [Catalytic activity/Vol] 20 [iU]/L Normal 0-40 [facility] Work Phone: Comment on above: PATIENT NOT FASTINGP ERFORMED BY: CHADWICK [facility] Ukrklg3668 [address] RoadDublin [place] [id number] AST [Catalytic activity/Vol] 20 U/L Normal 0-40 [facility]; [facility] Work Phone: Comment on above: PATIENT NOT FASTINGP ERFORMED BY: CB [facility] Mylgda2561 [address] RoadDublin [place] [id number] Bilirubin [Mass/Vol] 0.3 mg/dL Normal 0.0-1.2 Comp [facility] Work Phone: Comment on above: PATIENT NOT FASTINGP ERFORMED BY: CB [facility] Nbbbar2257 [address]ics[address] RoadDublin [place] [id number] Calcium [Mass/Vol] 8.9 mg/dL Normal 8.7-10.3 [facility] Internal Medicine Work Phone: Comment on above: PATIENT NOT FASTINGP ERFORMED BY: CHADWICK [facility] Skqxxc3513 [address] RoadDublin [place] [id number] Chloride [Moles/Vol] 105 mmol/L Normal 96-106 Comp [facility] Work Phone: Comment on above: PATIENT NOT FASTINGP ERFORMED BY: CB [facility] Iqvrer7292 [address] [facility]in [place] [id number] CO2 [Moles/Vol] 25 mmol/L Normal 20-29 [facility] Internal Medicine Work Phone: Comment on above: PATIENT NOT FASTINGP ERFORMED BY: CHADWICK [facility] Ojbhpb1099 Ch[address] RoadFirstHealth [facility] [id number] Creatinine [Mass/Vol] 0.71 mg/dL Normal 0.57-1.00 [facility] Internal Medicine Work Phone: Comment on above: PATIENT NOT FASTINGP ERFORMED BY: CHADWICK [facility] Ulpigd6428 [address] RoadPerson Memorial Hospitalin [place] [id number] GFR/1.73 sq M predicted among blacks CKD-EPI (S/P/Bld) [Vol rate/Area] 107 mL/min/1.73 Normal [facility] Work Phone: Comment on above: PATIENT NOT FASTINGP ERFORMED BY: CHADWICK [facility] Usphbl0452 [address] RoadPerson Memorial Hospitalin [place] [id number] GFR/1.73 sq M predicted among non-blacks CKD-EPI (S/P/Bld) [Vol rate/Area] 93 mL/min/1.73 Normal [facility] Work Phone: Comment on above: PATIENT NOT FASTINGP ERFORMED BY: CB [facility] Ejogtz3584 [address] RoadPerson Memorial Hospitalin [place] [id number] Globulin (S) [Mass/Vol] 2.7 g/dL Normal 1.5-4.5 [facility] Work Phone: Comment on above: PATIENT NOT FASTINGP ERFORMED BY: CHADWICK [facility] Jijgsz6630 [address] [facility]bl[facility] [place] [id number] Glucose [Mass/Vol] 88 mg/dL Normal 65-99 [facility] Internal Medicine Work Phone: Comment on above: PATIENT NOT FASTINGP ERFORMED BY: CHADWICK [facility] Apituh6129 [address] RoadPerson Memorial Hospitalin [place] [id number] Potassium [Moles/Vol] 4.1 mmol/L Normal 3.5-5.2 [facility] Internal Medicine Work Phone: Comment on above: PATIENT NOT FASTINGP ERFORMED BY: CHADWICK [facility] Xnbwqx4980 Ch[address] RoadPerson Memorial Hospitalin [place] [id number] Protein [Mass/Vol] 6.9 g/dL Normal 6.0-8.5 [facility] Internal Medicine Work Phone: Comment on above: PATIENT NOT FASTINGP ERFORMED BY: CHADWICK LabCoshauna SchultzExyrpj8130 Chicas RoadPerson Memorial Hospitalin [place] [id number] Sodium [Moles/Vol] 141 mmol/L Normal 134-144 [facility] Internal Medicine Work Phone: Comment on above: PATIENT NOT FASTINGP ERFORMED BY: CHADWICK LabCoshauna SchultzBmrmhk4542 [address] [facility]in [place] [id number] Urea nitrogen [Mass/Vol] 19 mg/dL Normal 8-27 [facility] Internal Medicine Work Phone: Comment on above: PATIENT NOT FASTINGP ERFORMED BY: CHADWICK [facility] Qxasck1002 [address] [facility]in [place] [id number] Urea nitrogen/Creatinine [Mass ratio] 27 mg/mg Normal 12-28 [facility] Internal Medicine Work Phone: Comment on above: PATIENT NOT FASTINGP ERFORMED BY: CHADWICK [facility] Fpotkd4622 [address] [facility] Hospitalbl[facility] [place] [id number] Metabolic Panel, Basic (8004 8)Ordered By: Financial Assistant on 09-08-2018 Calcium mass conc 9.2 mg/dL Normal 8.7-10.2 [facility] Internal Medicine Work Phone: Comment on above: PATIENT NOT FASTINGP ERFORMED BY: CHADWICK [facility] Uenqvn8306 [address] [facility]in [place] [id number] Chloride molar conc 103 mmol/L Normal 96-106 Compr ehensive Internal Medicine Work Phone: Comment on above: PATIENT NOT FASTINGP ERFORMED BY: CHADWICK Gambino6370 [facility] [id number] CO2 molar conc 23 mmol/L Normal 20-29 Comprehens hanane Internal Medicine Work Phone: Comment on above: PATIENT NOT FASTINGP ERFORMED BY: CHADWICK Gambino6370 [facility] [id number] Creatinine mass conc 0.68 mg/dL Normal 0.57-1.00 Comp rehensive Internal Medicine Work Phone: Comment on above: PATIENT NOT FASTINGP ERFORMED BY: CHADWICK Shayne Schultzlin6370 [facility] [id number] GFR/1.73 sq M predicted among blacks CKD-EPI vol rate/area (S/P/Bld) 111 mL/min/1.73 Normal Comprehensiv e Internal Medicine Work Phone: Comment on above: PATIENT NOT FASTINGP ERFORMED BY: CHADWICK Shayne Gambino6370 [facility] [id number] GFR/1.73 sq M predicted among non-blacks CKD-EPI vol rate/area (S/P/Bld) 96 mL/min/1.73 Normal [facility] Work Phone: Comment on above: PATIENT NOT FASTINGP ERFORMED BY: CHADWICK Shayne Schultzlin6370 [facility] [id number] Glucose mass conc 75 mg/dL Normal 65-99 Compreh ensive Internal Medicine Work Phone: Comment on above: PATIENT NOT FASTINGP ERFORMED BY: CHADWICK Schultzlin6370 [facility] [id number] Potassium molar conc 4.3 mmol/L Normal 3.5-5.2 Comp rehensive Internal Medicine Work Phone: Comment on above: PATIENT NOT FASTINGP ERFORMED BY: CHADWICK Ahmet Nkcpia4445 [facility] [id number] Sodium molar conc 141 mmol/L Normal 134-144 Compreh ensive Internal Medicine Work Phone: Comment on above: PATIENT NOT FASTINGP ERFORMED BY: CHADWICK [facility] Omtnwf7688 [facility] [id number] Urea nitrogen mass conc 13 mg/dL Normal 6-24 [facility] Work Phone: Comment on above: PATIENT NOT FASTINGP ERFORMED BY: [facility] Nozmtj9200 [facility] [id number] Urea nitrogen/Creatinine mass ratio 19 mg/mg Normal 9-23 [facility] Work Phone: Comment on above: PATIENT NOT FASTINGP ERFORMED BY: CHADWICK LabCoBacharach Institute for RehabilitationFtbdxc7702 [facility] [id number] PAP IG HPV APTIMA 16/18,45Or dered By: Financial Assistant on 06-22-2018 INR Coag RelTime (Bld) Comment Normal [facility] Work Phone: Comment on above: Viki Ponce Cytot echnologist (ASCP) CYTOLOGY INFORMATION :- CLINICAL INFORMATION:- DATE LMP/MENOPAUSE:- COLLECTION VIAL: Thin Prep Vial- ETL LEAD SOURCE: CERVICAL- COLLECTION TECHNIQUE: CX BROOM ONLYSpecimen Comment: [id number] Comment: Source.............CervixSpecimen Comment: No. of containers..01 ThinPrep VialLabCorp (refer to report for specific site)refer to report for address and phone number PAP IG HPV APTIMA 16/18,45 Comment Normal [facility] Work Phone: Comment on above: This liquid based Th inPrep(R) pap test was screened withthe use of an image guided system. CYTOLOGY INFORMATION :- CLINICAL INFORMATION:- DATE LMP/MENOPAUSE:- COLLECTION VIAL: Thin Prep Vial- ETL LEAD SOURCE: CERVICAL- COLLECTION TECHNIQUE: CX BROOM ONLYSpecimen Comment: [id number] Comment: Source.............CervixSpecimen Comment: No. of containers..01 ThinPrep VialLabCorp (refer to report for specific site)refer to report for address and phone number NEGATIVE FOR INTRAEP ITHELIAL LESION OR MALIGNANCY. Satisfactory for diana luation. Endocervical and/or squamous metaplasticcells (endocervical component) are present. The Pap smear is a s creening test designed to aid in thedetection of premalignant and malignant conditions of theuterine cervix. It is not a diagnostic procedure andshould not be used as the sole means of detecting cervicalcancer. Both false-positive and false-negative reports dooccur. PAP IG HPV APTIMA 16/18,45 . Normal [facility] Work Phone: Comment on above: CYTOLOGY INFORMATION :- CLINICAL INFORMATION:- DATE LMP/MENOPAUSE:- COLLECTION VIAL: Thin Prep Vial- ETL LEAD SOURCE: CERVICAL- COLLECTION TECHNIQUE: CX BROOM ONLYSpecimen Comment: [id number] Comment: Source.............CervixSpecimen Comment: No. of containers..01 ThinPrep VialLabCorp (refer to report for specific site)refer to report for address and phone number PAP IG HPV APTIMA 16/18,45 Negative Normal [facility] Work Phone: Comment on above: This test detects fo urteen high-risk HPV types(16/18/31/33/35/39/45/ 51/52/56/58/59/66/68) withoutdifferentiation.Performed at: - [facility] [id number] Director: Salma Rachel MD, Phone: [phone] at: = - [facility] [id number] Director: Salma Rachel MD, Phone: [phone] CYTOLOGY INFORMATION :- CLINICAL INFORMATION:- DATE LMP/MENOPAUSE:- COLLECTION VIAL: Thin Prep Vial- ETL LEAD SOURCE: CERVICAL- COLLECTION TECHNIQUE: CX BROOM ONLYSpecimen Comment: [id number] Comment: Source.............CervixSpecimen Comment: No. of containers..01 ThinPrep VialLabCorp (refer to report for specific site)refer to report for address and phone number CBC WITH MANUAL DIFF ([id number]) Ordered By: Financial Assistant on 06-20-2018 Basophils #/vol (Bld) 0.0 {x10E3/uL} Normal 0.0-0.2 [facility] Work Phone: Comment on above: fax a copy to Dr. Mark rivera; PATIENT WAS FASTINGPERFORMED BY: CB [facility] Spaizy0841 [address] SafeMeds SolutionsFirstHealth [facility] [id number] Information: NURSE DRAW Basophils (Bld) [#/Vol] 0.0 10*3/uL Normal 0.0-0.2 [facility]; [facility] Work Phone: Comment on above: fax a copy to Dr. Mark rivera; PATIENT WAS FASTINGPERFORMED BY: CB [facility] Rclnrf8981 [facility] SkyFirstHealth [facility] [id number] Information: NURSE DRAW Basophils/100 WBC (Bld) 1 % Normal [facility] Work Phone: Comment on above: fax a copy to Dr. Mark rivera; PATIENT WAS FASTINGPERFORMED BY: CB [facility] Syeicb9319 [address] SafeMeds SolutionsFirstHealth [facility] [id number] Information: NURSE DRAW Eosinophils #/vol (Bld) 0.3 {x10E3/uL} Normal 0.0-0.4 [facility] Work Phone: Comment on above: fax a copy to Dr. Mark rivera; PATIENT WAS FASTINGPERFORMED BY: CB [facility] Dfdwyy3631 [address] SafeMeds SolutionsFirstHealth [facility] [id number] Information: NURSE DRAW Eosinophils (Bld) [#/Vol] 0.3 10*3/uL Normal 0.0-0.4 [facility]; [facility] Work Phone: Comment on above: fax a copy to Dr. Mark rivera; PATIENT WAS FASTINGPERFORMED BY: CB [facility] Ukiwti4546 [address] SafeMeds SolutionsFirstHealth [facility] [id number] Information: NURSE DRAW Eosinophils/100 WBC (Bld) 9 % Normal [facility] Work Phone: Comment on above: fax a copy to Dr. Mark rivera; PATIENT WAS FASTINGPERFORMED BY: CB [facility] Tzkivb9837 Ch[address] RoadPerson Memorial Hospitalin [place] [id number] Information: NURSE DRAW Erythrocyte distribution width Ratio (RBC) 13.0 % Normal 12.3-15.4 [facility] Work Phone: Comment on above: fax a copy to Dr. Mark rivera; PATIENT WAS FASTINGPERFORMED BY: CB [facility] Lnydjd6764 Ch[address] RoadPerson Memorial Hospitalin [place] [id number] Information: NURSE DRAW Hematocrit Volume Fraction (Bld) 39.0 % Normal 34.0-46.6 [facility] Work Phone: Comment on above: fax a copy to Dr. Mark rivera; PATIENT WAS FASTINGPERFORMED BY: CB [facility] Bsxsxv7209 Chicas RoadFirstHealth Moore [facility] [id number] Information: NURSE DRAW Hemoglobin mass conc (Bld) 13.1 g/dL Normal 11.1-15.9 [facility] Work Phone: Comment on above: fax a copy to Dr. Mark rivera; PATIENT WAS FASTINGPERFORMED BY: CB [facility] Vffwpu0739 Chicas RoadPerson Memorial Hospitalin [place] [id number] Information: NURSE DRAW Immature granulocytes #/vol (Bld) 0.0 {x10E3/uL} Normal 0.0-0.1 [facility] Work Phone: Comment on above: fax a copy to Dr. Mark rivera; PATIENT WAS FASTINGPERFORMED BY: CB [facility] Albggz6881 [address] RoadPerson Memorial Hospitalin [place] [id number] Information: NURSE DRAW Immature granulocytes (Bld) [#/Vol] 0.0 10*3/uL Normal 0.0-0.1 [facility]; [facility] Work Phone: Comment on above: fax a copy to Dr. Mark rivera; PATIENT WAS FASTINGPERFORMED BY: CB [facility] Copphf7788 Ch[address] RoadPerson Memorial Hospitalin [place] [id number] Information: NURSE DRAW Immature granulocytes/100 WBC (Bld) 0 % Normal [facility] Work Phone: Comment on above: fax a copy to Dr. Mark rivera; PATIENT WAS FASTINGPERFORMED BY: CB [facility] Qvdfrd6457 [address] RoadDublin [place] [id number] Information: NURSE DRAW Lymphocytes #/vol (Bld) 0.9 {x10E3/uL} Normal 0.7-3.1 [facility] Work Phone: Comment on above: fax a copy to Dr. Mark rivera; PATIENT WAS FASTINGPERFORMED BY: CB [facility] Uznwcr4349 [address] RoadDublin [place] [id number] Information: NURSE DRAW Lymphocytes (Bld) [#/Vol] 0.9 10*3/uL Normal 0.7-3.1 [facility]; [facility] Work Phone: Comment on above: fax a copy to Dr. Mark rivera; PATIENT WAS FASTINGPERFORMED BY: CB [facility] Uvvrgk8142 Chicas RoadFirstHealth Moore [facility] [id number] Information: NURSE DRAW Lymphocytes/100 WBC (Bld) 30 % Normal [facility] Work Phone: Comment on above: fax a copy to Dr. Mark rivera; PATIENT WAS FASTINGPERFORMED BY: CB [facility] Gxttma0469 [address] [facility] [id number] Information: NURSE DRAW MCH Entitic mass (RBC) 30.3 pg Normal 26.6-33.0 [facility] Work Phone: Comment on above: fax a copy to Dr. Mark rivera; PATIENT WAS FASTINGPERFORMED BY: CB [facility] Eepqwt8116 [address] RoadPerson Memorial Hospitalin [place] [id number] Information: NURSE DRAW MCHC mass conc (RBC) 33.6 g/dL Normal 31.5-35.7 [facility] Work Phone: Comment on above: fax a copy to Dr. Mark rivera; PATIENT WAS FASTINGPERFORMED BY: CB [facility] Vsrkfn9946 Ch[address] RoadPerson Memorial Hospitalin [place] [id number] Information: NURSE DRAW MCV Entitic volume (RBC) 90 fL Normal 79-97 [facility] Work Phone: Comment on above: fax a copy to Dr. Mark rivera; PATIENT WAS FASTINGPERFORMED BY: CB [facility] Pzysro7524 [address] [facility]in [place] [id number] Information: NURSE DRAW Monocytes #/vol (Bld) 0.4 {x10E3/uL} Normal 0.1-0.9 [facility] Work Phone: Comment on above: fax a copy to Dr. Mark rivera; PATIENT WAS FASTINGPERFORMED BY: CB [facility] Lcaoto6036 [address] RoadPerson Memorial Hospitalin [place] [id number] Information: NURSE DRAW Monocytes (Bld) [#/Vol] 0.4 10*3/uL Normal 0.1-0.9 [facility]; [facility] Work Phone: Comment on above: fax a copy to Dr. Mark rivera; PATIENT WAS FASTINGPERFORMED BY: CB [facility] Bqehzj4535 [address] [facility]in [place] [id number] Information: NURSE DRAW Monocytes/100 WBC (Bld) 13 % Normal [facility] Work Phone: Comment on above: fax a copy to Dr. Mark rivera; PATIENT WAS FASTINGPERFORMED BY: CB [facility] Lbwpdj7269 ChicasCamer[facility] Center [id number] Information: NURSE DRAW Neutrophils #/vol (Bld) 1.5 {x10E3/uL} Normal 1.4-7.0 [facility] Work Phone: Comment on above: fax a copy to Dr. Mark rivera; PATIENT WAS FASTINGPERFORMED BY: CB [facility] Vytitl1287 [address] [facility] [id number] Information: NURSE DRAW Neutrophils (Bld) [#/Vol] 1.5 10*3/uL Normal 1.4-7.0 [facility]; [facility] Work Phone: Comment on above: fax a copy to Dr. Mark rivera; PATIENT WAS FASTINGPERFORMED BY: CB [facility] Svavkn6204 [address] [facility] [id number] Information: NURSE DRAW Neutrophils/100 WBC (Bld) 47 % Normal [facility] Work Phone: Comment on above: fax a copy to Dr. Mark rivera; PATIENT WAS FASTINGPERFORMED BY: CB [facility] Qpcagj6086 [facility] [id number] Information: NURSE DRAW Platelets #/vol (Bld) 257 {x10E3/uL} Normal 150-379 [facility] Work Phone: Comment on above: fax a copy to Dr. Mark rivera; PATIENT WAS FASTINGPERFORMED BY: CB [facility] Gfaieu7635 [facility] [id number] Information: NURSE DRAW Platelets (Bld) [#/Vol] 257 10*3/uL Normal 150-379 [facility]; [facility] Work Phone: Comment on above: fax a copy to Dr. Mark rivera; PATIENT WAS FASTINGPERFORMED BY: CB [facility] Ioekpw4460 [facility] [id number] Information: NURSE DRAW RBC #/vol (Bld) 4.32 {x10E6/uL} Normal 3.77-5.28 [facility] Work Phone: Comment on above: fax a copy to Dr. Mark rivera; PATIENT WAS FASTINGPERFORMED BY: CB [facility] Bafggt2929 [facility] [id number] Information: NURSE DRAW RBC (Bld) [#/Vol] 4.32 10*6/uL Normal 3.77-5.28 [facility]; [facility] Work Phone: Comment on above: fax a copy to Dr. Mark rivera; PATIENT WAS FASTINGPERFORMED BY: CB [facility] Kqffiw1327 [facility] [id number] Information: NURSE DRAW WBC #/vol (Bld) 3.1 {x10E3/uL} Abnormal 3.4-10.8 [facility] Work Phone: Comment on above: fax a copy to Dr. Mark rivera; PATIENT WAS FASTINGPERFORMED BY: CB [facility] Vzwrcl8017 [address] RoadDublin [place] [id number] Information: NURSE DRAW WBC (Bld) [#/Vol] 3.1 10*3/uL Abnormal 3.4-10.8 [facility] Internal Medicine; [facility] Work Phone: Comment on above: fax a copy to Dr. Mark rivera; PATIENT WAS FASTINGPERFORMED BY: CB [facility] Ridrjl3886 [address] RoadDublin [place] [id number] Information: NURSE DRAW Metabolic Panel, Sylviaensi ve (33313)Ordered By: Financial Assistant on 06-20-2018 Albumin mass conc 4.4 g/dL Normal 3.5-5.5 [facility] Internal Medicine Work Phone: Comment on above: PATIENT WAS FASTINGP ERFORMED BY: CB [facility] Ffnzbu6896 [address] RoadDublin [place] [id number] Albumin/Globulin mass ratio 1.6 {ratio} Normal 1.2-2.2 [facility] Internal Medicine Work Phone: Comment on above: PATIENT WAS FASTINGP ERFORMED BY: CB [facility] Jtklxh6285 [address] RoadDublin [place] [id number] ALP [Catalytic activity/Vol] 62 U/L Normal 39-117 [facility]; [facility] Internal Medicine Work Phone: Comment on above: PATIENT WAS FASTINGP ERFORMED BY: CB [facility] Ihbrmy2610 [address] RoadDublin [place] [id number] ALP enzyme act/vol 62 [iU]/L Normal 39-117 [facility] Internal Medicine Work Phone: Comment on above: PATIENT WAS FASTINGP ERFORMED BY: CB [facility] Zrgzbo1254 [address] RoadDublin [place] [id number] ALT [Catalytic activity/Vol] 19 U/L Normal 0-32 [facility]; [facility] Internal Medicine Work Phone: Comment on above: PATIENT WAS FASTINGP ERFORMED BY: CB [facility] Duztxv3107 [address] RoadDublin [place] [id number] ALT enzyme act/vol 19 [iU]/L Normal 0-32 [facility] [facility] Internal Medicine Work Phone: Comment on above: PATIENT WAS FASTINGP ERFORMED BY: CB [facility] Xklsxl4836 [address] RoadDublin [place] [id number] AST [Catalytic activity/Vol] 23 U/L Normal 0-40 [facility]; [facility] Work Phone: Comment on above: PATIENT WAS FASTINGP ERFORMED BY: CB [facility] Ugraff2798 [address] RoadDublin [place] [id number] AST enzyme act/vol 23 [iU]/L Normal 0-40 [facility] Internal Medicine Work Phone: Comment on above: PATIENT WAS FASTINGP ERFORMED BY: CHADWICK [facility] Dtyxfe9185 Ch[address] RoadDublin [place] [id number] Bilirubin mass conc 0.4 mg/dL Normal 0.0-1.2 Compr ensive Internal Medicine Work Phone: Comment on above: PATIENT WAS FASTINGP ERFORMED BY: CHADWICK [facility] Acysyz3465 [address] RoadDublin [place] [id number] Calcium mass conc 9.6 mg/dL Normal 8.7-10.2 Compreh ensive Internal Medicine Work Phone: Comment on above: PATIENT WAS FASTINGP ERFORMED BY: CHADWICK [facility] Mmwvhc9567 [address] RoadDublin [place] [id number] Chloride molar conc 103 mmol/L Normal 96-106 Compr ensive Internal Medicine Work Phone: Comment on above: PATIENT WAS FASTINGP ERFORMED BY: CB [facility] Yhicio3052 [address] RoadDublin [place] [id number] CO2 molar conc 21 mmol/L Normal 20-29 Comprehens hanane Internal Medicine Work Phone: Comment on above: PATIENT WAS FASTINGP ERFORMED BY: CB [facility] Ftuqzb4509 [address] RoadDublin [place] [id number] Creatinine mass conc 0.72 mg/dL Normal 0.57-1.00 Comp [facility] Work Phone: Comment on above: PATIENT WAS FASTINGP ERFORMED BY: [facility] Nzfodu4310 [address] RoadDublin [place] [id number] GFR/1.73 sq M predicted among blacks CKD-EPI vol rate/area (S/P/Bld) 107 mL/min/1.73 Normal Comprehensiv e Internal Medicine Work Phone: Comment on above: PATIENT WAS FASTINGP ERFORMED BY: [facility] Dhrlah1957 [address] RoadDublin [place] [id number] GFR/1.73 sq M predicted among non-blacks CKD-EPI vol rate/area (S/P/Bld) 93 mL/min/1.73 Normal [facility] Work Phone: Comment on above: PATIENT WAS FASTINGP ERFORMED BY: [facility] Hzlfgi4674 Ch[address] Roadblin [place] [id number] Globulin mass conc (S) 2.8 g/dL Normal 1.5-4.5 [facility] Work Phone: Comment on above: PATIENT WAS FASTINGP ERFORMED BY: [facility] Numbqg7604 [address] [facility]in [place] [id number] Glucose mass conc 77 mg/dL Normal 65-99 Compreh ensive Internal Medicine Work Phone: Comment on above: PATIENT WAS FASTINGP ERFORMED BY: [facility] Jdutjz1360 [address] [facility]bl[facility] [place] [id number] Potassium molar conc 3.9 mmol/L Normal 3.5-5.2 Comp rehensive Internal Medicine Work Phone: Comment on above: PATIENT WAS FASTINGP ERFORMED BY: [facility] Crorth3048 [address] [facility] Hospitalblin [place] [id number] Protein mass conc 7.2 g/dL Normal 6.0-8.5 Compreh ensive Internal Medicine Work Phone: Comment on above: PATIENT WAS FASTINGP ERFORMED BY: [facility] Dqrkvh6245 [address] RoadDublin [place] [id number] Sodium molar conc 142 mmol/L Normal 134-144 Compreh ensive Internal Medicine Work Phone: Comment on above: PATIENT WAS FASTINGP ERFORMED BY: CHADWICK [facility] Locvjp4976 [address] RoadDublin [place] [id number] Urea nitrogen mass conc 13 mg/dL Normal 6-24 [facility] Work Phone: Comment on above: PATIENT WAS FASTINGP ERFORMED BY: CHADWICK [facility] Tjzmlx3274 [address] RoadDublin [place] [id number] Urea nitrogen/Creatinine mass ratio 18 mg/mg Normal 9- [facility] Work Phone: Comment on above: PATIENT WAS FASTINGP ERFORMED BY: CHADWICK [facility] Psgvnt0617 [address] RoadDublin [place] [id number] URINALYSIS ([id number])Ordered By : Financial Assistant on 06-20-2018 Appearance Nom (U) Clear Normal Compre hensive Internal Medicine Work Phone: Comment on above: PATIENT WAS FASTINGP ERFORMED BY: CHADWICK [facility] Hyycvj8780 [address] RoadDublin [place] [id number] Bilirubin Ql (U) Negative Normal Comprehe nsive Internal Medicine Work Phone: Comment on above: PATIENT WAS FASTINGP ERFORMED BY: CHADWICK [facility] Gqvajn1301 [address] RoadDublin [place] [id number] Bilirubin Ql (U) Negative Normal Comprehe nsive Internal Medicine; [facility] Work Phone: Comment on above: PATIENT WAS FASTINGP ERFORMED BY: CHADWICK [facility] Mraqrf3575 [address] RoadDublin [place] [id number] Color Nom (U) Yellow Normal Comprehensi ve Internal Medicine Work Phone: Comment on above: PATIENT WAS FASTINGP ERFORMED BY: CHADWICK [facility] Rqtqme8550 [address] RoadDublin [place] [id number] Glucose Ql (U) Negative Normal Comprehens hanane Internal Medicine Work Phone: Comment on above: PATIENT WAS FASTINGP ERFORMED BY: CHADWICK [facility] Gtynaj1864 [address] RoadDublin [place] [id number] Glucose Ql (U) Negative Normal Comprehens hanane Internal Medicine; [facility] Work Phone: Comment on above: PATIENT WAS FASTINGP ERFORMED BY: CHADWICK [facility] Vuhzry4805 [address] RoadDublin [place] [id number] Hemoglobin Ql (U) Negative Normal Compreh ensive Internal Medicine Work Phone: Comment on above: PATIENT WAS FASTINGP ERFORMED BY: CHADWICK [facility] Zxbvli7285 [address] RoadDublin [place] [id number] Hemoglobin Ql (U) Negative Normal Compreh ensive Internal Medicine; [facility] Work Phone: Comment on above: PATIENT WAS FASTINGP ERFORMED BY: CHADWICK [facility] Krhbrz4641 [address] RoadDublin [place] [id number] Ketones Ql (U) Trace Abnormal Comprehens hanane Internal Medicine Work Phone: Comment on above: PATIENT WAS FASTINGP ERFORMED BY: CHADWICK [facility] Efprvi7699 [address] RoadDublin [place] [id number] Leukocyte esterase Test strip Ql (U) Negative Normal [facility] Work Phone: Comment on above: PATIENT WAS FASTINGP ERFORMED BY: CHADWICK [facility] Njwejm6101 [address] RoadDublin [place] [id number] Leukocyte esterase Test strip Ql (U) Negative Normal [facility]; [facility] Work Phone: Comment on above: PATIENT WAS FASTINGP ERFORMED BY: CHADWICK [facility] Edimde6696 [address] RoadDublin [place] [id number] Microscopic observation LM Nom (Urine sed) MICNIP Normal [facility] Work Phone: Comment on above: Microscopic not renetta cated and not performed. PATIENT WAS FASTINGP ERFORMED BY: CHADWICK [facility] Heknub5289 [address] RoadDublin [place] [id number] Nitrite Ql (U) Negative Normal Comprehens hanane Internal Medicine Work Phone: Comment on above: PATIENT WAS FASTINGP ERFORMED BY: [facility] Vxufbe0076 [address] RoadDublin [place] [id number] Nitrite Ql (U) Negative Normal Comprehens hanane Internal Medicine; [facility] Work Phone: Comment on above: PATIENT WAS FASTINGP ERFORMED BY: [facility]ADWICK [facility] Dxyftl6241 [address] RoadDublin [place] [id number] pH (U) 5.5 [pH] Normal 5.0-7.5 [facility] Work Phone: Comment on above: PATIENT WAS FASTINGP ERFORMED BY: CHADWICK [facility] Tnxacv3848 [address] RoadDublin [place] [id number] Protein Ql (U) Negative Normal Comprehens hanane Internal Medicine Work Phone: Comment on above: PATIENT WAS FASTINGP ERFORMED BY: CHADWICK [facility] Ypyuor2470 [address] RoadDublin [place] [id number] Protein Ql (U) Negative Normal Comprehens hanane Internal Medicine; [facility] Work Phone: Comment on above: PATIENT WAS FASTINGP ERFORMED BY: CHADWICK [facility] Cgcmlb2034 Chicas RoadPerson Memorial Hospitalin [place] [id number] Specific gravity Relative Density (U) 1.021 1 Normal 1.005-1.03 0 [facility] Work Phone: Comment on above: PATIENT WAS FASTINGP ERFORMED BY: CHADWICK [facility] Teivgb5590 Chicas RoadPerson Memorial Hospitalin [place] [id number] Urobilinogen (U) [Mass/Vol] 0.2 mg/dL Normal 0.2-1.0 [facility]; [facility] Work Phone: Comment on above: PATIENT WAS FASTINGP ERFORMED BY: [facility] Hedtjc3219 Chicas RoadDublin [place] [id number] Urobilinogen Test strip mass conc (U) 0.2 mg/dL Normal 0.2-1.0 Comprehensiv e Internal Medicine Work Phone: Comment on above: PATIENT WAS FASTINGP ERFORMED BY: [facility] Ahdwgf2359 Ch[address] RoadDublin [place] [id number] CBC, PLATELETS & MANUAL DIFF (13035)Ordered By: Financial Assistant on 09-07-2017 Basophils #/vol (Bld) 0.0 {x10E3/uL} Normal 0.0-0.2 [facility] Work Phone: Comment on above: PATIENT WAS FASTINGP ERFORMED BY: [address] [id number] BY: Lab[facility]6[address] [facility] [id number] Basophils (Bld) [#/Vol] 0.0 10*3/uL Normal 0.0-0.2 [facility]; [facility] Work Phone: Comment on above: PATIENT WAS FASTINGP ERFORMED BY: [address] [id number] BY: LabAndrew [place] 9957570 [address] [facility] [id number] Basophils/100 WBC (Bld) 1 % Normal [facility] Work Phone: Comment on above: PATIENT WAS FASTINGP ERFORMED BY: [address] [id number] BY: [place] 2095170 [address] [facility] [id number] Eosinophils #/vol (Bld) 0.3 {x10E3/uL} Normal 0.0-0.4 [facility] Work Phone: Comment on above: PATIENT WAS FASTINGP ERFORMED BY: [address] [id number] BY: [place] 2095170 [address] [facility] [id number] Eosinophils (Bld) [#/Vol] 0.3 10*3/uL Normal 0.0-0.4 [facility]; [facility] Work Phone: Comment on above: PATIENT WAS FASTINGP ERFORMED BY: [address] [id number] BY: [place] 2095170 [address] [facility] [id number] Eosinophils/100 WBC (Bld) 9 % Normal [facility] Work Phone: Comment on above: PATIENT WAS FASTINGP ERFORMED BY: BN Lab[address] [id number] BY: [facility] Lviurq8879 [address] [facility]in [place] [id number] Erythrocyte distribution width Ratio (RBC) 14.0 % Normal 12.3-15.4 [facility] Work Phone: Comment on above: PATIENT WAS FASTINGP ERFORMED BY: Lab[address] [id number] BY: [facility] Drdsrn9707 [address] [facility] [id number] Hematocrit Volume Fraction (Bld) 38.5 % Normal 34.0-46.6 [facility] Work Phone: Comment on above: PATIENT WAS FASTINGP ERFORMED BY: Familonet[address] [id number] BY: [facility] Uwaxif6579 [facility] [id number] Hemoglobin mass conc (Bld) 13.1 g/dL Normal 11.1-15.9 [facility] Work Phone: Comment on above: PATIENT WAS FASTINGP ERFORMED BY: [facility] [id number] BY: LabCoBacharach Institute for RehabilitationJipxta3410 [facility] [id number] Immature granulocytes #/vol (Bld) 0.0 {x10E3/uL} Normal 0.0-0.1 [facility] Work Phone: Comment on above: PATIENT WAS FASTINGP ERFORMED BY: [facility] [id number] BY: [facility] Tuijza1318 [facility] [id number] Immature granulocytes (Bld) [#/Vol] 0.0 10*3/uL Normal 0.0-0.1 [facility]; [facility] Work Phone: Comment on above: PATIENT WAS FASTINGP ERFORMED BY: Lab[address] [id number] BY: [facility] Fviskg3561 [address] RoadDublin [place] [id number] Immature granulocytes/100 WBC (Bld) 0 % Normal [facility] Work Phone: Comment on above: PATIENT WAS FASTINGP ERFORMED BY: [address] [id number] BY: [facility] Hzwjzg6357 [address] RoadDublin [place] [id number] Lymphocytes #/vol (Bld) 1.1 {x10E3/uL} Normal 0.7-3.1 [facility] Work Phone: Comment on above: PATIENT WAS FASTINGP ERFORMED BY: [address] [id number] BY: LabCoNew Mexico Behavioral Health Institute at Las VegasHbdgwc3666 Ch[address] RoadFirstHealth [facility] [id number] Lymphocytes (Bld) [#/Vol] 1.1 10*3/uL Normal 0.7-3.1 [facility]; [facility] Work Phone: Comment on above: PATIENT WAS FASTINGP ERFORMED BY: [address] [id number] BY: LabBarnes-Jewish West County HospitalHdqcdi9504 Chicas RoadPerson Memorial Hospitalin [place] [id number] Lymphocytes/100 WBC (Bld) 29 % Normal [facility] Work Phone: Comment on above: PATIENT WAS FASTINGP ERFORMED BY: [address] [id number] BY: [facility] Vqnfcr7116 [address] RoadDublin [place] [id number] MCH Entitic mass (RBC) 31.6 pg Normal 26.6-33.0 [facility] Work Phone: Comment on above: PATIENT WAS FASTINGP ERFORMED BY: [address] [id number] BY: [facility] Tacnmv6278 [facility] [id number] MCHC mass conc (RBC) 34.0 g/dL Normal 31.5-35.7 [facility] Internal [facility] Work Phone: Comment on above: PATIENT WAS FASTINGP ERFORMED BY: [address] [id number] BY: CHADWICK [facility] Zbibdf4609 [facility] [id number] MCV Entitic volume (RBC) 93 fL Normal 79-97 [facility] Work Phone: Comment on above: PATIENT WAS FASTINGP ERFORMED BY: [address] [id number] BY: CHADWICK LabAndrew [place] 9957570 [facility] [id number] Monocytes #/vol (Bld) 0.5 {x10E3/uL} Normal 0.1-0.9 [facility] Work Phone: Comment on above: PATIENT WAS FASTINGP ERFORMED BY: [facility] [id number] BY: LabM[facility] Hospital6370 [facility] [id number] Monocytes (Bld) [#/Vol] 0.5 10*3/uL Normal 0.1-0.9 [facility]; [facility] Work Phone: Comment on above: PATIENT WAS FASTINGP ERFORMED BY: [facility] [id number] BY: LabW[facility] Wrgssb3238 [facility] [id number] Monocytes/100 WBC (Bld) 13 % Normal [facility] Work Phone: Comment on above: PATIENT WAS FASTINGP ERFORMED BY: [address] [id number] BY: [facility] Bpieqs8556 [address] [facility] [id number] Neutrophils #/vol (Bld) 1.7 {x10E3/uL} Normal 1.4-7.0 [facility] Work Phone: Comment on above: PATIENT WAS FASTINGP ERFORMED BY: Lab[address] [id number] BY: CHADWICK [facility] Kypjqs8759 [address] RoadDublin [place] [id number] Neutrophils (Bld) [#/Vol] 1.7 10*3/uL Normal 1.4-7.0 [facility]; [facility] Work Phone: Comment on above: PATIENT WAS FASTINGP ERFORMED BY: Lab[address] [id number] BY: CHADWICK [facility] Hjbrhd2380 [address] RoadDublin [place] [id number] Neutrophils/100 WBC (Bld) 48 % Normal [facility] Work Phone: Comment on above: PATIENT WAS FASTINGP ERFORMED BY: Lab[address] [id number] BY: CHADWICK [facility] Ftalzr3090 [address] RoadDublin [place] [id number] Platelets #/vol (Bld) 242 {x10E3/uL} Normal 150-379 [facility] Work Phone: Comment on above: PATIENT WAS FASTINGP ERFORMED BY: [address] [id number] BY: [facility] Hisjzu0759 [address] RoadDublin [place] [id number] Platelets (Bld) [#/Vol] 242 10*3/uL Normal 150-379 [facility]; [facility] Work Phone: Comment on above: PATIENT WAS FASTINGP ERFORMED BY: Lab[address] [id number] BY: CHADWICK [facility] Ikgthe9446 [address] RoadDublin [place] [id number] RBC #/vol (Bld) 4.14 {x10E6/uL} Normal 3.77-5.28 Comp rehensive Internal Medicine Work Phone: Comment on above: PATIENT WAS FASTINGP ERFORMED BY: [facility] [address] [id number] BY: CHADWICK [facility] Ewkrid7404 [address] RoadDublin [place] [id number] RBC (Bld) [#/Vol] 4.14 10*6/uL Normal 3.77-5.28 [facility] Internal Medicine; [facility] Work Phone: Comment on above: PATIENT WAS FASTINGP ERFORMED BY: [facility] [address] [id number] BY: CB [facility] Okdzvu4115 [address] RoadDublin [place] [id number] WBC #/vol (Bld) 3.7 {x10E3/uL} Normal 3.4-10.8 [facility] Internal Medicine Work Phone: Comment on above: PATIENT WAS FASTINGP ERFORMED BY: [facility] [address] [id number] BY: [facility] Pkprgq0373 [address] RoadDublin [place] [id number] WBC (Bld) [#/Vol] 3.7 10*3/uL Normal 3.4-10.8 [facility]park[facility]; [facility] Work Phone: Comment on above: PATIENT WAS FASTINGP ERFORMED BY: LabCo[address] [id number] BY: [facility] Xzgdkm3665 [address] RoadDublin [place] [id number] HEPATIC FUNCTION PANEL (8007 6)Ordered By: Financial Assistant on 09-07-2017 Albumin mass conc 4.3 g/dL Normal 3.5-5.5 [facility] Internal Medicine Work Phone: Comment on above: PATIENT WAS FASTINGP ERFORMED BY: LabCo[address] [id number] BY: CB [facility] Mtacgh0957 [address] RoadDublin [place] [id number]; fu 5-24-18 DB ALP [Catalytic activity/Vol] 55 U/L Normal 39-117 [facility]; [facility] Work Phone: Comment on above: PATIENT WAS FASTINGP ERFORMED BY: Lab[address] [id number] BY: CHADWICK [facility] Dsqaxw8598 [address] RoadDublin [place] [id number]; fu 5-24-18 DB ALP enzyme act/vol 55 [iU]/L Normal 39-117 [facility] Internal Medicine Work Phone: Comment on above: PATIENT WAS FASTINGP ERFORMED BY: Lab[address] [id number] BY: CHADWICK [facility] Zmyhhv6382 [address] RoadDublin [place] [id number]; fu 5-24-18 DB ALT [Catalytic activity/Vol] 33 U/L Abnormal 0-32 [facility]; [facility] Work Phone: Comment on above: PATIENT WAS FASTINGP ERFORMED BY: [facility] [id number] BY: [facility] Gmvsvd4554 [address] RoadDublin [place] [id number]; fu 5-24-18 DB ALT enzyme act/vol 33 [iU]/L Abnormal 0-32 [facility] Internal Medicine Work Phone: Comment on above: PATIENT WAS FASTINGP ERFORMED BY: Lab[address] [id number] BY: [facility] Nuqoir2169 [address] RoadDublin [place] [id number]; fu 5-24-18 DB AST [Catalytic activity/Vol] 32 U/L Normal 0-40 [facility]; [facility] Work Phone: Comment on above: PATIENT WAS FASTINGP ERFORMED BY: Lab[address] [id number] BY: CB [facility] Fkmytv1506 [address] RoadDublin [place] [id number]; fu 5-24-18 DB AST enzyme act/vol 32 [iU]/L Normal 0-40 Compre [facility] Internal Medicine Work Phone: Comment on above: PATIENT WAS FASTINGP ERFORMED BY: LabKosmix[address] [id number] BY: CB [facility] Aodeig1255 [address] RoadDublin [place] [id number]; fu 5-24-18 DB Bilirubin mass conc 0.3 mg/dL Normal 0.0-1.2 [facility]pr [facility] Work Phone: Comment on above: PATIENT WAS FASTINGP ERFORMED BY: LabKosmix[address] [id number] BY: [facility] Uqodrb6445 [address] RoadDublin [place] [id number]; fu 5-18 DB Bilirubin.direct mass conc 0.09 mg/dL Normal 0.00-0.40 [facility] Work Phone: Comment on above: PATIENT WAS FASTINGP ERFORMED BY: Familonet[address] [id number] BY: [facility] Zdoczu8371 [address] RoadDublin [place] [id number]; fu 524-18 DB Protein mass conc 7.3 g/dL Normal 6.0-8.5 Compreh [facility] Internal Medicine Work Phone: Comment on above: PATIENT WAS FASTINGP ERFORMED BY: Familonet[address] [id number] BY: [facility] Htxhqv9743 [address] RoadDublin [place] [id number]; fu 5-24-18 DB LIPOPROTEIN, BLD, BY NMR (78 119)Ordered By: Financial Assistant on 09-07-2017 Cholesterol in HDL mass conc 89 mg/dL Normal [facility] Work Phone: Comment on above: PATIENT WAS FASTINGP ERFORMED BY: Familonet[address] [id number] BY: [employer]6370 [facility] [id number] Cholesterol in LDL mass conc 141 mg/dL Abnormal 0-99 [facility] Work Phone: Comment on above: . Optimal < 100 Abov e optimal 100 - 129 Borderline 130 - 159 High 160 - 189 Very high > 189 .LDL-C is inaccurate if patient is non-fasting. PATIENT WAS FASTINGP ERFORMED BY: [employer] [address] [id number] BY: 12Return70 [facility] [id number] Cholesterol mass conc 241 mg/dL Abnormal 100-199 [facility] Internal Medicine Work Phone: Comment on above: PATIENT WAS FASTINGP ERFORMED BY: [employer] [address] [id number] BY: 12Return70 [facility] [id number] Lipoprotein.alpha molar conc 38.9 umol/L Normal [facility] Work Phone: Comment on above: PATIENT WAS FASTINGP ERFORMED BY: Dibbz[address] [id number] BY: [employer] Solutionslin6370 [facility] [id number] Lipoprotein.beta.subp article Entitic length 21.6 nm Normal [facility] Work Phone: Comment on above: INTERPRETATIVE INFORMATION PARTICLE CONCENTRATION AND SIZE <--Lower CVD Risk Higher CVD Risk--> LDL AND HDL PARTICLES Percentile in Reference Population HDL-P (total) High 75th 50th 25th Low >34.9 34.9 30.5 26.7 <26.7 . Small LDL-P Low 25th 50th 75th High <117 117 527 839 >839 . LDL Size <-Large (Pattern A)-> <-Small (Pattern B)-> 23.0 20.6 20.5 19.0 Small LDL-P and LDL Size are associated with CVD risk, but not afterLDL-P is taken into account. .These assays were developed and their performance characteristicsdetermined by [employer]. These assays have not been cleared by [place] Food and Drug Administration. The clinical utility of theselaboratory values have not been fully established. PATIENT WAS FASTINGP ERFORMED BY: [facility] [id number] BY: [email or web address] [facility]icasC[facility] [id number] Lipoprotein.beta.subp article molar conc 1413 nmol/L Abnormal [facility] Work Phone: Comment on above: Low < 1000 Moderate 1000 - 1299 Borderline-High 1300 - 1599 High 1600 - 2000 Very High > 2000 PATIENT WAS FASTINGP ERFORMED BY: Dibbz[address] [id number] BY: [email or web address] SafeM[facility] SolutionsFirst[facility] [id number] Lipoprotein.beta.subp article.small molar conc <90 Normal [facility] Work Phone: Comment on above: PATIENT WAS FASTINGP ERFORMED BY: Dibbz[address] [id number] BY: [email or web address] [address] SafeMeds SolutionsFirstHealth [facility] [id number] Triglyceride mass conc 57 mg/dL Normal 0-149 [facility] Work Phone: Comment on above: PATIENT WAS FASTINGP ERFORMED BY: Dibbz[address] [id number] BY: Q-Botox RoadDublin [place] [id number] Genital Culture, RoutineOrde red By: Financial Assistant on 03-22-2017 Bacteria identified Aer cx Nom (Genital specimen) Final report Abnormal [facility] Work Phone: Comment on above: PATIENT NOT FASTINGP ERFORMED BY: CHADWICK SolisCoshauna Festqg6720 [facility] [id number] Information: LABDEVENDRA SRC:EMILY Bacteria identified Cx Nom (Unsp spec) Staphylococcus aureus Abnormal Compreh ensive Internal Medicine Work Phone: Comment on above: Moderate growthBased on susceptibility to oxacillin this isolate would besusceptible to:* Beta-lactam/beta-lactamase inhibitor combinations; such as: Amoxicillin-clavulanic acid Ampicillin-sulbactam* Antistaphylococcal cephems; such as: Cefaclor Cefuroxime* Antistaphylococcal carbapenems; such as: Imipenem Meropenem PATIENT NOT FASTINGP ERFORMED BY: CHADWICK Bella Zmpnyx6322 [facility] [id number] Information: ANNA SRC:EMILY Other Antibiotic [facility] prehensive Internal Medicine Work Phone: Comment on above: S = Susceptible; I = Intermediate; R = Resistant P = Positive; N = Negative MICS are expressed in micrograms per mL Antibiotic RSLT#1 RSLT#2 RSLT#3 RSLT#4Ciprofloxacin SClindamycin SErythromycin SGentamicin SLevofloxacin SMoxifloxacin SOxacillin SQuinupristin/Dalfopristin SRifampin STetracycline STrimethoprim/Sulfa SVancomycin S PATIENT NOT FASTINGP ERFORMED BY: CHADWICK [facility] Gfcloz6209 [facility] [id number] Information: NANA SRC:EMILY Request ProblemOrdered By: Mookie gagnontem Technical Coordinator on 03-22-2017 Protein mass conc Final report Normal [facility] ehensive Internal Medicine Work Phone: Comment on above: Inappropriate source for anaerobic culture. A routine aerobic culturewas initiated. Contact the Microbiology Lab for further information. PATIENT NOT FASTINGP ERFORMED BY: CHADWICK Leo Yluepe1345 [address] [place] [id number] [facility]auaneous Lab ProcedureO rdered By: Financial Assistant on 03-08-2017 [facility] [place] Normal Comprehensi ve Internal Medicine Work Phone: Comment on above: Test Ordered: Tessy RUIZ ptjennifer HPVInterpretation:NEGATIVE FOR INTRAEPITHELIAL LESION AND MALIGNANCY.CELLULAR CHANGES ASSOCIATED WITH ATROPHY AND INFLAMMATIONARE PRESENT.Specimen Adequacy:Satisfactory for evaluation. Endocervical and/or squamousmetaplastic cells (endocervical component) are present.Comments:The pap smear is a screening test designated to aid in thedetection of pre-malignant and malignant conditions of theuterine cervix. It is not a diagnostic procedure and shouldnot be used as the sole means of detecting cervical cancer.Both false-positive and false-negative reports do occur.This liquid based ThinPrep(R) pap test was screened with theuse of an image guided system.Performed by [employer] Business Manager (ASCP)This test detects fourteen high-risk HPV types(16/18/31/33/35/39/45/ 51/52/56/58/59/66/68) withoutdifferentiation.HPV Results:HPV Aptima: Negative _ TESTING PERFORMED AT [facility]. ORIGINAL REPORT ON FILE IN LAB CONTAINS ADDITIONAL TEST SITE INFORMATION. CYTOLOGY INFORMATION :- CLINICAL INFORMATION:- DATE LMP/MENOPAUSE: ANNUAL- COLLECTION VIAL: Thin Prep Vial- ETL LEAD SOURCE: CERVICAL- COLLECTION TECHNIQUE: CX BROOM/BRUSHComments: # - PAP WITH HR HPVTest(s) Ordered: # - [facility] Fzlqrjlchr05[address] [place], [address] CALCIFIDIOL (14603) VIT D 25 Ordered By: Financial Assistant on 03-04-2017 25-Hydroxyvitamin D2+25-Hydroxyvitamin D3 mass conc 33.7 ng/mL Normal 30.0-100.0 [facility] Work Phone: Comment on above: Vitamin D deficiency has been defined by the [place] ofMedicine and an Endocrine Society practice guideline as alevel of serum 25-OH vitamin D less than 20 ng/mL (1,2).The Endocrine Society went on to further define vitamin Dinsufficiency as a level between 21 and 29 ng/mL (2).1. IOM ([place] of Medicine). 2010. Dietary reference intakes for calcium and D. [place]: The National Academies Press.2. Hayder MF, Delfina WEBB, Gi MADRID, et al. Evaluation, treatment, and prevention of vitamin D deficiency: an Endocrine Society clinical practice guideline. JCEM. 2010; 96(7):1911-30. PATIENT WAS FASTINGP ERFORMED BY: Dibbz[address] [id number] BY: [place]in [place] [id number] CBC WITH MANUAL DIFF (83660) Ordered By: Financial Assistant on 03-04-2017 Basophils #/vol (Bld) 0.0 {x10E3/uL} Normal 0.0-0.2 [facility] Work Phone: Comment on above: PATIENT WAS FASTINGP ERFORMED BY: Dibbz[address] [id number] BY: Zavedenia.com[address] [employer] Monitoring Solutionsin [place] [id number] Basophils (Bld) [#/Vol] 0.0 10*3/uL Normal 0.0-0.2 [facility]; [facility] Work Phone: Comment on above: PATIENT WAS FASTINGP ERFORMED BY: Dibbz[address] [id number] BY: Zavedenia.com[address] Im[employer] Monitoring Solutionsblin [place] [id number] Basophils/100 WBC (Bld) 1 % Normal [facility] Work Phone: Comment on above: PATIENT WAS FASTINGP ERFORMED BY: LabCo[address] [id number] BY: Lab[facility] Qjworw9260 Chicas RoadDublin [place] [id number] Eosinophils #/vol (Bld) 0.3 {x10E3/uL} Normal 0.0-0.4 [facility] Work Phone: Comment on above: PATIENT WAS FASTINGP ERFORMED BY: LabCo[address] [id number] BY: [facility] Fatpfu3331 [address]icas RoadDublin [place] [id number] Eosinophils (Bld) [#/Vol] 0.3 10*3/uL Normal 0.0-0.4 [facility]; [facility] Work Phone: Comment on above: PATIENT WAS FASTINGP ERFORMED BY: Lab[address] [id number] BY: LabCo Sdkbkn9179 [address] RoadDublin [place] [id number] Eosinophils/100 WBC (Bld) 10 % Normal [facility] Work Phone: Comment on above: PATIENT WAS FASTINGP ERFORMED BY: Lab[address] [id number] BY: LabCo Epyjat9083 [address] RoadDublin [place] [id number] Erythrocyte distribution width Ratio (RBC) 13.3 % Normal 12.3-15.4 [facility] Work Phone: Comment on above: PATIENT WAS FASTINGP ERFORMED BY: [address] [id number] BY: [facility] Ruoile6881 Chicas RoadDublin [place] [id number] Hematocrit Volume Fraction (Bld) 36.2 % Normal 34.0-46.6 [facility] Work Phone: Comment on above: PATIENT WAS FASTINGP ERFORMED BY: [address] [id number] BY: [place] 2095170 [facility] [id number] Hemoglobin mass conc (Bld) 12.3 g/dL Normal 11.1-15.9 [facility] Work Phone: Comment on above: PATIENT WAS FASTINGP ERFORMED BY: [address] [id number] BY: LabAndrew Ville 9957570 [facility] [id number] Immature granulocytes #/vol (Bld) 0.0 {x10E3/uL} Normal 0.0-0.1 [facility] Work Phone: Comment on above: PATIENT WAS FASTINGP ERFORMED BY: [address] [id number] BY: [place] 2095170 [facility] [id number] Immature granulocytes (Bld) [#/Vol] 0.0 10*3/uL Normal 0.0-0.1 [facility]; [facility] Work Phone: Comment on above: PATIENT WAS FASTINGP ERFORMED BY: [address] [id number] BY: [place] 2095170 [facility] [id number] Immature granulocytes/100 WBC (Bld) 0 % Normal [facility] Work Phone: Comment on above: PATIENT WAS FASTINGP ERFORMED BY: [address] [id number] BY: LabAndrew [place] 9957570 [facility] [id number] Lymphocytes #/vol (Bld) 0.9 {x10E3/uL} Normal 0.7-3.1 [facility] Work Phone: Comment on above: PATIENT WAS FASTINGP ERFORMED BY: LabCo[address] [id number] BY: CHADWICK [facility] Dxbueu1337 [address] [facility]in [place] [id number] Lymphocytes (Bld) [#/Vol] 0.9 10*3/uL Normal 0.7-3.1 [facility]; [facility] Work Phone: Comment on above: PATIENT WAS FASTINGP ERFORMED BY: LabCo[address] [id number] BY: CHADWICK [facility] Awfnbt2540 [address] [facility]in [place] [id number] Lymphocytes/100 WBC (Bld) 33 % Normal [facility] Work Phone: Comment on above: PATIENT WAS FASTINGP ERFORMED BY: LabCo[address] [id number] BY: CHADWICK LabCoshauna SchultzNzpbxf1886 [address] [facility] [id number] MCH Entitic mass (RBC) 30.5 pg Normal 26.6-33.0 [facility] Work Phone: Comment on above: PATIENT WAS FASTINGP ERFORMED BY: Lab[address] [id number] BY: CHADWICK Bella Wagawx0970 [address] [facility] [id number] MCHC mass conc (RBC) 34.0 g/dL Normal 31.5-35.7 [facility] Internal [facility] Work Phone: Comment on above: PATIENT WAS FASTINGP ERFORMED BY: LabCo[address] [id number] BY: CHADWICK [facility] Lwgyun1906 [facility] [id number] MCV Entitic volume (RBC) 90 fL Normal 79-97 [facility] Work Phone: Comment on above: PATIENT WAS FASTINGP ERFORMED BY: LabCo[address] [id number] BY: CHADWICK [facility] Munpei8174 [address] RoadDublin [place] [id number] Monocytes #/vol (Bld) 0.4 {x10E3/uL} Normal 0.1-0.9 [facility] Work Phone: Comment on above: PATIENT WAS FASTINGP ERFORMED BY: Lab[address] [id number] BY: [facility] Gvxmgq5995 [address] RoadDublin [place] [id number] Monocytes (Bld) [#/Vol] 0.4 10*3/uL Normal 0.1-0.9 [facility]; [facility] Work Phone: Comment on above: PATIENT WAS FASTINGP ERFORMED BY: [address] [id number] BY: CHADWICK [facility] Noratu4220 [address] RoadDuin [place] [id number] Monocytes/100 WBC (Bld) 15 % Normal [facility] Work Phone: Comment on above: PATIENT WAS FASTINGP ERFORMED BY: [address] [id number] BY: LabCoBacharach Institute for RehabilitationDlhwws0788 [address] RoadPerson Memorial Hospitalin [place] [id number] Neutrophils #/vol (Bld) 1.1 {x10E3/uL} Abnormal 1.4-7.0 [facility] Work Phone: Comment on above: PATIENT WAS FASTINGP ERFORMED BY: Lab[address] [id number] BY: [facility] Kkqzpw5730 [address] RoadDuin [place] [id number] Neutrophils (Bld) [#/Vol] 1.1 10*3/uL Abnormal 1.4-7.0 [facility]; [facility] Work Phone: Comment on above: PATIENT WAS FASTINGP ERFORMED BY: Lab[address] [id number] BY: CHADWICK [facility] Mzrfmi3325 [address] RoadDublin [place] [id number] Neutrophils/100 WBC (Bld) 41 % Normal [facility] Work Phone: Comment on above: PATIENT WAS FASTINGP ERFORMED BY: Lab[address] [id number] BY: [facility] Roihsy0158 [address] RoadDublin [place] [id number] Platelets #/vol (Bld) 251 {x10E3/uL} Normal 150-379 [facility] Work Phone: Comment on above: PATIENT WAS FASTINGP ERFORMED BY: Lab[address] [id number] BY: [facility] Pchxlf9237 [address] RoadDublin [place] [id number] Platelets (Bld) [#/Vol] 251 10*3/uL Normal 150-379 [facility]; [facility] Work Phone: Comment on above: PATIENT WAS FASTINGP ERFORMED BY: [address] [id number] BY: [facility] Aeqglp6388 [address] RoadDublin [place] [id number] RBC #/vol (Bld) 4.03 {x10E6/uL} Normal 3.77-5.28 [facility] Internal [facility] Work Phone: Comment on above: PATIENT WAS FASTINGP ERFORMED BY: Lab[address] [id number] BY: [facility] Lzujem2021 [address] RoadDublin [place] [id number] RBC (Bld) [#/Vol] 4.03 10*6/uL Normal 3.77-5.28 [facility] Centerensive Internal [facility]; [facility] Work Phone: Comment on above: PATIENT WAS FASTINGP ERFORMED BY: [address] [id number] BY: LabMcl[facility]6370 [facility] [id number] WBC #/vol (Bld) 2.6 {x10E3/uL} Abnormal 3.4-10.8 [facility] ehensive Internal Medicine Work Phone: Comment on above: PATIENT WAS FASTINGP ERFORMED BY: [address] [id number] BY: [place] 2095170 [facility] [id number] WBC (Bld) [#/Vol] 2.6 10*3/uL Abnormal 3.4-10.8 Compre [facility] Internal Medicine; [facility] Work Phone: Comment on above: PATIENT WAS FASTINGP ERFORMED BY: Familonet[address] [id number] BY: [place] 2095170 [facility] [id number] LIPOPROTEIN, BLD, BY NMR ([id number] 654)Ordered By: Financial Assistant on 03-04-2017 Cholesterol in HDL mass conc 89 mg/dL Normal [facility] Work Phone: Comment on above: PATIENT WAS FASTINGP ERFORMED BY: [facility] [id number] BY: [place] 2095170 [facility] [id number] Information: NURSE DRAW Cholesterol in LDL mass conc 152 mg/dL Abnormal 0-99 [facility] Work Phone: Comment on above: . Optimal < 100 Abov e optimal 100 - 129 Borderline 130 - 159 High 160 - 189 Very high > 189 .LDL-C is inaccurate if patient is non-fasting. PATIENT WAS FASTINGP ERFORMED BY: [facility] [id number] BY: [facility]6370 [facility] [id number] Information: NURSE DRAW Cholesterol mass conc 252 mg/dL Abnormal 100-199 [facility] Centerensive Internal Medicine Work Phone: Comment on above: PATIENT WAS FASTINGP ERFORMED BY: [facility] Gkihuocrvc9603 [facility] [id number] BY: LabKosmixBacharach Institute for RehabilitationPunplq5864 [facility] [id number] Information: NURSE DRAW Lipoprotein.alpha molar conc 33.7 umol/L Normal [facility] Work Phone: Comment on above: PATIENT WAS FASTINGP ERFORMED BY: [facility] Rlgspiyacj0154 [facility] [id number] BY: LabCoBacharach Institute for RehabilitationMtxera8449 [facility] [id number] Information: NURSE DRAW Lipoprotein.beta.subp article Entitic length 21.8 nm Normal [facility] Work Phone: Comment on above: INTERPRETATIVE INFORMATION PARTICLE CONCENTRATION AND SIZE <--Lower CVD Risk Higher CVD Risk--> LDL AND HDL PARTICLES Percentile in Reference Population HDL-P (total) High 75th 50th 25th Low >34.9 34.9 30.5 26.7 <26.7 . Small LDL-P Low 25th 50th 75th High <117 117 527 839 >839 . LDL Size <-Large (Pattern A)-> <-Small (Pattern B)-> 23.0 20.6 20.5 19.0 Small LDL-P and LDL Size are associated with CVD risk, but not afterLDL-P is taken into account. .These assays were developed and their performance characteristicsdetermined by [employer]. These assays have not been cleared by [place] Food and Drug Administration. The clinical utility of theselaboratory values have not been fully established. PATIENT WAS FASTINGP ERFORMED BY: BN [facility] [id number] BY: LabMclaren [facility] Hospital6370 [facility] [id number] Information: NURSE DRAW Lipoprotein.beta.subp article molar conc 1457 nmol/L Abnormal [facility] Work Phone: Comment on above: Low < 1000 Moderate 1000 - 1299 Borderline-High 1300 - 1599 High 1600 - 2000 Very High > 2000 PATIENT WAS FASTINGP ERFORMED BY: Lab[address] [id number] BY: Lab[address] [id number] Information: NURSE DRAW Lipoprotein.beta.subp article.small molar conc <90 Normal [facility] Work Phone: Comment on above: PATIENT WAS FASTINGP ERFORMED BY: [address] [id number] BY: [place] 2095170 [facility] [id number] Information: NURSE DRAW Triglyceride mass conc 55 mg/dL Normal 0-149 [facility] Work Phone: Comment on above: PATIENT WAS FASTINGP ERFORMED BY: [address] [id number] BY: LabAndrew [place] 9957570 [facility] [id number] Information: NURSE DRAW Metabolic Panel, Comprehensi ve ([id number])Ordered By: Financial Assistant on 03-04-2017 Albumin mass conc 4.1 g/dL Normal 3.5-5.5 Compreh ensive Internal Medicine Work Phone: Comment on above: PATIENT WAS FASTINGP ERFORMED BY: [address] [id number] BY: [facility]6370 [facility] [id number] Albumin/Globulin mass ratio 1.4 {ratio} Normal 1.2-2.2 [facility] Work Phone: Comment on above: PATIENT WAS FASTINGP ERFORMED BY: [facility]Co[address] [id number] BY: [facility] Gywchy1011 [address] RoadDublin [place] [id number] ALP [Catalytic activity/Vol] 52 U/L Normal 39-117 [facility]; [facility] Internal Medicine Work Phone: Comment on above: PATIENT WAS FASTINGP ERFORMED BY: [facility] [address] [id number] BY: CB [facility] Bscjuv7564 [address] RoadDublin [place] [id number] ALP enzyme act/vol 52 [iU]/L Normal 39-117 [facility] Internal Medicine Work Phone: Comment on above: PATIENT WAS FASTINGP ERFORMED BY: Lab[address] [id number] BY: [facility] Sqdnpk9024 [address] RoadDublin [place] [id number] ALT [Catalytic activity/Vol] 23 U/L Normal 0-32 [facility]; [facility] Internal Medicine Work Phone: Comment on above: PATIENT WAS FASTINGP ERFORMED BY: Lab[address] [id number] BY: [facility] Rwlhit3491 [address] RoadDublin [place] [id number] ALT enzyme act/vol 23 [iU]/L Normal 0-32 [facility] Internal Medicine Work Phone: Comment on above: PATIENT WAS FASTINGP ERFORMED BY: Lab[address] [id number] BY: [facility] Gxupwk6917 [address] RoadDublin [place] [id number] AST [Catalytic activity/Vol] 27 U/L Normal 0-40 [facility]; [facility] Internal Medicine Work Phone: Comment on above: PATIENT WAS FASTINGP ERFORMED BY: [facility]Co[address] [id number] BY: CHADWICK [facility] Cffhtl8918 [address] RoadDublin [place] [id number] AST enzyme act/vol 27 [iU]/L Normal 0-40 Compre [facility] hospitalive Internal Medicine Work Phone: Comment on above: PATIENT WAS FASTINGP ERFORMED BY: [facility] [address] [id number] BY: CHADWICK [facility] Xzdybp5132 [address] RoadDublin [place] [id number] Bilirubin mass conc 0.4 mg/dL Normal 0.0-1.2 Compr ensive Internal Medicine Work Phone: Comment on above: PATIENT WAS FASTINGP ERFORMED BY: [facility] [address] [id number] BY: CHADWICK [facility] Epuhpq3654 [address] RoadDublin [place] [id number] Calcium mass conc 9.2 mg/dL Normal 8.7-10.2 Compreh [facility] Internal Medicine Work Phone: Comment on above: PATIENT WAS FASTINGP ERFORMED BY: Lab[address] [id number] BY: CHADWICK [facility] Byofxl2602 [address] RoadDublin [place] [id number] Chloride molar conc 101 mmol/L Normal 96-106 Compr ensive Internal Medicine Work Phone: Comment on above: PATIENT WAS FASTINGP ERFORMED BY: [facility] [address] [id number] BY: CHADWICK [facility] Tgbkqz2219 [address] RoadDublin [place] [id number] CO2 molar conc 23 mmol/L Normal 18-29 Comprehens hanane Internal Medicine Work Phone: Comment on above: PATIENT WAS FASTINGP ERFORMED BY: [facility] [address] [id number] BY: CHADWICK [facility] Hjgmhc4885 [address] RoadDublin [place] [id number] Creatinine mass conc 0.69 mg/dL Normal 0.57-1.00 Comp rehensive Internal Medicine Work Phone: Comment on above: PATIENT WAS FASTINGP ERFORMED BY: Familonet[address] [id number] BY: [facility] Iqunbn5691 [address] RoadDublin [place] [id number] GFR/1.73 sq M predicted among blacks CKD-EPI vol rate/area (S/P/Bld) 112 mL/min/1.73 Normal Comprehensiv e Internal Medicine Work Phone: Comment on above: PATIENT WAS FASTINGP ERFORMED BY: Familonet[address] [id number] BY: [facility] Wchghp9164 [address] [facility] [id number] GFR/1.73 sq M predicted among non-blacks CKD-EPI vol rate/area (S/P/Bld) 97 mL/min/1.73 Normal [facility] Work Phone: Comment on above: PATIENT WAS FASTINGP ERFORMED BY: Familonet[address] [id number] BY: [facility] Balgil8275 [address] [facility] [id number] Globulin mass conc (S) 2.9 g/dL Normal 1.5-4.5 [facility] Work Phone: Comment on above: PATIENT WAS FASTINGP ERFORMED BY: Familonet[address] [id number] BY: [facility] Lxsupe0777 [address] [facility] [id number] Glucose mass conc 89 mg/dL Normal 65-99 Compreh ensive Internal Medicine Work Phone: Comment on above: PATIENT WAS FASTINGP ERFORMED BY: Familonet[address] [id number] BY: [facility] Qxtaye1780 [address] RoadPerson Memorial Hospitalin [place] [id number] Potassium molar conc 4.1 mmol/L Normal 3.5-5.2 Comp rehensive Internal Medicine Work Phone: Comment on above: PATIENT WAS FASTINGP ERFORMED BY: [facility] [address] [id number] BY: CHADWICK [facility] Venhfr6725 [address] RoadDublin [place] [id number] Protein mass conc 7.0 g/dL Normal 6.0-8.5 Compreh ensive Internal Medicine Work Phone: Comment on above: PATIENT WAS FASTINGP ERFORMED BY: [facility] [address] [id number] BY: CHADWICK [facility] Nvsoez6008 [address] RoadDublin [place] [id number] Sodium molar conc 142 mmol/L Normal 134-144 Compreh ensive Internal Medicine Work Phone: Comment on above: PATIENT WAS FASTINGP ERFORMED BY: [facility] [address] [id number] BY: CHADWICK [facility] Lmbvmr6008 [address] RoadDublin [place] [id number] Urea nitrogen mass conc 13 mg/dL Normal 6-24 [facility] Work Phone: Comment on above: PATIENT WAS FASTINGP ERFORMED BY: [facility] [address] [id number] BY: [facility] Zkopsy8754 [address] RoadDublin [place] [id number] Urea nitrogen/Creatinine mass ratio 19 mg/mg Normal 9-23 [facility] Work Phone: Comment on above: PATIENT WAS FASTINGP ERFORMED BY: [facility] [address] [id number] BY: [facility] Qdettv4823 [address] RoadDublin [place] [id number] URINALYSIS ([id number])Ordered By : Financial Assistant on 03-04-2017 Appearance Nom (U) Cloudy Abnormal Compre hensive Internal Medicine Work Phone: Comment on above: PATIENT WAS FASTINGP ERFORMED BY: [address] [id number] BY: CHADWICK [facility] Hlzkyr8144 [address] RoadDublin [place] [id number] Bilirubin Ql (U) Negative Normal Comprehe nsive Internal Medicine Work Phone: Comment on above: PATIENT WAS FASTINGP ERFORMED BY: [address] [id number] BY: CHADWICK [facility] Dslrth5166 [address] RoadDublin [place] [id number] Bilirubin Ql (U) Negative Normal Comprehe nsive Internal Medicine; [facility] Work Phone: Comment on above: PATIENT WAS FASTINGP ERFORMED BY: [address] [id number] BY: CHADWICK [facility] Ijvard1980 [address] RoadDublin [place] [id number] Color Nom (U) Yellow Normal Comprehensi ve Internal Medicine Work Phone: Comment on above: PATIENT WAS FASTINGP ERFORMED BY: [address] [id number] BY: CHADWICK [facility] Zejrld4767 [address] RoadDublin [place] [id number] Glucose Ql (U) Negative Normal Comprehens hanane Internal Medicine Work Phone: Comment on above: PATIENT WAS FASTINGP ERFORMED BY: [address] [id number] BY: CHADWICK [facility] Ftrfgk0841 [address] RoadDublin [place] [id number] Glucose Ql (U) Negative Normal Comprehens hanane Internal Medicine; [facility] Work Phone: Comment on above: PATIENT WAS FASTINGP ERFORMED BY: [address] [id number] BY: CHADWICK [facility] Eiowja7147 [address] RoadDublin [place] [id number] Hemoglobin Ql (U) Negative Normal Compreh ensive Internal Medicine Work Phone: Comment on above: PATIENT WAS FASTINGP ERFORMED BY: [facility] [address] [id number] BY: CHADWICK [facility] Iefzem6006 [address] RoadDublin [place] [id number] Hemoglobin Ql (U) Negative Normal Compreh ensive Internal Medicine; [facility] Work Phone: Comment on above: PATIENT WAS FASTINGP ERFORMED BY: [facility] [address] [id number] BY: CB [facility] Pufuxt8948 Chicas RoadDublin [place] [id number] Ketones Ql (U) Negative Normal Comprehens hanane [facility] Work Phone: Comment on above: PATIENT WAS FASTINGP ERFORMED BY: [facility] [address] [id number] BY: CHADWICK [facility] Cqmvlj1267 Chicas RoadDublin [place] [id number] Ketones Ql (U) Negative Normal Comprehens hanane [facility]; [facility] Work Phone: Comment on above: PATIENT WAS FASTINGP ERFORMED BY: [facility] [address] [id number] BY: [facility] Apohen7686 Chicas RoadDublin [place] [id number] Leukocyte esterase Test strip Ql (U) Negative Normal [facility] Work Phone: Comment on above: PATIENT WAS FASTINGP ERFORMED BY: [facility] [address] [id number] BY: CB [facility] Nwyowu4361 [address] RoadDublin [place] [id number] Leukocyte esterase Test strip Ql (U) Negative Normal [facility]; [facility] Work Phone: Comment on above: PATIENT WAS FASTINGP ERFORMED BY: [facility] [address] [id number] BY: CB [facility] Auhciz1076 [address] RoadDublin [place] [id number] Microscopic observation LM Nom (Urine sed) MICNIP Normal [facility] Work Phone: Comment on above: Microscopic not renetta cated and not performed. PATIENT WAS FASTINGP ERFORMED BY: [address] [id number] BY: CHADWICK [facility] Vmvjuc1516 Cihcas RoadDublin [place] [id number] Nitrite Ql (U) Negative Normal Comprehens [facility] Work Phone: Comment on above: PATIENT WAS FASTINGP ERFORMED BY: [address] [id number] BY: CHADWICK [facility] Mfcabq7717 [address] RoadDublin [place] [id number] Nitrite Ql (U) Negative Normal Comprehens hanane [facility]; [facility] Work Phone: Comment on above: PATIENT WAS FASTINGP ERFORMED BY: [address] [id number] BY: CHADWICK [facility] Oidlcp8029 [address] RoadDublin [place] [id number] pH (U) 8.5 [pH] Abnormal 5.0-7.5 [facility] Work Phone: Comment on above: PATIENT WAS FASTINGP ERFORMED BY: [address] [id number] BY: CHADWICK LabCoshauna SchultzIsaruk8771 [address] RoadDublin [place] [id number] Protein Ql (U) Negative Normal Comprehens [facility] Work Phone: Comment on above: PATIENT WAS FASTINGP ERFORMED BY: [address] [id number] BY: CHADWICK [facility] Pjickq1216 [address] RoadDublin [place] [id number] Protein Ql (U) Negative Normal Comprehens hanane [facility]; [facility] Work Phone: Comment on above: PATIENT WAS FASTINGP ERFORMED BY: BN [address] [id number] BY: [facility] [facility] Hospitalblin [place] [id number] Specific gravity Relative Density (U) 1.017 1 Normal 1.005-1.03 0 [facility] Work Phone: Comment on above: PATIENT WAS FASTINGP ERFORMED BY: [address] [id number] BY: [facility]6370 [address] Roadblin [place] [id number] Urobilinogen (U) [Mass/Vol] 0.2 mg/dL Normal 0.2-1.0 [facility]; [facility] Work Phone: Comment on above: PATIENT WAS FASTINGP ERFORMED BY: [address] [id number] BY: [facility]6[address] RoadPerson Memorial Hospitalin [place] [id number] Urobilinogen Test strip mass conc (U) 0.2 mg/dL Normal 0.2-1.0 Comprehensiv e Internal Medicine Work Phone: Comment on above: PATIENT WAS FASTINGP ERFORMED BY: [address] [id number] BY: [facility] [facility] Hospitalblin [place] [id number] CALCIFIDIOL (28623) VIT D 25 Ordered By: Financial Assistant on 11-23-2016 25-Hydroxyvitamin D2+25-Hydroxyvitamin D3 mass conc 46.2 ng/mL Normal 30.0-100.0 [facility] Work Phone: Comment on above: Vitamin D deficiency has been defined by the [place] ofMedicine and an Endocrine Society practice guideline as alevel of serum 25-OH vitamin D less than 20 ng/mL (1,2).The Endocrine Society went on to further define vitamin Dinsufficiency as a level between 21 and 29 ng/mL (2).1. IOM ([place] of Medicine). 2010. Dietary reference intakes for calcium and D. [place]: The National Academies Press.2. Hayder MF, Delfina NC, Gi MADRID, et al. Evaluation, treatment, and prevention of vitamin D deficiency: an Endocrine Society clinical practice guideline. JCEM. 2010; 96(7):1911-30. A courtesy copy of t his report has been sent [phone].PATIENT NOT FASTINGPERFORMED BY: [facility] Oxsems8355 Multiphy Networksin [place] [id number] CBC with auto diff (01131)Or dered By: Financial Assistant on 11-23-2016 Basophils #/vol (Bld) 0.0 {x10E3/uL} Normal 0.0-0.2 [facility] Work Phone: Comment on above: Dr. swann send copy; A courtesy copy of this report has been sent [phone].PATIENT NOT FASTINGPERFORMED BY: [facility] Fwaekl2889 Multiphy NetworksSelect Specialty Hospital [id number] Basophils (Bld) [#/Vol] 0.0 10*3/uL Normal 0.0-0.2 [facility]; [facility] Work Phone: Comment on above: Dr. swann send copy; A courtesy copy of this report has been sent [phone].PATIENT NOT FASTINGPERFORMED BY: [employer] Vqurph0860 Multiphy NetworksSelect Specialty Hospital [id number] Basophils/100 WBC (Bld) 1 % Normal [facility] Work Phone: Comment on above: Dr. swann send copy; A courtesy copy of this report has been sent [phone].PATIENT NOT FASTINGPERFORMED BY: [facility] Gjfnbg[address] [employer] Monitoring Solutionsblin [place] [id number] Eosinophils #/vol (Bld) 0.3 {x10E3/uL} Normal 0.0-0.4 [facility] Work Phone: Comment on above: Dr. swann send copy; A courtesy copy of this report has been sent [phone].PATIENT NOT FASTINGPERFORMED BY: CB [facility] Fhryyc5254 [facility] [id number] Eosinophils (Bld) [#/Vol] 0.3 10*3/uL Normal 0.0-0.4 [facility]; [facility] Work Phone: Comment on above: Dr. swann send copy; A courtesy copy of this report has been sent [phone].PATIENT NOT FASTINGPERFORMED BY: CB [facility] Etmwao6349 [address] [facility] [id number] Eosinophils/100 WBC (Bld) 9 % Normal [facility] Work Phone: Comment on above: Dr. swann send copy; A courtesy copy of this report has been sent [phone].PATIENT NOT FASTINGPERFORMED BY: CB [facility] Cciwjb6752 [facility] [id number] Erythrocyte distribution width Ratio (RBC) 13.9 % Normal 12.3-15.4 [facility] Work Phone: Comment on above: Dr. swann send copy; A courtesy copy of this report has been sent [phone].PATIENT NOT FASTINGPERFORMED BY: CB [facility] Gfslkq8115 [facility] [id number] Hematocrit Volume Fraction (Bld) 38.8 % Normal 34.0-46.6 [facility] Work Phone: Comment on above: Dr. swann send copy; A courtesy copy of this report has been sent [phone].PATIENT NOT FASTINGPERFORMED BY: CB [facility] Fxhogk7584 [facility] [id number] Hemoglobin mass conc (Bld) 13.0 g/dL Normal 11.1-15.9 [facility] Work Phone: Comment on above: Dr. swann send copy; A courtesy copy of this report has been sent [phone].PATIENT NOT FASTINGPERFORMED BY: CB [facility] Mfkjam5862 [address] [facility] [id number] Immature granulocytes #/vol (Bld) 0.0 {x10E3/uL} Normal 0.0-0.1 [facility] Work Phone: Comment on above: Dr. swann send copy; A courtesy copy of this report has been sent [phone].PATIENT NOT FASTINGPERFORMED BY: CB [facility] Lovtpr0468 [address] Roadblin [place] [id number] Immature granulocytes (Bld) [#/Vol] 0.0 10*3/uL Normal 0.0-0.1 [facility]; [facility] Work Phone: Comment on above: Dr. swann send copy; A courtesy copy of this report has been sent [phone].PATIENT NOT FASTINGPERFORMED BY: CB [facility] Qevvzy7241 [address] [facility] [id number] Immature granulocytes/100 WBC (Bld) 0 % Normal [facility] Work Phone: Comment on above: Dr. swann send copy; A courtesy copy of this report has been sent [phone].PATIENT NOT FASTINGPERFORMED BY: CB [facility] Mdbqkn8665 [address] [facility] [id number] Lymphocytes #/vol (Bld) 1.1 {x10E3/uL} Normal 0.7-3.1 [facility] Work Phone: Comment on above: Dr. swann send copy; A courtesy copy of this report has been sent [phone].PATIENT NOT FASTINGPERFORMED BY: CB [facility] Aoshjg6004 [address] [facility] [id number] Lymphocytes (Bld) [#/Vol] 1.1 10*3/uL Normal 0.7-3.1 [facility]; [facility] Work Phone: Comment on above: Dr. swann send copy; A courtesy copy of this report has been sent [phone].PATIENT NOT FASTINGPERFORMED BY: CB [facility] Zyzjkr5140 [address] [facility] [id number] Lymphocytes/100 WBC (Bld) 35 % Normal [facility] Internal Medicine Work Phone: Comment on above: Dr. swann send copy; A courtesy copy of this report has been sent [phone].PATIENT NOT FASTINGPERFORMED BY: [facility] Nnaugd6053 [facility] [id number] MCH Entitic mass (RBC) 30.9 pg Normal 26.6-33.0 [facility] Internal Medicine Work Phone: Comment on above: Dr. swann send copy; A courtesy copy of this report has been sent [phone].PATIENT NOT FASTINGPERFORMED BY: CB [facility] Riopws8578 [facility] [id number] MCHC mass conc (RBC) 33.5 g/dL Normal 31.5-35.7 [facility] Work Phone: Comment on above: Dr. swann send copy; A courtesy copy of this report has been sent [phone].PATIENT NOT FASTINGPERFORMED BY: [facility] Sqcnqk2573 [facility] [id number] MCV Entitic volume (RBC) 92 fL Normal 79-97 [facility] Internal Medicine Work Phone: Comment on above: Dr. swann send copy; A courtesy copy of this report has been sent [phone].PATIENT NOT FASTINGPERFORMED BY: [facility] Zaodrq5163 [facility] [id number] Monocytes #/vol (Bld) 0.4 {x10E3/uL} Normal 0.1-0.9 [facility] Internal Medicine Work Phone: Comment on above: Dr. swann send copy; A courtesy copy of this report has been sent [phone].PATIENT NOT FASTINGPERFORMED BY: [facility] Sqjkcm1851 [facility] [id number] Monocytes (Bld) [#/Vol] 0.4 10*3/uL Normal 0.1-0.9 [facility]; [facility] Internal Medicine Work Phone: Comment on above: Dr. swann send copy; A courtesy copy of this report has been sent [phone].PATIENT NOT FASTINGPERFORMED BY: [facility] Nhecwe6404 [facility] [id number] Monocytes/100 WBC (Bld) 14 % Normal [facility] Work Phone: Comment on above: Dr. swann send copy; A courtesy copy of this report has been sent [phone].PATIENT NOT FASTINGPERFORMED BY: [facility] Mijgqa5191 [facility] [id number] Neutrophils #/vol (Bld) 1.3 {x10E3/uL} Abnormal 1.4-7.0 [facility] Work Phone: Comment on above: Dr. swann send copy; A courtesy copy of this report has been sent [phone].PATIENT NOT FASTINGPERFORMED BY: [facility] Cibjfn7088 [facility] [id number] Neutrophils (Bld) [#/Vol] 1.3 10*3/uL Abnormal 1.4-7.0 [facility]; [facility] Work Phone: Comment on above: Dr. swann send copy; A courtesy copy of this report has been sent [phone].PATIENT NOT FASTINGPERFORMED BY: [facility] Xtfptx4384 [facility] [id number] Neutrophils/100 WBC (Bld) 41 % Normal [facility] Work Phone: Comment on above: Dr. swann send copy; A courtesy copy of this report has been sent [phone].PATIENT NOT FASTINGPERFORMED BY: [facility] Jfklkb1612 [facility] [id number] Platelets #/vol (Bld) 250 {x10E3/uL} Normal 150-379 [facility] Work Phone: Comment on above: Dr. swann send copy; A courtesy copy of this report has been sent [phone].PATIENT NOT FASTINGPERFORMED BY: CB [facility] Edoxxe9756 [facility] [id number] Platelets (Bld) [#/Vol] 250 10*3/uL Normal 150-379 [facility] Internal Medicine; [facility] Medicine Work Phone: Comment on above: Dr. swann send copy; A courtesy copy of this report has been sent [phone].PATIENT NOT FASTINGPERFORMED BY: CB [facility] Cawwqy1280 [facility] [id number] RBC #/vol (Bld) 4.21 {x10E6/uL} Normal 3.77-5.28 [facility] Work Phone: Comment on above: Dr. swann send copy; A courtesy copy of this report has been sent [phone].PATIENT NOT FASTINGPERFORMED BY: CB [facility] Bzzatd3787 [facility] [id number] RBC (Bld) [#/Vol] 4.21 10*6/uL Normal 3.77-5.28 [facility] Internal Medicine; [facility] Internal Medicine Work Phone: Comment on above: Dr. swann send copy; A courtesy copy of this report has been sent [phone].PATIENT NOT FASTINGPERFORMED BY: [facility] Gqulae6859 [facility] [id number] WBC #/vol (Bld) 3.1 {x10E3/uL} Abnormal 3.4-10.8 [facility] Internal Medicine Work Phone: Comment on above: Dr. swann send copy; A courtesy copy of this report has been sent [phone].PATIENT NOT FASTINGPERFORMED BY: CB [facility] Amsqvb1844 [facility] [id number] WBC (Bld) [#/Vol] 3.1 10*3/uL Abnormal 3.4-10.8 [facility] Internal Medicine; [facility] Internal Medicine Work Phone: Comment on above: Dr. swann send copy; A courtesy copy of this report has been sent [phone].PATIENT NOT FASTINGPERFORMED BY: CB [facility] Zqczqv0506 [address] RoadDublin [place] [id number] HEPATIC FUNCTION PANEL (8007 6)Ordered By: Financial Assistant on 10-30-2016 Albumin mass conc 4.2 g/dL Normal 3.5-5.5 [facility] Internal Medicine Work Phone: Comment on above: PATIENT NOT FASTINGP ERFORMED BY: CB [facility] Ypifhg8588 [address] RoadDublin [place] [id number] ALP [Catalytic activity/Vol] 51 U/L Normal 39-117 [facility]; [facility] Work Phone: Comment on above: PATIENT NOT FASTINGP ERFORMED BY: CB [facility] Lfoccv3024 [address] RoadDublin [place] [id number] ALP enzyme act/vol 51 [iU]/L Normal 39-117 [facility] Internal Medicine Work Phone: Comment on above: PATIENT NOT FASTINGP ERFORMED BY: CB [facility] Gzrims9643 [address] RoadDublin [place] [id number] ALT [Catalytic activity/Vol] 29 U/L Normal 0-32 [facility]; [facility] Work Phone: Comment on above: PATIENT NOT FASTINGP ERFORMED BY: CB [facility] Bkvcjx2542 [address] RoadDublin [place] [id number] ALT enzyme act/vol 29 [iU]/L Normal 0-32 [facility] Internal Medicine Work Phone: Comment on above: PATIENT NOT FASTINGP ERFORMED BY: CB [facility] Mpyviy9375 [address] RoadDublin [place] [id number] AST [Catalytic activity/Vol] 30 U/L Normal 0-40 [facility]; [facility] Internal Medicine Work Phone: Comment on above: PATIENT NOT FASTINGP ERFORMED BY: CB [facility] Hpvtvq1937 [address] RoadDublin [place] [id number] AST enzyme act/vol 30 [iU]/L Normal 0-40 [facility]pre [facility] Work Phone: Comment on above: PATIENT NOT FASTINGP ERFORMED BY: CB [facility] Utuipp5616 [address] [facility] [id number] Bilirubin mass conc 0.4 mg/dL Normal 0.0-1.2 Compr ehensive Internal Medicine Work Phone: Comment on above: PATIENT NOT FASTINGP ERFORMED BY: CB [facility] Relbcx5347 [facility] [id number] Bilirubin.direct mass conc 0.12 mg/dL Normal 0.00-0.40 [facility] Work Phone: Comment on above: PATIENT NOT FASTINGP ERFORMED BY: CB [facility] Pztagn6809 [facility] [id number] Protein mass conc 7.1 g/dL Normal 6.0-8.5 Compreh ensive Internal Medicine Work Phone: Comment on above: PATIENT NOT FASTINGP ERFORMED BY: CB [facility] Uuwjqj5059 [facility] [id number] LIPOPROTEIN, BLD, BY NMR (29 224)Ordered By: Financial Assistant on 10-28-2016 Cholesterol in HDL mass conc 91 mg/dL Normal [facility] Work Phone: Comment on above: PATIENT WAS FASTINGP ERFORMED BY: Dibbzton[address] [place] [address] [id number]; fu 7-11 db Cholesterol in LDL mass conc 143 mg/dL Abnormal 0-99 [facility] Work Phone: Comment on above: . Optimal < 100 Abov e optimal 100 - 129 Borderline 130 - 159 High 160 - 189 Very high > 189 .LDL-C is inaccurate if patient is non-fasting. PATIENT WAS FASTINGP ERFORMED BY: Dibbz[address] [id number]; fu 7-11 db Cholesterol mass conc 245 mg/dL Abnormal 100-199 [facility] prehensive Internal Medicine Work Phone: Comment on above: PATIENT WAS FASTINGP ERFORMED BY: BN Lab[address] [id number]; fu 7-11 db Lipoprotein.alpha molar conc 38.7 umol/L Normal [facility] Work Phone: Comment on above: PATIENT WAS FASTINGP ERFORMED BY: [address] [id number]; fu 7-11 db Lipoprotein.beta.subp article Entitic length 21.8 nm Normal [facility] Work Phone: Comment on above: INTERPRETATIVE INFORMATION PARTICLE CONCENTRATION AND SIZE <--Lower CVD Risk Higher CVD Risk--> LDL AND HDL PARTICLES Percentile in Reference Population HDL-P (total) High 75th 50th 25th Low >34.9 34.9 30.5 26.7 <26.7 . Small LDL-P Low 25th 50th 75th High <117 117 527 839 >839 . LDL Size <-Large (Pattern A)-> <-Small (Pattern B)-> 23.0 20.6 20.5 19.0 Small LDL-P and LDL Size are associated with CVD risk, but not afterLDL-P is taken into account. .These assays were developed and their performance characteristicsdetermined by [employer]. These assays have not been cleared by [place] Food and Drug Administration. The clinical utility of theselaboratory values have not been fully established. PATIENT WAS FASTINGP ERFORMED BY: [address] [id number]; fu 7-11 db Lipoprotein.beta.subp article molar conc 1549 nmol/L Abnormal [facility] Work Phone: Comment on above: Low < 1000 Moderate 1000 - 1299 Borderline-High 1300 - 1599 High 1600 - 2000 Very High > 2000 PATIENT WAS FASTINGP ERFORMED BY: [facility] Hdsmvkdqkd6369 [facility] [id number]; fu 7- db Lipoprotein.beta.subp article.small molar conc <90 Normal [facility] Work Phone: Comment on above: PATIENT WAS FASTINGP ERFORMED BY: [facility] [address] [id number]; fu 7- db Triglyceride mass conc 54 mg/dL Normal 0-149 [facility] Work Phone: Comment on above: PATIENT WAS FASTINGP ERFORMED BY: [facility] [address] [id number]; fu 7- db HILARY (ANTINUCLEAR ANTIBODY) ( 87013)Ordered By: Financial Assistant on 04-10-2016 Nuclear Ab Ql (S) Positive Abnormal Compreh ensive Internal Medicine Work Phone: Comment on above: PATIENT NOT FASTINGP ERFORMED BY: CB [facility] Jmdknw1547 [address] RoadDublin [place] [id number] Nuclear Ab Ql (S) Positive Abnormal Compreh ensive Internal Medicine; [facility] Work Phone: Comment on above: PATIENT NOT FASTINGP ERFORMED BY: [employer] [facility] Kxsjxa9524 [address] SafeMeds SolutionsDublin [place] [id number] RHEUMATOID FACTOR-QUAL (8643 0)Ordered By: Financial Assistant on 04-10-2016 Rheumatoid factor Qn 11.8 {IU/mL} Normal 0.0-13.9 Co mprehensive Internal Medicine Work Phone: Comment on above: PATIENT NOT FASTINGP ERFORMED BY: CB [facility] Amvxvo3900 [address] RoadDublin [place] [id number] Rheumatoid factor Qn 11.8 [IU]/mL Normal 0.0-13.9 Co mprehensive [facility]; [facility] Work Phone: Comment on above: PATIENT NOT FASTINGP ERFORMED BY: CB [facility] Bjmiwd1541 [address] RoadDublin [place] [id number] SJOGREN ANTIBOIDIES (ANTI-SS -A/ANTI-SS-B) (87918)Ordered By: Financial Assistant on 04-10-2016 Sjogrens syndrome-A extractable nuclear Ab Qn (S) >8.0 Abnormal 0.0-0.9 [facility] Work Phone: Comment on above: PATIENT NOT FASTINGP ERFORMED BY: [facility] Otjpqx7389 [address] Roadblin [place] [id number] Information: [facility] NURSE DRAW Sjogrens syndrome-B extractable nuclear Ab Qn (S) <0.2 Normal 0.0-0.9 [facility] Work Phone: Comment on above: PATIENT NOT FASTINGP ERFORMED BY: [facility] Jcagru2004 [address] RoadFirstHealth [facility] [id number] Information: [facility] NURSE DRAW HEPATIC FUNCTION PANEL (8007 6)Ordered By: Financial Assistant on 03-06-2014 Albumin mass conc 3.9 g/dL Normal 3.5-5.5 [facility] Internal Medicine Work Phone: Comment on above: PATIENT WAS FASTINGP ERFORMED BY: [facility] Rdqxeq1884 Chcias [facility] [id number] ALP [Catalytic activity/Vol] 60 U/L Normal 39-117 [facility]; [facility] Work Phone: Comment on above: PATIENT WAS FASTINGP ERFORMED BY: [facility] Utdnyd0032 [address] [facility] [id number] ALP enzyme act/vol 60 [iU]/L Normal 39-117 [facility] Internal Medicine Work Phone: Comment on above: PATIENT WAS FASTINGP ERFORMED BY: CB [facility] Fgpsjw4051 [address] RoadDublin [place] [id number] ALT [Catalytic activity/Vol] 19 U/L Normal 0-32 [facility]; [facility] Work Phone: Comment on above: PATIENT WAS FASTINGP ERFORMED BY: [facility] Mldqfh4800 [address] RoadDublin [place] [id number] ALT enzyme act/vol 19 [iU]/L Normal 0-32 Compre hensive Internal Medicine Work Phone: Comment on above: PATIENT WAS FASTINGP ERFORMED BY: CHADWICK LabCoshauna Sessyh4325 [address] RoadDublin [place] [id number] AST [Catalytic activity/Vol] 22 U/L Normal 0-40 [facility]; [facility] Work Phone: Comment on above: PATIENT WAS FASTINGP ERFORMED BY: CHADWICK [facility] Jcnfrr7984 [address] Roadblin [place] [id number] AST enzyme act/vol 22 [iU]/L Normal 0-40 [facility] Internal Medicine Work Phone: Comment on above: PATIENT WAS FASTINGP ERFORMED BY: CHADWICK [facility] Bwsfne5271 [address] RoadPerson Memorial Hospitalin [place] [id number] Bilirubin mass conc 0.3 mg/dL Normal 0.0-1.2 [facility] Internal Medicine Work Phone: Comment on above: PATIENT WAS FASTINGP ERFORMED BY: CHADWICK [facility] Whgstw3810 [address] RoadPerson Memorial Hospitalin [place] [id number] Bilirubin.direct mass conc 0.08 mg/dL Normal 0.00-0.40 [facility] Internal Medicine Work Phone: Comment on above: PATIENT WAS FASTINGP ERFORMED BY: CHADWICK SolisCoshauna SchultzYcwasp5050 [address] [facility]in [place] [id number] Protein mass conc 6.4 g/dL Normal 6.0-8.5 [facility] Internal Medicine Work Phone: Comment on above: PATIENT WAS FASTINGP ERFORMED BY: CHADWICK [facility] Ehsamt9178 [address] [facility]in [place] [id number] LIPID PANEL ([id number])Ordered B y: Financial Assistant on 03-06-2014 Cholesterol in HDL mass conc 79 mg/dL Normal [facility] Work Phone: Comment on above: According to ATP-III Guidelines, HDL-C >59 mg/dL is considered anegative risk factor for CHD. PATIENT WAS FASTINGP ERFORMED BY: CHADWICK [facility] Dubjrt9068 [address] [facility] [place] [id number] Information: [id number] Cholesterol in LDL mass conc 114 mg/dL Abnormal 0-99 [facility] Work Phone: Comment on above: PATIENT WAS FASTINGP ERFORMED BY: [facility]CoB[facility]ach Institute for RehabilitationXbphgy5824 [facility] [id number] Information: [id number] Cholesterol in LDL/Cholesterol in HDL mass ratio 1.4 {ratio_units} Normal 0.0-3.2 [facility] Work Phone: Comment on above: LDL/HDL Ratio Men Wo men 1/2 Avg.Risk 1.0 1.5 Avg.Risk 3.6 3.2 2X Avg.Risk 6.2 5.0 3X Avg.Risk 8.0 6.1 PATIENT WAS FASTINGP ERFORMED BY: [address] [id number] Information: [id number],[id number] Cholesterol in VLDL mass conc 13 mg/dL Normal 5-40 [facility] Work Phone: Comment on above: PATIENT WAS FASTINGP ERFORMED BY: [place] 2095170 [facility] [id number] Information: [id number] Cholesterol mass conc 206 mg/dL Abnormal 100-199 [facility] Work Phone: Comment on above: PATIENT WAS FASTINGP ERFORMED BY: [place] 2095170 [facility] [id number] Information: [id number] Triglyceride mass conc 67 mg/dL Normal 0-149 [facility] Work Phone: Comment on above: PATIENT WAS FASTINGP ERFORMED BY: [facility]6370 [facility] [id number] Information: [id number] CBC with manual diff ([id number]) Ordered By: Financial Assistant on 12-13-2013 Basophils #/vol (Bld) 0.0 {x10E3/uL} Normal 0.0-0.2 [facility] Work Phone: Comment on above: PATIENT WAS FASTINGP ERFORMED BY: CHADWICK [place]Andrew [place] 9957570 [facility] [id number] Information: [id number] Basophils (Bld) [#/Vol] 0.0 10*3/uL Normal 0.0-0.2 [facility]; [facility] Work Phone: Comment on above: PATIENT WAS FASTINGP ERFORMED BY: [address] [id number] Information: [id number],[id number] Basophils/100 WBC (Bld) 1 % Normal 0-3 [facility] Work Phone: Comment on above: PATIENT WAS FASTINGP ERFORMED BY: Irma[address] [id number] Information: [id number] Eosinophils #/vol (Bld) 0.4 {x10E3/uL} Normal 0.0-0.4 [facility] Work Phone: Comment on above: PATIENT WAS FASTINGP ERFORMED BY: [address] [id number] Information: 436388,[id number] Eosinophils (Bld) [#/Vol] 0.4 10*3/uL Normal 0.0-0.4 [facility]; [facility] Work Phone: Comment on above: PATIENT WAS FASTINGP ERFORMED BY: [address] [id number] Information: [id number],[id number] Eosinophils/100 WBC (Bld) 11 % Abnormal 0-5 [facility] Work Phone: Comment on above: PATIENT WAS FASTINGP ERFORMED BY: IrmaAndrew [place] 9957570 [facility] [id number] Information: 830073,S88369 Erythrocyte distribution width Ratio (RBC) 13.0 % Normal 12.3-15.4 [facility] Work Phone: Comment on above: PATIENT WAS FASTINGP ERFORMED BY: CHADWICK [place] 1692670 [facility] [id number] Information: 961898,[id number] Hematocrit Volume Fraction (Bld) 39.4 % Normal 34.0-46.6 [facility] Work Phone: Comment on above: PATIENT WAS FASTINGP ERFORMED BY: [address] [id number] Information: 589364,[id number] Hemoglobin mass conc (Bld) 13.6 g/dL Normal 11.1-15.9 [facility] Work Phone: Comment on above: PATIENT WAS FASTINGP ERFORMED BY: [address] [id number] Information: 698660,[id number] Immature granulocytes #/vol (Bld) 0.0 {x10E3/uL} Normal 0.0-0.1 [facility] Work Phone: Comment on above: PATIENT WAS FASTINGP ERFORMED BY: [address] [id number] Information: 750818,[id number] Immature granulocytes (Bld) [#/Vol] 0.0 10*3/uL Normal 0.0-0.1 [facility]; [facility] Work Phone: Comment on above: PATIENT WAS FASTINGP ERFORMED BY: [address] [id number] Information: 530231,[id number] Immature granulocytes/100 WBC (Bld) 0 % Normal 0-2 [facility] Work Phone: Comment on above: PATIENT WAS FASTINGP ERFORMED BY: [address] [id number] Information: [id number] Lymphocytes #/vol (Bld) 1.2 {x10E3/uL} Normal 0.7-3.1 [facility] Work Phone: Comment on above: PATIENT WAS FASTINGP ERFORMED BY: [place] 2095170 [facility] [id number] Information: 612035,[id number] Lymphocytes (Bld) [#/Vol] 1.2 10*3/uL Normal 0.7-3.1 [facility]; [facility] Work Phone: Comment on above: PATIENT WAS FASTINGP ERFORMED BY: [address] [id number] Information: 664317,[id number] Lymphocytes/100 WBC (Bld) 33 % Normal 14-46 [facility] Work Phone: Comment on above: PATIENT WAS FASTINGP ERFORMED BY: [address] [id number] Information: 610692,Q50190 MCH Entitic mass (RBC) 31.1 pg Normal 26.6-33.0 [facility] Work Phone: Comment on above: PATIENT WAS FASTINGP ERFORMED BY: [address] [id number] Information: 970844,[id number] MCHC mass conc (RBC) 34.5 g/dL Normal 31.5-35.7 [facility] Work Phone: Comment on above: PATIENT WAS FASTINGP ERFORMED BY: [address] [id number] Information: 063599,[id number] MCV Entitic volume (RBC) 90 fL Normal 79-97 [facility] Work Phone: Comment on above: PATIENT WAS FASTINGP ERFORMED BY: [address] [id number] Information: 984332,[id number] Monocytes #/vol (Bld) 0.6 {x10E3/uL} Normal 0.1-0.9 [facility] Work Phone: Comment on above: PATIENT WAS FASTINGP ERFORMED BY: CHADWICK [facility] Zzcwba2584 [facility] [id number] Information: [id number],[id number] Monocytes (Bld) [#/Vol] 0.6 10*3/uL Normal 0.1-0.9 [facility]; [facility] Work Phone: Comment on above: PATIENT WAS FASTINGP ERFORMED BY: [facility] Ikjskz8074 [facility] [id number] Information: 391816,[id number] Monocytes/100 WBC (Bld) 16 % Abnormal 4-12 [facility] Work Phone: Comment on above: PATIENT WAS FASTINGP ERFORMED BY: Ahmet Xvtczu7622 [facility] [id number] Information: 274973,Z95146 Neutrophils #/vol (Bld) 1.4 {x10E3/uL} Normal 1.4-7.0 [facility] Work Phone: Comment on above: PATIENT WAS FASTINGP ERFORMED BY: [facility] Raloxm4193 [facility] [id number] Information: 833957,[id number] Neutrophils (Bld) [#/Vol] 1.4 10*3/uL Normal 1.4-7.0 [facility]; [facility] Work Phone: Comment on above: PATIENT WAS FASTINGP ERFORMED BY: [place]maAndrew [place] 9957570 [facility] [id number] Information: 190729,[id number] Neutrophils/100 WBC (Bld) 39 % Abnormal 40-74 [facility] Work Phone: Comment on above: PATIENT WAS FASTINGP ERFORMED BY: [facility]6370 [facility] [id number] Information: [id number] Platelets #/vol (Bld) 253 {x10E3/uL} Normal 150-379 [facility] Work Phone: Comment on above: PATIENT WAS FASTINGP ERFORMED BY: [facility] Ewzjsy7807 [facility] [id number] Information: 946461,[id number] Platelets (Bld) [#/Vol] 253 10*3/uL Normal 150-379 [facility]; [facility] Work Phone: Comment on above: PATIENT WAS FASTINGP ERFORMED BY: [place] 2095170 [facility] [id number] Information: 515076,[id number] RBC #/vol (Bld) 4.38 {x10E6/uL} Normal 3.77-5.28 Comp [facility] Internal Medicine Work Phone: Comment on above: PATIENT WAS FASTINGP ERFORMED BY: [place] 2095170 [facility] [id number] Information: 227072,[id number] RBC (Bld) [#/Vol] 4.38 10*6/uL Normal 3.77-5.28 Compr [facility] Internal Medicine; [facility] Work Phone: Comment on above: PATIENT WAS FASTINGP ERFORMED BY: [place] 2095170 [facility] [id number] Information: 063994,[id number] WBC #/vol (Bld) 3.6 {x10E3/uL} Normal 3.4-10.8 [facility] Internal Medicine Work Phone: Comment on above: PATIENT WAS FASTINGP ERFORMED BY: [facility]6370 [facility] [id number] Information: 668625,K84533 WBC (Bld) [#/Vol] 3.6 10*3/uL Normal 3.4-10.8 [facility]; [facility] Work Phone: Comment on above: PATIENT WAS FASTINGP ERFORMED BY: [facility]6370 [facility] [id number] Information: 226135,Y09260 Lipid Panel (49086)Ordered B y: Financial Assistant on 12-13-2013 Cholesterol in HDL mass conc 79 mg/dL Normal [facility] Work Phone: Comment on above: According to ATP-III Guidelines, HDL-C >59 mg/dL is considered anegative risk factor for CHD. PATIENT WAS FASTINGP ERFORMED BY: CHADWICK [facility] Ejcsxd0377 [address] RoadDublin [place] [id number] Cholesterol in LDL mass conc 181 mg/dL Abnormal 0-99 [facility] Work Phone: Comment on above: PATIENT WAS FASTINGP ERFORMED BY: CB [facility] Ztzgmf1375 [address] RoadDublin [place] [id number] Cholesterol in LDL/Cholesterol in HDL mass ratio 2.3 {ratio_units} Normal 0.0-3.2 [facility] Work Phone: Comment on above: PATIENT WAS FASTINGP ERFORMED BY: CB [facility] Ezazvs5608 [address] RoadDublin [place] [id number] Cholesterol in VLDL mass conc 16 mg/dL Normal 5-40 [facility] Work Phone: Comment on above: PATIENT WAS FASTINGP ERFORMED BY: CB [facility] Qbotzz1191 [address] RoadDublin [place] [id number] Cholesterol mass conc 276 mg/dL Abnormal 100-199 [facility] prehensive Internal Medicine Work Phone: Comment on above: PATIENT WAS FASTINGP ERFORMED BY: CHADWICK [facility] Outpum9942 [address] RoadDublin [place] [id number] Triglyceride mass conc 82 mg/dL Normal 0-149 [facility] Work Phone: Comment on above: PATIENT WAS FASTINGP ERFORMED BY: CB [facility] Jrzisp1180 [address] RoadDublin [place] [id number] Metabolic Panel, Comprehensi ve (11769)Ordered By: Financial Assistant on 12-13-2013 Albumin mass conc 4.1 g/dL Normal 3.5-5.5 Compreh ensive Internal Medicine Work Phone: Comment on above: PATIENT WAS FASTINGP ERFORMED BY: CB [facility] Rwjddm7434 [address] RoadDublin [place] [id number] Albumin/Globulin mass ratio 1.4 {ratio} Normal 1.1-2.5 [facility] Internal Medicine Work Phone: Comment on above: PATIENT WAS FASTINGP ERFORMED BY: CB [facility] Mzvqkf1367 [address] RoadDublin [place] [id number] ALP [Catalytic activity/Vol] 57 U/L Normal 39-117 [facility] Internal Medicine; [facility] Internal Medicine Work Phone: Comment on above: PATIENT WAS FASTINGP ERFORMED BY: CB [facility] Fhzfav0872 [address] RoadDublin [place] [id number] ALP enzyme act/vol 57 [iU]/L Normal 39-117 [facility] Internal Medicine Work Phone: Comment on above: PATIENT WAS FASTINGP ERFORMED BY: [facility] Slspvb3861 [address] RoadDublin [place] [id number] ALT [Catalytic activity/Vol] 19 U/L Normal 0-32 [facility] Internal Medicine; [facility] Internal Medicine Work Phone: Comment on above: PATIENT WAS FASTINGP ERFORMED BY: [facility] Yftyct7957 [address] RoadDublin [place] [id number] ALT enzyme act/vol 19 [iU]/L Normal 0-32 [facility] Internal Medicine Work Phone: Comment on above: PATIENT WAS FASTINGP ERFORMED BY: [facility] Uyomue8543 [address] RoadDublin [place] [id number] AST [Catalytic activity/Vol] 24 U/L Normal 0-40 [facility] Internal Medicine; [facility] Internal Medicine Work Phone: Comment on above: PATIENT WAS FASTINGP ERFORMED BY: CB [facility] Efdxsy7672 [address] RoadDublin [place] [id number] AST enzyme act/vol 24 [iU]/L Normal 0-40 [facility] Internal Medicine Work Phone: Comment on above: PATIENT WAS FASTINGP ERFORMED BY: CB [facility] Kwmvbk0132 [address] RoadDublin [place] [id number] Bilirubin mass conc 0.3 mg/dL Normal 0.0-1.2 Compr ehensive Internal Medicine Work Phone: Comment on above: PATIENT WAS FASTINGP ERFORMED BY: CHADWICK [facility] Vdwnkn4993 [address] RoadDublin [place] [id number] Calcium mass conc 9.7 mg/dL Normal 8.7-10.2 Compreh ensive Internal Medicine Work Phone: Comment on above: PATIENT WAS FASTINGP ERFORMED BY: CB [facility] Wcdpsk0661 [address] RoadDublin [place] [id number] Chloride molar conc 102 mmol/L Normal 97-108 Compr ensive Internal Medicine Work Phone: Comment on above: PATIENT WAS FASTINGP ERFORMED BY: CB [facility] Plkpqq6630 [address] RoadDublin [place] [id number] CO2 molar conc 25 mmol/L Normal 18-29 Comprehens hanane Internal Medicine Work Phone: Comment on above: PATIENT WAS FASTINGP ERFORMED BY: CHADWICK [facility] Tmstpy2214 Ch[address] Roadblin [place] [id number] Creatinine mass conc 0.83 mg/dL Normal 0.57-1.00 Comp [facility] Work Phone: Comment on above: PATIENT WAS FASTINGP ERFORMED BY: CB [facility] Kyawuc8892 [address] Roadblin [place] [id number] GFR/1.73 sq M predicted among blacks CKD-EPI vol rate/area (S/P/Bld) 92 mL/min/1.73 Normal Comprehensiv e Internal Medicine Work Phone: Comment on above: PATIENT WAS FASTINGP ERFORMED BY: CB [facility] Ezndnz6705 [address] RoadDublin [place] [id number] GFR/1.73 sq M predicted among non-blacks CKD-EPI vol rate/area (S/P/Bld) 80 mL/min/1.73 Normal [facility] Work Phone: Comment on above: PATIENT WAS FASTINGP ERFORMED BY: CB [facility] Qmxrax7230 [address] RoadDublin [place] [id number] Globulin mass conc (S) 3.0 g/dL Normal 1.5-4.5 [facility] Work Phone: Comment on above: PATIENT WAS FASTINGP ERFORMED BY: CHADWICK LabEleuterio Thcwba7766 [address] [facility] [place] [id number] Glucose mass conc 92 mg/dL Normal 65-99 Compreh ensive Internal Medicine Work Phone: Comment on above: PATIENT WAS FASTINGP ERFORMED BY: CHADWICK LabEleuterio SchultzVplntm8737 [address] [facility] [id number] Potassium molar conc 4.4 mmol/L Normal 3.5-5.2 Comp rehensive Internal Medicine Work Phone: Comment on above: PATIENT WAS FASTINGP ERFORMED BY: CHADWICK LabEleuterio SchultzFnhuzw7040 [address] [facility] [id number] Protein mass conc 7.1 g/dL Normal 6.0-8.5 Compreh ensive Internal Medicine Work Phone: Comment on above: PATIENT WAS FASTINGP ERFORMED BY: CHADWICK Schultzlin6370 [facility] [id number] Sodium molar conc 139 mmol/L Normal 134-144 Compreh ensive Internal Medicine Work Phone: Comment on above: PATIENT WAS FASTINGP ERFORMED BY: CHADWICK Schultzlin6370 [facility] [id number] Urea nitrogen mass conc 13 mg/dL Normal 6-24 [facility] Work Phone: Comment on above: PATIENT WAS FASTINGP ERFORMED BY: CHADWICK LabCoshauna SchultzNtdipt6907 [facility] [id number] Urea nitrogen/Creatinine mass ratio 16 mg/mg Normal 9-23 [facility] Work Phone: Comment on above: PATIENT WAS FASTINGP ERFORMED BY: CHADWICK LabCoshauna Uyypgh5229 [facility] [id number] CBC with manual diff ([id number]) Ordered By: Financial Assistant on 09-07-2012 Basophils #/vol (Bld) 0.1 {x10E3/uL} Normal 0.0-0.2 [facility] Work Phone: Comment on above: PATIENT WAS FASTINGP ERFORMED BY: [facility]6370 [facility] [id number] Information: [id number] Basophils (Bld) [#/Vol] 0.1 10*3/uL Normal 0.0-0.2 [facility]; [facility] Work Phone: Comment on above: PATIENT WAS FASTINGP ERFORMED BY: [address] [id number] Information: 252958,[id number] Basophils/100 WBC (Bld) 2 % Normal 0-3 [facility] Work Phone: Comment on above: PATIENT WAS FASTINGP ERFORMED BY: [address] [id number] Information: 600849,[id number] Eosinophils #/vol (Bld) 0.4 {x10E3/uL} Normal 0.0-0.4 [facility] Work Phone: Comment on above: PATIENT WAS FASTINGP ERFORMED BY: CHADWICK [address] [id number] Information: 632870,I27869 Eosinophils (Bld) [#/Vol] 0.4 10*3/uL Normal 0.0-0.4 [facility]; [facility] Work Phone: Comment on above: PATIENT WAS FASTINGP ERFORMED BY: [address] [id number] Information: 527760,S09532 Eosinophils/100 WBC (Bld) 12 % Abnormal 0-7 [facility] Work Phone: Comment on above: PATIENT WAS FASTINGP ERFORMED BY: [address] [id number] Information: 425058,[id number] Erythrocyte distribution width Ratio (RBC) 13.5 % Normal 12.3-15.4 [facility] Work Phone: Comment on above: PATIENT WAS FASTINGP ERFORMED BY: [address] [id number] Information: 565080,Q73558 Hematocrit Volume Fraction (Bld) 37.4 % Normal 34.0-46.6 [facility] Work Phone: Comment on above: PATIENT WAS FASTINGP ERFORMED BY: [address] [id number] Information: 035044,[id number] Hemoglobin mass conc (Bld) 12.8 g/dL Normal 11.1-15.9 [facility] Work Phone: Comment on above: PATIENT WAS FASTINGP ERFORMED BY: [address] [id number] Information: 103760,[id number] Immature granulocytes #/vol (Bld) 0.0 {x10E3/uL} Normal 0.0-0.1 [facility] Work Phone: Comment on above: PATIENT WAS FASTINGP ERFORMED BY: [address] [id number] Information: 615061,[id number] Immature granulocytes (Bld) [#/Vol] 0.0 10*3/uL Normal 0.0-0.1 [facility]; [facility] Work Phone: Comment on above: PATIENT WAS FASTINGP ERFORMED BY: [address] [id number] Information: 480613,C26490 Immature granulocytes/100 WBC (Bld) 0 % Normal 0-2 [facility] Work Phone: Comment on above: PATIENT WAS FASTINGP ERFORMED BY: [address] [id number] Information: 225212,[id number] Lymphocytes #/vol (Bld) 1.5 {x10E3/uL} Normal 0.7-4.5 [facility] Work Phone: Comment on above: PATIENT WAS FASTINGP ERFORMED BY: CHADWICK [facility]6370 [facility] [id number] Information: 692514,Q01809 Lymphocytes (Bld) [#/Vol] 1.5 10*3/uL Normal 0.7-4.5 [facility]; [facility] Work Phone: Comment on above: PATIENT WAS FASTINGP ERFORMED BY: [address] [id number] Information: [id number] Lymphocytes/100 WBC (Bld) 41 % Normal 14-46 [facility] Work Phone: Comment on above: PATIENT WAS FASTINGP ERFORMED BY: CHADWICK [facility] Rwkoyu75[address] [id number] Information: 160060,[id number] MCH Entitic mass (RBC) 31.0 pg Normal 26.6-33.0 [facility] Work Phone: Comment on above: PATIENT WAS FASTINGP ERFORMED BY: [address] [id number] Information: 389500,[id number] MCHC mass conc (RBC) 34.2 g/dL Normal 31.5-35.7 [facility] Internal [facility] Work Phone: Comment on above: PATIENT WAS FASTINGP ERFORMED BY: [place] 2095170 [facility] [id number] Information: 229690,[id number] MCV Entitic volume (RBC) 91 fL Normal 79-97 [facility] Work Phone: Comment on above: PATIENT WAS FASTINGP ERFORMED BY: [address] [id number] Information: [id number],[id number] Monocytes #/vol (Bld) 0.4 {x10E3/uL} Normal 0.1-1.0 [facility] Work Phone: Comment on above: PATIENT WAS FASTINGP ERFORMED BY: LabSusan [place] [address] [facility] [id number] Information: 898898,[id number] Monocytes (Bld) [#/Vol] 0.4 10*3/uL Normal 0.1-1.0 [facility]; [facility] Work Phone: Comment on above: PATIENT WAS FASTINGP ERFORMED BY: CHADWICK [facility] Fkorce2090 [facility] [id number] Information: [id number] Monocytes/100 WBC (Bld) 11 % Normal 4-13 [facility] Work Phone: Comment on above: PATIENT WAS FASTINGP ERFORMED BY: CHADWICK [facility] Mnzmjp30[address] [id number] Information: 674491,[id number] Neutrophils #/vol (Bld) 1.2 {x10E3/uL} Abnormal 1.8-7.8 [facility] Work Phone: Comment on above: PATIENT WAS FASTINGP ERFORMED BY: CHADWICK [facility] Mryqfl6396 [facility] [id number] Information: 442106,[id number] Neutrophils (Bld) [#/Vol] 1.2 10*3/uL Abnormal 1.8-7.8 [facility]; [facility] Work Phone: Comment on above: PATIENT WAS FASTINGP ERFORMED BY: CHADWICK [facility] Kflllx7891 [facility] [id number] Information: 889486,D42691 Neutrophils/100 WBC (Bld) 34 % Abnormal 40-74 [facility] Work Phone: Comment on above: PATIENT WAS FASTINGP ERFORMED BY: IrmaAndrew [place] 9957570 [facility] [id number] Information: 045920,[id number] Platelets #/vol (Bld) 249 {x10E3/uL} Normal 140-415 [facility] Work Phone: Comment on above: PATIENT WAS FASTINGP ERFORMED BY: [place] [address] [facility] [id number] Information: 998173,[id number] Platelets (Bld) [#/Vol] 249 10*3/uL Normal 140-415 [facility] Internal Medicine; [facility] Work Phone: Comment on above: PATIENT WAS FASTINGP ERFORMED BY: [facility] Lgovit8398 [facility] [id number] Information: [id number] RBC #/vol (Bld) 4.13 {x10E6/uL} Normal 3.77-5.28 [facility] Work Phone: Comment on above: PATIENT WAS FASTINGP ERFORMED BY: CHADWICK Ahmet Szwpzh6797 [facility] [id number] Information: [id number],[id number] RBC (Bld) [#/Vol] 4.13 10*6/uL Normal 3.77-5.28 [facility] Internal Medicine; [facility] Work Phone: Comment on above: PATIENT WAS FASTINGP ERFORMED BY: [facility] Hpbfoh7994 [facility] [id number] Information: 704890,[id number] WBC #/vol (Bld) 3.6 {x10E3/uL} Abnormal 4.0-10.5 [facility] Internal Medicine Work Phone: Comment on above: PATIENT WAS FASTINGP ERFORMED BY: Lab[facility]6370 [facility] [id number] Information: [id number] WBC (Bld) [#/Vol] 3.6 10*3/uL Abnormal 4.0-10.5 [facility] Internal Medicine; [facility] Work Phone: Comment on above: PATIENT WAS FASTINGP ERFORMED BY: LabWright [facility] Vuuskl8932 [facility] [id number] Information: 240433,[id number] HEPATIC FUNCTION PANEL (8007 6)Ordered By: Financial Assistant on 09-07-2012 Albumin mass conc 4.4 g/dL Normal 3.5-5.5 Compreh [facility] westive Internal Medicine Work Phone: Comment on above: in six months (); PATIENT WAS FASTINGPERFORMED BY: CB [facility] Vznfjd3017 Chicas RoadDublin [place] [id number] ALP [Catalytic activity/Vol] 55 U/L Normal 25-150 [facility]; [facility] Work Phone: Comment on above: in six months (); PATIENT WAS FASTINGPERFORMED BY: CB [facility] Wmrymm4572 Ch[address] RoadDublin [place] [id number] ALP enzyme act/vol 55 [iU]/L Normal 25-150 [facility] Internal Medicine Work Phone: Comment on above: in six months (); PATIENT WAS FASTINGPERFORMED BY: CB [facility] Kpjfpy2668 [address] RoadDublin [place] [id number] ALT [Catalytic activity/Vol] 24 U/L Normal 0-32 [facility]; [facility] Work Phone: Comment on above: in six months (); PATIENT WAS FASTINGPERFORMED BY: CB [facility] Ywarqy9683 [address] RoadDublin [place] [id number] ALT enzyme act/vol 24 [iU]/L Normal 0-32 [facility] Internal Medicine Work Phone: Comment on above: in six months (); PATIENT WAS FASTINGPERFORMED BY: CB [facility] Zezjxa5230 [address] RoadDublin [place] [id number] AST [Catalytic activity/Vol] 28 U/L Normal 0-40 [facility]; [facility] Work Phone: Comment on above: in six months (); PATIENT WAS FASTINGPERFORMED BY: CB [facility] Gwalam2795 [address] RoadDublin [place] [id number] AST enzyme act/vol 28 [iU]/L Normal 0-40 [facility] Internal Medicine Work Phone: Comment on above: in six months (); PATIENT WAS FASTINGPERFORMED BY: CB [facility] Npgvki8846 [address] RoadDublin [place] [id number] Bilirubin mass conc 0.4 mg/dL Normal 0.0-1.2 [facility] Work Phone: Comment on above: in six months (); PATIENT WAS FASTINGPERFORMED BY: CB [facility] Hwioac1590 [address] RoadDublin [place] [id number] Bilirubin.direct mass conc 0.09 mg/dL Normal 0.00-0.40 [facility] Work Phone: Comment on above: in six months (); PATIENT WAS FASTINGPERFORMED BY: CB [facility] Dnjdml9251 [address] RoadDublin [place] [id number] Protein mass conc 7.3 g/dL Normal 6.0-8.5 Compreh [facility] Work Phone: Comment on above: in six months (); PATIENT WAS FASTINGPERFORMED BY: CB [facility] Tvuifo3191 [address] RoadDublin [place] [id number] LIPID PANEL (04280)Ordered B y: Financial Assistant on 09-07-2012 Cholesterol in HDL mass conc 75 mg/dL Normal [facility] Work Phone: Comment on above: According to ATP-III Guidelines, HDL-C >59 mg/dL is considered anegative risk factor for CHD. in six months (); PATIENT WAS FASTINGPERFORMED BY: CB [facility] Bprzpz2358 [address] Roadblin [place] [id number] Information: V40873,2ND ORDER NO DRAW F EE Cholesterol in LDL mass conc 153 mg/dL Abnormal 0-99 [facility] Work Phone: Comment on above: in six months (); PATIENT WAS FASTINGPERFORMED BY: CB [facility] Eltwyq4471 [address] RoadDublin [place] [id number] Information: I86217,2ND ORDER NO DRAW F EE Cholesterol in LDL/Cholesterol in HDL mass ratio 2.0 {ratio_units} Normal 0.0-3.2 [facility] Work Phone: Comment on above: in six months (); PATIENT WAS FASTINGPERFORMED BY: CHADWICK LabEleuterio Gambino6370 [facility] [id number] Information: H80094,2ND ORDER NO DRAW F EE Cholesterol in VLDL mass conc 11 mg/dL Normal 5-40 [facility] Work Phone: Comment on above: in six months (); PATIENT WAS FASTINGPERFORMED BY: CHADWICK LabCoshauna SchultzSryser6542 [facility] [id number] Information: S43754,2ND ORDER NO DRAW F EE Cholesterol mass conc 239 mg/dL Abnormal 100-199 [facility] Internal Medicine Work Phone: Comment on above: in six months (); PATIENT WAS FASTINGPERFORMED BY: CHADWICK Schultzlin6370 [facility] [id number] Information: I07529,2ND ORDER NO DRAW F EE Triglyceride mass conc 54 mg/dL Normal 0-149 [facility] Work Phone: Comment on above: in six months (); PATIENT WAS FASTINGPERFORMED BY: CHADWICK Schultzlin6370 [facility] [id number] Information: J55312,2ND ORDER NO DRAW F EE CBC, Platelets & Auto Diff ( 38855)Ordered By: Financial Assistant on 03-03-2012 Basophils #/vol (Bld) 0.0 {x10E3/uL} Normal 0.0-0.2 [facility] Work Phone: Comment on above: today; PATIENT NOT F ASTINGPERFORMED BY: CHADWICK LabCo Nnadcz9702 [facility] [id number] Information: 628714,Z80619 Basophils (Bld) [#/Vol] 0.0 10*3/uL Normal 0.0-0.2 [facility]; [facility] Work Phone: Comment on above: today; PATIENT NOT F ASTINGPERFORMED BY: CB [facility] Axpqar7344 [address] [facility] [id number] Information: 159783,A47908 Basophils/100 WBC (Bld) 1 % Normal 0-3 [facility] Work Phone: Comment on above: today; PATIENT NOT F ASTINGPERFORMED BY: CB [facility] Wepbgs6902 [address] [facility] [id number] Information: 986877,M42652 Eosinophils #/vol (Bld) 0.2 {x10E3/uL} Normal 0.0-0.4 [facility] Work Phone: Comment on above: today; PATIENT NOT F ASTINGPERFORMED BY: CB [facility] Skipky6761 [address] [facility] [id number] Information: 495399,J62126 Eosinophils (Bld) [#/Vol] 0.2 10*3/uL Normal 0.0-0.4 [facility]; [facility] Work Phone: Comment on above: today; PATIENT NOT F ASTINGPERFORMED BY: CB [facility] Hxtxoy0431 [address] [facility] [id number] Information: 868554,W76691 Eosinophils/100 WBC (Bld) 5 % Normal 0-7 [facility] Work Phone: Comment on above: today; PATIENT NOT F ASTINGPERFORMED BY: CB [facility] Jdpxcx9429 [address] [facility] [id number] Information: 685603,G68898 Erythrocyte distribution width Ratio (RBC) 14.1 % Normal 12.3-15.4 [facility] Work Phone: Comment on above: today; PATIENT NOT F ASTINGPERFORMED BY: CB [facility] Hfqxom3072 [address] [facility]in [place] [id number] Information: 914288,L24596 Hematocrit Volume Fraction (Bld) 37.5 % Normal 34.0-46.6 [facility] Work Phone: Comment on above: today; PATIENT NOT F ASTINGPERFORMED BY: CHADWICK LabCoBacharach Institute for RehabilitationKepcpc8045 [facility] [id number] Information: 170226,K37189 Hemoglobin mass conc (Bld) 12.7 g/dL Normal 11.1-15.9 [facility] Work Phone: Comment on above: today; PATIENT NOT F ASTINGPERFORMED BY: CB LabCoCourtney [place] 3471870 [facility] [id number] Information: 126713,[id number] Immature granulocytes #/vol (Bld) 0.0 {x10E3/uL} Normal 0.0-0.1 [facility] Work Phone: Comment on above: today; PATIENT NOT F ASTINGPERFORMED BY: LabAndrew [place] 9957570 [facility] [id number] Information: 607637,G32697 Immature granulocytes (Bld) [#/Vol] 0.0 10*3/uL Normal 0.0-0.1 [facility]; [facility] Work Phone: Comment on above: today; PATIENT NOT F ASTINGPERFORMED BY: CHADWICK LabMclaren [facility] Hospital6370 [facility] [id number] Information: 156591,S74449 Immature granulocytes/100 WBC (Bld) 0 % Normal 0-2 [facility] Work Phone: Comment on above: today; PATIENT NOT F ASTINGPERFORMED BY: CB LabCoBacharach Institute for RehabilitationIkrkme2191 [facility] [id number] Information: 296574,B82143 Lymphocytes #/vol (Bld) 1.1 {x10E3/uL} Normal 0.7-4.5 [facility] Work Phone: Comment on above: today; PATIENT NOT F ASTINGPERFORMED BY: CB LabCoBacharach Institute for RehabilitationDjixxx6474 [facility] [id number] Information: 886754,V89065 Lymphocytes (Bld) [#/Vol] 1.1 10*3/uL Normal 0.7-4.5 [facility]; [facility] Work Phone: Comment on above: today; PATIENT NOT F ASTINGPERFORMED BY: CB [facility] Hmayad1541 [address] [facility] [id number] Information: 912949,F50542 Lymphocytes/100 WBC (Bld) 39 % Normal 14-46 [facility] Work Phone: Comment on above: today; PATIENT NOT F ASTINGPERFORMED BY: CB [facility] Hlzrxa8461 [address] [facility] [id number] Information: 269744,G51439 MCH Entitic mass (RBC) 30.7 pg Normal 26.6-33.0 [facility] Work Phone: Comment on above: today; PATIENT NOT F ASTINGPERFORMED BY: CB LabCoBacharach Institute for RehabilitationKeqbrz5962 [facility] [id number] Information: 290988,E44653 MCHC mass conc (RBC) 33.9 g/dL Normal 31.5-35.7 Comp [facility] Internal Medicine Work Phone: Comment on above: today; PATIENT NOT F ASTINGPERFORMED BY: CB [facility] Yrgmdt3280 [facility] [id number] Information: 353429,D77851 MCV Entitic volume (RBC) 91 fL Normal 79-97 [facility] Work Phone: Comment on above: today; PATIENT NOT F ASTINGPERFORMED BY: CB [facility] Eoczmr3332 [facility] [id number] Information: 943170,C92820 Monocytes #/vol (Bld) 0.5 {x10E3/uL} Normal 0.1-1.0 [facility] Work Phone: Comment on above: today; PATIENT NOT F ASTINGPERFORMED BY: CB [facility] Mfhbrd7917 [facility] [id number] Information: 203253,X65345 Monocytes (Bld) [#/Vol] 0.5 10*3/uL Normal 0.1-1.0 [facility]; [facility] Work Phone: Comment on above: today; PATIENT NOT F ASTINGPERFORMED BY: CHADWICK [facility] Fsprxf8075 Chicas RoadDuin [place] [id number] Information: 295296,W03248 Monocytes/100 WBC (Bld) 19 % Abnormal 4-13 [facility] Work Phone: Comment on above: today; PATIENT NOT F ASTINGPERFORMED BY: CB [facility] Wkrsrf7758 [address] RoadPerson Memorial Hospitalin [place] [id number] Information: 715485,V48955 Neutrophils #/vol (Bld) 1.0 {x10E3/uL} Abnormal 1.8-7.8 [facility] Work Phone: Comment on above: today; PATIENT NOT F ASTINGPERFORMED BY: CB [facility] Uarkkr2973 Ch[address] RoadFirstHealth [facility] [id number] Information: 095032,K71131 Neutrophils (Bld) [#/Vol] 1.0 10*3/uL Abnormal 1.8-7.8 [facility]; [facility] Work Phone: Comment on above: today; PATIENT NOT F ASTINGPERFORMED BY: CB [facility] Xyqyoz6898 Ch[address] RoadPerson Memorial Hospitalin [place] [id number] Information: 636399,A15778 Neutrophils/100 WBC (Bld) 36 % Abnormal 40-74 [facility] Work Phone: Comment on above: today; PATIENT NOT F ASTINGPERFORMED BY: CB [facility] Cyfdqt3334 [address] RoadDuin [place] [id number] Information: 356234,W75234 Platelets #/vol (Bld) 257 {x10E3/uL} Normal 140-415 [facility] Work Phone: Comment on above: today; PATIENT NOT F ASTINGPERFORMED BY: CB [facility] Wzcvwv8685 [address] RoadDuin [place] [id number] Information: 178044,C76472 Platelets (Bld) [#/Vol] 257 10*3/uL Normal 140-415 [facility] Internal Medicine; [facility] Internal Medicine Work Phone: Comment on above: today; PATIENT NOT F ASTINGPERFORMED BY: CHADWICK [facility] Mkbcyp0965 [address] RoadDuin [place] [id number] Information: 307927,A07566 RBC #/vol (Bld) 4.14 {x10E6/uL} Normal 3.77-5.28 [facility] Work Phone: Comment on above: today; PATIENT NOT F ASTINGPERFORMED BY: CB [facility] Hyrcnv3097 [address] [facility] [id number] Information: 636510,Q86213 RBC (Bld) [#/Vol] 4.14 10*6/uL Normal 3.77-5.28 [facility] Internal Medicine; [facility] Internal Medicine Work Phone: Comment on above: today; PATIENT NOT F ASTINGPERFORMED BY: CB [facility] Vfsdro1530 [address] [facility] [id number] Information: 056397,I87131 WBC #/vol (Bld) 2.9 {x10E3/uL} Abnormal 4.0-10.5 [facility] Internal Medicine Work Phone: Comment on above: today; PATIENT NOT F ASTINGPERFORMED BY: CB [facility] Pnrzmk6198 [address] [facility] [id number] Information: 786119,U84724 WBC (Bld) [#/Vol] 2.9 10*3/uL Abnormal 4.0-10.5 [facility] Internal Medicine; [facility] Internal Medicine Work Phone: Comment on above: today; PATIENT NOT F ASTINGPERFORMED BY: CB [facility] Jabcae8446 [address] [facility]in [place] [id number] Information: 681632,V09803 CALCIFIDIOL (09088) VIT D 25 Ordered By: Financial Assistant on 02-24-2012 25-Hydroxyvitamin D2+25-Hydroxyvitamin D3 mass conc 28.6 ng/mL Abnormal 30.0-100.0 [facility] Work Phone: Comment on above: Vitamin D deficiency has been defined by the [place] ofMedicine and an Endocrine Society practice guideline as alevel of serum 25-OH vitamin D less than 20 ng/mL (1,2).The Endocrine Society went on to further define vitamin Dinsufficiency as a level between 21 and 29 ng/mL (2).1. IOM ([place] of Medicine). 2010. Dietary reference intakes for calcium and D. [place]: The National Academies Press.2. Hayder MF, Delfina NC, Gi MADRID, et al. Evaluation, treatment, and prevention of vitamin D deficiency: an Endocrine Society clinical practice guideline. JCEM. 2010; 96(7):1911-30. PATIENT WAS FASTINGP ERFORMED BY: [facility] [id number] CBC, Platelets & Auto Diff ( 84768)Ordered By: Financial Assistant on 02-24-2012 Basophils #/vol (Bld) 0.0 {x10E3/uL} Normal 0.0-0.2 [facility] Work Phone: Comment on above: PATIENT WAS FASTINGP ERFORMED BY: Mobule6370 Multiphy NetworksSelect Specialty Hospital [id number] Information: 332844,F60085 Basophils (Bld) [#/Vol] 0.0 10*3/uL Normal 0.0-0.2 [facility]; [facility] Work Phone: Comment on above: PATIENT WAS FASTINGP ERFORMED BY: 1000memories Ptfolj9544 Multiphy NetworksSelect Specialty Hospital [id number] Information: 537201,Z86773 Basophils/100 WBC (Bld) 1 % Normal 0-3 [facility] Work Phone: Comment on above: PATIENT WAS FASTINGP ERFORMED BY: 1000memories Twlxwz4345 [facility] SkyFirst[facility] [id number] Information: 967753,Q32343 Eosinophils #/vol (Bld) 0.2 {x10E3/uL} Normal 0.0-0.4 [facility] Work Phone: Comment on above: PATIENT WAS FASTINGP ERFORMED BY: [facility]6370 [facility] [id number] Information: 220038,U25190 Eosinophils (Bld) [#/Vol] 0.2 10*3/uL Normal 0.0-0.4 [facility]; [facility] Work Phone: Comment on above: PATIENT WAS FASTINGP ERFORMED BY: [address] [id number] Information: [id number] Eosinophils/100 WBC (Bld) 6 % Normal 0-7 [facility] Work Phone: Comment on above: PATIENT WAS FASTINGP ERFORMED BY: [address] [id number] Information: 288936,J15574 Erythrocyte distribution width Ratio (RBC) 14.1 % Normal 12.3-15.4 [facility] Work Phone: Comment on above: PATIENT WAS FASTINGP ERFORMED BY: [facility]6370 [facility] [id number] Information: 210135,[id number] Hematocrit Volume Fraction (Bld) 38.2 % Normal 34.0-46.6 [facility] Work Phone: Comment on above: PATIENT WAS FASTINGP ERFORMED BY: LabAndrew [place] 9957570 [facility] [id number] Information: 613927,A01928 Hemoglobin mass conc (Bld) 12.9 g/dL Normal 11.1-15.9 [facility] Work Phone: Comment on above: PATIENT WAS FASTINGP ERFORMED BY: [place] 2095170 [facility] [id number] Information: 874779,J53162 Immature granulocytes #/vol (Bld) 0.0 {x10E3/uL} Normal 0.0-0.1 [facility] Work Phone: Comment on above: PATIENT WAS FASTINGP ERFORMED BY: CHADWICK Gambino6370 [facility] [id number] Information: 260884,R56112 Immature granulocytes (Bld) [#/Vol] 0.0 10*3/uL Normal 0.0-0.1 [facility]; [facility] Work Phone: Comment on above: PATIENT WAS FASTINGP ERFORMED BY: [address] [id number] Information: 538105,S52042 Immature granulocytes/100 WBC (Bld) 0 % Normal 0-2 [facility] Work Phone: Comment on above: PATIENT WAS FASTINGP ERFORMED BY: [address] [id number] Information: 986840,U05621 Lymphocytes #/vol (Bld) 1.0 {x10E3/uL} Normal 0.7-4.5 [facility] Work Phone: Comment on above: PATIENT WAS FASTINGP ERFORMED BY: [place] 2095170 [facility] [id number] Information: 316950,I29118 Lymphocytes (Bld) [#/Vol] 1.0 10*3/uL Normal 0.7-4.5 [facility]; [facility] Work Phone: Comment on above: PATIENT WAS FASTINGP ERFORMED BY: [place] 2095170 [facility] [id number] Information: 948288,T84571 Lymphocytes/100 WBC (Bld) 37 % Normal 14-46 [facility] Work Phone: Comment on above: PATIENT WAS FASTINGP ERFORMED BY: [address] [id number] Information: 791309,B29019 MCH Entitic mass (RBC) 30.5 pg Normal 26.6-33.0 [facility] Work Phone: Comment on above: PATIENT WAS FASTINGP ERFORMED BY: CHADWICK LabMcl[facility] Hospital6370 [facility] [id number] Information: 974952,Z93749 MCHC mass conc (RBC) 33.8 g/dL Normal 31.5-35.7 [facility] Work Phone: Comment on above: PATIENT WAS FASTINGP ERFORMED BY: [place] 2095170 [facility] [id number] Information: [id number] MCV Entitic volume (RBC) 90 fL Normal 79-97 [facility] Work Phone: Comment on above: PATIENT WAS FASTINGP ERFORMED BY: [address] [id number] Information: [id number] Monocytes #/vol (Bld) 0.5 {x10E3/uL} Normal 0.1-1.0 [facility] Work Phone: Comment on above: PATIENT WAS FASTINGP ERFORMED BY: LabMcl[facility] Hospital6370 [facility] [id number] Information: [id number] Monocytes (Bld) [#/Vol] 0.5 10*3/uL Normal 0.1-1.0 [facility]; [facility] Work Phone: Comment on above: PATIENT WAS FASTINGP ERFORMED BY: LabMcl[facility] Hospital6370 [facility] [id number] Information: [id number] Monocytes/100 WBC (Bld) 18 % Abnormal 4-13 [facility] Work Phone: Comment on above: PATIENT WAS FASTINGP ERFORMED BY: [facility]6370 [facility] [id number] Information: [id number] Neutrophils #/vol (Bld) 1.1 {x10E3/uL} Abnormal 1.8-7.8 [facility] Work Phone: Comment on above: PATIENT WAS FASTINGP ERFORMED BY: CHADWICK IrmaEleuterio SchultzLsrubn5246 [facility] [id number] Information: 821676,N96787 Neutrophils (Bld) [#/Vol] 1.1 10*3/uL Abnormal 1.8-7.8 [facility]; [facility] Work Phone: Comment on above: PATIENT WAS FASTINGP ERFORMED BY: CHADWICK LabCo Wljhlr1518 [facility] [id number] Information: 353211,N36353 Neutrophils/100 WBC (Bld) 38 % Abnormal 40-74 [facility] Work Phone: Comment on above: PATIENT WAS FASTINGP ERFORMED BY: CHADWICK Schultzlin6370 [facility] [id number] Information: 536918,B67162 Platelets #/vol (Bld) 255 {x10E3/uL} Normal 140-415 [facility] Work Phone: Comment on above: PATIENT WAS FASTINGP ERFORMED BY: CHADWICK Schultzlin6370 [facility] [id number] Information: 969713,R66628 Platelets (Bld) [#/Vol] 255 10*3/uL Normal 140-415 [facility]; [facility] Work Phone: Comment on above: PATIENT WAS FASTINGP ERFORMED BY: CHADWICK LabCo Esovag2934 [facility] [id number] Information: 639585,[id number] RBC #/vol (Bld) 4.23 {x10E6/uL} Normal 3.77-5.28 [facility] Work Phone: Comment on above: PATIENT WAS FASTINGP ERFORMED BY: CHADWICK LabCo Xjtpxa7315 [facility] [id number] Information: 994547,V19965 RBC (Bld) [#/Vol] 4.23 10*6/uL Normal 3.77-5.28 Compr ensive Internal Medicine; [facility] Work Phone: Comment on above: PATIENT WAS FASTINGP ERFORMED BY: CHADWICK IrmaCo Emybpa3817 [address] [facility] [place] [id number] Information: 255394,D38914 WBC #/vol (Bld) 2.7 {x10E3/uL} Abnormal 4.0-10.5 Compr [facility] Internal Medicine Work Phone: Comment on above: PATIENT WAS FASTINGP ERFORMED BY: CHADWICK LabCo Dcwukn4181 [facility] [id number] Information: 354531,R85342 WBC (Bld) [#/Vol] 2.7 10*3/uL Abnormal 4.0-10.5 Compre [facility] Internal Medicine; [facility] Work Phone: Comment on above: PATIENT WAS FASTINGP ERFORMED BY: CHADWICK LabCo Rjtbhg9818 [facility] [id number] Information: 278689,Q23060 Folic Acid Serum (15383)Orde red By: Financial Assistant on 02-24-2012 Folate mass conc ng/mL Normal Comprehe [facility] Internal Medicine Work Phone: Comment on above: A serum folate romulo ntration of less than 3.1 ng/mL isconsidered to represent clinical deficiency. PATIENT WAS FASTINGP ERFORMED BY: CHADWICK LabCo Kmlsmt4430 [facility] [id number] HEPATIC FUNCTION PANEL (8007 6)Ordered By: Financial Assistant on 02-24-2012 Albumin mass conc 4.4 g/dL Normal 3.5-5.5 Compreh [facility] Internal Medicine Work Phone: Comment on above: PATIENT WAS FASTINGP ERFORMED BY: CHADWICK LabCo Rclcwl6830 [facility] [id number] ALP [Catalytic activity/Vol] 52 U/L Normal 25-150 [facility]; [facility] Work Phone: Comment on above: PATIENT WAS FASTINGP ERFORMED BY: CB [facility] Hdeshf2138 [address] RoadDublin [place] [id number] ALP enzyme act/vol 52 [iU]/L Normal 25-150 [facility] Internal Medicine Work Phone: Comment on above: PATIENT WAS FASTINGP ERFORMED BY: CB [facility] Rxeaxe8126 [address] RoadDublin [place] [id number] ALT [Catalytic activity/Vol] 22 U/L Normal 0-32 [facility] Internal Medicine; [facility] Internal Medicine Work Phone: Comment on above: Please note refere nce interval change PATIENT WAS FASTINGP ERFORMED BY: CB [facility] Bjpcgq2967 [address] RoadDublin [place] [id number] ALT enzyme act/vol 22 [iU]/L Normal 0-32 [facility] Internal Medicine Work Phone: Comment on above: Please note refere nce interval change PATIENT WAS FASTINGP ERFORMED BY: CB [facility] Mwcksr5808 [address] RoadDublin [place] [id number] AST [Catalytic activity/Vol] 26 U/L Normal 0-40 [facility] Internal Medicine; [facility] Internal Medicine Work Phone: Comment on above: PATIENT WAS FASTINGP ERFORMED BY: CB [facility] Dwfgdu1440 [address] RoadDublin [place] [id number] AST enzyme act/vol 26 [iU]/L Normal 0-40 [facility] Internal Medicine Work Phone: Comment on above: PATIENT WAS FASTINGP ERFORMED BY: CB [facility] Qjnhef9787 [address] RoadDublin [place] [id number] Bilirubin mass conc 0.4 mg/dL Normal 0.0-1.2 [facility] Internal Medicine Work Phone: Comment on above: PATIENT WAS FASTINGP ERFORMED BY: CB [facility] Xuhnkh1628 [address]icas RoadDublin [place] [id number] Bilirubin.direct mass conc 0.11 mg/dL Normal 0.00-0.40 [facility] Internal Medicine Work Phone: Comment on above: PATIENT WAS FASTINGP ERFORMED BY: CHADWICK Bella Yxekyq2035 [address] [facility] [place] [id number] Protein mass conc 7.2 g/dL Normal 6.0-8.5 Compreh ensive Internal Medicine Work Phone: Comment on above: PATIENT WAS FASTINGP ERFORMED BY: CHADWICK [facility] Volzlq8394 [address] Roadblin [place] [id number] LDH (LD) (LACTATE DEHYDROGEN ASE) (36672)Ordered By: Financial Assistant on 02-24-2012 LDH [Catalytic activity/Vol] 156 U/L Normal 0-214 [facility]; [facility] Work Phone: Comment on above: PATIENT WAS FASTINGP ERFORMED BY: CAHDWICK Schultzlin6370 [address] [facility] [id number] LDH enzyme act/vol 156 [iU]/L Normal 0-214 Compre [facility] Internal Medicine Work Phone: Comment on above: PATIENT WAS FASTINGP ERFORMED BY: CHADWICK Leo Ivroza3427 [facility] [id number] LIPID PANEL (80766)Ordered B y: Financial Assistant on 02-24-2012 Cholesterol in HDL mass conc 64 mg/dL Normal [facility] Work Phone: Comment on above: According to ATP-III Guidelines, HDL-C >59 mg/dL is considered anegative risk factor for CHD. PATIENT WAS FASTINGP ERFORMED BY: CHADWICK [facility] Gqsxfu5250 [facility] [id number] Cholesterol in LDL mass conc 97 mg/dL Normal 0-99 [facility] Work Phone: Comment on above: PATIENT WAS FASTINGP ERFORMED BY: CHADWICK [facility] Bdxtcz3606 [address] [facility] [id number] Cholesterol in LDL/Cholesterol in HDL mass ratio 1.5 {ratio_units} Normal 0.0-3.2 [facility] Work Phone: Comment on above: PATIENT WAS FASTINGP ERFORMED BY: [facility] Unpcht4335 [address] [facility] [id number] Cholesterol in VLDL mass conc 13 mg/dL Normal 5-40 [facility] Work Phone: Comment on above: PATIENT WAS FASTINGP ERFORMED BY: CHADWICK SolisCoshauna Axxaed6725 [address] RoadDublin [place] [id number] Cholesterol mass conc 174 mg/dL Normal 100-199 Com prehensive Internal Medicine Work Phone: Comment on above: PATIENT WAS FASTINGP ERFORMED BY: CHADWICK [facility] Lzugjn5102 [address] RoadDublin [place] [id number] Triglyceride mass conc 65 mg/dL Normal 0-149 [facility] Work Phone: Comment on above: PATIENT WAS FASTINGP ERFORMED BY: CHADWICK [facility] Ciybgh2462 [address] [facility] [place] [id number] Sed Rate Erythrocyte (41408) Ordered By: Financial Assistant on 02-24-2012 ESR Velocity (Bld) 5 mm/h Normal 0-40 [facility] Internal Medicine Work Phone: Comment on above: PATIENT WAS FASTINGP ERFORMED BY: CHADWICK [facility] Lrytwh3308 [address]ics[address] [facility] [place] [id number] Vitamin B-12 (cyanocobalamin ) (87669)Ordered By: Financial Assistant on 02-24-2012 Cobalamin (Vitamin B12) mass conc 1307 pg/mL Abnormal 211-946 [facility] Work Phone: Comment on above: PATIENT WAS FASTINGP ERFORMED BY: CB [facility] Wyscjv1125 [address] [facility]in [place] [id number] CALCIFIDIOL (93072) VIT D 25 Ordered By: Financial Assistant on 11-18-2011 25-Hydroxyvitamin D2+25-Hydroxyvitamin D3 mass conc 24.8 ng/mL Abnormal 30.0-100.0 [facility] Work Phone: Comment on above: Vitamin D deficiency has been defined by the [place] ofMedicine and an Endocrine Society practice guideline as alevel of serum 25-OH vitamin D less than 20 ng/mL (1,2).The Endocrine Society went on to further define vitamin Dinsufficiency as a level between 21 and 29 ng/mL (2).1. IOM ([place] of Medicine). 2010. Dietary reference intakes for calcium and D. [place]: The National Academies Press.2. Hayder MF, Delfina NC, Gi MADRID, et al. Evaluation, treatment, and prevention of vitamin D deficiency: an Endocrine Society clinical practice guideline. JCEM. 2010; 96(7):1911-30. PATIENT WAS FASTINGP ERFORMED BY: [facility]6370 [facility] [id number] CBC with manual diff (51443) Ordered By: Financial Assistant on 11-18-2011 Basophils #/vol (Bld) 0.0 {x10E3/uL} Normal 0.0-0.2 [facility] Work Phone: Comment on above: PATIENT WAS FASTINGP ERFORMED BY: [facility]6370 [facility] [id number] Information: [id number] Basophils (Bld) [#/Vol] 0.0 10*3/uL Normal 0.0-0.2 [facility]; [facility] Work Phone: Comment on above: PATIENT WAS FASTINGP ERFORMED BY: [facility]6370 [facility] [id number] Information: [id number] Basophils/100 WBC (Bld) 1 % Normal 0-3 [facility] Work Phone: Comment on above: PATIENT WAS FASTINGP ERFORMED BY: [facility]6370 [facility] [id number] Information: [id number] Eosinophils #/vol (Bld) 0.3 {x10E3/uL} Normal 0.0-0.4 [facility] Work Phone: Comment on above: PATIENT WAS FASTINGP ERFORMED BY: [facility]6370 [facility] [id number] Information: [id number] Eosinophils (Bld) [#/Vol] 0.3 10*3/uL Normal 0.0-0.4 [facility]; [facility] Work Phone: Comment on above: PATIENT WAS FASTINGP ERFORMED BY: CHADWICK [place]isAndrew [place] 9957570 [facility] [id number] Information: [id number] Eosinophils/100 WBC (Bld) 9 % Abnormal 0-7 [facility] Work Phone: Comment on above: PATIENT WAS FASTINGP ERFORMED BY: [address] [id number] Information: [id number] Erythrocyte distribution width Ratio (RBC) 13.9 % Normal 12.3-15.4 [facility] Work Phone: Comment on above: PATIENT WAS FASTINGP ERFORMED BY: Irma[address] [id number] Information: [id number] Hematocrit Volume Fraction (Bld) 36.5 % Normal 34.0-46.6 [facility] Work Phone: Comment on above: PATIENT WAS FASTINGP ERFORMED BY: [address] [id number] Information: [id number] Hemoglobin mass conc (Bld) 12.3 g/dL Normal 11.1-15.9 [facility] Work Phone: Comment on above: PATIENT WAS FASTINGP ERFORMED BY: [address] [id number] Information: [id number] Immature granulocytes #/vol (Bld) 0.0 {x10E3/uL} Normal 0.0-0.1 [facility] Work Phone: Comment on above: PATIENT WAS FASTINGP ERFORMED BY: [facility]6370 [facility] [id number] Information: [id number] Immature granulocytes (Bld) [#/Vol] 0.0 10*3/uL Normal 0.0-0.1 [facility]; [facility] Work Phone: Comment on above: PATIENT WAS FASTINGP ERFORMED BY: CHADWICK Leo Enfygg1911 [facility] [id number] Information: [id number] Immature granulocytes/100 WBC (Bld) 0 % Normal 0-2 [facility] Work Phone: Comment on above: PATIENT WAS FASTINGP ERFORMED BY: Irma[address] [id number] Information: [id number] Lymphocytes #/vol (Bld) 1.4 {x10E3/uL} Normal 0.7-4.5 [facility] Work Phone: Comment on above: PATIENT WAS FASTINGP ERFORMED BY: CHADWICK [facility] Joczsi0919 [facility] [id number] Information: [id number] Lymphocytes (Bld) [#/Vol] 1.4 10*3/uL Normal 0.7-4.5 [facility]; [facility] Work Phone: Comment on above: PATIENT WAS FASTINGP ERFORMED BY: CHADWICK Leo Wqqoji5237 [facility] [id number] Information: [id number] Lymphocytes/100 WBC (Bld) 40 % Normal 14-46 [facility] Work Phone: Comment on above: PATIENT WAS FASTINGP ERFORMED BY: [place] 2095170 [facility] [id number] Information: [id number] MCH Entitic mass (RBC) 30.7 pg Normal 26.6-33.0 [facility] Work Phone: Comment on above: PATIENT WAS FASTINGP ERFORMED BY: CHADWICK SolisMcl[facility] Hospital6370 [facility] [id number] Information: [id number] MCHC mass conc (RBC) 33.7 g/dL Normal 31.5-35.7 Comp [facility] Internal Medicine Work Phone: Comment on above: PATIENT WAS FASTINGP ERFORMED BY: CHADWICK Leo Zisrwh7139 [facility] [id number] Information: [id number] MCV Entitic volume (RBC) 91 fL Normal 79-97 [facility] Work Phone: Comment on above: PATIENT WAS FASTINGP ERFORMED BY: CHADWICK [facility] Vrtozq8637 [facility] [id number] Information: [id number] Monocytes #/vol (Bld) 0.5 {x10E3/uL} Normal 0.1-1.0 [facility] Work Phone: Comment on above: PATIENT WAS FASTINGP ERFORMED BY: CHADWICK Leo Gyscph[address] [id number] Information: [id number] Monocytes (Bld) [#/Vol] 0.5 10*3/uL Normal 0.1-1.0 [facility]; [facility] Work Phone: Comment on above: PATIENT WAS FASTINGP ERFORMED BY: CHADWICK [facility] Ynblwg398[address] [id number] Information: [id number] Monocytes/100 WBC (Bld) 14 % Abnormal 4-13 [facility] Work Phone: Comment on above: PATIENT WAS FASTINGP ERFORMED BY: [address] [id number] Information: [id number],[id number] Neutrophils #/vol (Bld) 1.2 {x10E3/uL} Abnormal 1.8-7.8 [facility] Work Phone: Comment on above: PATIENT WAS FASTINGP ERFORMED BY: CHADWICK [place] 9957570 [facility] [id number] Information: [id number] Neutrophils (Bld) [#/Vol] 1.2 10*3/uL Abnormal 1.8-7.8 [facility]; [facility] Work Phone: Comment on above: PATIENT WAS FASTINGP ERFORMED BY: CHADWICK Gambino6370 [facility] [id number] Information: [id number] Neutrophils/100 WBC (Bld) 36 % Abnormal 40-74 [facility] Work Phone: Comment on above: PATIENT WAS FASTINGP ERFORMED BY: CHADWICK Leo Iodjby3536 [facility] [id number] Information: [id number],[id number] Platelets #/vol (Bld) 260 {x10E3/uL} Normal 140-415 [facility] Work Phone: Comment on above: PATIENT WAS FASTINGP ERFORMED BY: CHADWICK Schultzlin6370 [facility] [id number] Information: 312694,[id number] Platelets (Bld) [#/Vol] 260 10*3/uL Normal 140-415 [facility]; [facility] Work Phone: Comment on above: PATIENT WAS FASTINGP ERFORMED BY: CHADWICK [facility] Rkhymc3273 [facility] [id number] Information: [id number] RBC #/vol (Bld) 4.01 {x10E6/uL} Normal 3.77-5.28 [facility] Work Phone: Comment on above: PATIENT WAS FASTINGP ERFORMED BY: CHADWICK [facility] Vmvxve0119 [facility] [id number] Information: [id number] RBC (Bld) [#/Vol] 4.01 10*6/uL Normal 3.77-5.28 [facility] Internal Medicine; [facility] Internal Medicine Work Phone: Comment on above: PATIENT WAS FASTINGP ERFORMED BY: CHADWICK [facility] Jyyllj3772 [facility] [id number] Information: [id number] WBC #/vol (Bld) 3.4 {x10E3/uL} Abnormal 4.0-10.5 Compr ehensive Internal Medicine Work Phone: Comment on above: PATIENT WAS FASTINGP ERFORMED BY: CHADWICK LabEleuterio Gambino6370 [address] [facility]in [place] [id number] Information: [id number] WBC (Bld) [#/Vol] 3.4 10*3/uL Abnormal 4.0-10.5 Compre hensive Internal Medicine; [facility] Work Phone: Comment on above: PATIENT WAS FASTINGP ERFORMED BY: CHADWICK [facility] Uoquvr1739 [facility] [id number] Information: [id number] Lipid Panel (38412)Ordered B y: Financial Assistant on 11-18-2011 Cholesterol in HDL mass conc 71 mg/dL Normal [facility] Work Phone: Comment on above: According to ATP-III Guidelines, HDL-C >59 mg/dL is considered anegative risk factor for CHD. PATIENT WAS FASTINGP ERFORMED BY: CHADWICK Ahmet Vxczrg3590 [facility] [id number] Cholesterol in LDL mass conc 185 mg/dL Abnormal 0-99 [facility] Work Phone: Comment on above: PATIENT WAS FASTINGP ERFORMED BY: CHADWICK LabLidia Qocgub4665 [facility] [id number] Cholesterol in LDL/Cholesterol in HDL mass ratio 2.6 {ratio_units} Normal 0.0-3.2 [facility] Work Phone: Comment on above: PATIENT WAS FASTINGP ERFORMED BY: CHADWICK [facility] Hakbby1060 [address] [facility] [id number] Cholesterol in VLDL mass conc 19 mg/dL Normal 5-40 [facility] Work Phone: Comment on above: PATIENT WAS FASTINGP ERFORMED BY: CHADWICK [facility] Cuaqwx0306 [address] [facility] [place] [id number] Cholesterol mass conc 275 mg/dL Abnormal 100-199 [facility] prehensive Internal Medicine Work Phone: Comment on above: PATIENT WAS FASTINGP ERFORMED BY: CHADWICK [facility] Fuyikm9311 [address] [facility] [id number] Triglyceride mass conc 93 mg/dL Normal 0-149 [facility] Work Phone: Comment on above: PATIENT WAS FASTINGP ERFORMED BY: CHADWICK [facility] Edkuvo6148 [address] [facility] [id number] Metabolic Panel, Comprehensi ve (92877)Ordered By: Financial Assistant on 11-18-2011 Albumin mass conc 4.2 g/dL Normal 3.5-5.5 Compreh ensive Internal Medicine Work Phone: Comment on above: PATIENT WAS FASTINGP ERFORMED BY: CHADWICK [facility] Tnpvij9152 [facility] [id number] Albumin/Globulin mass ratio 1.5 {ratio} Normal 1.1-2.5 [facility] Work Phone: Comment on above: PATIENT WAS FASTINGP ERFORMED BY: [facility] Mwiqzm5737 [facility] [id number] ALP [Catalytic activity/Vol] 55 U/L Normal 25-150 [facility]; [facility] Work Phone: Comment on above: PATIENT WAS FASTINGP ERFORMED BY: CHADWICK [facility] Xwsnxh6707 [facility] [id number] ALP enzyme act/vol 55 [iU]/L Normal 25-150 [facility] Internal Medicine Work Phone: Comment on above: PATIENT WAS FASTINGP ERFORMED BY: [facility] Vnxbml7005 [facility] [id number] ALT [Catalytic activity/Vol] 18 U/L Normal 0-40 [facility]; [facility] Work Phone: Comment on above: PATIENT WAS FASTINGP ERFORMED BY: [facility] Kuwoop0586 [facility] [id number] ALT enzyme act/vol 18 [iU]/L Normal 0-40 [facility] Internal Medicine Work Phone: Comment on above: PATIENT WAS FASTINGP ERFORMED BY: [facility] Wrufea4442 [facility] ServicesDublin [place] [id number] AST [Catalytic activity/Vol] 23 U/L Normal 0-40 [facility]; [facility] Work Phone: Comment on above: PATIENT WAS FASTINGP ERFORMED BY: CHADWICK [facility] Vyiwqa6823 [address] RoadDublin [place] [id number] AST enzyme act/vol 23 [iU]/L Normal 0-40 [facility] Internal Medicine Work Phone: Comment on above: PATIENT WAS FASTINGP ERFORMED BY: CHADWICK [facility] Ctsrox2312 [address] RoadPerson [facility] Hospitalin [place] [id number] Bilirubin mass conc 0.4 mg/dL Normal 0.0-1.2 [facility] Internal Medicine Work Phone: Comment on above: PATIENT WAS FASTINGP ERFORMED BY: CHADWICK [facility] Kvhlwm7736 Ch[address] RoadFirst[facility] [id number] Calcium mass conc 9.4 mg/dL Normal 8.7-10.2 Compreh [facility] Internal Medicine Work Phone: Comment on above: PATIENT WAS FASTINGP ERFORMED BY: CHADWICK [facility] Nzrdfz9984 [address] [facility] [place] [id number] Chloride molar conc 105 mmol/L Normal 97-108 [facility] Internal Medicine Work Phone: Comment on above: PATIENT WAS FASTINGP ERFORMED BY: CHADWICK [facility] Cezirc7140 [address] [facility] [place] [id number] CO2 molar conc 25 mmol/L Normal 20-32 Comprehens [facility] Internal Medicine Work Phone: Comment on above: PATIENT WAS FASTINGP ERFORMED BY: CHADWICK [facility] Evjcjt2879 [address] Roadblin [place] [id number] Creatinine mass conc 0.70 mg/dL Normal 0.57-1.00 [facility] Internal [facility] Work Phone: Comment on above: PATIENT WAS FASTINGP ERFORMED BY: CHADWICK [facility] Pyjpiy3246 Ch[address] RoadPerson Memorial Hospitalin [place] [id number] GFR/1.73 sq M predicted among blacks CKD-EPI vol rate/area (S/P/Bld) 115 mL/min/1.73 Normal Comprehensiv e Internal Medicine Work Phone: Comment on above: PATIENT WAS FASTINGP ERFORMED BY: CHADWICK [facility] Utmkas6703 [address] Roadblin [place] [id number] GFR/1.73 sq M predicted among non-blacks CKD-EPI vol rate/area (S/P/Bld) 100 mL/min/1.73 Normal [facility] Work Phone: Comment on above: PATIENT WAS FASTINGP ERFORMED BY: CHADWICK [facility] Ufvvrg1625 Ch[address] RoadPerson Memorial Hospitalin [place] [id number] Globulin mass conc (S) 2.8 g/dL Normal 1.5-4.5 [facility] Work Phone: Comment on above: PATIENT WAS FASTINGP ERFORMED BY: CHADWICK [facility] Mhkbgf7783 [address] [facility] [id number] Glucose mass conc 93 mg/dL Normal 65-99 Compreh ensive Internal Medicine Work Phone: Comment on above: PATIENT WAS FASTINGP ERFORMED BY: CHADWICK [facility] Nmapzk2641 [address] [facility] [place] [id number] Potassium molar conc 4.2 mmol/L Normal 3.5-5.2 Comp rehensive Internal Medicine Work Phone: Comment on above: PATIENT WAS FASTINGP ERFORMED BY: [facility] Fphxkz8579 [address] [facility] [place] [id number] Protein mass conc 7.0 g/dL Normal 6.0-8.5 Compreh ensive Internal Medicine Work Phone: Comment on above: PATIENT WAS FASTINGP ERFORMED BY: CB [facility] Vkkqsr7921 [address] [facility] [place] [id number] Sodium molar conc 140 mmol/L Normal 134-144 Compreh ensive Internal Medicine Work Phone: Comment on above: PATIENT WAS FASTINGP ERFORMED BY: CB [facility] Ihmeqc2358 [address] [facility] [place] [id number] Urea nitrogen mass conc 12 mg/dL Normal 6-24 [facility] Work Phone: Comment on above: PATIENT WAS FASTINGP ERFORMED BY: [facility]6370 [facility] [id number] Urea nitrogen/Creatinine mass ratio 17 mg/mg Normal 9-23 [facility] Work Phone: Comment on above: PATIENT WAS FASTINGP ERFORMED BY: [facility]6370 [facility] [id number] TSH ([id number])Ordered By: GetBulbe m Technical Coordinator on 11-18-2011 Thyrotropin Qn 3.120 {uIU/mL} Normal 0.450-4.50 0 [facility] Work Phone: Comment on above: PATIENT WAS FASTINGP ERFORMED BY: [facility]6370 [facility] [id number] CBC with manual diff ([id number]) Ordered By: Financial Assistant on 07-14-2010 Basophils #/vol (Bld) 0.0 {x10E3/uL} Normal 0.0-0.2 [facility] Work Phone: Comment on above: PATIENT NOT FASTINGP ERFORMED BY: [facility]6370 [facility] [id number] Information: [id number] Basophils (Bld) [#/Vol] 0.0 10*3/uL Normal 0.0-0.2 [facility]; [facility] Work Phone: Comment on above: PATIENT NOT FASTINGP ERFORMED BY: [facility]6370 [facility] [id number] Information: [id number] Basophils/100 WBC (Bld) 1 % Normal 0-3 [facility] Work Phone: Comment on above: PATIENT NOT FASTINGP ERFORMED BY: [facility]6370 [facility] [id number] Information: [id number] Eosinophils #/vol (Bld) 0.2 {x10E3/uL} Normal 0.0-0.4 [facility] Work Phone: Comment on above: PATIENT NOT FASTINGP ERFORMED BY: CHADWICK LabCoBacharach Institute for RehabilitationTjlsys5566 [facility] [id number] Information: [id number] Eosinophils (Bld) [#/Vol] 0.2 10*3/uL Normal 0.0-0.4 [facility]; [facility] Work Phone: Comment on above: PATIENT NOT FASTINGP ERFORMED BY: CB [facility] Qdnafx9393 [facility] [id number] Information: [id number] Eosinophils/100 WBC (Bld) 6 % Normal 0-7 [facility] Work Phone: Comment on above: PATIENT NOT FASTINGP ERFORMED BY: CHADWICK SolisCoBacharach Institute for RehabilitationGilhgf7718 [facility] [id number] Information: [id number] Erythrocyte distribution width Ratio (RBC) 13.1 % Normal 11.7-15.0 [facility] Work Phone: Comment on above: PATIENT NOT FASTINGP ERFORMED BY: CHADWICK LabCoBacharach Institute for RehabilitationQirpen8676 [facility] [id number] Information: [id number],[id number] Hematocrit Volume Fraction (Bld) 37.9 % Normal 34.0-44.0 [facility] Work Phone: Comment on above: PATIENT NOT FASTINGP ERFORMED BY: CB LabCoBacharach Institute for RehabilitationBmdxwk9173 [facility] [id number] Information: [id number],[id number] Hemoglobin mass conc (Bld) 12.8 g/dL Normal 11.5-15.0 [facility] Work Phone: Comment on above: PATIENT NOT FASTINGP ERFORMED BY: CHADWICK LabCoBacharach Institute for RehabilitationOenhkg5779 [facility] [id number] Information: [id number] Immature granulocytes #/vol (Bld) 0.0 {x10E3/uL} Normal 0.0-0.1 [facility] Work Phone: Comment on above: PATIENT NOT FASTINGP ERFORMED BY: CHADWICK Leo Rczehs6706 [facility] [id number] Information: [id number] Immature granulocytes (Bld) [#/Vol] 0.0 10*3/uL Normal 0.0-0.1 [facility]; [facility] Work Phone: Comment on above: PATIENT NOT FASTINGP ERFORMED BY: CHADWICK [address] [id number] Information: [id number] Immature granulocytes/100 WBC (Bld) 0 % Normal 0-1 [facility] Work Phone: Comment on above: PATIENT NOT FASTINGP ERFORMED BY: CHADWICK Leo Zwshqo[address] [id number] Information: [id number] Lymphocytes #/vol (Bld) 1.5 {x10E3/uL} Normal 0.7-4.5 [facility] Work Phone: Comment on above: PATIENT NOT FASTINGP ERFORMED BY: CHADWICK [facility]isW[facility] Oticmt6665 [facility] [id number] Information: [id number] Lymphocytes (Bld) [#/Vol] 1.5 10*3/uL Normal 0.7-4.5 [facility]; [facility] Work Phone: Comment on above: PATIENT NOT FASTINGP ERFORMED BY: CHADWICK [place]isAndrew [place] 9957570 [facility] [id number] Information: [id number] Lymphocytes/100 WBC (Bld) 43 % Normal 14-46 [facility] Work Phone: Comment on above: PATIENT NOT FASTINGP ERFORMED BY: CHADWICK Leo Rztkhk6502 [facility] [id number] Information: [id number] MCH Entitic mass (RBC) 30.8 pg Normal 27.0-34.0 [facility] Work Phone: Comment on above: PATIENT NOT FASTINGP ERFORMED BY: CHADWICK SolisMclaren [facility] Hospital6370 [facility] [id number] Information: [id number],[id number] MCHC mass conc (RBC) 33.8 g/dL Normal 32.0-36.0 [facility] Work Phone: Comment on above: PATIENT NOT FASTINGP ERFORMED BY: [address] [id number] Information: [id number] MCV Entitic volume (RBC) 91 fL Normal 80-98 [facility] Work Phone: Comment on above: PATIENT NOT FASTINGP ERFORMED BY: [place] [id number] [facility] [id number] Information: [id number] Monocytes #/vol (Bld) 0.5 {x10E3/uL} Normal 0.1-1.0 [facility] Work Phone: Comment on above: PATIENT NOT FASTINGP ERFORMED BY: [place] [id number] [facility] [id number] Information: [id number] Monocytes (Bld) [#/Vol] 0.5 10*3/uL Normal 0.1-1.0 [facility]; [facility] Work Phone: Comment on above: PATIENT NOT FASTINGP ERFORMED BY: [place] [id number] [facility] [id number] Information: [id number] Monocytes/100 WBC (Bld) 13 % Normal 4-13 [facility] Work Phone: Comment on above: PATIENT NOT FASTINGP ERFORMED BY: [facility] [id number] Information: [id number] Neutrophils #/vol (Bld) 1.3 {x10E3/uL} Abnormal 1.8-7.8 [facility] Work Phone: Comment on above: PATIENT NOT FASTINGP ERFORMED BY: CHADWICK Leo [id number] [facility] [id number] Information: [id number] Neutrophils (Bld) [#/Vol] 1.3 10*3/uL Abnormal 1.8-7.8 [facility]; [facility] Work Phone: Comment on above: PATIENT NOT FASTINGP ERFORMED BY: CHADWICK Leo [id number] [facility] [id number] Information: [id number] Neutrophils/100 WBC (Bld) 37 % Abnormal 40-74 [facility] Work Phone: Comment on above: PATIENT NOT FASTINGP ERFORMED BY: CHADWICK Schultzlin6370 [facility] [id number] Information: [id number] Platelets #/vol (Bld) 334 {x10E3/uL} Normal 140-415 [facility] Work Phone: Comment on above: PATIENT NOT FASTINGP ERFORMED BY: CHADWICK Leo [id number] [facility] [id number] Information: [id number] Platelets (Bld) [#/Vol] 334 10*3/uL Normal 140-415 [facility]; [facility] Work Phone: Comment on above: PATIENT NOT FASTINGP ERFORMED BY: CHADWICK Leo [id number] [facility] [id number] Information: [id number] RBC #/vol (Bld) 4.15 {x10E6/uL} Normal 3.80-5.10 [facility] Work Phone: Comment on above: PATIENT NOT FASTINGP ERFORMED BY: CHADWICK Leo [id number] [facility] [id number] Information: [id number] RBC (Bld) [#/Vol] 4.15 10*6/uL Normal 3.80-5.10 [facility] ehensive Internal Medicine; [facility] Work Phone: Comment on above: PATIENT NOT FASTINGP ERFORMED BY: CB [facility] [id number] [facility] [id number] Information: [id number] WBC #/vol (Bld) 3.6 {x10E3/uL} Abnormal 4.0-10.5 [facility] Internal Medicine Work Phone: Comment on above: PATIENT NOT FASTINGP ERFORMED BY: CB [facility] [id number] [facility] [id number] Information: [id number] WBC (Bld) [#/Vol] 3.6 10*3/uL Abnormal 4.0-10.5 [facility]; [facility] Work Phone: Comment on above: PATIENT NOT FASTINGP ERFORMED BY: [facility] [id number] [facility] [id number] Information: [id number] GIAN CULTURE-OTHER ([id number])Ord ered By: Financial Assistant on 07-07-2010 Bacteria identified Respiratory culture Nom (Unsp spec) Final report Normal [facility] Work Phone: Comment on above: PATIENT NOT FASTINGP ERFORMED BY: CB [facility] [id number] [facility] [id number] Information: SRC:RASHAAD [id number] Bacteria identified Respiratory culture Nom (Unsp spec) RRF Normal [facility] Work Phone: Comment on above: Routine respiratory jone PATIENT NOT FASTINGP ERFORMED BY: [facility] [id number] [facility] [id number] Information: SRC:THRT [id number] Rapid Strep Test, Office ([id number] [phone])Ordered By: Padmini Coe on 07-07-2010 S. pyogenes Ag EIA Ql (Throat) Negative Normal [facility]; [facility] Work Phone: S. pyogenes Ag IA Ql (Unsp spec) Negative Normal [facility] Work Phone: CBCD,SMEAR DIFFOrdered By: Mookie gagnontem Technical Coordinator on 06-25-2010 Eosinophils/100 WBC (Bld) 12 % Abnormal 0-5 [facility] Work Phone: Erythrocyte distribution width Ratio (RBC) 13.0 % Normal 11.6-14.6 [facility] Work Phone: Hematocrit Volume Fraction (Bld) 37.0 % Normal 37-47 [facility] Work Phone: Hemoglobin mass conc (Bld) 12.9 g/dL Normal 12.0-16.0 [facility] Work Phone: Lymphocytes/100 WBC (Bld) 54 % Abnormal 19-41 [facility] Work Phone: MCH Entitic mass (RBC) 32.1 pg Abnormal 27.0-32.0 [facility] Work Phone: MCHC mass conc (RBC) 34.7 g/dL Normal 32-36 Comp rehensive Internal Medicine Work Phone: MCV Entitic volume (RBC) 92.5 fL Normal 81-99 [facility] Work Phone: Monocytes/100 WBC (Bld) 8 % Normal 0-10 [facility] Work Phone: Neutrophils #/vol (Bld) 1.0 3/uL Abnormal 2.0-7.7 [facility] Internal Medicine Work Phone: Platelets #/vol (Bld) 222 10*3/uL Normal 150-450 Co mprehensive Internal Medicine Work Phone: Platelets #/vol (Bld) SeeNote Normal Com prehensive Internal Medicine Work Phone: Comment on above: Result: ADEQUATE RBC #/vol (Bld) 4.00 {M/mm3} Abnormal 4.2-5.4 Compre[facility] ensive Internal Medicine Work Phone: WBC #/vol (Bld) 2.7 10*3/uL Abnormal 4.4-11.0 Comprehe nsive Internal Medicine Work Phone: CBCD,SMEAR DIFF SeeNote Normal Comprehen sive Internal Medicine Work Phone: Comment on above: Result: NORM C+C CBCD,SMEAR DIFF 100 1 Normal [facility] Internal Medicine Work Phone: CBCD,SMEAR DIFF 26 % Abnormal 47-70 [facility] Internal Medicine Work Phone: COMP METABOLICOrdered By: Shahbaz stem Technical Coordinator on 06-25-2010 Albumin mass conc 3.8 g/dL Normal 3.4-5.0 [facility] Internal Medicine Work Phone: Albumin/Globulin mass ratio 1.2 {RATIO} Normal 0.9-2.4 [facility] Internal Medicine Work Phone: ALP enzyme act/vol 53 U/L Normal 50-136 [facility] Internal Medicine Work Phone: ALT enzyme act/vol 30 U/L Normal 12-78 [facility] Internal Medicine Work Phone: Anion gap molar conc 10 mmol/L Normal 5-15 [facility] Work Phone: AST enzyme act/vol 18 U/L Normal 15-37 [facility] Internal Medicine Work Phone: Bilirubin mass conc 0.40 mg/dL Normal 0.00-1.00 [facility] Internal Medicine Work Phone: Calcium mass conc 8.8 mg/dL Normal 8.5-10.1 [facility] Internal Medicine Work Phone: Chloride molar conc 105 mmol/L Normal 98-107 [facility] Internal Medicine Work Phone: CO2 molar conc 26.0 mmol/L Normal 21.0-32.0 [facility] Internal Medicine Work Phone: Creatinine mass conc 0.8 mg/dL Normal 0.6-1.0 [facility] Work Phone: GFR/1.73 sq M predicted among blacks MDRD vol rate/area (S/P/Bld) 98 mL/min/{1.73_m2} Normal [facility] Internal Medicine Work Phone: GFR/1.73 sq M.predicted MDRD vol rate/area 81 mL/min/{1.73_m2} Normal Comprehensiv e Internal Medicine Work Phone: Globulin mass conc (S) 3.2 g/dL Normal 2.7-4.2 [facility] Work Phone: Glucose mass conc 81 mg/dL Normal 70-110 Compreh ensive Internal Medicine Work Phone: Potassium molar conc 4.1 mmol/L Normal 3.5-5.1 Comp rehensive Internal Medicine Work Phone: Protein mass conc 7.0 g/dL Normal 6.4-8.2 Compre[facility] ensive Internal Medicine Work Phone: Sodium molar conc 141 mmol/L Normal 136-145 Compre[facility] ensive Internal Medicine Work Phone: Urea nitrogen mass conc 12 mg/dL Normal 7-18 [facility] Work Phone: Urea nitrogen/Creatinine mass ratio 15.0 {RATIO} Normal 10-20 [facility] Work Phone: LIPIDOrdered By: Jessica tidwell on 06-25-2010 Cholesterol in HDL mass conc 78 mg/dL Normal [facility] Work Phone: Comment on above: Reference Range HDL <40 mg/dL Low HDL Cholesterol HDL >or= 60 mg/dL High HDL Cholesterol Cholesterol in LDL mass conc 160 mg/dL Abnormal 0-130 [facility] Work Phone: Cholesterol in VLDL mass conc 13 mg/dL Normal 5-40 [facility] Work Phone: Cholesterol mass conc 251 mg/dL Abnormal Com prehensive Internal Medicine Work Phone: Comment on above: <200 mg/dL Desirable 200-240 mg/dL Borderline >240 mg/dL High Risk Triglyceride mass conc 63 mg/dL Normal [facility] Work Phone: Comment on above: Serum Triglycerides Reference Interval Normal <150 mg/dL Borderline high 150 - 199 mg/dL High 200 - 499 mg/dL Very High > or = 500 mg/dL MICROALBOrdered By: Jessica rivera on 06-25-2010 Creatinine mass conc 176.4 mg/dL Normal Com prehensive Internal Medicine Work Phone: Creatinine mass conc 9.9 {mg/g_CRE} Normal [facility] Work Phone: MICROALB 17.5 mg/L Normal [facility] Work Phone: TSHOrdered By: System Manage r on 06-25-2010 Thyrotropin Qn 2.14 {uIU/mL} Normal 0.358-3.74 Compreh ensive Internal Medicine Work Phone: VIT D,25 [id number] By: Sy stem Technical Coordinator on 06-25-2010 VIT D,25 76828 22.8 ng/mL Abnormal 32.0-100.0 Comprehens hanane Internal Medicine Work Phone: Comment on above: Recent studies consi don the lower limit of 32.0 ng/mL to [place] threshold for optimal health.Michael MCKEON. J Nutr. 2004;135(2):317-22.Performed at: [address] [id number] Director: Yvette Stanley MD, Phone: [phone] VITAMIN [id number] By: Redux Technical Coordinator on 06-25-2010 Cobalamin (Vitamin B12) mass conc 451 pg/mL Normal 254-1320 [facility] Work Phone: Comment on above: There is a low frequ ency possibility that high titers ofintrinsic blocking antibodies may not be completely inactivated during the reaction pretreatment stepof this testing method. If test results are in conflictwith the clinical diagnosis, patient should be testedfor the presence of intrinsic factor blocking antibodies. Vital Signs Date Time Vital Sign Value Performing Clinician Facility 10-29-2023 19:49-0400 Body mass index (BMI) [Ratio] 25.76 kg/m2 Sukhjinder Martin APRN.MACHINE MAINTENANCE REPAIRER Work Phone: [facility] 10-29-2023 19:49-0400 Body temperature 99.9 [degF] Sukhjinder Martin APRN.MACHINE MAINTENANCE REPAIRER Work Phone: [facility] 10-29-2023 19:49-0400 Body weight 67.6 kg Sukhjinder Martin APRN.MACHINE MAINTENANCE REPAIRER Work Phone: [facility] 10-29-2023 19:49-0400 Diastolic blood pressure 60 mm[Hg] Sukhjinder Martin APRN.MACHINE MAINTENANCE REPAIRER Work Phone: [facility] 10-29-2023 19:49-0400 Heart rate 78 /min Sukhjinder Martin APRN.MACHINE MAINTENANCE REPAIRER Work Phone: [facility] 10-29-2023 19:49-0400 Respiratory rate 16 /min Sukhjinder Martin APRN.MACHINE MAINTENANCE REPAIRER Work Phone: [facility] 10-29-2023 19:49-0400 SaO2% (BldA) [Mass fraction] 97 % Sukhjinder Martin APRN.MACHINE MAINTENANCE REPAIRER Work Phone: [facility] 10-29-2023 19:49-0400 Systolic blood pressure 106 mm[Hg] Sukhjinder Martin APRN.MACHINE MAINTENANCE REPAIRER Work Phone: [facility] 04-11-2023 06:04-0500 Diastolic blood pressure 86 mm[Hg] Dr. Julia Brown Work Phone: [facility] 04-11-2023 06:04-0500 Systolic blood pressure 123 mm[Hg] Dr. Julia Brown Work Phone: [facility] 04-11-2023 03:33-0500 Body height 162.[address] Julia Brown Work Phone: [facility] 04-11-2023 03:33-0500 Body mass index (BMI) [Ratio] 27.3 kg/m2 Dr. Julia Brown Work Phone: [facility] 04-11-2023 03:33-0500 Body temperature 96.5 [degF] Dr. Julia Brown Work Phone: [facility] 04-11-2023 03:33-0500 Body weight 72.[address] Julia Brown Work Phone: [facility] 04-11-2023 03:33-0500 Heart rate 67 /min Dr. Julia Brown Work Phone: [facility] 04-11-2023 03:33-0500 Respiratory rate 16 /min Dr. Julia Brown Work Phone: [facility] 04-11-2023 03:33-0500 SaO2% (BldA) [Mass fraction] 99 % Dr. Julia Brown Work Phone: [facility] 03-12-2023 14:44-0500 Body height 162.[address] Julia Brown Work Phone: [facility] 03-12-2023 14:38-0500 Body mass index (BMI) [Ratio] 25.7 kg/m2 Dr. Julia Brown Work Phone: [facility] 03-12-2023 14:38-0500 Body weight 68.[address] Julia Brown Work Phone: [facility] 03-12-2023 14:38-0500 Diastolic blood pressure 80 mm[Hg] Dr. Julia Brown Work Phone: [facility] 03-12-2023 14:38-0500 Systolic blood pressure 102 mm[Hg] Dr. Julia Brown Work Phone: [facility] 10-26-2022 10:29-0400 Body height 162.56 cm [facility]; [facility] Work Phone: 10-26-2022 10:29-0400 Body mass index (BMI) [Ratio] 23.86 kg/m2 [facility]; [facility] Work Phone: 10-26-2022 10:29-0400 Body mass index (BMI) [Ratio] 25.58 kg/m2 Julia Brown MD Work Phone: [facility]; [facility] Work Phone: 10-26-2022 10:29-0400 Body surface area Derived from formula 1.68 m2 [facility]; [facility] Work Phone: 10-26-2022 10:29-0400 Body surface area Derived from formula 1.73 m2 Julia Brown MD Work Phone: [facility]; [facility] Work Phone: 10-26-2022 10:29-0400 Body temperature 99 [degF] Griffin Grijalva [facility] Comprehensiv e Internal Medicine; [facility] Work Phone: Comment on above: Method: Oral 10-26-2022 10:29-0400 Body weight 63.05 kg Griffin Grijalva [facility]; [facility] Work Phone: 10-26-2022 10:29-0400 Body weight 67.59 kg Julia Brown MD Work Phone: [facility]; [facility] Work Phone: 10-26-2022 10:29-0400 Diastolic blood pressure 70 mm[Hg] Griffin Grijalva [facility]; [facility] Work Phone: Comment on above: Patient Position: Sitting; Cuff Location : Left Arm; Cuff Size: Standard 10-26-2022 10:29-0400 Heart rate 63 /min Griffin Grijalva [facility]; [facility] Work Phone: Comment on above: Pattern: Regular 10-26-2022 10:29-0400 Respiratory rate 16 /min Griffin Grijalva [facility] Comprehensiv e Internal Medicine; [facility] Work Phone: Comment on above: Pattern: Unlabored 10-26-2022 10:29-0400 SaO2% (BldA) [Mass fraction] 98 % Griffin Grijalva [facility]; [facility] Work Phone: Comment on above: Room air 10-26-2022 10:29-0400 Systolic blood pressure 118 mm[Hg] Griffin Grijalva [facility]; [facility] Work Phone: Comment on above: Patient Position: Sitting; Cuff Location : Left Arm; Cuff Size: Standard 08-25-2021 06:37-0400 Body height 162.56 cm Julia Bronw MD Work Phone: [facility]; [facility] Work Phone: 08-25-2021 06:37-0400 Body mass index (BMI) [Ratio] 23.86 kg/m2 Julia Brown MD Work Phone: [facility]; [facility] Work Phone: 08-25-2021 06:37-0400 Body surface area Derived from formula 1.68 m2 Julia Brown MD Work Phone: [facility]; [facility] Work Phone: 08-25-2021 06:37-0400 Body weight 63.05 kg Julia Bronw MD Work Phone: [facility]; [facility] Work Phone: 08-25-2021 06:37-0400 Diastolic blood pressure 80 mm[Hg] Julia Brown MD Work Phone: [facility]; [facility] Work Phone: Comment on above: Patient Position: Sitting 08-25-2021 06:37-0400 Heart rate 96 /min Julia Brown MD Work Phone: [facility]; [facility] Work Phone: Comment on above: Pattern: Regular 08-25-2021 06:37-0400 SaO2% (BldA) [Mass fraction] 99 % Julia Brown MD Work Phone: [facility]; [facility] Work Phone: Comment on above: Room air 08-25-2021 06:37-0400 Systolic blood pressure 120 mm[Hg] Julia Brown MD Work Phone: [facility]; [facility] Work Phone: Comment on above: Patient Position: Sitting 06-16-2021 12:45-0500 Body height 160.02 cm JASPAL Gary LPN [facility]; [facility] Work Phone: 06-16-2021 12:45-0500 Body mass index (BMI) [Ratio] 25.69 kg/m2 JASPAL Gary JAYDEN [facility]; [facility] Work Phone: 06-16-2021 12:45-0500 Body surface area Derived from formula 1.69 m2 JASPAL Gary JAYDEN [facility]; [facility] Work Phone: 06-16-2021 12:45-0500 Body temperature 97.9 [degF] JASPAL Gary JAYDEN Comprehensiv e Internal [facility]; [facility] Work Phone: Comment on above: Method: Temporal 06-16-2021 12:45-0500 Body weight 65.77 kg JASPAL Gary JAYDEN [facility]; [facility] Work Phone: 06-16-2021 12:45-0500 Diastolic blood pressure 76 mm[Hg] JASPAL Gary JAYDEN [facility]; [facility] Work Phone: Comment on above: Patient Position: Sitting; Cuff Location : Left Arm; Cuff Size: Standard 06-16-2021 12:45-0500 Heart rate 78 /min JASPAL Gary JAYDEN [facility]; [facility] Work Phone: Comment on above: Pattern: Regular 06-16-2021 12:45-0500 Respiratory rate 18 /min JASPAL Gary JAYDEN Comprehensiv e [facility]; [facility] Work Phone: Comment on above: Pattern: Unlabored 06-16-2021 12:45-0500 SaO2% (BldA) [Mass fraction] 98 % JASPAL Gary JAYDEN [facility]; [facility] Work Phone: Comment on above: Room air 06-16-2021 12:45-0500 Systolic blood pressure 114 mm[Hg] JASPAL Gary JAYDEN [facility]; [facility] Work Phone: Comment on above: Patient Position: Sitting; Cuff Location : Left Arm; Cuff Size: Standard 08-22-2020 06:12-0400 Body height 160.02 cm [facility]; [facility] Work Phone: 08-22-2020 06:12-0400 Body mass index (BMI) [Ratio] 25.69 kg/m2 [facility]; [facility] Work Phone: 08-22-2020 06:12-0400 Body surface area Derived from formula 1.69 m2 [facility]; [facility] Work Phone: 08-22-2020 06:12-0400 Body temperature 97 [degF] [facility]; [facility] Work Phone: Comment on above: Method: Thermal Scan 08-22-2020 06:12-0400 Body weight 65.77 kg [facility] Internal Medicine; [facility] Work Phone: 08-22-2020 06:12-0400 Diastolic blood pressure 70 mm[Hg] [facility]; [facility] Work Phone: Comment on above: Patient Position: Sitting; Cuff Location : Left Arm; Cuff Size: Standard 08-22-2020 06:12-0400 Heart rate 85 /min [facility]; [facility] Work Phone: Comment on above: Pattern: Regular 08-22-2020 06:12-0400 Respiratory rate 16 /min [facility] Internal Medicine; [facility] Work Phone: Comment on above: Pattern: Unlabored 08-22-2020 06:12-0400 SaO2% (BldA) [Mass fraction] 96 % [facility]; [facility] Work Phone: Comment on above: Room air 08-22-2020 06:12-0400 Systolic blood pressure 126 mm[Hg] [facility]; [facility] Work Phone: Comment on above: Patient Position: Sitting; Cuff Location : Left Arm; Cuff Size: Standard 03-19-2020 08:33-0500 BMI (Body Mass Index) 25.69 kg/m2 Julia Brown MD Work Phone: [facility] Work Phone: 03-19-2020 08:33-0500 Body Temperature 97.1 [degF] Julia Brown MD Work Phone: [facility] Work Phone: Comment on above: Method: Thermal Scan 03-19-2020 08:33-0500 Body weight 65.77 kg Julia Brown MD Work Phone: [facility] Work Phone: 03-19-2020 08:33-0500 BP Diastolic 64 mm[Hg] Julia Brown MD Work Phone: [facility] Work Phone: Comment on above: Patient Position: Sitting; Cuff Location : Left Arm; Cuff Size: Standard 03-19-2020 08:33-0500 BP Systolic 114 mm[Hg] Julia Brown MD Work Phone: [facility] Work Phone: Comment on above: Patient Position: Sitting; Cuff Location : Left Arm; Cuff Size: Standard 03-19-2020 08:33-0500 BSA (Body Surface Area) 1.69 m2 Julia Brown MD Work Phone: [facility] Work Phone: 03-19-2020 08:33-0500 Height 160.02 cm Julia Brown MD Work Phone: [facility] Work Phone: 03-19-2020 08:33-0500 Pulse (Heart Rate) 69 /min Julia Brown MD Work Phone: [facility] Work Phone: Comment on above: Pattern: Regular 03-19-2020 08:33-0500 Respiratory Rate 16 /min Julia Brown MD Work Phone: [facility] Work Phone: Comment on above: Pattern: Unlabored 07-18-2019 10:28-0400 BMI (Body Mass Index) 24.63 kg/m2 JASPAL Gary LPN [facility] Work Phone: 07-18-2019 10:28-0400 Body weight 63.06 kg JASPAL Gary LPN [facility] Work Phone: 07-18-2019 10:28-0400 BSA (Body Surface Area) 1.66 m2 JASPAL Gary LPN [facility] Work Phone: 07-18-2019 10:28-0400 Height 160.02 cm JASPAL Gary LPN [facility] Internal Medicine Work Phone: 09-07-2018 15:41-0400 BMI (Body Mass Index) 27.16 kg/m2 Nicole Muller [facility] Work Phone: 09-07-2018 15:41-0400 Body Temperature 97.3 [degF] Nicole Muller [facility] Comprehensiv e Internal Medicine Work Phone: Comment on above: Method: Temporal 09-07-2018 15:41-0400 Body weight 63.07 kg Nicole Muller [facility] Work Phone: 09-07-2018 15:41-0400 BP Diastolic 68 mm[Hg] Nicole Muller [facility] Work Phone: Comment on above: Patient Position: Sitting; Cuff Location : Left Arm; Cuff Size: Standard 09-07-2018 15:41-0400 BP Systolic 100 mm[Hg] Nicole Muller [facility] Work Phone: Comment on above: Patient Position: Sitting; Cuff Location : Left Arm; Cuff Size: Standard 09-07-2018 15:41-0400 BSA (Body Surface Area) 1.6 m2 Nicole Muller RN ADMISSION [facility] Work Phone: 09-07-2018 15:41-0400 Height 152.4 cm Nicole Muller RN ADMISSION [facility] Medicine Work Phone: 09-07-2018 15:41-0400 Pulse (Heart Rate) 73 /min Nicole Gravius RN ADMISSION [facility] Work Phone: Comment on above: Pattern: Regular 09-07-2018 15:41-0400 Pulse Oximetry 98 % Julia Brown [facility] Work Phone: Comment on above: Room air 09-07-2018 15:41-0400 Respiratory Rate 18 /min Nicole Muller CMA [facility] Work Phone: Comment on above: Pattern: Unlabored 09-07-2018 15:41-0400 SaO2% (BldA) [Mass fraction] 98 % Nicole Muller RN ADMISSION [facility]; [facility] Work Phone: Comment on above: Room air 09-07-2018 15:41-0400 Weight 63.07 kg Julia Brown [facility] Work Phone: 07-15-2018 07:45-0400 Body Temperature 98.2 [degF] Julia Brown MD Work Phone: [facility] Work Phone: Comment on above: Method: Oral 07-15-2018 07:45-0400 BP Diastolic 70 mm[Hg] Julia Brown MD Work Phone: [facility] Work Phone: Comment on above: Patient Position: Sitting 07-15-2018 07:45-0400 BP Systolic 108 mm[Hg] Julia Brown MD Work Phone: [facility] Work Phone: Comment on above: Patient Position: Sitting 07-15-2018 07:45-0400 Pulse (Heart Rate) 70 /min Julia Brown MD Work Phone: [facility] Work Phone: Comment on above: Pattern: Regular 07-15-2018 07:45-0400 Pulse Oximetry 98 % Julia Brown [facility] Work Phone: Comment on above: Room air 07-15-2018 07:45-0400 Respiratory Rate 20 /min Julia Brown MD Work Phone: [facility] Work Phone: 07-15-2018 07:45-0400 SaO2% (BldA) [Mass fraction] 98 % Julia Brown MD Work Phone: [facility]; [facility] Work Phone: Comment on above: Room air 07-15-2018 06:52-0400 BMI (Body Mass Index) 27.16 kg/m2 JASPAL Gary LPN [facility] Work Phone: 07-15-2018 06:52-0400 Body weight 63.07 kg JASPAL Gary LPN [facility] Work Phone: 07-15-2018 06:52-0400 BSA (Body Surface Area) 1.6 m2 JASPAL Gary LPN [facility] Work Phone: 07-15-2018 06:52-0400 Height 152.4 cm JASPAL Gary LPN [facility] Work Phone: 07-15-2018 06:52-0400 Weight 63.07 kg Julia Brown [facility] Work Phone: 02-01-2018 09:25-0400 BMI (Body Mass Index) 25.46 kg/m2 JASPAL Gary LPN [facility] Work Phone: 02-01-2018 09:25-0400 Body Temperature 98.2 [degF] JASPAL Gary LPN [facility] Work Phone: Comment on above: Method: Temporal 02-01-2018 09:25-0400 Body weight 66.23 kg JASPALHARISH Gary LPN [facility] Work Phone: 02-01-2018 09:25-0400 BP Diastolic 78 mm[Hg] JASPAL Gary LPN [facility] Work Phone: Comment on above: Patient Position: Sitting; Cuff Location : Left Arm; Cuff Size: Standard 02-01-2018 09:25-0400 BP Systolic 122 mm[Hg] JASPAL Gary LPN [facility] Work Phone: Comment on above: Patient Position: Sitting; Cuff Location : Left Arm; Cuff Size: Standard 02-01-2018 09:25-0400 BSA (Body Surface Area) 1.7 m2 JASPAL Gary LPN [facility] Work Phone: 02-01-2018 09:25-0400 Height 161.29 cm JASPAL Gary LPN [facility] Work Phone: 02-01-2018 09:25-0400 Pulse (Heart Rate) 74 /min JASPAL Gary LPN [facility] Work Phone: Comment on above: Pattern: Regular 02-01-2018 09:25-0400 Pulse Oximetry 98 % Julia Brown [facility] Work Phone: Comment on above: Room air 02-01-2018 09:25-0400 Respiratory Rate 20 /min JASPAL Gary LPN [facility] Work Phone: Comment on above: Pattern: Unlabored 02-01-2018 09:25-0400 SaO2% (BldA) [Mass fraction] 98 % JASPAL Gary LPN [facility]; [facility] Work Phone: Comment on above: Room air 02-01-2018 09:25-0400 Weight 66.23 kg Julia Brown [facility] Work Phone: 09-16-2017 08:53-0400 BMI (Body Mass Index) 25.46 kg/m2 JASPAL Gary LPN [facility] Work Phone: 09-16-2017 08:53-0400 Body Temperature 97.6 [degF] JASPAL Gary LPN [facility] Work Phone: Comment on above: Method: Temporal 09-16-2017 08:53-0400 Body weight 66.23 kg JASPAL Gary LPN [facility] Work Phone: 09-16-2017 08:53-0400 BP Diastolic 80 mm[Hg] JASPAL Gary LPN [facility] Work Phone: Comment on above: Patient Position: Sitting; Cuff Location : Left Arm; Cuff Size: Standard 09-16-2017 08:53-0400 BP Systolic 120 mm[Hg] JASPAL Gary LPN [facility] Work Phone: Comment on above: Patient Position: Sitting; Cuff Location : Left Arm; Cuff Size: Standard 09-16-2017 08:53-0400 BSA (Body Surface Area) 1.7 m2 JASPAL Gary LPN [facility] Work Phone: 09-16-2017 08:53-0400 Height 161.29 cm JASPAL Gary LPN [facility] Work Phone: 09-16-2017 08:53-0400 Pulse (Heart Rate) 78 /min JASPAL Gary LPN [facility] Work Phone: Comment on above: Pattern: Regular 09-16-2017 08:53-0400 Pulse Oximetry 98 % Julia Brown [facility] Work Phone: Comment on above: Room air 09-16-2017 08:53-0400 Respiratory Rate 20 /min JASPAL Gary LPN [facility] Work Phone: Comment on above: Pattern: Unlabored 09-16-2017 08:53-0400 SaO2% (BldA) [Mass fraction] 98 % JASPAL Gary LPN [facility]; [facility] Work Phone: Comment on above: Room air 09-16-2017 08:53-0400 Weight 66.23 kg Julia Brown [facility] Work Phone: 08-09-2017 13:48-0400 BMI (Body Mass Index) 24.58 kg/m2 JASPAL Gary LPN [facility] Work Phone: 08-09-2017 13:48-0400 Body Temperature 97.6 [degF] JASPAL Gary LPN [facility] Work Phone: Comment on above: Method: Temporal 08-09-2017 13:48-0400 Body weight 63.96 kg JASPAL Gary LPN [facility] Work Phone: 08-09-2017 13:48-0400 BP Diastolic 74 mm[Hg] JASPAL Gary LPN [facility] Work Phone: Comment on above: Patient Position: Sitting; Cuff Location : Left Arm; Cuff Size: Standard 08-09-2017 13:48-0400 BP Systolic 110 mm[Hg] JASPAL Gary LPN [facility] Work Phone: Comment on above: Patient Position: Sitting; Cuff Location : Left Arm; Cuff Size: Standard 08-09-2017 13:48-0400 BSA (Body Surface Area) 1.68 m2 JASPAL Gary LPN [facility] Work Phone: 08-09-2017 13:48-0400 Height 161.29 cm JASPAL Gary LPN [facility] Work Phone: 08-09-2017 13:48-0400 Pulse (Heart Rate) 74 /min JASPAL Gary LPN [facility] Work Phone: Comment on above: Pattern: Regular 08-09-2017 13:48-0400 Pulse Oximetry 98 % Julia Tavarezfreddy [facility] Work Phone: Comment on above: Room air 08-09-2017 13:48-0400 Respiratory Rate 20 /min JASPAL Gary LPN [facility] Work Phone: Comment on above: Pattern: Unlabored 08-09-2017 13:48-0400 SaO2% (BldA) [Mass fraction] 98 % JASPAL Gary LPN [facility]; [facility] Work Phone: Comment on above: Room air 08-09-2017 13:48-0400 Weight 63.96 kg Julia Brown [facility] Work Phone: 05-18-2017 08:06-0500 BMI (Body Mass Index) 24.58 kg/m2 Esme Caponemigueljohn [facility] Work Phone: 05-18-2017 08:06-0500 Body weight 63.96 kg Esme Boston [facility] Work Phone: 05-18-2017 08:06-0500 BP Diastolic 68 mm[Hg] Esme Manmigueljohn [facility] Work Phone: Comment on above: Patient Position: Sitting; Cuff Location : Left Arm; Cuff Size: Standard 05-18-2017 08:06-0500 BP Systolic 118 mm[Hg] Esme Boston [facility] Work Phone: Comment on above: Patient Position: Sitting; Cuff Location : Left Arm; Cuff Size: Standard 05-18-2017 08:06-0500 BSA (Body Surface Area) 1.68 m2 Esme Boston [facility] Work Phone: 05-18-2017 08:06-0500 Height 161.29 cm Esme Boston [facility] Work Phone: 05-18-2017 08:06-0500 Pulse (Heart Rate) 70 /min Esme Boston [facility] Work Phone: Comment on above: Pattern: Regular 05-18-2017 08:06-0500 Pulse Oximetry 97 % Julia Brown [facility] Work Phone: Comment on above: Room air 05-18-2017 08:06-0500 Respiratory Rate 16 /min Esme Boston [facility] Work Phone: Comment on above: Pattern: Unlabored 05-18-2017 08:06-0500 SaO2% (BldA) [Mass fraction] 97 % Esme Boston [facility]; [facility] Work Phone: Comment on above: Room air 05-18-2017 08:06-0500 Weight 63.96 kg Julia Brown [facility] Work Phone: 03-29-2017 09:08-0500 BMI (Body Mass Index) 23.54 kg/m2 JASPAL Gary LPN [facility] Work Phone: 03-29-2017 09:08-0500 Body Temperature 97.6 [degF] JASPAL Gary LPN [facility] Work Phone: Comment on above: Method: Temporal 03-29-2017 09:08-0500 Body weight 61.24 kg JASPAL Gary LPN [facility] Work Phone: 03-29-2017 09:08-0500 BP Diastolic 74 mm[Hg] JASPAL Gary LPN [facility] Work Phone: Comment on above: Patient Position: Sitting; Cuff Location : Left Arm; Cuff Size: Standard 03-29-2017 09:08-0500 BP Systolic 110 mm[Hg] JASPAL Gary LPN [facility] Work Phone: Comment on above: Patient Position: Sitting; Cuff Location : Left Arm; Cuff Size: Standard 03-29-2017 09:08-0500 BSA (Body Surface Area) 1.65 m2 JASPAL Gary JAYDEN [facility] Work Phone: 03-29-2017 09:08-0500 Height 161.29 cm JASPAL Gary JAYDEN [facility] Work Phone: 03-29-2017 09:08-0500 Pulse (Heart Rate) 76 /min JASPAL Gary JAYDEN [facility] Work Phone: Comment on above: Pattern: Regular 03-29-2017 09:08-0500 Pulse Oximetry 98 % Julia Rui [facility] Work Phone: Comment on above: Room air 03-29-2017 09:08-0500 Respiratory Rate 20 /min JASPAL Gary JAYDEN [facility] Work Phone: Comment on above: Pattern: Unlabored 03-29-2017 09:08-0500 SaO2% (BldA) [Mass fraction] 98 % JASPAL Gary JAYDEN [facility]; [facility] Work Phone: Comment on above: Room air 03-29-2017 09:08-0500 Weight 61.24 kg Julia Brown [facility] Work Phone: 03-24-2017 09:06-0500 BMI (Body Mass Index) 23.54 kg/m2 JASPAL Gary JAYDEN [facility] Work Phone: 03-24-2017 09:06-0500 Body Temperature 97.6 [degF] JASPAL Gary JAYDEN [facility] Work Phone: Comment on above: Method: Temporal 03-24-2017 09:06-0500 Body weight 61.24 kg JASPAL Gary LPN [facility] Work Phone: 03-24-2017 09:06-0500 BP Diastolic 78 mm[Hg] JASPAL Gary LPN [facility] Work Phone: Comment on above: Patient Position: Sitting; Cuff Location : Left Arm; Cuff Size: Standard 03-24-2017 09:06-0500 BP Systolic 114 mm[Hg] JASPAL Gary LPN [facility] Work Phone: Comment on above: Patient Position: Sitting; Cuff Location : Left Arm; Cuff Size: Standard 03-24-2017 09:06-0500 BSA (Body Surface Area) 1.65 m2 JASPAL Gary [employer] [facility] Work Phone: 03-24-2017 09:06-0500 Height 161.29 cm JASPAL Gary JAYDEN [facility] Work Phone: 03-24-2017 09:06-0500 Pulse (Heart Rate) 74 /min JASPAL Gary LPN [facility] Work Phone: Comment on above: Pattern: Regular 03-24-2017 09:06-0500 Pulse Oximetry 98 % Julia Brown [facility] Work Phone: Comment on above: Room air 03-24-2017 09:06-0500 Respiratory Rate 20 /min JASPAL Gary LPN [facility] Work Phone: Comment on above: Pattern: Unlabored 03-24-2017 09:06-0500 SaO2% (BldA) [Mass fraction] 98 % JASPAL Gary JAYDEN [facility]; [facility] Work Phone: Comment on above: Room air 03-24-2017 09:06-0500 Weight 61.24 kg Julia Brown [facility] Work Phone: 03-22-2017 15:01-0500 BMI (Body Mass Index) 23.54 kg/m2 JASPAL Gary JAYDEN [facility] Work Phone: 03-22-2017 15:01-0500 Body Temperature 97.6 [degF] JASPAL Gary LPN [facility] Work Phone: Comment on above: Method: Temporal 03-22-2017 15:01-0500 Body weight 61.24 kg JASPAL Gary LPN [facility] Work Phone: 03-22-2017 15:01-0500 BP Diastolic 80 mm[Hg] JASPAL Gary LPN [facility] Work Phone: Comment on above: Patient Position: Sitting; Cuff Location : Left Arm; Cuff Size: Standard 03-22-2017 15:01-0500 BP Systolic 120 mm[Hg] JASPAL Gary LPN [facility] Work Phone: Comment on above: Patient Position: Sitting; Cuff Location : Left Arm; Cuff Size: Standard 03-22-2017 15:0500 BSA (Body Surface Area) 1.65 m2 JASPAL Gary LPN [facility] Work Phone: 03-22-2017 15:01-0500 Height 161.29 cm JASPAL Gary LPN [facility] Work Phone: 03-22-2017 15:01-0500 Pulse (Heart Rate) 74 /min JASPAL Gary LPN [facility] Work Phone: Comment on above: Pattern: Regular 03-22-2017 15:01-0500 Pulse Oximetry 98 % Julia Rui [facility] Work Phone: Comment on above: Room air 03-22-2017 15:01-0500 Respiratory Rate 20 /min JASPAL Gary LPN [facility] Work Phone: Comment on above: Pattern: Unlabored 03-22-2017 15:01-0500 SaO2% (BldA) [Mass fraction] 98 % JASPAL Gary LPN [facility]; [facility] Work Phone: Comment on above: Room air 03-22-2017 15:01-0500 Weight 61.24 kg Julia Brown [facility] Work Phone: 11-03-2016 11:35-0400 BMI (Body Mass Index) 23.54 kg/m2 JASPAL Gary LPN [facility] Work Phone: 11-03-2016 11:35-0400 Body Temperature 97.2 [degF] JASPAL Gary LPN [facility] Work Phone: Comment on above: Method: Temporal 11-03-2016 11:35-0400 Body weight 61.24 kg JASPAL Gary LPN [facility] Work Phone: 11-03-2016 11:35-0400 BP Diastolic 62 mm[Hg] JASPAL Gary LPN [facility] Work Phone: Comment on above: Patient Position: Sitting; Cuff Location : Left Arm; Cuff Size: Standard 11-03-2016 11:35-0400 BP Systolic 100 mm[Hg] JASPAL Gary LPN [facility] Work Phone: Comment on above: Patient Position: Sitting; Cuff Location : Left Arm; Cuff Size: Standard 11-03-2016 11:35-0400 BSA (Body Surface Area) 1.65 m2 JASPAL Gary LPN [facility] Work Phone: 11-03-2016 11:35-0400 Height 161.29 cm JASPAL Gary LPN [facility] Work Phone: 11-03-2016 11:35-0400 Pulse (Heart Rate) 70 /min JASPAL Gary LPN [facility] Work Phone: Comment on above: Pattern: Regular 11-03-2016 11:35-0400 Pulse Oximetry 97 % Julia Brown [facility] Work Phone: Comment on above: Room air 11-03-2016 11:35-0400 Respiratory Rate 20 /min JASPAL Gary LPN [facility] Work Phone: Comment on above: Pattern: Unlabored 11-03-2016 11:35-0400 SaO2% (BldA) [Mass fraction] 97 % JASPAL Gary JAYDEN [facility]; [facility] Work Phone: Comment on above: Room air 11-03-2016 11:35-0400 Weight 61.24 kg Julia Brown [facility] Work Phone: 05-18-2016 10:50-0500 BP Diastolic 60 mm[Hg] Esme Boston [facility] Work Phone: Comment on above: Patient Position: Sitting; Cuff Location : Left Arm; Cuff Size: Standard 05-18-2016 10:50-0500 BP Systolic 104 mm[Hg] Esme Boston [facility] Work Phone: Comment on above: Patient Position: Sitting; Cuff Location : Left Arm; Cuff Size: Standard 05-18-2016 10:50-0500 Height 161.29 cm Esme Boston [facility] Work Phone: 05-18-2016 10:50-0500 Pulse (Heart Rate) 74 /min Esme Boston [facility] Work Phone: Comment on above: Pattern: Regular 05-18-2016 10:50-0500 Pulse Oximetry 98 % Julia Brown [facility] Work Phone: Comment on above: Room air 05-18-2016 10:50-0500 Respiratory Rate 16 /min Esme Boston [facility] Work Phone: Comment on above: Pattern: Unlabored 05-18-2016 10:50-0500 SaO2% (BldA) [Mass fraction] 98 % Esme Boston [facility]; [facility] Work Phone: Comment on above: Room air 04-24-2016 10:10-0500 BMI (Body Mass Index) 24.93 kg/m2 JASPAL Gary LPN [facility] Work Phone: 04-24-2016 10:10-0500 Body Temperature 97.6 [degF] JASPAL Gary LPN [facility] Work Phone: Comment on above: Method: Temporal 04-24-2016 10:10-0500 Body weight 64.86 kg JASPAL Gary LPN [facility] Work Phone: 04-24-2016 10:10-0500 BP Diastolic 74 mm[Hg] JASPAL Gary LPN [facility] Work Phone: Comment on above: Patient Position: Sitting; Cuff Location : Left Arm; Cuff Size: Standard 04-24-2016 10:10-0500 BP Systolic 110 mm[Hg] JASPAL Gary LPN [facility] Work Phone: Comment on above: Patient Position: Sitting; Cuff Location : Left Arm; Cuff Size: Standard 04-24-2016 10:10-0500 BSA (Body Surface Area) 1.69 m2 JASPAL Gary JAYDEN [facility] Work Phone: 04-24-2016 10:10-0500 Height 161.29 cm JASPAL Gary [employer] [facility] Work Phone: 04-24-2016 10:10-0500 Pulse (Heart Rate) 70 /min JASPAL Gary JAYDEN [facility] Work Phone: Comment on above: Pattern: Regular 04-24-2016 10:10-0500 Pulse Oximetry 97 % Julia Brown [facility] Work Phone: Comment on above: Room air 04-24-2016 10:10-0500 Respiratory Rate 20 /min JASPAL Gary LPN [facility] Work Phone: Comment on above: Pattern: Unlabored 04-24-2016 10:10-0500 SaO2% (BldA) [Mass fraction] 97 % JASPAL Gary JAYDEN [facility]; [facility] Work Phone: Comment on above: Room air 04-24-2016 10:10-0500 Weight 64.86 kg Julia Rui [facility] Work Phone: 11-01-2014 10:15-0400 BMI (Body Mass Index) 24.98 kg/m2 Julia Brown [facility] Work Phone: 11-01-2014 10:15-0400 Body weight 63.96 kg [facility] Work Phone: 11-01-2014 10:15-0400 BP Diastolic 80 mm[Hg] Juliatessy Tavarezfreddy [facility] Work Phone: Comment on above: Patient Position: Sitting; Cuff Location : Left Arm; Cuff Size: Standard 11-01-2014 10:15-0400 BP Systolic 120 mm[Hg] Juliatessy Munozanderson [facility] Work Phone: Comment on above: Patient Position: Sitting; Cuff Location : Left Arm; Cuff Size: Standard 11-01-2014 10:15-0400 BSA (Body Surface Area) 1.67 m2 Julia Brown [facility] Work Phone: 11-01-2014 10:15-0400 Height 160.02 cm Julia Brown [facility] Work Phone: 11-01-2014 10:15-0400 Pulse (Heart Rate) 68 /min Julia Brown [facility] Work Phone: Comment on above: Pattern: Regular 11-01-2014 10:15-0400 Pulse Oximetry 98 % Julia Brown [facility] Work Phone: Comment on above: Room air 11-01-2014 10:15-0400 Respiratory Rate 16 /min Julia Brown [facility] Work Phone: Comment on above: Pattern: Unlabored 11-01-2014 10:15-0400 SaO2% (BldA) [Mass fraction] 98 % Julia Brown MD Work Phone: [facility]; [facility] Work Phone: Comment on above: Room air 11-01-2014 10:15-0400 Weight 63.96 kg Julia Brown [facility] Work Phone: 11-01-2014 10:03-0400 BMI (Body Mass Index) 24.98 kg/m2 Padmini Coe RN [facility] Work Phone: 11-01-2014 10:03-0400 Body weight 63.96 kg Padmini Coe RN [facility] Work Phone: 11-01-2014 10:03-0400 BSA (Body Surface Area) 1.67 m2 Padmini Coe RN [facility] Work Phone: 11-01-2014 10:03-0400 Height 160.02 cm Padmini Coe RN [facility] Work Phone: 11-01-2014 10:03-0400 Weight 63.96 kg Julia Brown [facility] Work Phone: 03-13-2014 08:38-0500 BMI (Body Mass Index) 24.98 kg/m2 Padmini Coe RN [facility] Work Phone: Comment on above: weight taken with heavy boots on 03-13-2014 08:38-0500 Body Temperature 97.8 [degF] Padmini Coe RN [facility] Work Phone: Comment on above: Method: Temporal weight taken with he elizabeth boots on 03-13-2014 08:38-0500 Body weight 63.96 kg Padmini Coe RN [facility] Work Phone: Comment on above: weight taken with heavy boots on 03-13-2014 08:38-0500 BP Diastolic 74 mm[Hg] Padmini Coe RN [facility] Work Phone: Comment on above: Patient Position: Sitting; Cuff Location : Left Arm; Cuff Size: Standard weight taken with he elizabeth boots on 03-13-2014 08:38-0500 BP Systolic 124 mm[Hg] Padmini Coe RN [facility] Work Phone: Comment on above: Patient Position: Sitting; Cuff Location : Left Arm; Cuff Size: Standard weight taken with he elizabeth boots on 03-13-2014 08:38-0500 BSA (Body Surface Area) 1.67 m2 Padmini Coe RN [facility] Work Phone: Comment on above: weight taken with heavy boots on 03-13-2014 08:38-0500 Height 160.02 cm Padmini Coe RN [facility] Work Phone: Comment on above: weight taken with heavy boots on 03-13-2014 08:38-0500 Pulse (Heart Rate) 86 /min Padmini Coe RN [facility] Work Phone: Comment on above: Pattern: Regular weight taken with he elizabeth boots on 03-13-2014 08:38-0500 Pulse Oximetry 99 % [facility] Work Phone: Comment on above: Room air weight taken with he elizabeth boots on 03-13-2014 08:38-0500 Respiratory Rate 15 /min Padmini Coe RN [facility] Work Phone: Comment on above: Pattern: Unlabored weight taken with he elizabeth boots on 03-13-2014 08:38-0500 SaO2% (BldA) [Mass fraction] 99 % Padmini Coe RN [facility]; [facility] Work Phone: Comment on above: Room air weight taken with he elizabeth boots on 03-13-2014 08:38-0500 Weight 63.96 kg [facility] Work Phone: Comment on above: weight taken with heavy boots on 12-22-2013 10:09-0400 BMI (Body Mass Index) 24.45 kg/m2 JASPAL Gary LPN [facility] Work Phone: 12-22-2013 10:09-0400 Body Temperature 97.8 [degF] JASPAL Gary LPN [facility] Work Phone: Comment on above: Method: Oral 12-22-2013 10:09-0400 Body weight 62.6 kg JASPAL Gary LPN [facility] Work Phone: 12-22-2013 10:09-0400 BP Diastolic 76 mm[Hg] JASPAL Gary LPN [facility] Work Phone: Comment on above: Patient Position: Sitting; Cuff Location : Left Arm; Cuff Size: Standard 12-22-2013 10:09-0400 BP Systolic 118 mm[Hg] JASPAL Gary LPN [facility] [facility] Work Phone: Comment on above: Patient Position: Sitting; Cuff Location : Left Arm; Cuff Size: Standard 12-22-2013 10:09-0400 BSA (Body Surface Area) 1.65 m2 JASPAL Gary LPN [facility] Work Phone: 12-22-2013 10:090400 Height 160.02 cm JASPAL Abdirahman CARPENTER [facility] Work Phone: 12-22-2013 10:09-0400 Pulse (Heart Rate) 70 /min JASPAL Gary JAYDEN [facility] Work Phone: Comment on above: Pattern: Regular 12-22-2013 10:090400 Respiratory Rate 20 /min JASPAL Abdirahman CARPENTER [facility] Work Phone: Comment on above: Pattern: Unlabored 12-22-2013 10:090400 Weight 62.6 kg Julia Brown [facility] Work Phone: 09-20-2012 08:18-0400 BMI (Body Mass Index) 24.34 kg/m2 Padmini Coe RN [facility] Work Phone: 09-20-2012 08:18-0400 Body Temperature 96.9 [degF] Padmini Coe RN [facility] Work Phone: Comment on above: Method: Temporal 09-20-2012 08:18-0400 Body weight 62.32 kg Padmini Coe RN [facility] Work Phone: 09-20-2012 08:18-0400 BP Diastolic 74 mm[Hg] Padmini Coe RN [facility] Work Phone: Comment on above: Patient Position: Sitting; Cuff Location : Left Arm; Cuff Size: Standard 09-20-2012 08:18-0400 BP Systolic 120 mm[Hg] Padmini Coe RN [facility] Work Phone: Comment on above: Patient Position: Sitting; Cuff Location : Left Arm; Cuff Size: Standard 09-20-2012 08:18-0400 BSA (Body Surface Area) 1.65 m2 Padmini Coe RN [facility] Work Phone: 09-20-2012 08:18-0400 Height 160.02 cm Padmini Coe RN [facility] Work Phone: 09-20-2012 08:18-0400 Pulse (Heart Rate) 62 /min Padmini Coe RN [facility] Work Phone: Comment on above: Pattern: Regular 09-20-2012 08:18-0400 Pulse Oximetry 97 % [facility] Work Phone: Comment on above: Room air 09-20-2012 08:18-0400 Respiratory Rate 16 /min Padmini Coe RN [facility] Work Phone: Comment on above: Pattern: Unlabored 09-20-2012 08:18-0400 SaO2% (BldA) [Mass fraction] 97 % Padmini Coe RN [facility]; [facility] Work Phone: Comment on above: Room air 09-20-2012 08:18-0400 Weight 62.32 kg [facility] Work Phone: 07-19-2012 13:28-0400 BMI (Body Mass Index) 24.25 kg/m2 [facility]: 07-19-2012 13:28-0400 Body Temperature 98.8 [degF] [facility] Work Phone: Comment on above: Method: Oral 07-19-2012 13:28-0400 Body weight 62.1 kg [facility] Work Phone: 07-19-2012 13:28-0400 BP Diastolic 76 mm[Hg] [facility] Work Phone: Comment on above: Patient Position: Sitting; Cuff Location : Left Arm; Cuff Size: Standard 07-19-2012 13:28-0400 BP Systolic 128 mm[Hg] [facility] Work Phone: Comment on above: Patient Position: Sitting; Cuff Location : Left Arm; Cuff Size: Standard 07-19-2012 13:28-0400 BSA (Body Surface Area) 1.65 m2 [facility] Work Phone: 07-19-2012 13:28-0400 Height 160.02 cm [facility] Work Phone: 07-19-2012 13:28-0400 Pulse (Heart Rate) 70 /min Julia Brown [facility] Medicine Work Phone: Comment on above: Pattern: Regular 07-19-2012 13:28-0400 Pulse Oximetry 98 % Julia Brown [facility] Medicine Work Phone: Comment on above: Room air 07-19-2012 13:28-0400 Respiratory Rate 20 /min Julia Brown [facility] Work Phone: Comment on above: Pattern: Unlabored 07-19-2012 13:28-0400 SaO2% (BldA) [Mass fraction] 98 % Julia Brown MD Work Phone: [facility]; [facility] Work Phone: Comment on above: Room air 07-19-2012 13:28-0400 Weight 62.1 kg Julia Brown [facility] Work Phone: 06-08-2012 09:11-0500 BMI (Body Mass Index) 24.25 kg/m2 Hilda Boles RN [facility] Work Phone: 06-08-2012 09:11-0500 Body Temperature 98.1 [degF] Hilda Boles RN [facility] Work Phone: Comment on above: Method: Oral 06-08-2012 09:11-0500 Body weight 62.1 kg Hilda Boles RN [facility] Work Phone: 06-08-2012 09:11-0500 BP Diastolic 60 mm[Hg] Hilda Boles RN [facility] Work Phone: Comment on above: Patient Position: Sitting; Cuff Location : Left Arm; Cuff Size: Large 06-08-2012 09:11-0500 BP Systolic 122 mm[Hg] Hilda Boles RN [facility] Work Phone: Comment on above: Patient Position: Sitting; Cuff Location : Left Arm; Cuff Size: Large 06-08-2012 09:11-0500 BSA (Body Surface Area) 1.65 m2 Hilda Boles RN [facility] Work Phone: 06-08-2012 09:11-0500 Height 160.02 cm Hilda Boles RN [facility] Work Phone: 06-08-2012 09:11-0500 Pulse (Heart Rate) 60 /min Hilda Boles RN [facility] Work Phone: Comment on above: Pattern: Regular 06-08-2012 09:11-0500 Respiratory Rate 20 /min Hilda Boles RN [facility] Work Phone: Comment on above: Pattern: Unlabored 06-08-2012 09:11-0500 Weight 62.1 kg Julia Brown [facility] Work Phone: 03-03-2012 08:52-0500 BMI (Body Mass Index) 24.25 kg/m2 Padmini Coe RN [facility] Work Phone: 03-03-2012 08:52-0500 Body Temperature 98 [degF] Padmini Coe RN [facility] Work Phone: Comment on above: Method: Oral 03-03-2012 08:52-0500 Body weight 62.1 kg Padmini Coe RN [facility] Work Phone: 03-03-2012 08:52-0500 BP Diastolic 72 mm[Hg] Padmini Coe RN [facility] Work Phone: Comment on above: Patient Position: Sitting; Cuff Location : Left Arm; Cuff Size: Standard 03-03-2012 08:52-0500 BP Systolic 120 mm[Hg] Padmini Coe RN [facility] Work Phone: Comment on above: Patient Position: Sitting; Cuff Location : Left Arm; Cuff Size: Standard 03-03-2012 08:52-0500 BSA (Body Surface Area) 1.65 m2 Padmini Coe RN [facility] Work Phone: 03-03-2012 08:52-0500 Height 160.02 cm Padmini Coe RN [facility] Work Phone: 03-03-2012 08:52-0500 Pulse (Heart Rate) 70 /min Padmini Coe RN [facility] Work Phone: Comment on above: Pattern: Regular 03-03-2012 08:52-0500 Pulse Oximetry 98 % Julia Rui [facility] Internal Medicine Work Phone: Comment on above: Room air 03-03-2012 08:52-0500 Respiratory Rate 16 /min Padmini Coe RN [facility] Work Phone: Comment on above: Pattern: Unlabored 03-03-2012 08:52-0500 SaO2% (BldA) [Mass fraction] 98 % Padmini Coe RN [facility]; [facility] Work Phone: Comment on above: Room air 03-03-2012 08:52-0500 Weight 62.1 kg Julia Tavarezalissonanderson [facility] Work Phone: 11-26-2011 08:17-0400 BMI (Body Mass Index) 27.28 kg/m2 JASPAL Gary LPN [facility] Medicine Work Phone: 11-26-2011 08:17-0400 Body Temperature 97.8 [degF] JASPAL Gary LPN [facility] Work Phone: Comment on above: Method: Oral 11-26-2011 08:17-0400 Body weight 69.85 kg JASPAL Gary LPN [facility] Medicine Work Phone: 11-26-2011 08:17-0400 BP Diastolic 70 mm[Hg] JASPAL Gary LPN [facility] Work Phone: Comment on above: Patient Position: Sitting; Cuff Location : Left Arm; Cuff Size: Standard 11-26-2011 08:17-0400 BP Systolic 110 mm[Hg] JASPAL Gary LPN [facility] Work Phone: Comment on above: Patient Position: Sitting; Cuff Location : Left Arm; Cuff Size: Standard 11-26-2011 08:17-0400 BSA (Body Surface Area) 1.73 m2 JASPAL Gary LPN [facility] Work Phone: 11-26-2011 08:17-0400 Height 160.02 cm JASPAL Gary LPN [facility] Work Phone: 11-26-2011 08:17-0400 Pulse (Heart Rate) 68 /min JASPAL Gary LPN [facility] Work Phone: Comment on above: Pattern: Regular 11-26-2011 08:17-0400 Respiratory Rate 20 /min JASPAL Gary LPN [facility] Work Phone: Comment on above: Pattern: Unlabored 11-26-2011 08:17-0400 Weight 69.85 kg Julia Brown [facility] Work Phone: 07-14-2010 09:37-0400 BMI (Body Mass Index) 26.75 kg/m2 JASPAL Gary LPN [facility] Work Phone: 07-14-2010 09:37-0400 Body Temperature 98.3 [degF] JASPAL Gary LPN [facility] Work Phone: Comment on above: Method: Oral 07-14-2010 09:37-0400 Body weight 68.49 kg JASPAL Gary LPN [facility] Work Phone: 07-14-2010 09:37-0400 BP Diastolic 70 mm[Hg] JASPAL Gary LPN [facility] Work Phone: Comment on above: Patient Position: Sitting; Cuff Location : Left Arm; Cuff Size: Standard 07-14-2010 09:37-0400 BP Systolic 104 mm[Hg] JASPAL Gary LPN [facility] Work Phone: Comment on above: Patient Position: Sitting; Cuff Location : Left Arm; Cuff Size: Standard 07-14-2010 09:37-0400 BSA (Body Surface Area) 1.72 m2 JASPAL Gary LPN [facility] Work Phone: 07-14-2010 09:37-0400 Height 160.02 cm JASPAL Gary LPN [facility] Work Phone: 07-14-2010 09:37-0400 Pulse (Heart Rate) 70 /min JASPAL Gary LPN [facility] Work Phone: Comment on above: Pattern: Regular 07-14-2010 09:37-0400 Respiratory Rate 18 /min JASPAL Gary LPN [facility] Work Phone: Comment on above: Pattern: Unlabored 07-14-2010 09:37-0400 Weight 68.49 kg Julia Brown [facility] Work Phone: 07-07-2010 10:16-0400 BMI (Body Mass Index) 26.93 kg/m2 JASPAL Gary JAYDEN [facility] Work Phone: 07-07-2010 10:16-0400 Body Temperature 98.2 [degF] JASPAL Gary LPN [facility] Work Phone: Comment on above: Method: Oral 07-07-2010 10:16-0400 Body weight 68.95 kg JASPAL Gary LPN [facility] Work Phone: 07-07-2010 10:16-0400 BP Diastolic 72 mm[Hg] JASPAL Gary JAYDEN [facility] Work Phone: Comment on above: Patient Position: Sitting; Cuff Location : Left Arm; Cuff Size: Standard 07-07-2010 10:16-0400 BP Systolic 104 mm[Hg] JASPAL Gary JAYDEN [facility] Work Phone: Comment on above: Patient Position: Sitting; Cuff Location : Left Arm; Cuff Size: Standard 07-07-2010 10:16-0400 BSA (Body Surface Area) 1.72 m2 JASPAL Gary JAYDEN [facility] Work Phone: 07-07-2010 10:16-0400 Height 160.02 cm JASPAL Gary JAYDEN [facility] Work Phone: 07-07-2010 10:16-0400 Pulse (Heart Rate) 68 /min JASPAL Gary JAYDEN [facility] Work Phone: Comment on above: Pattern: Regular 07-07-2010 10:16-0400 Respiratory Rate 18 /min JASPAL Gary LPN [facility] Work Phone: Comment on above: Pattern: Unlabored 07-07-2010 10:16-0400 Weight 68.95 kg Julia Brown [facility] Work Phone: 05-27-2010 11:55-0500 Body Temperature 98.4 [degF] JASPAL Gary JAYDEN [facility] Work Phone: Comment on above: Method: Oral 05-27-2010 11:55-0500 Body weight 68.95 kg JASPAL Gary JAYDEN [facility] Work Phone: 05-27-2010 11:55-0500 BP Diastolic 68 mm[Hg] JASPAL Gary JAYDEN [facility] Work Phone: Comment on above: Patient Position: Sitting; Cuff Location : Left Arm; Cuff Size: Standard 05-27-2010 11:55-0500 BP Systolic 104 mm[Hg] JASPAL Gary JAYDEN [facility] Work Phone: Comment on above: Patient Position: Sitting; Cuff Location : Left Arm; Cuff Size: Standard 05-27-2010 11:55-0500 Pulse (Heart Rate) 64 /min JASPAL Gary JAYDEN [facility] Work Phone: Comment on above: Pattern: Regular 05-27-2010 11:55-0500 Respiratory Rate 18 /min JASPAL Gary JYADEN [facility] Work Phone: Comment on above: Pattern: Unlabored 05-27-2010 11:55-0500 Weight 68.95 kg Julia Brown [facility] Work Phone: Encounters Encounter Date Encounter Type Care Provider Facility Start: 12-22-2024 End: 12-22-[address] Julia Brown MD Work Phone: -[facility] Start: 12-22-2024 End: 12-22-[address] Julia Brown MD -[facility] Work Phone: Start: 12-22-2024 End: 12-22-2024 ambulatory Julia Brown Facility:[facility] Start: 04-03-2024 Encounter for gynecological examination (general) (routine) without abnormal findings Susie Muir [facility] Start: 04-03-2024 End: 04-03-2024 ambulatory Julia Brown Facility:[facility] Start: 04-03-2024 End: 04-03-2024 ambulatory Julia Brown Facility:[facility] Start: 02-16-2024 End: 02-16-2024 ambulatory Sebastian Chin Facility:[facility] Start: 10-29-2023 End: 10-29-2023 ambulatory JULIA BROWN Facility:[facility] Start: 10-29-2023 End: 10-29-2023 Patient encounter procedure 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 Julia Brown Work Phone: [facility]-Emergency Department Work Phone: Start: 03-12-2023 End: 03-12-[address] Julia Brown Work Phone: [facility] Work Phone: Start: 03-12-2023 End: 03-12-[address] Julia Brown Work Phone: [facility]-Laboratory, Specimen Work Phone: Start: 03-12-2023 End: 03-12-[address] Julia Brown Work Phone: [facility] Work Phone: Start: 03-12-2023 End: 03-12-[address] Julia Brown Work Phone: [facility] Work Phone: Start: 11-26-2022 Non-patient / Non-visit Dr. Rodgers Work Phone: [facility] Start: 11-26-2022 End: 11-26-[address] Julia Brown Work Phone: [facility] Work Phone: Start: 11-26-2022 End: 11-26-[address] Julia Brown Work Phone: [facility]-Cardiovascula r Services Work Phone: Start: 10-26-2022 End: 10-26-2022 Patient encounter procedure Julia Brown MD Work Phone: [facility] Start: 10-26-2022 End: 10-26-2022 Patient encounter status Julia Brown MD Work Phone: [facility] Start: 10-26-2022 Review Julia Coon Work Phone: [facility] Start: 09-14-2022 End: 09-14-2022 Historical Summary Julia Brown MD Work Phone: [facility] Start: 09-02-2022 ambulatory Julia Brown MD [facility] Start: 07-02-2022 End: 07-02-2022 Historical Summary Julia Brown MD Work Phone: [facility] Start: 06-18-2022 End: 06-18-2022 Office outpatient visit 15 minutes Julia Brown MD Work Phone: [facility] Start: 04-16-2022 Review Julia Coon Work Phone: [facility] Start: 02-23-2022 End: 02-23-2022 ambulatory [facility] Work Phone: Start: 02-23-2022 End: 02-23-2022 Patient encounter procedure [facility]-Outpatient Breast Imaging Start: 01-23-2022 End: 01-23-2022 Annotation/Addendum Julia Brown MD Work Phone: [facility] Start: 11-24-2021 End: 11-24-2021 Annotation/Addendum Julia Brown MD Work Phone: [facility] Start: 09-05-2021 End: 09-05-2021 Patient encounter procedure [facility]-MRI - [facility] Start: 09-04-2021 End: 09-04-2021 Phone Encounter Julia Brown MD Work Phone: [facility] Start: 09-03-2021 End: 09-03-2021 Patient encounter procedure [facility]-Cat Scan, [facility] Start: 09-03-2021 Review Julia Coon Work Phone: [facility] Start: 09-03-2021 End: 09-03-2021 Office outpatient visit 15 minutes Julia Brown MD Work Phone: [facility] Start: 09-02-2021 End: 09-02-2021 Patient encounter procedure [facility]-Ultrasound, [facility] Start: 08-25-2021 End: 08-26-2021 Patient encounter status JASPAL Gary LPN [facility]; [facility] Work Phone: Comment on above: 08-25-21 REGINALDO sanchez s: Dr. Muir pap 2018, exam 02-13, mammogram 02-13-21, needs BD, Hep C screening negative, MOCA 30/30 [id number] (was 86), eye exam yearly Dr. Ennis, colonoscopy 1-17 and good, has bilateral hearing aides, sees ENT, tetanus up to date had Covid vaccine, had first Shingrix 08-15 Start: 08-25-2021 End: 08-26-2021 Periodic preventive med est patient 40-64yrs Julia Brown MD Work Phone: [facility] Start: 08-19-2021 End: 08-19-2021 Phone Encounter Julia Brown MD Work Phone: [facility] Start: 08-01-2021 End: 08-01-2021 Lab Order Julia Brown MD Work Phone: [facility] Start: 06-16-2021 End: 06-24-2021 Office outpatient visit 10 minutes Julia Brown MD Work Phone: [facility] Start: 05-09-2021 End: 05-09-2021 Periodic preventive med est patient 18-39 yrs Julia Brown MD Work Phone: [facility] Start: 05-08-2021 End: 05-26-2021 Office outpatient visit 40 minutes Julia Brown MD Work Phone: [facility] Start: 05-08-2021 Review Julia Coon Work Phone: [facility] Start: 03-17-2021 End: 03-17-2021 Phone Encounter Julia Brown MD Work Phone: [facility] Start: 08-22-2020 End: 08-22-2020 Patient encounter status Julia Brown MD Work Phone: [facility]; [facility] Work Phone: Comment on above: [employer]: 07-17 via virtual visit d/t covid-19: Dr. Muir , mammogram 02-12 MOCA , cognivue 86, eye exam yearly Dr. Ennis, colonscopy 05-12 and good, has bilateral hearing aides, sees ENT Hep C good Start: 08-22-2020 End: 08-22-2020 Periodic preventive med est patient 18-39 yrs Julia Brown MD Work Phone: [facility] Start: 06-12-2020 End: 06-12-2020 Lab Order Julia Brown [facility] Start: 03-19-2020 End: 03-19-2020 Office outpatient visit 25 minutes Julia Brown [facility] Start: 02-02-2020 End: 02-02-2020 Office outpatient visit 15 minutes Julia Brown [facility] Start: 07-18-2019 End: 07-25-2019 Office outpatient visit 15 minutes Julia Brown [facility] Start: 07-18-2019 End: 07-25-2019 Patient encounter status Julia Brown MD Work Phone: [facility] Start: 07-14-2019 End: 09-22-2019 Office outpatient visit 25 minutes Julia Brown [facility] Start: 09-20-2018 End: 09-20-2018 Phone Encounter Julia Brown [facility] Start: 09-07-2018 End: 09-12-2018 Office outpatient visit 25 minutes Julia Brown [facility] Start: 07-15-2018 End: 07-15-2018 Office outpatient visit 10 minutes Julia Brown [facility] Start: 07-15-2018 End: 07-15-2018 Patient encounter status Julia Brown MD Work Phone: [facility] Start: 07-15-2018 Review [facility] Start: 06-20-2018 End: 06-20-2018 Phone Encounter Julia Brown [facility] Start: 05-16-2018 End: 05-16-2018 Lab Order Julia Brown [facility] Start: 02-08-2018 End: 02-08-2018 Phone Encounter Julia Brown [facility] Start: 02-01-2018 End: 02-01-2018 Office outpatient visit 25 minutes Julia Brown [facility] Start: 09-16-2017 End: 09-16-2017 Office outpatient visit 15 minutes Julia Brown [facility] Start: 08-09-2017 End: 08-09-2017 Office outpatient visit 25 minutes Julia Brown [facility] Start: 05-18-2017 End: 05-20-2017 Office outpatient visit 25 minutes Julia Brown [facility] Start: 05-18-2017 End: 05-20-2017 Patient encounter procedure Julia Brown MD Work Phone: [facility] Start: 05-18-2017 End: 05-20-2017 Patient encounter status Julia Brown MD Work Phone: [facility] Start: 03-31-2017 End: 03-31-2017 Phone Encounter Julia Brown [facility] Start: 03-29-2017 End: 03-30-2017 Office outpatient visit 40 minutes Julia Brown [facility] Start: 03-24-2017 End: 03-25-2017 Periodic preventive med est patient 65yrs& older Julia Velasco [facility] Start: 03-22-2017 End: 03-22-2017 Office outpatient visit 40 minutes Julia Brown [facility] Start: 02-26-2017 End: 02-26-2017 Lab Order Julia Brown [facility] Start: 11-03-2016 End: 11-03-2016 Office outpatient visit 15 minutes Julia Brown [facility] Start: 11-03-2016 End: 11-03-2016 Patient encounter procedure Julia Brown MD Work Phone: [facility] Start: 10-30-2016 End: 10-30-2016 Lab Order Julia Brown [facility] Start: 07-20-2016 End: 07-21-2016 Periodic preventive med est patient 18-39 yrs Julia Brown [facility] Start: 05-18-2016 End: 05-18-2016 Patient encounter procedure Julia Brown MD Work Phone: [facility] Start: 05-18-2016 End: 05-18-2016 Periodic preventive med est patient 65yrs& older Julia Brown [facility] Start: 04-24-2016 End: 04-30-2016 Office outpatient visit 10 minutes Julia Brown [facility] Start: 04-24-2016 End: 04-30-2016 Patient encounter procedure Julia Brown MD Work Phone: [facility] Start: 04-10-2016 End: 04-10-2016 Lab Order Julia Brown [facility] Start: 03-06-2016 End: 03-06-2016 Periodic preventive med est patient 40-64yrs Julia Brown [facility] Start: 11-01-2014 End: 11-01-2014 Office outpatient visit 15 minutes Julia Brown [facility] Start: 03-13-2014 End: 03-13-2014 Office outpatient visit 25 minutes Julia Brown [facility] Start: 12-22-2013 End: 12-22-2013 Office outpatient visit 15 minutes Julia Brown [facility] Start: 12-04-2013 End: 12-04-2013 Lab Order Julia Brown [facility] Start: 09-20-2012 End: 09-20-2012 Patient encounter procedure Julia Brown [facility] Start: 07-19-2012 End: 07-19-2012 Historical Summary Julia Brown [facility] Start: 07-19-2012 End: 07-19-2012 Office outpatient visit 25 minutes Julia Brown [facility] Start: 06-08-2012 End: 06-08-2012 Patient encounter procedure Julia Brown [facility] Start: 03-04-2012 End: 03-04-2012 Phone Encounter Julia Brown [facility] Start: 03-03-2012 End: 03-03-2012 Patient encounter procedure Julia Brown [facility] Start: 11-26-2011 End: 11-26-2011 Patient encounter procedure Julia Brown [facility] Start: 11-10-2011 End: 11-10-2011 Annotation/Addendum Julia Brown [facility] Start: 07-14-2010 End: 07-14-2010 Patient encounter procedure Julia Brown [facility] Start: 07-07-2010 End: 07-07-2010 Patient encounter procedure Julia Brown [facility] Start: 05-27-2010 End: 05-27-2010 Patient encounter procedure Julia Brown [facility] Patient encounter procedure [facility] [place] [facility] [facility]; [facility] Work Phone: Comment on above: 04-24-16 [facility] pap [facility]-16 [place], mammogram ,MOCA=29/30, Burn's scale=18 (mild depression). colonscopy 1-17 good. Patient encounter procedure JASPAL Gary LPN [facility]; [facility] Work Phone: Comment on above: 04-24-16 [facility] pap 11-16 [place], mammogram ,MOCA=29/30, Burn's scale=18 (mild depression). colonscopy 1-17 good. End: 08-19-2021 Patient encounter procedure JASPAL Gary LPN [facility]; [facility] Work Phone: Comment on above: 04-24-16 [facility] ess physical: pap 11-16 Macanthony, mammogram ,MOCA=29/30, Burn's scale=18 (mild depression). colonscopy 1-17 good. Patient encounter status JASPAL ESCOBEDO [facility]; [facility] Work Phone: Comment on above: [facility] wellness: 07-17 via virtual visit d/t covid-19: Dr. Muir , mammogram 10- MOCA 26/30, cognivue 86, eye exam yearly Dr. Ennis, colonscopy 05-12 and good, has bilateral hearing aides, sees ENT Hep C good Patient encounter status Julia Brown MD Work Phone: [facility]; [facility] Work Phone: Comment on above: 08-25-21 [facility] [place] s: Dr. Muir pap 2018, exam 10-, mammogram 02-13-21, needs BD, Hep C screening negative, MOCA 30/30 [id number] (was 86), eye exam yearly Dr. Ennis, colonoscopy 05-12 and good, has bilateral hearing aides, sees ENT, tetanus up to date had Covid vaccine, had first Shingrix -22 Patient encounter status Julia Brown MD Work Phone: [facility]; [facility] Work Phone: Comment on above: 08-25-21 [facility] [place] s: Dr. Muir pap 2018, exam 10-, mammogram 02-13-, needs BD, Hep C screening negative, MOCA 30/30 [id number] (was 86), eye exam yearly Dr. Ennis, colonoscopy 05-12 and good, has bilateral hearing aides, sees ENT, tetanus up to date had Covid vaccine, had first Shingrix 4-22 11-15 [facility] wellness: Dr. Muir pap 2019, exam 10-, mammogram 11- due, needs BD, Hep C screening negative, MOCA 30/30 (was 86), eye exam yearly Dr. Ennis, colonoscopy 1-17 and good, has bilateral hearing aides, sees ENT, tetanus up to date had Covid vaccine, had first Shingrix 4-22 Procedures Date Procedure Procedure Detail Performing Clinician Start: 04-11-2023 Plain chest X-ray Dr. Julia Brown Work Phone: Start: 03-12-[address] Julia Brown Work Phone: Start: 11-26-2022 End: 11-26-2022 Echo Complete Procedure Note: See Note; NOTES: [facility] [place] [address] Echo Complete 11/26/22 1015 MR#: [id number] Acct: [id number] Name: SARAH LEARY Rep #: [id number] : 1960 62 From: Sebastian Chin MD Attending Dr: Dr. Julia Brown MD Status: REG CLI Ordering Dr: Julia Brown MD Date: 11/26/22 Location: [facility] Sex: F C Admitted: Reason For Study: Murmur Procedure This was a 2D Doppler, Color Flow transthoracic echocardiogram. Exam performed in department. Left Ventricle Normal LV size. Left ventricular systolic function is normal. The estimated ejection fraction is 55 %. No regional wall motion abnormalities noted. Right Ventricle Normal RV size. Normal systolic function. Atria Normal left atrium. Normal right atrium. Mitral Valve Bileaflet diffuse mitral valve thickening. Mild (1+) eccentric mitral valve insufficiency. Tricuspid Valve Normal tricuspid valve. Mild tricuspid valve insufficiency. Pulmonary artery systolic pressure is 20 mmHg. Aortic Valve Trisinus/trileaflet aortic valve. Trivial aortic valve insufficiency. Pulmonic Valve Normal pulmonic valve. Great Vessels Normal aortic root. The pulmonary artery is normal size. Normal inferior vena cava. Pericardium/Pleural No pericardial effusion. MMode/2D Measurements Calculations LVIDd: 4.7 cm IVSd: 0.89 cm Ao root diam: 3.0 cm LVIDs: 3.0 cm LVPWd: 0.94 cm LA dimension: 3.5 cm RVDd: 3.6 cm FS: 36.0 % LAV(MOD-bp): 45.9 ml LVAd ap4: 26.6 cm2 SV(MOD-sp4): 51.4 ml LAV(MOD-bp) Indexed: 26.6 ml/m2 LVLd ap4: 7.6 cm LAV(MOD-sp2): 49.7 ml EDV(MOD-sp4): 76.7 ml LAV(MOD-sp4): 41.3 ml EDV(sp4-el): 78.9 ml LVAs ap4: 13.9 cm2 LVLs ap4: 6.4 cm ESV(MOD-sp4): 25.3 ml ESV(sp4-el): 25.6 ml EF(MOD-sp4): 67.0 % EF(sp4-el): 67.5 % SV(sp4-el): 53.3 ml LA A4 area: 16.3 cm2 RA A4 area: 13.9 cm2 Time Measurements MV dec time: 0.25 sec Doppler Measurements Calculations MV E max aayush: 80.8 cm/sec Lat Peak E' Aayush: 11.4 cm/sec Med Peak E' Aayush: 11.5 cm/sec MV A max aayush: 77.8 cm/sec E/E' lat: 7.1 E/E' med: 7.0 MV E/A: 1.0 MV V2 max: 97.9 cm/sec MV P1/2t max aayush: 96.9 cm/sec Ao V2 max: 152.8 cm/sec MV max P.8 mmHg MV P1/2t: 95.0 msec Ao max P.3 mmHg MV V2 mean: 59.3 cm/sec Ao V2 mean: 98.9 cm/sec MV mean P.7 mmHg MV dec slope: 298.9 cm/sec2 Ao mean P.6 mmHg MV V2 VTI: 40.4 cm MVA(P1/2t): 2.3 cm2 Ao V2 VTI: 33.3 cm AV (velocity ratio): 0.73 AI max aayush: 364.7 cm/sec LV V1 max: 106.2 cm/sec MR max aayush: 444.6 cm/sec AI max P.4 mmHg LV V1 max P.5 mmHg MR max P.1 mmHg AI dec slope: 116.1 cm/sec2 LV V1 mean P.6 mmHg AI P1/2t: 919.7 msec LV V1 mean: 75.7 cm/sec LV V1 VTI: 24.5 cm PA V2 max: 86.2 cm/sec PI dec slope: 197.3 cm/sec2 TR max aayush: 203.9 cm/sec PA V2 mean: 61.9 cm/sec TR max P.6 mmHg ECHO/Echo Complete Interpretation Summary Normal LV size. Left ventricular systolic function is normal. The estimated ejection fraction is 55 %. Pulmonary artery systolic pressure is 20 mmHg. Ordering Physician: Julia Brown Referring Physician: Julia Brown Performed By: Richard Benites RCS 11/26/22 1247 Date Sebastian Chin MD CC: Dr. Julia Brown MD Date Dictated: 11/26/22 1015 Date Transcribed: 11/26/22 124 Assistant In Nursing: Signed Julia Brown MD Work Phone: Start: 03-09-2022 End: 03-09-2022 Extension Edger Office Visit Report Procedure Note: See Note; NOTES: [facility] [address] [place] [address] OFFICE VISIT Date of Service: 03/09/22 MR#: [id number] Acct: [id number] Name: SARAH LEARY Rep #: [id number] : 1960 Provider: OTTONIEL dahl Age/Sex: 61/F [place] [facility] Status: Signed Intake Vital Signs 02/13/21 11:48 03/09/22 08:38 03/09/22 08:46 Height 5 ft 4 in 5 ft 4 in 5 ft 4 in Weight: 144 lb 8 oz BMI 24.7 BP 136/72 H Intake Visit Reasons: Annual (ETL LEAD) Chief Complaint: Annual Metal [employer] Required: No Is patient in pain?: No Allergies Sulfa (Sulfonamide Antibiotics) Allergy (Verified 03/09/22 08:37) Hives Medications citalopram 20 mg tablet 20 mg PO QDAY #90 tabs 09/13/17 [Rx Confirmed 03/09/22] hydroxychloroquine 200 mg tablet 200 mg PO DAILY 11/21/17 [History Confirmed 03/09/22] simvastatin 10 mg tablet 10 mg PO QHS 11/21/17 [History Confirmed 03/09/22] ospemifene 60 mg tablet (Osphena) See Rx Instructions .Route .COMPLEX #30 tabs 04/14/21 [Rx Confirmed 03/09/22] vit B complex-methyltetrahydrofol ate glucosamine 400 mcg DFE capsule cap PO 03/09/22 [History Confirmed 03/09/22] vitamin D3 1,250 mcg (50,000 unit)-vitamin K2 200 mcg capsule cap PO 03/09/22 [History Confirmed 03/09/22] Is last menstrual period known: No Post menopausal: Yes Patient : No : No PFSH Medical History Anxiety Arthritis History of abnormal cervical Pap smear Hyperlipidemia Sjogrens syndrome Surgical History History of carpal tunnel surgery History of endometrial ablation Hx of foot surgery Family History Sister Brain tumor Social History Smoking Status: Never smoker alcohol intake: never substance use type: does not use caffeine: Yes what type of physical activity do you participate in: none seatbelt use: always do you feel safe at home: Yes additional social history: Mary- History 2 Elective abortions Hx Para 2 Spontaneous abortions Hx # Term Pregnancies Ectopic pregnancies Hx # Pregnancies Multiple births # of living children Past Pregnancies Del. Date Name GA/Weeks Outcome Route Bth Weight Gen Labor Lgth Anesthesia Del Locatn Provider FOB Unknown 1986 Kamran Unknown 1989 Rosario HPI Encounter for routine gynecological examination Details: SARAH LEARY is a 61 year old who presents for annual exam. Denies concerns. Needs refill on osphena. Last PAP: 2019 History of abnormal PAP: no Last mammogram: 01/2022 History of abnormal mammogram: no Colon cancer screening: < 10 yr Christiano Other preventative health care screenings: Rui Female Reproductive History Questions: metorrhagia: No, sexually active: Yes, dyspareunia: No (resolved with osphena) and PCB: No Menopausal Symptoms: No hot flashes, No night sweats, No weight change, No mood changes, No difficulty concentrating, No sleep problems and No change in libido Menopausal Treatment: Yes Osphena ROS Const Constitutional: Denies night sweats Cardio Card: Denies chest pain Resp Resp: Denies cough or dyspnea on exertion GI GI: Denies abdominal pain, bloating, change in stool character, constipation or vomiting : Denies hot flashes Psych Psych: Denies change in libido or difficulty concentrating Exam Const General: cooperative, healthy appearing, no acute distress and well developed Orientation: alert, oriented to person and oriented to place [facility] Head: normal to inspection Neck Neck: normal visual inspection Thyroid: thyroid normal Lymphatic: no lymphadenopathy noted Chest Breast inspection: normal inspection of the breasts and normal inspection of the axillae Breast palpation: normal palpation of the breasts, normal palpation of the axillae and no axillary lymphadenopathy Resp Effort Inspection: normal respiratory effort GI Palpation: soft, no masses and nontender Rectal Exam: deferred External Female Exam: normal external appearance and normal appearance of the urethra Urethra: normal appearance of the urethra and normal palpation Speculum Exam - Vagina: normal appearance of the vagina and normal vaginal discharge Speculum Exam - Cervix: normal appearance of the cervix Bimanual Exam- Vagina Uterus: normal bimanual exam, uterine size normal, uterine shape normal and non-tender Bimanual Exam- Adnexa, other: normal adnexae, no masses, normal and non-tender Pelvic Support: normal Neuro General: patient alert and patient oriented x3 Psych Affect: normal affect Coding Level of Care Code Off vis,est,prev 40-64yrs Diagnoses Encounter for routine gynecological examination Z01.419 Gynecological examination findings: abnormal findings ABSENT Assessment and Plan Assessment and Plan (1) Encounter for routine gynecological examination: Qualifiers: Gynecological examination findings: abnormal findings ABSENT Qualified Code(s): Z01.419 - Encounter for gynecological examination (general) (routine) without abnormal findings Plan Completed breast and pelvic exam Reviewed diet and exercise Pap 2019 Mammogram recent breast self exam encouraged monthly Refill osphena Colonoscopy up to date Bone density with PCP RTO 1 year, prn with problems Marisela Fierro CNP 03/09/22 0912 <Electronically signed by Marisela Fierro NP MUSICAL INSTRUMENT MAKER OR REPAIRER-C> Date Marisela Fierro NP MUSICAL INSTRUMENT MAKER OR REPAIRER-C Cosigner Signature: Date (if applicable) CC: Julia Brown MD Work Phone: Start: 02-23-2022 Screening mammography Start: 02-23-2022 End: 02-23-2022 SCRN MAMM (CAD)W/KATIE BILAT Procedure Note: See Note; NOTES: [facility] [place] Imaging Services [address] [place] [address] SCRN MAMM (CAD)W/KATIE BILAT MR#: [id number] Acct: [id number] Name: SARAH LEARY Rep #: [id number] : 1960 F 61 From: Pancho norton MD PCP: Dr. Juila Brown MD Status: [facility] Study: SCRN MAMM (CAD)W/KATIE BILAT Date of Exam: 01/26 05/17 Exam# [id number] Ordering Dr: Julia Brown MD MAMMOGRAPHY - BILATERAL SCREENING REASON FOR EXAM: Female, 61 years old. Routine annual screening examination. PERTINENT HISTORY: Non-contributory. TECHNIQUE: Digital bilateral breast katie (3D mammographic acquisition) in the CC and MLO projections. 2-D mediolateral oblique (MLO) and craniocaudad (CC) views of both breasts were obtained. CAD: Full Field Digital Mammography with Computer Added Detection was performed. COMPARISON: Comparison is made with prior study 02/13/2021 and 02/07/2020. FINDINGS: Breast Composition: There are scattered areas of fibroglandular density. There are no dominant masses or suspicious calcifications. No other significant abnormalities are identified. There has been no significant change since the prior study. BI/SCRN MAMM (CAD)W/KATIE BILAT IMPRESSION: Stable bilateral screening mammogram. Yearly follow-up mammogram recommended. (A) ASSESSMENT CATEGORY: BIRADS Category 1: Negative. A letter regarding these results will be sent to the patient by the facility within 30 days. Approximately 10% of breast cancers are not detected by mammography. A normal mammogram should not delay biopsy of a clinically suspicious abnormality. [id number] Electronically Signed: Pancho Lopez MD at 12:07 EDT , CC: Dr. Julia Brown MD Assistant In Nursing: Signed Julia Brown MD Work Phone: Start: 09-05-2021 End: 09-05-2021 Abdomen without Contrast Comments: See Note; NOTES: [facility] [place] Imaging Services [address] [place] [address] Abdomen without Contrast MR#: [id number] Acct: [id number] Name: SARAH LEARY Rep #: [id number] : 1960 F 61 From: Shay Arreola MD PCP: Dr. Julia Brown MD Status: REG CLI Study: Abdomen without Contrast Date of Exam: 2 Exam# [id number] Ordering Dr: Julia Brown MD EXAM: MR ABDOMEN WITHOUT INTRAVENOUS CONTRAST, MRCP PROTOCOL CLINICAL INDICATION: ABN CT TECHNIQUE: Multiplanar and multisequence MR images of the abdomen without intravenous contrast obtained with MRCP sequence. Three-dimensional post-processing reconstructions were performed. This report was created using [employer] report generation technology. COMPARISON: CT abdomen 09/03/2021 FINDINGS: LOWER THORAX: Unremarkable. No pleural effusion. LIVER: Several small cystic lesions are identified within the liver. GALLBLADDER AND BILE DUCTS: Common bile duct measures 11 mm in maximum diameter without evidence of an obstructing stone or mass. No gallbladder distention or wall edema. PANCREAS: No mass noted within the head of the pancreas. 6 mm cyst noted along the body of the pancreas as well as 3 mm cyst involving the tail of the pancreas. Pancreatic duct is normal. SPLEEN: Unremarkable. Non-enlarged. ADRENALS: Unremarkable. No nodules. KIDNEYS AND URETERS: Unremarkable. Normal renal size and position. No hydronephrosis. INTRAPERITONEAL SPACE: Unremarkable. No ascites or other fluid collection. VASCULATURE: Unremarkable. Abdominal aorta is non-dilated. LYMPH NODES: No enlarged lymph nodes. MRI/Abdomen without Contrast IMPRESSION: 1. No evidence of solid pancreatic mass. 2. Simple appearing cystic lesions within the liver and pancreas. 3. Distended common bile duct without evidence of an obstructing stone or mass. Electronically Signed: Shay Arreola MD at 11:13 EDT , CC: Dr. Julia Brown MD Assistant In Nursing: Signed Julia Brown MD Work Phone: Start: 09-05-2021 MRI of abdomen without contrast Start: 09-03-2021 End: 09-03-2021 Abdomen WITH IV Contrast Comments: See Note; NOTES: [facility] [place] Imaging Services [address] [place] [address] Abdomen WITH IV Contrast MR#: [id number] Acct: [id number] Name: SARAH LEARY Rep #: [id number] : 1960 F 61 From: Pancho norton MD PCP: Dr. Julia Brown MD Status: REG CLI Study: Abdomen WITH IV Contrast Date of Exam: 2 Exam# [id number] Ordering Dr: Julia Brown MD STUDY: CT ABDOMEN WITH CONTRAST REASON FOR EXAM: Female, 61 years old. PANCREATIC CYST/PSEUDOCYST -- DO PANCREASE PROTOCOL AND LOOK AT COMMON BILE DUCT RADIATION DOSAGE (If Supplied By Facility): CTDIvol = ( 8.60 ) mGy, DLP = ( 651.15 ) mGycm TECHNIQUE: Transaxial images were obtained post I.V. administration of IV 100mL Isovue-300, and without oral contrast. Sagittal and coronal images were reconstructed. Individualized dose optimization techniques were used for this CT. COMPARISON: Comparison is made with prior sonogram of the right upper quadrant dated 09/02/2021. FINDINGS: The visualized lung bases are unremarkable. The visualized portions of the heart are within normal limits. 2 small cysts are seen in the medial aspect of the right lobe of liver. The largest cyst measures 1.5 cm. And one some mucous cyst is also seen in the left lobe the common bile duct measures 1.6 cm in transverse dimension. Mildly prominent pancreatic duct. There is enlargement of the head of the pancreas measuring 2.6 cm x 3.1 cm. An 8mm cyst is seen in the tail of the pancreas. Normal spleen. Normal bilateral adrenal glands. Normal right kidney. Normal left kidney. Normal visualized stomach. Normal small intestine. Normal colon. The appendix is visualized and appears normal. There is scattered atherosclerotic calcification of the abdominal aorta, without a demonstrated aneurysm. Normal inferior vena cava. Normal retroperitoneum. Normal abdominal wall. There are degenerative changes of the visualized lumbar spine. CT/Abdomen WITH IV Contrast IMPRESSION: Small hepatic cysts. Mildly dilated common bile duct. Slight prominence of the head of the pancreas. 8 mm cyst in the tail of the pancreas. Correlation with MRCP recommended. Electronically Signed: Pancho Lopez MD at 14:25 EDT Reading Location ID and State: [address] [place] [address] , Service support , CC: Dr. Julia Brown MD Assistant In Nursing: Signed Julia Brown MD Work Phone: Start: 09-03-2021 CT of abdomen with contrast Start: 09-02-2021 End: 09-03-2021 Abdomen Limited Comments: See Note; NOTES: [facility] [place] Imaging Services [address] [place] [address] Abdomen Limited MR#: [id number] Acct: [id number] Name: SARAH LEARY Rep #: [id number] : 1960 F 61 From: María Brown MD PCP: Dr. Julia Brown MD Status: REG CLI Study: Abdomen Limited Date of Exam: 09/02/21 Exam# [id number] Ordering Dr: Julia Brown MD EXAM: US ABDOMEN LIMITED, RIGHT UPPER QUADRANT CLINICAL INDICATION: POSTPRANDIAL RUQ PAIN TECHNIQUE: Real-time ultrasound of the right upper quadrant with image documentation. This report was created using [employer] report generation technology. COMPARISON: None. FINDINGS: LIVER: 1.1 cm x 0.8 cm x 1 cm simple-appearing cyst in the left lobe of the liver. Also 1.5 cm x 1.2 cm x 1.4 cm right lobe hepatic cyst. Small hyperechoic focus in the right lobe of the liver measuring 8.3 mm maximum diameter may be small focus of focal fat or hemangioma, most likely benign and incidental. The liver is 13.7 cm in length, normal size. No intrahepatic biliary ductal dilation. GALLBLADDER: Normal gallbladder, only mildly distended with fold. Normal 2 mm wall.. No shadowing gallstone. No pericholecystic fluid. Negative sonographic Bob''s sign. COMMON BILE DUCT: Common duct 1.1 cm, mildly dilated, uncertain chronicity. PANCREAS: Tiny 7 mm x 6 mm x 7 mm cystic structure in the tail of the pancreas. Otherwise unremarkable pancreas. No pancreatic ductal dilatation. RIGHT KIDNEY: Right kidney 10.2 cm x 3.5 cm x 5.1 cm. There is no hydronephrosis. No shadowing calculus. No focal lesion or perinephric collection is demonstrated. US/Abdomen Limited IMPRESSION: 1. Normal gallbladder. 2. Mildly dilated common duct, please correlate with bilirubin. 3. CT could be considered if there is clinical suspicion for choledocholithiasis or duct stricture or obstructing mass. The proximal pancreas is not optimally seen. 4. Small hepatic cysts and tiny subcentimeter indeterminate cystic lesion in the tail of the pancreas. Since the pancreatic lesion is not clearly incidental and due to the patient''s age, CT or MRI with pancreas protocol is recommended. Electronically Signed: María Brown MD at 6:05 EDT , CC: Dr. 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 Julia Brown MD Status: REG [facility] Study: SCRN MAMM (CAD)W/KATIE BILAT Date of Exam: 01/25 05/16 Exam# [id number] Ordering Dr: Susie Muir MAMMOGRAPHY - BILATERAL SCREENING REASON FOR EXAM: Female, 60 years old. Routine annual screening examination. PERTINENT HISTORY: Non-contributory. TECHNIQUE: Digital bilateral breast katie (3D mammographic acquisition) in the CC and MLO projections. 2-D mediolateral oblique (MLO) and craniocaudad (CC) views of both breasts were obtained. CAD: Full Field Digital Mammography with Computer Added Detection was performed. COMPARISON: Comparison is made with prior study dated 02/07/2020 and 06/22/2018. FINDINGS: Breast Composition: There are scattered areas of fibroglandular density. There are no dominant masses or suspicious calcifications. Stable small benign-appearing bilateral axillary lymph nodes. No other significant abnormalities are identified. There has been no significant change since the prior study. BI/SCRN MAMM (CAD)W/KATIE BILAT IMPRESSION: Stable bilateral screening mammogram. Yearly follow-up mammogram recommended. (A) ASSESSMENT CATEGORY: BIRADS Category 2: Benign. A letter regarding these results will be sent to the patient by the facility within 30 days. Approximately 10% of breast cancers are not detected by mammography. A normal mammogram should not delay biopsy of a clinically suspicious abnormality. [id number] Electronically Signed: Pancho Lopez MD at 14:14 EDT , Service support , CC: Dr. Julia Brown MD; Dr. Susie Muir MD Assistant In Nursing: Signed Julia Brown MD Work Phone: Start: 02-13-2021 End: 02-19-2021 Extension Edger Office Visit Report Comments: See Note; NOTES: [facility] [address] [place], [place] [address] OFFICE VISIT Date of Service: 02/13/21 MR#: [id number] Acct: [id number] Name: SARAH LEARY Rep #: [id number] : 1960 Provider: Dr. 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 Is patient in pain?: No Allergies Sulfa (Sulfonamide Antibiotics) Allergy (Verified 02/13/21 11:48) Hives Medications citalopram 20 mg tablet 20 mg PO QDAY #90 tab 09/13/17 [Rx Confirmed 02/13/21] hydroxychloroquine 200 mg PO DAILY 11/21/17 [History Confirmed 02/13/21] simvastatin 10 mg PO QHS 11/21/17 [History Confirmed 02/13/21] cholecalciferol (vitamin D3) 1,250 mcg (50,000 unit) tablet 1,250 mcg PO QWEEK 02/07/20 [History Confirmed 02/13/21] ospemifene 60 mg tablet 60 mg PO DAILY #30 tab 02/07/20 [Rx Confirmed 02/13/21] Is last menstrual period known: No Patient : No : No PFSH Medical History Anxiety Arthritis History of abnormal cervical Pap smear Hyperlipidemia Sjogrens syndrome Surgical History History of carpal tunnel surgery History of endometrial ablation Hx of foot surgery Family History Sister Brain tumor Social History (Updated 02/13/21 @ 11:57 by Malika Monk) Smoking Status: Never smoker alcohol intake: never substance use type: does not use caffeine: Yes what type of physical activity do you participate in: none seatbelt use: always do you feel safe at home: Yes additional social history: Mary- Pregancy History 2 Elective abortions Hx Para 2 Spontaneous abortions Hx # Term Pregnancies Ectopic pregnancies Hx # Pregnancies Multiple births # of living children Past Pregnancies Del. Date Name GA/Weeks Outcome Route Bth Weight Infant Gen Labor Lgth Anesthesia Del Locatn Provider FOB Unknown 1986 Kamran Unknown 1989 Rosario [facility] Encounter for routine gynecological examination: Details: SARAH LEARY is a 60 year old who presents for annual exam. mary has been sick recently Last PAP: 2019 nl History of abnormal PAP: no Last mammogram: u pto date History of abnormal mammogram: no Colon cancer screening: u pto date Other preventative health care screenings: rui Details: SARAH LEARY is a 60 year old who presents for annual exam. Last PAP: [] History of abnormal PAP: [] Last mammogram: [] History of abnormal mammogram: [] Colon cancer screening: [] Other preventative health care screenings: [] Female Reproductive History Questions: metorrhagia: No, sexually active: Yes, dyspareunia: No and PCB: No Menopausal Symptoms: No hot flashes, No night sweats, No weight change, No mood changes, No difficulty concentrating, No sleep problems and No change in libido ROS Const Constitutional: Reports as per HPI; Denies fatigue, increased appetite, poor appetite, night sweats, weight gain or weight loss Cardio Card: Denies chest pain Resp Resp: Denies cough or dyspnea GI GI: Reports as per HPI; Denies abdominal pain, bloating, constipation, nausea or vomiting : Reports as per HPI and other; Denies difficulty voiding, dysuria, hematuria, hot flashes, nipple discharge, pelvic pain, prolapse symptoms, urinary frequency, urinary incontinence, urinary urgency, vaginal discharge, vaginal dryness, vaginal odor or vaginal pruritus Skin Skin/Breast: Denies changing lesions, breast mass, breast pain, breast skin changes or nipple discharge Psych Psych: Denies anxiety, change in libido, depression or difficulty concentrating Exam Const General: cooperative, healthy appearing, comfortable, no acute distress, well developed and well groomed HENMT Head: normal to inspection and normocephalic Ears: hearing grossly normal bilaterally and external ears normal Nose: external nose normal Face and sinus: normal facial exam Neck Neck: normal visual inspection, full ROM and no lymphadenopathy Thyroid: thyroid normal Chest Chest palpation inspection: normal inspection of the chest Breast inspection: normal inspection of the breasts and normal inspection of the axillae Breast palpation: normal palpation of the breasts, normal palpation of the axillae and no axillary lymphadenopathy Resp Effort Inspection: normal respiratory effort GI Inspection: normal to inspection and non-distended Palpation: soft, no hepatosplenomegaly and no guarding General: bladder normal to palpation External Female Exam: normal external appearance, normal appearance of the urethra and no lesions Urethra: normal appearance of the urethra and normal palpation Speculum Exam - Vagina: normal appearance of the vagina and normal vaginal discharge Speculum Exam - Cervix: normal appearance of the cervix, no cervical discharge, no lesions and nontender Bimanual Exam- Vagina Uterus: normal bimanual exam, uterine size normal, bladder normal to palpation, No tender, uterine mobility normal, consistency normal, non-tender and no cervical motion tenderness Bimanual Exam- Adnexa, other: normal adnexae, no masses and non-tender Skin General: no rashes or lesions noted Neuro General: patient alert, moves all extremities and no focal motor deficits Extrem General: normal to inspection and no pedal edema Psych Appearance: grossly normal Mental Status: mental status grossly normal Affect: normal affect Speech and Movement: speech and movement normal Attitude: cooperative Coding Level of Care Code Off vis,est,prev 40-64yrs Diagnoses Encounter for routine gynecological examination Z01.411 Gynecological examination findings: abnormal findings PRESENT Genital atrophy of female N94.9 Dyspareunia Assessment and Plan Assessment and Plan (1) Encounter for routine gynecological examination: Qualifiers: Gynecological examination findings: abnormal findings PRESENT Qualified Code(s): Z01.411 - Encounter for gynecological examination (general) (routine) with abnormal findings Plan - Dr. Susie Muir MD: Cervical cancer screening: pap hpv up to date Breast cancer screening: mamm other health maintenance examination reviewed and orders placed if needed. Encouraged maintenance of a healthy weight and active lifestyle and handout given. Annual exam handout including recommendations for good health guidelines, Calcium/vitamin D recommendations, and basic screening information given. Problem list up to date, see problem list details for any additional plan information. Follow up in one year for annual health maintenance exam or sooner if needed. (2) Genital atrophy of female: Status: Acute Comment: failed vaginal therapy. ordered osphena (3) Dyspareunia: Status: Chronic 02/16/212225 <Electronically signed by Susie Muir MD> Date Susie Muir MD Cosigner Signature: Date (if applicable) CC: Julia Brown MD Work Phone: Start: 02-14-2020 End: 02-14-2020 PT D/C of Non Returning Pt (1) Comments: See Note; NOTES: [facility] [address] [place] [address] [address] [place] [address] / REHABILITATION SERVICES DISCHARGE SUMMARY MR#: [id number] Acct: [id number] Name: SARAH LEARY Rep #: [id number] : 1960 59 From: Saniya UPTON Referring Dr.: Dr. Gill Rene MD Status: REG RCR Insurance: [employer] S[employer] INSURANCE SARAH LEARY was seen in my office for initial evaluation on 10/31/19. The following Plan of Care was established for this patient: Initial Frequency: 2-3x /Week Initial Duration: 4 Weeks Patient/Client Instruction: Educate patient on: Condition, Plan of Care For the Purpose of:: To decrease pain, To decrease swelling/inflammation, To increase ROM, To improve nutrient delivery to tissue, To improve muscle performance and motor function, To improve ability to perform ADL's, To increase tolerance to activity/condition/position , To decrease level of supervision to perform tasks, To improve ability of physical actions for home/community/work/leisure , To improve health of tissue, To decrease soft tissue restriction, To increase flexibility/ROM Therapeutic Exercise to Include: Strength training, Postural training, Flexibilty training, Passive ROM, Active ROM, Scapular Strength/Stabilization For the Purpose of:: To decrease pain, To decrease swelling/inflammation, To increase ROM, To improve nutrient delivery to tissue, To improve muscle performance and motor function, To improve ability to perform ADL's, To increase tolerance to activity/condition/position , To improve performance and independence with ADL's, To decrease level of supervision to perform tasks, To improve ability of physical actions for home/community/work/leisure , To improve health of tissue, To decrease soft tissue restriction, To increase flexibility/ROM Manual Therapy Techniques to Include: Passive ROM, Soft tissue mobilization For the Purpose of:: To decrease pain, To decrease swelling/inflammation, To increase ROM, To improve nutrient delivery to tissue IF ES: Yes Cryotherapy (ice pack, ice massage): Yes Ultrasound (thermal/non thermal): Yes For the Purpose of:: To decrease pain, To decrease swelling/inflammation, To increase ROM, To improve nutrient delivery to tissue This patient was last seen in our office 12/13/19. Pertinent comments regarding their Physical therapy will appear below: DC PT due to lack of additional insurance visits. At this point I will be discontinuing this patient from physical therapy. I would be happy to see this patient again in the future if found appropriate by the physician. Thank you! Saniya Pedro, WON <Electronically signed by Saniya Pedro MPT> 02/14/20 1329 CC: Dr. Julia Brown MD; Dr. Gill Rene MD Signed Julia Brown Start: 02-07-2020 End: 02-07-2020 Extension Edger Office Visit Report Comments: See Note; NOTES: [facility] [address] [place] [address] OFFICE VISIT Date of Service: 02/07/20 MR#: [id number] Acct: [id number] Name: SARAH LEARY Rep #: [id number] : 1960 Provider: Dr. Susie ceja MD Age/Sex: 59/F [place] [facility] [place]: Signed Intake Vital Signs 02/07/20 Height 5 ft 4 in 02/07/20 Weight: 147 lb 02/07/20 BMI 25.2 02/07/20 BP 126/72 H Intake Visit Reasons: Annual (ETL LEAD) Chief Complaint: est annual [employer] Required: No Is patient in pain?: No Allergies Sulfa (Sulfonamide Antibiotics) Allergy (Verified 02/07/20 09:05) Hives Medications citalopram 20 mg tablet 20 mg PO QDAY #90 tab 09/13/17 [Rx Confirmed 02/07/20] Hydroxychloroquine Sulfate [Plaquenil] 200 mg PO DAILY 11/21/17 [History Confirmed 02/07/20] Simvastatin [Zocor] 10 mg PO QHS 11/21/17 [History Confirmed 02/07/20] cholecalciferol (vitamin D3) 1,250 mcg (50,000 unit) tablet 1,250 mcg PO QWEEK 02/07/20 [History Confirmed 02/07/20] Is last menstrual period known: No Post menopausal: Yes Patient : No : No [facility] Medical History Anxiety (Acute) Arthritis (Acute) History of abnormal cervical Pap smear (Acute) Hyperlipidemia (Acute) Sjogrens syndrome (Acute) Surgical History History of carpal tunnel surgery (Acute) History of endometrial ablation (Acute) Hx of foot surgery (Acute) Family History Sister Brain tumor Social History (Updated 02/07/20 @ 09:[address] Susie Muir MD) Smoking Status: Never smoker alcohol intake: never substance use type: does not use caffeine: Yes what type of physical activity do you participate in: walking seatbelt use: always do you feel safe at home: Yes additional social history: Mary- Pregancy History 2 Elective abortions Hx Para 2 Spontaneous abortions Hx # Term Pregnancies Ectopic pregnancies Hx # Pregnancies Multiple births # of living children Past Pregnancies Del. Date Name GA/Weeks Outcome Route Bth Weight Gen Labor Lgth Anesthesia Del Locatn Provider FOB Unknown 1986 Kamran Unknown 1989 Rosario HPI Encounter for routine gynecological examination: Details: SARAH LEARY is a 59 year old who presents for annual exam. still having dyspareunia Last PAP: 2018 nl History of abnormal PAP: no Last mammogram: up to date History of abnormal mammogram: Colon cancer screening: up to date Other preventative health care screenings: pcp rui Female Reproductive History Questions: Metorrhagia: No, Sexually active: Yes, Dyspareunia: Yes, PCB: No Menopausal Symptoms: No hot flashes, No night sweats, No weight change, No mood changes, No difficulty concentrating, No sleep problems, No change in libido ROS Const Constitutional: Reports as per HPI; denies fatigue, increased appetite, poor appetite, night sweats, weight gain or weight loss Cardio Card: Denies chest pain Resp Resp: Denies cough or dyspnea GI GI: Reports as per HPI; denies abdominal pain, bloating, constipation, nausea or vomiting : Reports as per HPI, urinary incontinence (isolated) and other; denies difficulty urinating, painful urination, blood in urine, hot flashes, nipple discharge, pelvic pain, prolapse symptoms, urinary frequency, urinary urgency, vaginal discharge, vaginal dryness, vaginal odor or vaginal itching Skin Skin/Breast: Denies changing lesions, breast lump, breast pain, breast skin changes or nipple discharge Psych Psych: Denies anxiety, change in sex drive, depression or difficulty concentrating Exam Const General: cooperative, healthy appearing, comfortable, no acute distress, well developed, well groomed [facility] Head: normal to inspection, normocephalic Ears: hearing grossly normal bilaterally, external ears normal Nose: external nose normal Face and sinus: normal facial exam Neck Neck: normal visual inspection, full ROM, no lymphadenopathy Thyroid: thyroid normal Chest Chest palpation inspection: normal inspection of the chest Breast inspection: normal inspection of the breasts, normal inspection of the axillae Breast palpation: normal palpation of the breasts, normal palpation of the axillae, no axillary lymphadenopathy Resp Effort Inspection: normal respiratory effort GI Inspection: normal to inspection, non-distended Palpation: soft, no hepatosplenomegaly, no guarding General: bladder normal to palpation External Female Exam: abnormal external appearance (atrophic narrowing or introitus), normal appearance of the urethra, no lesions Urethra: normal appearance of the urethra, normal palpation Speculum Exam - Vagina: abnormal appearance of the vagina, normal vaginal discharge, atrophic vaginal mucosa, no lesions Speculum Exam - Cervix: normal appearance of the cervix, no cervical discharge, no lesions, nontender Bimanual Exam- Vagina Uterus: normal bimanual exam, uterine size normal, bladder normal to palpation, No cervical tenderness, uterine mobility normal, uterine consistency normal, uterus non- tender, no cervical motion tenderness Bimanual Exam- Adnexa, other: normal adnexae, no adnexal masses, adnexae non-tender Skin General: no rashes or lesions noted Neuro General: alert, moves all extremities, no focal motor deficits Extrem General: normal to inspection, no pedal edema Psych Appearance: grossly normal Mental Status: mental status grossly normal Affect: normal affect Speech and Movement: speech and movement normal Attitude: cooperative Assessment Plan 1. Encounter for gynecological examination with abnormal finding Z01.411 Plan Cervical cancer screening: pap 2019 Breast cancer screening: mamm up to date other health maintenance examination reviewed and orders placed if needed. Encouraged maintenance of a healthy weight and active lifestyle and handout given. Annual exam handout including recommendations for good health guidelines, Calcium/vitamin D recommendations, and basic screening information given. Problem list up to date, see problem list details for any additional plan information. Follow up in one year for annual health maintenance exam or sooner if needed. 2. 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 ordered osphena 3. Dyspareunia Plan Detail Other Orders Orders: SCREEN MAMM (CAD) W/KATIE BILAT Today Coding Level of Care Code Off vis,est,prev 40-64yrs Diagnoses Encounter for gynecological examination with abnormal finding Z01.411 ?Gynecological examination findings: abnormal findings PRESENT Genital atrophy of female N94.9 Dyspareunia 02/07/20 0947 <Electronically signed by Susie Muir MD> Date Susie Muir MD Cosigner Signature: Date (if applicable) CC: Julia Brown Start: 02-07-2020 End: 02-07-2020 SCREEN MAMM (CAD) W/KATIE BILAT Comments: See Note; NOTES: [facility] [place] [facility] Services [address] [place] [id number] SCREEN MAMM (CAD) W/KATIE BILAT MR#: [id number] Acct: [id number] Name: SARAH LEARY Rep #: [id number] : 1960 F 59 From: Pancho norton MD PCP: Dr. Julia Brown MD Status: [facility] Study: SCREEN MAMM (CAD) W/KATIE BILAT Date of Exam: Exam# [id number] Ordering Dr: Susie Muir MAMMOGRAPHY - BILATERAL SCREENING REASON FOR EXAM: Female, 59 years old. Routine annual screening examination. PERTINENT HISTORY: Non-contributory. TECHNIQUE: Digital bilateral breast katie (3D mammographic acquisition) in the CC and MLO projections. 2-D mediolateral oblique (MLO) and craniocaudad (CC) views of both breasts were obtained. CAD: Full Field Digital Mammography with Computer Added Detection was performed. COMPARISON: Comparison is made with prior study dated 06/22/2018 and 03/08/2017. FINDINGS: Breast Composition: There are scattered areas of fibroglandular density. There are no dominant masses or suspicious calcifications. No other significant abnormalities are identified. There has been no significant change since the prior study. BI/SCREEN MAMM (CAD) W/KATIE BILAT IMPRESSION: Stable bilateral screening mammogram. Yearly follow-up mammogram recommended. (A) ASSESSMENT CATEGORY: BIRADS Category 1: Negative. A letter regarding these results will be sent to the patient by the facility within 30 days. Approximately 10% of breast cancers are not detected by mammography. A normal mammogram should not delay biopsy of a clinically suspicious abnormality. [id number] Electronically Signed: Pancho Lopez, at 9:32 EDT , Service support , CC: Dr. Julia Brown MD; Dr. Susie Muir MD Assistant In Nursing: Signed Julia Brown Start: 12-13-2019 End: 12-15-2019 Re-Evaluation - PT (1) Comments: See Note; NOTES: [facility] [address] [place] [address] [address] [place] [address] / REEVALUATION / MEDICARE RECERTIFICATION PHYSICAL THERAPY MR#: [id number] Acct: [id number] Name: SARAH LEARY Rep #: [id number] : 1960 59 From: Saniya UPTON Referring Dr.: Dr. Gill Rene MD Status:REG R Insurance: [employer] SELF PAY INSURANCE Dr. Gill Rene MD, It has been my pleasure to treat SARAH LEARY over the last 11 visits for Impingement Syndrome L shoulder. Please see the progress note below for an update on the physical therapy plan of care! Subjective: Pt reports that her IR is much better and she can reach up her back better since the scapular MT and ball at home. BUT not her anterior shoulder is painful from working on her IR ROM. Pt reports that she still has pain with certain movements with her shoulder and she tries to not over use it. Objective/Function: L shoulder flex and abd to 140 degrees AROM. ER to 44 degrees on the R. IR to T12 with increase pain at end range on the R. PROM R shoulder flex to appro 170 degrees and then pt had increase posterior shoulder pain. PROM R shoulder ABD to approx 175 degrees with pain at end range. Pain with End range PROM ER still. Plan Plan: Ask insurance for 4 additional visits as we are continuing to make progress with MT, mobilizations and HEP Goals Goal 1:: I HEP Goal Time Frame: 4-6 Weeks Goal Progress: Progressing Goal 2:: Increase L shoulder AROM to 165 degrees elevation with no pain Goal Time Frame: 4-6 Weeks Goal Progress: Progressing Goal 3:: Increase L shoulder strength by 1/2 muscle grade (at time of eval: L shoulder: 4-/5 abdm flex , ER and IR). Goal Time Frame: 4-6 Weeks Goal 4:: Decrease pain to less than 1/10 wtih overhead activities Goal Time Frame: 4-6 Weeks Goal Progress: Progressing Goal 5:: Be able to sleep through the night without waking up in pain Goal Time Frame: 4-6 Weeks Goal Progress: Progressing Anticipated Interventions Patient/Client Instruction: Educate patient on: Condition, Plan of Care For the Purpose of:: To decrease pain, To decrease swelling/inflammation, To increase ROM, To improve nutrient delivery to tissue, To improve muscle performance and motor function, To improve ability to perform ADL's, To increase tolerance to activity/condition/position , To decrease level of supervision to perform tasks, To improve ability of physical actions for home/community/work/leisure , To improve health of tissue, To decrease soft tissue restriction, To increase flexibility/ROM Therapeutic Exercise to Include: Strength training, Postural training, Flexibilty training, Passive ROM, Active ROM, Scapular Strength/Stabilization For the Purpose of:: To decrease pain, To decrease swelling/inflammation, To increase ROM, To improve nutrient delivery to tissue, To improve muscle performance and motor function, To improve ability to perform ADL's, To increase tolerance to activity/condition/position , To improve performance and independence with ADL's, To decrease level of supervision to perform tasks, To improve ability of physical actions for home/community/work/leisure , To improve health of tissue, To decrease soft tissue restriction, To increase flexibility/ROM Manual Therapy Techniques to Include: Passive ROM, Soft tissue mobilization For the Purpose of:: To decrease pain, To decrease swelling/inflammation, To increase ROM, To improve nutrient delivery to tissue IF ES: Yes Cryotherapy (ice pack, ice massage): Yes Ultrasound (thermal/non thermal): Yes For the Purpose of:: To decrease pain, To decrease swelling/inflammation, To increase ROM, To improve nutrient delivery to tissue Please do not hesitate to contact me at [phone] by phone or if you have questions or concerns regarding this new plan of care! Sincerely, WON Hastings <Electronically signed by Saniya Pedro MPT> 12/15/19 1123 CC: Dr. Julia Brown MD; Dr. Gill Rene MD Signed For Medicare only, by signing this I certify the plan of care. _ Physicians Signature Date Julia Brown Start: 11-22-2019 End: 11-22-2019 Re-Evaluation - PT (1) Comments: See Note; NOTES: [facility] [address] [place] [address]. [address] [place] [address] / REEVALUATION / MEDICARE RECERTIFICATION PHYSICAL THERAPY MR#: [id number] Acct: [id number] Name: SARAH LEARY Rep #: [id number] : 1960 59 From: Saniya UPTON Referring Dr.: Dr. Gill Rene MD Status:REG RCR Insurance: [employer] SELF PAY INSURANCE Dr. Gill Rene MD, It has been my pleasure to treat SARAH LEARY over the last 7 visits for Impingement Syndrome L shoulder. Please see the progress note below for an update on the physical therapy plan of care! Subjective: 5/10 today from doing exercises today and it is aching. Still struggles with washing her back, curling her hair, turning the steering wheel, lifting child or moderate heavy bag, quick movements, gardening, canoeing, make bed and ride bike. She has improved in the fact she can raise her arm overhead and can sleep better at night. She wakes up in pain ever so often still with pain. Objective/Function: L shoulder flex 145 degrees. L shoulder abd 145 degrees. L IR slowly with effort to L5 ( increase pain). L ER 35 degrees. L shoulder MMT: flex 4-/5, abd 4-/5, ER 4-/5, IR 4/5 Plan Plan: Would like to see pt for 8 additional visit for manual stretching of the L shoulder anteior and posterior joint capsule, PROM, Scapular stability and RC strengthening with US if needed for increase pain and soreness. Goals Goal 1:: I HEP Goal Time Frame: 4-6 Weeks Goal Progress: Progressing Goal 2:: Increase L shoulder AROM to 165 degrees elevation with no pain Goal Time Frame: 4-6 Weeks Goal Progress: Progressing Goal 3:: Increase L shoulder strength by 1/2 muscle grade (at time of eval: L shoulder: 4-/5 abdm flex , ER and IR). Goal Time Frame: 4-6 Weeks Goal 4:: Decrease pain to less than 1/10 wtih overhead activities Goal Time Frame: 4-6 Weeks Goal Progress: Progressing Goal 5:: Be able to sleep through the night without waking up in pain Goal Time Frame: 4-6 Weeks Goal Progress: Progressing Anticipated Interventions Patient/Client Instruction: Educate patient on: Condition, Plan of Care For the Purpose of:: To decrease pain, To decrease swelling/inflammation, To increase ROM, To improve nutrient delivery to tissue, To improve muscle performance and motor function, To improve ability to perform ADL's, To increase tolerance to activity/condition/position , To decrease level of supervision to perform tasks, To improve ability of physical actions for home/community/work/leisure , To improve health of tissue, To decrease soft tissue restriction, To increase flexibility/ROM Therapeutic Exercise to Include: Strength training, Postural training, Flexibilty training, Passive ROM, Active ROM, Scapular Strength/Stabilization For the Purpose of:: To decrease pain, To decrease swelling/inflammation, To increase ROM, To improve nutrient delivery to tissue, To improve muscle performance and motor function, To improve ability to perform ADL's, To increase tolerance to activity/condition/position , To improve performance and independence with ADL's, To decrease level of supervision to perform tasks, To improve ability of physical actions for home/community/work/leisure , To improve health of tissue, To decrease soft tissue restriction, To increase flexibility/ROM Manual Therapy Techniques to Include: Passive ROM, Soft tissue mobilization For the Purpose of:: To decrease pain, To decrease swelling/inflammation, To increase ROM, To improve nutrient delivery to tissue IF ES: Yes Cryotherapy (ice pack, ice massage): Yes Ultrasound (thermal/non thermal): Yes For the Purpose of:: To decrease pain, To decrease swelling/inflammation, To increase ROM, To improve nutrient delivery to tissue Please do not hesitate to contact me at [phone] by phone or if you have questions or concerns regarding this new plan of care! Sincerely, WON Hastings <Electronically signed by Saniya Pedro MPT> 11/22/19 7612 CC: Dr. Julia Brown MD; Dr. Gill Rene MD Signed For Medicare only, by signing this I certify the plan of care. _ Physicians Signature Date Julia Brown Start: 10-31-2019 End: 11-01-2019 Inital Evaluation (1) - PT Comments: See Note; NOTES: [facility] [address] [place] [address]. [address] [place] [address] / REHABILITATION SERVICES INITIAL EVALUATION MR#: [id number] Acct: [id number] Name: SARAH LEARY Rep #: [id number] : 1960 59 From: Saniya Stoner MPT Referring Dr.: Dr. Gill Rene MD Status: REG [facility] Insurance: [employer] SELF PAY INSURANCE Patient's Visit Information SARAH LEARY is a 59 year old F referred to Physical Therapy by Dr. Gill Rene MD with a diagnosis of Impingement Syndrome L shoulder. Date of Evaluation: 10/31/19 Physical Therapist: WON Hastings - Visit Plan Frequency: 2-3x /Week Duration: 4 Weeks Plan: 2-3X/ week for 4 weeks for postural and scapular strength, PROM, AAROM, AROM, strengthening of the RC starting at below 90 degrees elevation and progressing to above 90 degrees elevation with HEP and modalities as needed. 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 Pt started having pain in her L shoulder last year sometime..... She has torqued her shoulder before and got a shot and it took care of it.... this time the shot did not help. This was at the end of June and did PT at home because she had sheets at home from the last time she was in PT. They went back in and had an MRI and she really wanted to do PT because she is done with it. She reports thtat she has constant throbbing but sometimes she does not notice it because she is used to it. It wakes her up at night and she notices that she has babysat her 1 year old beto daughter..... Sometimes the pain is across the front of the shoulder or along the deltiod. She now is compensates actoss her neck... Depends on what she has done. She is in the shower and uses the shower to crawl up the wall. SHe can not get her arm behind her back. Last Wed she got 2 hots and since then she can do her hair... it still hurts but it is better. She feels that she has gotten a little better cause she can now reach to do her hair with effort. She is Right handed. Wakes her up if she is laying on it. It is not jabbing like it used to be. No N T. YES... she has neck pain she believes due to overcompenstation - Pain L shoulder pain Pain Intensity (Out of 10): 4 - Objective Posture: sit with L arm slightly in front of her... L shoulder flexion 130 degrees, abd 124 degrees, PSIS on the L IR, ER 49 degrees. R shoulder flexion, abd full ROM.... IR to T2 and ER, Er to 70 degrees. MMT: L shoulder: 4-/5 abdm flex , ER and IR. R shoulder: 4/5 flex, abd, ER andn IR. +HK for impingement. + Empty can for weakness and pain. Tender to palpation under the L acrominion. Discussed sleeping, daily posture, icing, sitting posture, and repetitive IR movements. - Goals Goal 1:: I HEP Goal Time Frame: 4-6 Weeks Goal 2:: Increase L shoulder AROM to 165 degrees elevation with no pain Goal Time Frame: 4-6 Weeks Goal 3:: Increase L shoulder strength by 1/2 muscle grade (at time of eval: L shoulder: 4-/5 abdm flex , ER and IR). Goal Time Frame: 4-6 Weeks Goal 4:: Decrease pain to less than 1/10 wtih overhead activities Goal Time Frame: 4-6 Weeks Goal 5:: Be able to sleep through the night without waking up in pain Goal Time Frame: 4-6 Weeks - Rehabilitation Potential Rehabilitation Potential: Good - Anticipated Interventions Patient/Client Instruction: Educate patient on: Condition, Plan of Care For the Purpose of:: To decrease pain, To decrease swelling/inflammation, To increase ROM, To improve nutrient delivery to tissue, To improve muscle performance and motor function, To improve ability to perform ADL's, To increase tolerance to activity/condition/position , To decrease level of supervision to perform tasks, To improve ability of physical actions for home/community/work/leisure , To improve health of tissue, To decrease soft tissue restriction, To increase flexibility/ROM Therapeutic Exercise to Include: Strength training, Postural training, Flexibilty training, Passive ROM, Active ROM, Scapular Strength/Stabilization For the Purpose of:: To decrease pain, To decrease swelling/inflammation, To increase ROM, To improve nutrient delivery to tissue, To improve muscle performance and motor function, To improve ability to perform ADL's, To increase tolerance to activity/condition/position , To improve performance and independence with ADL's, To decrease level of supervision to perform tasks, To improve ability of physical actions for home/community/work/leisure , To improve health of tissue, To decrease soft tissue restriction, To increase flexibility/ROM Manual Therapy Techniques to Include: Passive ROM, Soft tissue mobilization For the Purpose of:: To decrease pain, To decrease swelling/inflammation, To increase ROM, To improve nutrient delivery to tissue IF ES: Yes Cryotherapy (ice pack, ice massage): Yes Ultrasound (thermal/non thermal): Yes For the Purpose of:: To decrease pain, To decrease swelling/inflammation, To increase ROM, To improve nutrient delivery to tissue Thank you for the opportunity to evaluate your patient. For Medicare and Medicare HMO plans, please review the plan of care and approve it. It will need to be FAXED BACK to us at [phone] for Medicare purposes. For Medicare only, by signing this I certify the plan of care. Please let me know if there are questions or concerns regarding this plan of care. Physician Signature: Date: <Electronically signed by Saniya Pedro MPT> 11/01/19 1800 CC: Dr. Julia Brown MD; Dr. Gill Rene MD Signed Julia Brown Start: 09-16-2018 End: 09-16-2018 Brain/Head W/WO Contrast Comments: See Note; NOTES: [facility] Imaging Services [address] [place] [address] Brain/Head W/WO Contrast MR#: [id number] Acct: [id number] Name: SARAH LEARY Rep #: [id number] : 1960 F 58 From: Pancho Lopez MD PCP: Julia Brown MD Status: REG CLI Study: Brain/Head W/WO Contrast Date of Exam: 09/16/18 Exam# [id number] Ordering Dr: Sally Godoy DO STUDY: CT BRAIN WITH AND WITHOUT CONTRAST REASON FOR EXAM: Female, 58 years old. Severe headaches. RADIATION DOSAGE (If Supplied By Facility): CTDIvol = ( 44.99 ) mGy, DLP = ( 1468.48 ) mGycm TECHNIQUE: Transaxial CT imaging of the brain was performed pre and post contrast administration. The examination was performed with intravenous administration of 50 IV Isovue 370. Individualized dose optimization techniques were used for this CT. COMPARISON: None. FINDINGS: Normal soft tissue structures. Normal calvarium. Normal size ventricles and extra-axial spaces for the patient's age. Normal white matter tracts of the cerebral hemispheres. Normal basal ganglia and thalami. Normal brainstem. Normal cerebellum. There is no intracranial hemorrhage. There are no findings of an acute ischemic infarction. Normal visualized paranasal sinuses. CT/Brain/Head W/WO Contrast IMPRESSION: Normal unenhanced and enhanced CT scan of the brain. Electronically Signed: Pancho Lopez, at 14:17 EDT , Service support , CC: Julia Brown MD; Sally Godoy DO Assistant In Nursing: Signed Sally Godoy Work Phone: Start: 06-22-2018 End: 06-22-2018 Extension Edger Office Visit Report Comments: See Note; NOTES: [facility] [address] [place] [address] OFFICE VISIT Date of Service: 06/22/18 MR#: [id number] Acct: [id number] Name: SARAH LEARY Rep #: [id number] : 1960 Provider: Susie Muir MD Age/Sex: 57/F [place] [facility] [place]: Signed Intake Vital Signs06/22/18 Height 5 ft 4 in 06/22/18 Weight: 142 lb 6 oz 06/22/18 Body Mass Index (BMI) 24.4 06/22/18 Blood Pressure 120/70 Intake Visit Reasons: est annual Chief Complaint: est annual [employer] Required: No Is patient in pain?: No Allergies Sulfa (Sulfonamide Antibiotics) Allergy (Verified 06/22/18 09:31) Hives Medications citalopram 20 mg tablet 20 mg PO QDAY #90 tab 09/13/17 [Rx Confirmed 11/21/17] Hydroxychloroquine Sulfate [Plaquenil] 200 mg PO DAILY 11/21/17 [History Confirmed 11/21/17] Simvastatin [Zocor] 10 mg PO QHS 11/21/17 [History Confirmed 11/21/17] Is last menstrual period known: No Post menopausal: Yes Patient : No : No [facility] Medical History Anxiety (Acute) Arthritis (Acute) History of abnormal cervical Pap smear (Acute) Hyperlipidemia (Acute) Sjogrens syndrome (Acute) Surgical History History of carpal tunnel surgery (Acute) History of endometrial ablation (Acute) Hx of foot surgery (Acute) Family History Sister Brain tumor Social History Smoking Status: Never smoker alcohol intake: never substance use type: does not use caffeine: Yes what type of physical activity do you participate in: walking seatbelt use: always do you feel safe at home: Yes additional social history: Mary- Pregancy History 2 Elective abortions Hx Para 2 Spontaneous abortions Past Pregnancies Del. DatName GA/WeeksOutcome Route [facility] LocaProviderFOB e ht en tn Unknown 1986 Jus tin Unknown 1989 Car a [facility] est annual: Details: SARAH LEARY is a 57 year old who presents for annual exam. Last PAP: due History of abnormal PAP: no Last mammogram: 03/12 History of abnormal mammogram: no Colon cancer screening: up to date Other preventative health care screenings: no Female Reproductive History Cycle Length: 21-35 Questions: Metorrhagia: No, Sexually active: No, Dyspareunia: Yes (vaginal estrogen, ) Assessment AND Plan Problems 1. Encounter for gynecological examination with abnormal finding Z01.411 2. Dyspareunia 3. 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 Encouraged maintenance of a healthy weight and active lifestyle and handout given. Annual exam handout including recommendations for good health guidelines, Calcium/vitamin D recommendations, and basic screening information given. Problem list up to date, see problem list details for any additional plan information. Follow up in one year for annual health maintenance exam or sooner if needed. 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 Study: SCREENING MAMM (CAD), BILAT Date of Exam: 06/22/18 Exam# [id number] Ordering Dr: Susie Muir MD MAMMOGRAPHY - BILATERAL SCREENING REASON FOR EXAM: Female, 57 years old. Routine annual screening examination. PERTINENT HISTORY: Non-contributory. TECHNIQUE: Digital bilateral breast katie (3D mammographic acquisition) in the CC and MLO projections. 2-D mediolateral oblique (MLO) and craniocaudad (CC) views of both breasts were obtained. CAD: Full Field Digital Mammography with Computer Added Detection was performed. COMPARISON: Comparison is made with prior study dated March 08, 2017 and March 04, 2016. FINDINGS: Breast Composition: There are scattered areas of fibroglandular density. There are no dominant masses or suspicious calcifications. No other significant abnormalities are identified. There has been no significant change since the prior study. BI/SCREENING MAMM (CAD), BILAT IMPRESSION: Stable bilateral screening mammogram. Yearly follow-up mammogram recommended. (A) ASSESSMENT CATEGORY: BIRADS Category 1: Negative. A letter regarding these results will be sent to the patient by the facility within 30 days. Approximately 10% of breast cancers are not detected by mammography. A normal mammogram should not delay biopsy of a clinically suspicious abnormality. [id number] Electronically Signed: Pancho Christelnyacierra, at 10:30 EST , Service support , CC: Julia Brown MD; Susie Muir MD Assistant In Nursing: Signed Julia Brown Start: 05-27-2018 End: 05-27-2018 Microscopic examination of cervical Papanicolaou smear JASPAL Gary LPN Comment on above: Dr. Muir Start: 11-21-2017 End: 11-21-2017 Emergency Department Summary Comments: See Note; NOTES: [facility] [place] Medical Records Department [address] [place] [address] Emergency Department Summary 11/21/17 1810 MR#: [id number] Acct: [id number] Name: SARAH LEARY Rep #: [id number] : 1960 57 From: Dia Virgen MD PCP: Julia Brown MD Status: DEP ER - ER Visit Summary Date of Service: 11/21/17 Chief Complaint: Allergic reaction History of Present Illness: The patient is a 57 F presenting with allergic reaction. Patient states that she was outside spraying weeds with weed killer. She states she was wearing gloves. She believes she was stung by a bee on her left forearm. She began to have itching all over. She took 2 Benadryl which improved her itching. She then noticed an increasing rash of her trunk. Denies difficulty breathing or swallowing. Denies sensation of tongue swelling or throat swelling. Denies other complaints. Physical Examination: Vitals are stable. Patient is afebrile. Alert no acute distress. HEENT exam is unremarkable. No tongue swelling, no pharyngeal edema Neck is supple. Lungs are clear and equal bilaterally. Heart is regular rate and rhythm. Abdomen is soft nontender nondistended. Extremities are unremarkable. Skin is warm and dry. Maculopapular rash to the trunk and left upper extremity. No focal neurologic deficit. Remainder of exam is unremarkable. Emergency Department Course and Treatment: Patient is given Solu-Medrol IV. She was observed in the ED and has improvement of her symptoms. She is requesting to go home. Advised signs and symptoms for which to return to the ED. She is given a prescription for prednisone. Advised to return to ED for any worsening complaints. Advised to follow-up with primary care physician. Disposition: Discharge home Impression: Allergic reaction This note was generated with [employer] dictation software. It may contain incorrect words, spelling, and punctuation that were not noted in review of the chart prior to signing ED Disposition - Plan for ED Patient: Disposition: Home or Assisted Living Chief Complaint: Allergic Reaction Instructions: ED Bite Sting Insect Gen Allergic React Prescriptions: Prednisone 20 mg PO DAILY #5 tablet Referrals: Julia Brown MD [Primary Care Provider] - What to do if you have Problems For any increased pain, shortness of breath, bleeding, nausea or vomiting, chest pain, or any unexpected problems, contact your Primary Care Provider. Call [facility] ([phone]) or report to the closest Emergency Room. Call 911 if necessary. 11/21/171946 <Electronically signed by Dia Virgen MD> Date Dia Virgen MD Cosigner Signature (If Indicated): Date CC: Julia Brown Start: 11-21-2017 End: 11-21-2017 Discharge Instruction Comments: See Note; NOTES: [facility] Medical Records Department [address] [place] [address] Discharge Instruction 11/21/171901 MR#: [id number] Acct: [id number] Name: SARAH LEARY Rep #: [id number] : 1960 57 From: Dia Virgen MD PCP: Julia Brown MD Status: REG ER ED Disposition - Plan for ED Patient: Chief Complaint: Allergic Reaction Instructions: ED Bite Sting Insect Gen Allergic React Prescriptions: Prednisone 20 mg PO DAILY #5 tablet Referrals: Julia Brown MD [Primary Care Provider] - What to do if you have Problems For any increased pain, shortness of breath, bleeding, nausea or vomiting, chest pain, or any unexpected problems, contact your Primary Care Provider. Call [facility] ([phone]) or report to the closest Emergency Room. Call 911 if necessary. 11/21/171902 <Electronically signed by Dia Virgen MD> Date Dia Virgen MD Cosigner Signature (If Indicated): Date CC: Julia Brown Start: 03-08-2017 End: 03-09-2017 SCREENING MAMM (CAD), BILAT Comments: See Note; NOTES: [facility] Imaging Services [address] [place] [address] SCREENING MAMM (CAD), BILAT MR#: [id number] Acct: [id number] Name: SARAH LEARY Rep #: [id number] : 1960 F 56 From: Pancho Lopez MD PCP: Julia Brown MD Status: REG CLI Study: SCREENING MAMM (CAD), BILAT Date of Exam: 03/08/17 Exam# [id number] Ordering Dr: Susie Muir MD MAMMOGRAPHY - BILATERAL SCREENING REASON FOR EXAM: Female, 56 years old. Routine annual screening examination. PERTINENT HISTORY: Non-contributory. TECHNIQUE: Digital bilateral breast katie (3D mammographic acquisition) in the CC and MLO projections. 2-D mediolateral oblique (MLO) and craniocaudad (CC) views of both breasts were obtained. CAD: Full Field Digital Mammography with Computer Added Detection was performed. COMPARISON: Comparison is made with prior outside examination dated March 04, 2016. FINDINGS: Breast Composition: There are scattered areas of fibroglandular density. There are no dominant masses or suspicious calcifications. No other significant abnormalities are identified. There has been no significant change since the prior study. HPBI/SCREENING MAMM (CAD), BILAT IMPRESSION: Stable bilateral screening mammogram. Yearly follow-up mammogram recommended. (A) ASSESSMENT CATEGORY: BIRADS Category 1: Negative. A letter regarding these results will be sent to the patient by the facility within 30 days. Approximately 10% of breast cancers are not detected by mammography. A normal mammogram should not delay biopsy of a clinically suspicious abnormality. [id number] Electronically Signed: Pancho Lopez MD at 9:11 EST Tel [phone], Service support , CC: Julia Brown MD; Susie Muir MD Assistant In Nursing: Signed Julia Brown Start: 04-26-2016 End: 04-26-2016 Screening colonoscopy JASPAL Gary JAYDEN Start: 11-01-2013 End: 11-01-2013 PT Discharge Summary Comments: See Note; NOTES: [facility] [address] [place] [address] Fax REHABILITATION SERVICES DISCHARGE SUMMARY MR#: [id number] Acct: [id number] Name: SARAH LEARY Rep #: [id number] : 1960 53 From: Vkii Mcintosh Referring Dr.: Jeffery Blood Status: PRE RCR Eval Date: Discharge Date: DATE OF SERVICE: Sarah Leary was referred to our care by Dr. Blood on the date of July 31, 2013. The patient has attended physical therapy for 8 visits. She reported that she was getting better and she would like to do independent home exercise program on August 29, 2013. PT felt this was appropriate and encouraged the patient to follow up if she has any questions or concerns. The patient has not followed up and PT feels at this time it is appropriate she be discharged from [facility] and return to your care. Viki Mcintosh DPT T: PORSCHE JOB: [id number] <Electronically signed by Viki Mcintosh > 11/01/13 1544 CC: Signed Julia Brown Start: 10-14-2013 End: 10-14-2013 Upper Ext Joint Only(Routine) Comments: See Note; NOTES: [facility] [place] Imaging Services [address] [place] [address] MRI Report MR#: [id number] Acct: [id number] Name: SARAH LEARY Rep #: [id number] : 1960 F 53 From: Kevin Mustafa MD PCP: Julia Brown MD Status: REG CLI Study: Upper Ext Joint Only(Routine) Date of Exam: 10/14/13 Exam# [id number] Ordering Dr: Jeffery Blood DO STUDY: MRI RIGHT SHOULDER REASON FOR EXAM: Female, 53 years old. Injury TECHNIQUE: Standardized fat and water weighted pulse sequences were obtained in all 3 orthogonal planes. COMPARISON: X-ray right shoulder 07/26/13 showing intact osseous structures FINDINGS: There is a small amount of fluid in the subacromion subdeltoid bursa (image 7, 8, 9, 10, 11/20 coronal T2 fat sat). There is mild osteoarthritis at the acromioclavicular joint (image 2/22 axial proton density fat-sat). There is thickening with abnormal signal of the subscapularis tendon (image 11/22 axial proton-density fat sat). There is a disproportionate amount of fluid at the long biceps tendon sheath (image 17/22 axial proton-density fat sat). There is thickening at the axillary recess of the joint capsule (image 10/20 coronal T2 fat sat). Normal humeral head and visualized proximal humerus. Normal biceps labral complex. Normal labrum. Normal capsulo- ligamentous complex. Normal rotator interval. Normal visualized coracohumeral and coracoacromial ligaments. Normal quadrilateral space. Normal axillary space. Normal deltoid muscle. Normal trapezius muscle. IMPRESSION: Extensive subscapularis tendinosis Mild subacromial subdeltoid bursitis with mild osteoarthritis of the acromioclavicular joint Evidence of long biceps tendinosis/tenosynovitis Evidence of adhesive capsulitis Electronically Signed: Kevin Mustafa MD at 11:25 EDT Tel , Service support [phone], CC: Julia Brown MD; Jeffery Blood Assistant In Nursing: Signed Julia Brown Start: 03-26-2010 Lipid 1996 panel - Serum or Plasma Sukhjinder Martin APRN.[facility] Work Phone: Carpal Edgar Gary Comment on above: 2009 Carpal Tunnel JASPAL Gary Comment on above: 2009 Carpal Tunnel Esme lopez Comment on above: 2009 Carpal Tunnel JASPAL Gary Comment on above: 2009 Carpal Tunnel Esme lopez Comment on above: 2009 Carpal Tunnel JASPAL Gary LPN Comment on above: 2009 Carpal Tunnel JASPAL Gary LPN Comment on above: 2009 Carpal Tunnel Julia Brown MD Work Phone: Comment on above: 2009 Carpal Tunnel Griffin Grijalva RN ADMISSION Comment on above: 2009 section JASPAL nunez Comment on above: 1 1989 section JASPAL Luke nunez Comment on above: 1 1989 section Esme Man lizbeth Comment on above: 1 1989 section JASPAL Btuler mayra Comment on above: 1 1989 section Esme Man lizbeth Comment on above: 1 1989 section JASPAL Butler mayra [employer] Comment on above: 1 1989 section JASPAL Butler mayra GREENEN Comment on above: 1 1989 section Julia hayes MD Work Phone: Comment on above: 1 1989 section Griffin abel [facility] Comment on above: 1 1989 Jaymie and C JASPAL Gary Comment on above: 1983 Jaymie and C JASPAL Gary Comment on above: 1983 Jaymie and C Esme [place] Comment on above: 1983 Jaymie and C JASPAL Gary Comment on above: 1983 Jaymie and C Esme [place] Comment on above: 1983 Jaymie and C JASPAL Gary LPN Comment on above: 1983 Jaymie and C JASPAL Gary LPN Comment on above: 1983 D and C Julia Brown MD Work Phone: Comment on above: 1983 D and C Griffin Grijalva [facility] Comment on above: 1983 Collette Gary Comment on above: done due to heavy menses 2005 Dr. Jere Gary Comment on above: done due to heavy menses 2005 Dr. Jere [place] Comment on above: done due to heavy menses 2005 Dr. Jere Gary Comment on above: done due to heavy menses 2005 Dr. Jere [place] Comment on above: done due to heavy menses 2005 Dr. Jere Gary LPN Comment on above: done due to heavy menses 2005 Dr. Jere Gary LPN Comment on above: done due to heavy menses 2005 Dr. Jere Brown MD Work Phone: Comment on above: done due to heavy menses 2006 [facility] Griffin Grijalva [facility] Comment on above: done due to heavy menses 2005 Dr. Oquendo Other bilateral liga tion and division of fallopian tubes JASPAL Abdirahman Comment on above: endometrial ablation 2007 Other bilateral liga tion and division of fallopian tubes JASPAL Abdirahman Comment on above: endometrial ablation 2007 Other bilateral liga tion and division of fallopian tubes Esme Liboriolizbeth Comment on above: endometrial ablation 2007 Other bilateral liga tion and division of fallopian tubes JASPAL Abdirahman Comment on above: endometrial ablation 2007 Other bilateral liga tion and division of fallopian tubes Esme Liboriolizbeth Comment on above: endometrial ablation 2007 Other bilateral liga tion and division of fallopian tubes JASPAL Abdirahman [employer] Comment on above: endometrial ablation 2007 Other bilateral liga tion and division of fallopian tubes JASPAL Abdirahman [employer] Comment on above: endometrial ablation 2007 Other bilateral liga tion and division of fallopian tubes Julia Brown MD Work Phone: Comment on above: endometrial ablation 2007 Other bilateral liga tion and division of fallopian tubes Griffin Grijalva CMA Comment on above: endometrial ablation 2006 Plantar fascitis JASPAL nunez Comment on above: 2011 Plantar fascitis JASPAL nunez Comment on above: 2011 Plantar fascitis Esme Liborio nieves Comment on above: 2011 Plantar fascitis JASPAL nunez Comment on above: 2011 Plantar fascitis Esme Man lizbeth Comment on above: 2011 Plantar fascitis JASPAL nunez [employer] Comment on above: 2011 Plantar fascitis JASPAL nunez [employer]OT[employer]OR Comment on above: 2011 Plantar fascitis Julia hayes MD Work Phone: Comment on above: 2011 Plantar fascitis Griffin Novak [facility] Comment on above: 2011 Plan of Treatment Date Care Activity Detail Author Start: 12-26-2023 Influenza vaccination Influenza Vacc ine (#1) [facility] Start: 04-26-2023 Behavioral Health Screening Behavioral Health Screening [facility] Start: 04-11-2023 [facility] Start: 03-12-2023 Liquid based cervica l cytology screening [facility] Start: 12-25-2022 Covid-19 Vaccine ( season) Covid-19 Vaccine ( season) [facility] Start: 10-26-2022 Procedure Education Eprescribe d prescriptions (G8553) [facility] Work Phone: Start: 10-26-2022 Lipid panel LIPID PANEL (48918) [facility]; [facility] Work Phone: Start: 10-26-2022 Hepatic function panel HEPATIC FUNCTION PANEL (81011) [facility]; [facility] Work Phone: Start: 10-10-2021 Shingrix Vaccine (2 of 3) Shingrix Vaccine (2 of 3) [facility] Start: 08-25-2021 Lipid panel LIPID PANEL (68406) [facility]; [facility] Work Phone: Comment on above: in six months (appro ximately) Start: 08-25-2021 Comprehensive metabo lic panel METABOLIC PANEL, [facility] (04847) [facility]; [facility] Work Phone: Comment on above: in six months (appro ximately) Start: 08-22-2020 Procedure Education Eprescribe d prescriptions (G8553) [facility]; [facility] Work Phone: Start: 08-22-2020 Provider Instruction s for Treatment COVID SCREENING FORM [facility]; [facility] Work Phone: Start: 08-22-2020 Lipid panel LIPID PANEL (98250) [facility] Work Phone: Start: 08-22-2020 Blood count manual c ell count each CBC with auto diff (30872) [facility]; [facility] Work Phone: Start: 08-22-2020 Assay of homocysteine Homocyst eine Plasma (66592) [facility]; [facility] Work Phone: Start: 06-12-2020 Urinalysis qual/semiquant except immunoassays URINALYSIS (99376) [facility]; [facility] Work Phone: Start: 06-12-2020 Blood count manual c ell count each CBC WITH MANUAL DIFF (45837) [facility]; [facility] Work Phone: Start: 06-12-2020 Comprehensive metabo lic panel Metabolic Panel, Comprehensive (97987) [facility]; [facility] Work Phone: Start: 06-12-2020 Lipoprotein blood qu an numbers & subclasses NMR Profile (89612) [facility]; [facility] Work Phone: Start: 06-12-2020 Hepatitis c antibody HEPATITIS C ANTIBODY (39121) [facility]; [facility] Work Phone: Start: 03-19-2020 Procedure Education Eprescribe d prescriptions (G8553) [facility] Work Phone: Start: 03-19-2020 Comprehensive metabo lic panel METABOLIC PANEL, COMPREHENSIVE (05978) [facility] Work Phone: Start: 03-19-2020 25 hydroxy includes fractions if performed CALCIFIDIOL (54621) VIT D 25 [facility] Work Phone: Start: 02-02-2020 Assay of homocysteine Homocyst murali, Plasma (48591) [facility] Work Phone: Start: 02-02-2020 25 hydroxy includes fractions if performed CALCIFIDIOL (88353) VIT D 25 [facility] Work Phone: Start: 02-02-2020 Comprehensive metabo lic panel METABOLIC PANEL, COMPREHENSIVE (93184) [facility] Work Phone: Start: 02-02-2020 Lipid panel LIPID PANEL (90856) [facility] Work Phone: Start: 2019 RSV Vaccine (1 - 1-d ose 60+ series) RSV Vaccine (1 - 1-dose 60+ series) [facility] Start: 07-14-2019 Procedure Education Eprescribe d prescriptions (G8553) [facility] Work Phone: Start: 09-07-2018 Procedure Education Eprescribe d prescriptions (G8553) [facility] Work Phone: Start: 07-15-2018 25 hydroxy includes fractions if performed CALCIFIDIOL (81748) VIT D 25 [facility] Work Phone: Start: 05-16-2018 Urinalysis qual/semiquant except immunoassays URINALYSIS (95588) [facility] Work Phone: Start: 05-16-2018 Comprehensive metabo lic panel Metabolic Panel, Comprehensive (23699) [facility] Work Phone: Start: 05-16-2018 Blood count manual c ell count each CBC WITH MANUAL DIFF (32385) [facility] Work Phone: Comment on above: fax a copy to Dr. Mark rivera Start: 09-16-2017 Lipoprotein blood qu an numbers & subclasses LIPOPROTEIN, BLD, BY NMR (70887) [facility]; [facility] Work Phone: Start: 09-16-2017 Protein mass conc LIPOPROTEIN, BLD, BY NMR (27622) [facility] Work Phone: Start: 09-16-2017 Comprehensive metabo lic panel METABOLIC PANEL, COMPREHENSIVE (17850) [facility] Work Phone: Start: 05-18-2017 Procedure Education Eprescribe d prescriptions (G8553) [facility] Work Phone: Start: 03-22-2017 Cul bact xcpt urine blood/stool aerobic isol Anaerobic & Aerobic Culture (96747) [facility] Work Phone: Start: 03-22-2017 Provider Instruction s for Treatment I/D Cyst/Abscess [facility] Work Phone: Start: 03-04-2017 Screening for malign ant neoplasm of breast Mammogram Screening [facility] Start: 12-09-2016 Screening for malign ant neoplasm of cervix Cervical Cancer Screening [facility] Start: 05-18-2016 Procedure Education Eprescribe d prescriptions (G8553) [facility] Work Phone: Start: 04-24-2016 Lipid panel LIPID PANEL (87247) [facility] Work Phone: Start: 03-26-2015 Lipid panel Lipid Screening [facility] Start: 11-01-2014 Procedure Education Eprescribe d prescriptions (G8553) [facility] Work Phone: Start: 11-01-2014 Blood count manual c ell count each CBC with auto diff (03954) [facility] Work Phone: Start: 11-01-2014 Comprehensive metabo lic panel METABOLIC PANEL, COMPREHENSIVE (74442) [facility] Work Phone: Start: 11-01-2014 Lipid panel LIPID PANEL (31010) [facility] Work Phone: Start: 03-13-2014 Procedure Education Eprescribe d prescriptions (G8553) [facility] Work Phone: Start: 11-21-2013 Diabetes Screening Diabetes Screenin [facility] Start: 09-20-2012 Patient Education Insomnia *: insomn ia [facility] Work Phone: Start: 09-20-2012 Comprehensive metabo lic panel METABOLIC PANEL, COMPREHENSIVE (31788) [facility] Work Phone: Start: 09-20-2012 Lipid panel LIPID PANEL (96126) [facility] Work Phone: Start: 07-19-2012 Provider Instruction s for Treatment [facility] Work Phone: Start: 11-26-2011 Patient Education High Cholest renuka (Hypercholesterolemia) *: nutrition [facility] Work Phone: Start: 05-27-2010 Provider Instruction s for Treatment [facility] Work Phone: Start: 05-27-2010 Urine albumin quantitative MICROALBUMIN: CREATININE RATIO (97095) AND (64493) [facility] Work Phone: Start: 05-27-2010 Comprehensive metabo lic panel METABOLIC PANEL, COMPREHENSIVE (28134) [facility] Work Phone: Start: 05-27-2010 Lipid panel LIPID PANEL (78159) [facility] Work Phone: Start: 05-27-2010 Blood count manual c ell count each CBC WITH MANUAL DIFF (23145) [facility] Work Phone: Start: 07-16-2004 Screening for malign ant neoplasm of colon [facility] Start: 07-16-1978 Urine microalbumin profile DTaP,Tdap,Td Vaccine (1 - Tdap) [facility] Start: 07-16-1977 Hepatitis C screening Hepatitis C Sc vijay [facility] Start: 07-16-1977 HIV screening HIV Screening [facility] Path report.final Dx Spec [facility] Patient referral [facility] Work Phone: [facility] Work Phone: [facility] Work Phone: [facility] Work Phone[facility] Work Phone: [facility] Work Phone[facility] Work Phone[facility] Work Phone[facility] Work Phone: [facility] Work Phone: [facility] Work Phone: [facility] Work Phone: [facility] Work Phone: [facility] Work Phone: [facility] Work Phone[facility] Work Phone: [facility] Work Phone: [facility] Work Phone: [facility] Work Phone: [facility] Work Phone: [facility] Work Phone: [facility] Work Phone: [facility] Work Phone: [facility] Work Phone: [facility] Immunizations Immunization Date Immunization Notes Care Provider Carolyn blackmon 08-15-2021 zoster vaccine, live Julia cote MD Work Phone: [facility]; [facility] Work Phone: 04-26-2021 zoster vaccine, live Julia cote MD Work Phone: [facility]; [facility] Work Phone: Comment on above: [facility] 07-19-2020 COVID-19 (Moderna) Julia Brown [facility]; [facility] Work Phone: 06-21-2020 COVID-19 (Moderna) Julia Brown [facility]; [facility] Work Phone: Payers Date Payer Category Payer Medicare [id number] 2024 Self-pay [id number] 2013 Unknown [id number] 2013 Unknown 2013 Unknown [id number] 2010 Unknown [id number] 2007 Unknown [facility] [id number] 1959 Unknown [id number] Unknown [facility] PACKAGE PLAN [id number] Unknown [id number] [id number] [id number] Unknown [id number] [id number] [id number] Unknown [id number] [id number] [id number] Unknown [id number] Social History Date Type Detail Facility Alcohol Use: Never smoker [facility] Work Phone: Comment on above: three times a week. Start: 06-03-2018 End: 04-02-2020 Caffeine Use [facility] Work Phone: Comment on above: 2-3 cups qd Current Work/Study Status: Full-time. [facility] Work Phone: Comment on above: leona richards istian important Mary DPOA [phone] Exercise History: Exercises occasionally. [facility] Work Phone: Living Situation: [facility] Work Phone: Comment on above: Tobacco use: Never smoker. [facility] Work Phone: Alcohol Use: Alcohol Use: [facility] Work Phone: Comment on above: three times a week. Current Work/Study Status: Current Work/Study Status: [facility]; [facility] Work Phone: Comment on above: leona richards istian important Mary DPOA [phone] usman richards important Mary DPOA [phone] Exercise History: Exercise History: [facility]pr [facility]; [facility] Work Phone: [facility] Work Phone: Comment on above: Tobacco use: Tobacco use: [facility] Work Phone: Start: 02-13-2021 End: 04-11-2023 Tobacco smoking status NHIS Unknown if ever smoked [facility] Start: 1960 Sex Assigned At Female [facility] Start: 11-21-2010 End: 04-03-2024 Tobacco smoking status NHIS Never smoked tobacco [facility] Work Phone: Start: 11-21-2010 Tobacco use and exposure Smokeless tobacco non-user [facility] Start: 10-29-2023 Alcohol intake Current drinke r of alcohol (finding) [facility] Start: 06-03-2018 End: 04-02-2020 Tobacco use panel [facility] National Score (1-100), lower number is lower risk Not on file [facility] Start: 11-21-2010 Alcohol Comment 2 glass of win e Occasionally [facility] Start: 1960 Sex Assigned At Not on file [facility] Functional Status Date Assessment Result Facility 07-29-2020 LP-IR Score LP-IR Score <25 [facility]; [facility] Work Phone: Comment on above: INSULIN RESISTANCE M GONZALO <--Insulin Sensitive Insulin Resistant--> Percentile in Reference PopulationInsulin Resistance ScoreLP-IR Score Low 25th 50th 75th High <27 27 45 63 >63LP-IR Score is inaccurate if patient is non-fasting. .The LP-IR score is a laboratory developed index that has beenassociated with insulin resistance and diabetes risk and should beused as one component of a physician's clinical assessment. Test(s) 834143-FCZ-K ; 090664-NEA-R; 607024-Twegbgvgentov; 458074-Zpfgephwfch, Total; 244717-XSO-F (Total); 463829-Ftofq LDL-P; 238048-YHX Size; 279295-CM-VN Scorewas developed and its performance characteristics determinedby [employer]. It has not been cleared or approved by the Foodand Drug Administration.PATIENT WAS FASTINGPERFORMED BY: BN [facility] [id number] [facility] [id number] BY: [facility] [id number] [facility] [id number] 09-07-2017 LP-IR Score LP-IR Score <25 [facility] Work Phone: Comment on above: INSULIN RESISTANCE M ARKER <--Insulin Sensitive Insulin Resistant--> Percentile in Reference PopulationInsulin Resistance ScoreLP-IR Score Low 25th 50th 75th High <27 27 45 63 >63LP-IR Score is inaccurate if patient is non-fasting. .The LP-IR score is a laboratory developed index that has beenassociated with insulin resistance and diabetes risk and should beused as one component of a physician's clinical assessment. TheLP-IR score listed above has not been cleared by the [place] Food andDrug Administration. PATIENT WAS FASTINGP ERFORMED BY: [address] [id number] BY: Familonet Ztlyub4116 [facility] [id number] 03-04-2017 LP-IR Score LP-IR Score <25 [facility] Work Phone: Comment on above: INSULIN RESISTANCE M ARKER <--Insulin Sensitive Insulin Resistant--> Percentile in Reference PopulationInsulin Resistance ScoreLP-IR Score Low 25th 50th 75th High <27 27 45 63 >63LP-IR Score is inaccurate if patient is non-fasting. .The LP-IR score is a laboratory developed index that has beenassociated with insulin resistance and diabetes risk and should beused as one component of a physician's clinical assessment. TheLP-IR score listed above has not been cleared by the [place] Food andDrug Administration. PATIENT WAS FASTINGP ERFORMED BY: [address] [id number] BY: FamilonetBacharach Institute for RehabilitationVipvqx0688 [facility] [id number] Information: NURSE DRAW 10-28-2016 LP-IR Score LP-IR Score <25 [facility] Work Phone: Comment on above: INSULIN RESISTANCE M ARKER <--Insulin Sensitive Insulin Resistant--> Percentile in Reference PopulationInsulin Resistance ScoreLP-IR Score Low 25th 50th 75th High <27 27 45 63 >63LP-IR Score is inaccurate if patient is non-fasting. .The LP-IR score is a laboratory developed index that has beenassociated with insulin resistance and diabetes risk and should beused as one component of a physician's clinical assessment. TheLP-IR score listed above has not been cleared by the [place] Food andDrug Administration. PATIENT WAS FASTINGP ERFORMED BY: [address] [place] [id number]; fu 7-11 db Mental Status Date Assessment Result Facility 04-11-2023 Cognitive function Level Of Cons ciousness Awake;Alert;Appropriate [facility] Work Phone: Clinical Notes 03-12-2023 to 10-29-2023 Sukhjinder Martin APRN.MAGED - 10/29/2023 7:52 PM EDT Note Date & Type Note Facility 10-29-2023 Note HNO ID: [id number] Author: SUKHJINDER MARTIN APRN.MACHINE MAINTENANCE REPAIRER Service: ? Author Type: Nurse Practitioner Type: Progress Notes Filed: 10/29/2023 20:01 Note Text: CC: Patient presents with: Cough: Congestion x2 weeks HPI: Sarah Leary is a 63 year old female who presents to the office with complaint of head congestion and cough, nonproductive for 2 weeks. Symptoms are worsening Associated symptoms includes wheezing and dyspnea. Denies fever, nausea, vomiting , and diarrhea. Treatments tried include nothing so far. with no relief of symptoms. Sick contacts: unknown. History of asthma, frequent episodes of bronchitis, chronic bronchitis, bronchiectasis or COPD: No Smoker: No Seasonal/environmental allergies: No The ROS is otherwise negative. The patient's pmh, medications, allergies, and past visits are reviewed. PHYSICAL EXAM: BP 106/60 Pulse 78 Temp 37.7 ?C (99.9 ?F) Resp 16 Wt 67.6 kg (149 lb 0.5 oz) LMP 02/13/2006 SpO2 97% BMI 25.76 kg/m? General appearance: alert, cooperative, pleasant, in no acute distress Head: Normocephalic Eyes: EOM's intact, conjunctiva pink and moist, no icterus, sclera white, non-injected Ears: Right ear: External ear/canal- Normal, TM - clear with good landmarks. Left ear: External ear/canal- Normal, TM - clear with good landmarks Oropharynx:moist without lesions, No erythema, exudates or tonsillar hypertrophy. Heart: Negative. RRR without obvious murmur, gallop, or rubs. No ectopy. Lungs: clear to auscultation, without rales or wheeze, good air exchange PAST MEDICAL HISTORY Diagnosis Date Depression Excessive or frequent menstruation Resolved Mixed hyperlipidemia Hyperlipidemia PAST SURGICAL HISTORY Procedure Laterality Date DILATION AND CURETTAGE DXAND/THER NONOBSTETRIC 1984 LIG/TRNSXJ FLP TUBE ABDL/VAG APPR UNI/BI Tubal ligation PAST SURGICAL HISTORY OF 2004 finger PAST SURGICAL HISTORY OF 01/12/06 marisel PAST SURGICAL HISTORY OF carpal tunnel PAST SURGICAL HISTORY OF planter fascitis ALLERGIES Sulfa (Sulfonamide Antibiotics) MEDICATIONS fluticasone (FLONASE) 50 mcg/actuation nasal spray Use 2 Sprays in each nostril once daily. Rinse mouth after use. RESTASIS 0.05 % ophthalmic emulsion ergocalciferol, vitamin D2, (DRISDOL) 50,000 unit capsule hydroxychloroquine (PLAQUENIL) 200 mg tablet simvastatin (ZOCOR) 10 mg tablet zolpidem (AMBIEN) 5 mg tablet citalopram (CELEXA) 20 mg tablet Take 1 tablet by mouth once daily. ibuprofen (ADVIL) 200 mg ORAL tablet Take 1-2 tablets by mouth every 2 hours as needed. FOR PAIN. methylPREDNISolone (MEDROL, ALYSE,) 4 mg Dose-Pack Follow dosing instructions, take with food. doxycycline (VIBRA-TABS) 100 mg tablet Take 1 tablet by mouth two times a day for 7 days. traZODone (DESYREL) 50 mg tablet Take 1 tablet by mouth daily at bedtime. AMBIEN ALYSE 5 MG TAB LORazepam (ATIVAN) 0.5 mg tab Take by mouth three times daily as needed. multivitamin ORAL tablet Take 1 tablet by mouth once daily. FAMILY HISTORY Problem Relation Age of Onset Heart Father By-pass surgery Diabetes Mother Hypertension Father Allergies Mother Cancer Sister Brain Heart Failure Sister Arthritis Mother Heart Failure Father Social History Tobacco Use Smoking status: Never Smokeless tobacco: Never Substance Use Topics Alcohol use: Yes Comment: 2 glass of wine Occasionally Drug use: No ASSESSMENT/PLAN: 1. Rhinosinusitis - ICD9: 473.9, ICD10: J32.9 (primary diagnosis) - DOXYCYCLINE HYCLATE 100 MG TABLET 2. Acute cough - ICD9: 786.2, ICD10: R05.1 - METHYLPREDNISOLONE 4 MG TABLETS IN A DOSE PACK Treated for sinus infection and possible pneumonia no xray available at this time. Prescription instructions reviewed with patient as applicable. Potential red flag symptoms discussed with the patient. Reviewed appropriate action plan to take if red flag symptoms occur. Patient agreeable to treatment plan. Sukhjinder Martin APRN.[facility] 10-29-2023 History of Present illness Narrative CC: Patient presents with: Cough: Congestion x2 weeks HPI: Sarah Leary is a 63 year old female who presents to the office with complaint of head congestion and cough, nonproductive for 2 weeks. Symptoms are worsening Associated symptoms includes wheezing and dyspnea. Denies fever, nausea, vomiting , and diarrhea. Treatments tried include nothing so far. with no relief of symptoms. Sick contacts: unknown. History of asthma, frequent episodes of bronchitis, chronic bronchitis, bronchiectasis or COPD: No Smoker: No Seasonal/environmental allergies: No The ROS is otherwise negative. The patient's pmh, medications, allergies, and past visits are reviewed. PHYSICAL EXAM: BP 106/60 Pulse 78 Temp 37.7 C (99.9 F) Resp 16 Wt 67.6 kg (149 lb 0.5 oz) LMP 02/13/2006 SpO2 97% BMI 25.76 kg/m General appearance: alert, cooperative, pleasant, in no acute distress Head: Normocephalic Eyes: EOM's intact, conjunctiva pink and moist, no icterus, sclera white, non-injected Ears: Right ear: External ear/canal- Normal, TM - clear with good landmarks. Left ear: External ear/canal- Normal, TM - clear with good landmarks Oropharynx:moist without lesions, No erythema, exudates or tonsillar hypertrophy. Heart: Negative. RRR without obvious murmur, gallop, or rubs. No ectopy. Lungs: clear to auscultation, without rales or wheeze, good air exchange PAST MEDICAL HISTORY Diagnosis Date Depression Excessive or frequent menstruation Resolved Mixed hyperlipidemia Hyperlipidemia PAST SURGICAL HISTORY Procedure Laterality Date DILATION & CURETTAGE DX&/THER NONOBSTETRIC 1984 LIG/TRNSXJ FLP TUBE ABDL/VAG APPR UNI/BI Tubal ligation PAST SURGICAL HISTORY OF 2004 finger PAST SURGICAL HISTORY OF 01/12/06 marisel PAST SURGICAL HISTORY OF carpal tunnel PAST SURGICAL HISTORY OF planter fascitis ALLERGIES Sulfa (Sulfonamide Antibiotics) MEDICATIONS fluticasone (FLONASE) 50 mcg/actuation nasal spray Use 2 Sprays in each nostril once daily. Rinse mouth after use. RESTASIS 0.05 % ophthalmic emulsion ergocalciferol, vitamin D2, (DRISDOL) 50,000 unit capsule hydroxychloroquine (PLAQUENIL) 200 mg tablet simvastatin (ZOCOR) 10 mg tablet zolpidem (AMBIEN) 5 mg tablet citalopram (CELEXA) 20 mg tablet Take 1 tablet by mouth once daily. ibuprofen (ADVIL) 200 mg ORAL tablet Take 1-2 tablets by mouth every 2 hours as needed. FOR PAIN. methylPREDNISolone (MEDROL, ALYSE,) 4 mg Dose-Pack Follow dosing instructions, take with food. doxycycline (VIBRA-TABS) 100 mg tablet Take 1 tablet by mouth two times a day for 7 days. traZODone (DESYREL) 50 mg tablet Take 1 tablet by mouth daily at bedtime. AMBIEN ALYSE 5 MG TAB LORazepam (ATIVAN) 0.5 mg tab Take by mouth three times daily as needed. multivitamin ORAL tablet Take 1 tablet by mouth once daily. FAMILY HISTORY Problem Relation Age of Onset Heart Father By-pass surgery Diabetes Mother Hypertension Father Allergies Mother Cancer Sister Brain Heart Failure Sister Arthritis Mother Heart Failure Father Social History Tobacco Use Smoking status: Never Smokeless tobacco: Never Substance Use Topics Alcohol use: Yes Comment: 2 glass of wine Occasionally Drug use: No ASSESSMENT/PLAN: 1. Rhinosinusitis - ICD9: 473.9, ICD10: J32.9 (primary diagnosis) - DOXYCYCLINE HYCLATE 100 MG TABLET 2. Acute cough - ICD9: 786.2, ICD10: R05.1 - METHYLPREDNISOLONE 4 MG TABLETS IN A DOSE PACK Treated for sinus infection and possible pneumonia no xray available at this time. Prescription instructions reviewed with patient as applicable. Potential red flag symptoms discussed with the patient. Reviewed appropriate action plan to take if red flag symptoms occur. Patient agreeable to treatment plan. Sukhjinder Martin APRN.MAGED documented in this encounter [facility] 03-12-2023 Note [facility] Pap Smear Specimen Adequacy March 12, 2023 5:17pm Comment . Satisfactory for evaluation. Endocervical component may not bedistinguished in cases of atrophy. Comment on above: Satisfactory for diana luation. Endocervical component may not bedistinguished in cases of atrophy. Evaluation note No assessment information availa ble [facility] Work Phone: Evaluation note Diagnosis Onset Date Encounter for routine gyneco logical examination noneactive [facility] Work Phone: Evaluation note* Diagnosis Rhinosinusitis- Primary Unspecified sinusitis (chronic) Acute [facility] Name Dates Details How to Access Health Informa tion Online using Patient Portal and [employer] Apps Indication:Current nonsmoker (Renamed from Current non-smoker) Start:22-Aug-2020 Instruction Type:Patient Education Patient Instructions Indication:Current nonsmoker (Renamed from Current non-smoker) Start:22-Aug-2020 Instruction Type:Provider Instructions for Treatment How to access health informa tion online Indication:Sjogren's disease Start:19-Mar-2020 Instruction Type:Patient Education How to access health informa tion online - Detail Indication:Sjogren's disease Start:19-Mar-2020 Instruction Type:Patient Education Patient Instructions Indication:Sjogren's disease Start:19-Mar-2020 Instruction Type:Provider Instructions for Treatment How to access health informa tion online Indication:Encounter for general adult medical examination with abnormal findings Start:18-Jul-2019 Instruction Type:Patient Education How to access health informa tion online - Detail Indication:Encounter for general adult medical examination with abnormal findings Start:18-Jul-2019 Instruction Type:Patient Education Patient Instructions Indication:Encounter for general adult medical examination with abnormal findings Start:18-Jul-2019 Instruction Type:Provider Instructions for Treatment How to access health informa tion online Indication:Current nonsmoker (Renamed from Current non-smoker) Start:14-Jul-2019 Instruction Type:Patient Education How to access health informa tion online - Detail Indication:Current nonsmoker (Renamed from Current non-smoker) Start:14-Jul-2019 Instruction Type:Patient Education Patient Instructions Indication:Current nonsmoker (Renamed from Current non-smoker) Start:14-Jul-2019 Instruction Type:Provider Instructions for Treatment How to access health informa tion online Indication:Current nonsmoker (Renamed from Current non-smoker) Start:07-Sep-2018 Instruction Type:Patient Education How to access health informa tion online - Detail Indication:Current nonsmoker (Renamed from Current non-smoker) Start:07-Sep-2018 Instruction Type:Patient Education Patient Instructions Indication:Current nonsmoker (Renamed from Current non-smoker) Start:07-Sep-2018 Instruction Type:Provider Instructions for Treatment How to access health informa tion online Indication:Encounter for general adult medical examination with abnormal findings Start:15-Jul-2018 Instruction Type:Patient Education How to access health informa tion online - Detail Indication:Encounter for general adult medical examination with abnormal findings Start:15-Jul-2018 Instruction Type:Patient Education Patient Instructions Indication:Encounter for general adult medical examination with abnormal findings Start:15-Jul-2018 Instruction Type:Provider Instructions for Treatment How to access health informa tion online Indication:Poison jack Start:01-Feb-2018 Instruction Type:Patient Education How to access health informa tion online - Detail Indication:Poison jack Start:01-Feb-2018 Instruction Type:Patient Education Patient Instructions Indication:Poison jack Start:01-Feb-2018 Instruction Type:Provider Instructions for Treatment How to access health informa tion online Indication:BMI 25.0-25.9,adult Start:16-Sep-2017 Instruction Type:Patient Education How to access health informa tion online - Detail Indication:BMI 25.0-25.9,adult Start:16-Sep-2017 Instruction Type:Patient Education Patient Instructions Indication:BMI 25.0-25.9,adult Start:16-Sep-2017 Instruction Type:Provider Instructions for Treatment How to access health informa tion online Indication:Current nonsmoker (Renamed from Current non-smoker) Start:09-Aug-2017 Instruction Type:Patient Education How to access health informa tion online - Detail Indication:Current nonsmoker (Renamed from Current non-smoker) Start:09-Aug-2017 Instruction Type:Patient Education Patient Instructions Indication:Current nonsmoker (Renamed from Current non-smoker) Start:09-Aug-2017 Instruction Type:Provider Instructions for Treatment How to access health informa tion online Indication:Encounter for general adult medical examination with abnormal findings Start:18-May-2017 Instruction Type:Patient Education How to access health informa tion online - Detail Indication:Encounter for general adult medical examination with abnormal findings Start:18-May-2017 Instruction Type:Patient Education Patient Instructions Indication:Encounter for general adult medical examination with abnormal findings Start:18-May-2017 Instruction Type:Provider Instructions for Treatment How to access health informa tion online Indication:Infected sebaceous cyst Start:29-Mar-2017 Instruction Type:Patient Education How to access health informa tion online - Detail Indication:Infected sebaceous cyst Start:29-Mar-2017 Instruction Type:Patient Education Patient Instructions Indication:Infected sebaceous cyst Start:29-Mar-2017 Instruction Type:Provider Instructions for Treatment How to access health informa tion online Indication:Infected sebaceous cyst Start:24-Mar-2017 Instruction Type:Patient Education How to access health informa tion online - Detail Indication:Infected sebaceous cyst Start:24-Mar-2017 Instruction Type:Patient Education Patient Instructions Indication:Infected sebaceous cyst Start:24-Mar-2017 Instruction Type:Provider Instructions for Treatment How to access health informa tion online Indication:BMI 23.0-23.9, adult Start:22-Mar-2017 Instruction Type:Patient Education How to access health informa tion online - Detail Indication:BMI 23.0-23.9, adult Start:22-Mar-2017 Instruction Type:Patient Education Patient Instructions Indication:BMI 23.0-23.9, adult Start:22-Mar-2017 Instruction Type:Provider Instructions for Treatment How to access health informa tion online Indication:Depression, controlled Start:18-May-2016 Instruction Type:Patient Education How to access health informa tion online - Detail Indication:Depression, controlled Start:18-May-2016 Instruction Type:Patient Education Patient Instructions Indication:Depression, controlled Start:18-May-2016 Instruction Type:Provider Instructions for Treatment How to access health informa tion online Indication:Sjogren's disease Start:24-Apr-2016 Instruction Type:Patient Education How to access health informa tion online - Detail Indication:Sjogren's disease Start:24-Apr-2016 Instruction Type:Patient Education Patient Instructions Indication:Sjogren's disease Start:24-Apr-2016 Instruction Type:Provider Instructions for Treatment How to access health informa tion online Indication:Hypercholesterolemia Start:01-Nov-2014 Instruction Type:Patient Education How to access health informa tion online - Detail Indication:Hypercholesterolemia Start:01-Nov-2014 Instruction Type:Patient Education Patient Instructions Indication:Hypercholesterolemia Start:01-Nov-2014 Instruction Type:Provider Instructions for Treatment How to access health informa tion online Indication:Hypercholesterolemia Start:13-Mar-2014 Instruction Type:Patient Education How to access health informa tion online - Detail Indication:Hypercholesterolemia Start:13-Mar-2014 Instruction Type:Patient Education Patient Instructions Indication:Hypercholesterolemia Start:13-Mar-2014 Instruction Type:Provider Instructions for Treatment Patient Instructions Indication:Hypercholesterolemia Start:20-Sep-2012 Instruction Type:Provider Instructions for Treatment Patient Instructions Indication:Muscle Spasm Start:08-Jun-2012 Instruction Type:Provider Instructions for Treatment Patient Instructions Indication:Hypercholesterolemia Start:03-Mar-2012 Instruction Type:Provider Instructions for Treatment [facility]; [facility] Work Phone: Instructions* Name Dates Details How to Access Health Informa [employer] Online using Patient Portal and [employer] Apps Indication:Current nonsmoker (Renamed from Current non-smoker) Start:22-Aug-2020 Instruction Type:Patient Education Patient Instructions Indication:Current nonsmoker (Renamed from Current non-smoker) Start:22-Aug-2020 Instruction Type:Provider Instructions for Treatment How to access health informa tion online Indication:Sjogren's disease Start:19-Mar-2020 Instruction Type:Patient Education How to access health informa tion online - Detail Indication:Sjogren's disease Start:19-Mar-2020 Instruction Type:Patient Education Patient Instructions Indication:Sjogren's disease Start:19-Mar-2020 Instruction Type:Provider Instructions for Treatment How to access health informa tion online Indication:Encounter for general adult medical examination with abnormal findings Start:18-Jul-2019 Instruction Type:Patient Education How to access health informa tion online - Detail Indication:Encounter for general adult medical examination with abnormal findings Start:18-Jul-2019 Instruction Type:Patient Education Patient Instructions Indication:Encounter for general adult medical examination with abnormal findings Start:18-Jul-2019 Instruction Type:Provider Instructions for Treatment How to access health informa tion online Indication:Current nonsmoker (Renamed from Current non-smoker) Start:14-Jul-2019 Instruction Type:Patient Education How to access health informa tion online - Detail Indication:Current nonsmoker (Renamed from Current non-smoker) Start:14-Jul-2019 Instruction Type:Patient Education Patient Instructions Indication:Current nonsmoker (Renamed from Current non-smoker) Start:14-Jul-2019 Instruction Type:Provider Instructions for Treatment How to access health informa tion online Indication:Current nonsmoker (Renamed from Current non-smoker) Start:07-Sep-2018 Instruction Type:Patient Education How to access health informa tion online - Detail Indication:Current nonsmoker (Renamed from Current non-smoker) Start:07-Sep-2018 Instruction Type:Patient Education Patient Instructions Indication:Current nonsmoker (Renamed from Current non-smoker) Start:07-Sep-2018 Instruction Type:Provider Instructions for Treatment How to access health informa tion online Indication:Encounter for general adult medical examination with abnormal findings Start:15-Jul-2018 Instruction Type:Patient Education How to access health informa tion online - Detail Indication:Encounter for general adult medical examination with abnormal findings Start:15-Jul-2018 Instruction Type:Patient Education Patient Instructions Indication:Encounter for general adult medical examination with abnormal findings Start:15-Jul-2018 Instruction Type:Provider Instructions for Treatment How to access health informa tion online Indication:Poison jack Start:01-Feb-2018 Instruction Type:Patient Education How to access health informa tion online - Detail Indication:Poison jack Start:01-Feb-2018 Instruction Type:Patient Education Patient Instructions Indication:Poison jack Start:01-Feb-2018 Instruction Type:Provider Instructions for Treatment How to access health informa tion online Indication:BMI 25.0-25.9,adult Start:16-Sep-2017 Instruction Type:Patient Education How to access health informa tion online - Detail Indication:BMI 25.0-25.9,adult Start:16-Sep-2017 Instruction Type:Patient Education Patient Instructions Indication:BMI 25.0-25.9,adult Start:16-Sep-2017 Instruction Type:Provider Instructions for Treatment How to access health informa tion online Indication:Current nonsmoker (Renamed from Current non-smoker) Start:09-Aug-2017 Instruction Type:Patient Education How to access health informa tion online - Detail Indication:Current nonsmoker (Renamed from Current non-smoker) Start:09-Aug-2017 Instruction Type:Patient Education Patient Instructions Indication:Current nonsmoker (Renamed from Current non-smoker) Start:09-Aug-2017 Instruction Type:Provider Instructions for Treatment How to access health informa tion online Indication:Encounter for general adult medical examination with abnormal findings Start:18-May-2017 Instruction Type:Patient Education How to access health informa tion online - Detail Indication:Encounter for general adult medical examination with abnormal findings Start:18-May-2017 Instruction Type:Patient Education Patient Instructions Indication:Encounter for general adult medical examination with abnormal findings Start:18-May-2017 Instruction Type:Provider Instructions for Treatment How to access health informa tion online Indication:Infected sebaceous cyst Start:29-Mar-2017 Instruction Type:Patient Education How to access health informa tion online - Detail Indication:Infected sebaceous cyst Start:29-Mar-2017 Instruction Type:Patient Education Patient Instructions Indication:Infected sebaceous cyst Start:29-Mar-2017 Instruction Type:Provider Instructions for Treatment How to access health informa tion online Indication:Infected sebaceous cyst Start:24-Mar-2017 Instruction Type:Patient Education How to access health informa tion online - Detail Indication:Infected sebaceous cyst Start:24-Mar-2017 Instruction Type:Patient Education Patient Instructions Indication:Infected sebaceous cyst Start:24-Mar-2017 Instruction Type:Provider Instructions for Treatment How to access health informa tion online Indication:BMI 23.0-23.9, adult Start:22-Mar-2017 Instruction Type:Patient Education How to access health informa tion online - Detail Indication:BMI 23.0-23.9, adult Start:22-Mar-2017 Instruction Type:Patient Education Patient Instructions Indication:BMI 23.0-23.9, adult Start:22-Mar-2017 Instruction Type:Provider Instructions for Treatment How to access health informa tion online Indication:Depression, controlled Start:18-May-2016 Instruction Type:Patient Education How to access health informa tion online - Detail Indication:Depression, controlled Start:18-May-2016 Instruction Type:Patient Education Patient Instructions Indication:Depression, controlled Start:18-May-2016 Instruction Type:Provider Instructions for Treatment How to access health informa tion online Indication:Sjogren's disease Start:24-Apr-2016 Instruction Type:Patient Education How to access health informa tion online - Detail Indication:Sjogren's disease Start:24-Apr-2016 Instruction Type:Patient Education Patient Instructions Indication:Sjogren's disease Start:24-Apr-2016 Instruction Type:Provider Instructions for Treatment How to access health informa tion online Indication:Hypercholesterolemia Start:01-Nov-2014 Instruction Type:Patient Education How to access health informa tion online - Detail Indication:Hypercholesterolemia Start:01-Nov-2014 Instruction Type:Patient Education Patient Instructions Indication:Hypercholesterolemia Start:01-Nov-2014 Instruction Type:Provider Instructions for Treatment How to access health informa tion online Indication:Hypercholesterolemia Start:13-Mar-2014 Instruction Type:Patient Education How to access health informa tion online - Detail Indication:Hypercholesterolemia Start:13-Mar-2014 Instruction Type:Patient Education Patient Instructions Indication:Hypercholesterolemia Start:13-Mar-2014 Instruction Type:Provider Instructions for Treatment Patient Instructions Indication:Hypercholesterolemia Start:20-Sep-2012 Instruction Type:Provider Instructions for Treatment Patient Instructions Indication:Muscle Spasm Start:08-Jun-2012 Instruction Type:Provider Instructions for Treatment Patient Instructions Indication:Hypercholesterolemia Start:03-Mar-2012 Instruction Type:Provider Instructions for Treatment [facility]; [facility] Work Phone: Instructions* Name Dates Details How to Access Health Informa tion Online using Patient Portal and [employer] Apps Indication:Current nonsmoker (Renamed from Current non-smoker) Start:22-Aug-2020 Instruction Type:Patient Education Patient Instructions Indication:Current nonsmoker (Renamed from Current non-smoker) Start:22-Aug-2020 Instruction Type:Provider Instructions for Treatment How to access health informa tion online Indication:Sjogren's disease Start:19-Mar-2020 Instruction Type:Patient Education How to access health informa tion online - Detail Indication:Sjogren's disease Start:19-Mar-2020 Instruction Type:Patient Education Patient Instructions Indication:Sjogren's disease Start:19-Mar-2020 Instruction Type:Provider Instructions for Treatment How to access health informa tion online Indication:Encounter for general adult medical examination with abnormal findings Start:18-Jul-2019 Instruction Type:Patient Education How to access health informa tion online - Detail Indication:Encounter for general adult medical examination with abnormal findings Start:18-Jul-2019 Instruction Type:Patient Education Patient Instructions Indication:Encounter for general adult medical examination with abnormal findings Start:18-Jul-2019 Instruction Type:Provider Instructions for Treatment How to access health informa tion online Indication:Current nonsmoker (Renamed from Current non-smoker) Start:14-Jul-2019 Instruction Type:Patient Education How to access health informa tion online - Detail Indication:Current nonsmoker (Renamed from Current non-smoker) Start:14-Jul-2019 Instruction Type:Patient Education Patient Instructions Indication:Current nonsmoker (Renamed from Current non-smoker) Start:14-Jul-2019 Instruction Type:Provider Instructions for Treatment How to access health informa tion online Indication:Current nonsmoker (Renamed from Current non-smoker) Start:07-Sep-2018 Instruction Type:Patient Education How to access health informa tion online - Detail Indication:Current nonsmoker (Renamed from Current non-smoker) Start:07-Sep-2018 Instruction Type:Patient Education Patient Instructions Indication:Current nonsmoker (Renamed from Current non-smoker) Start:07-Sep-2018 Instruction Type:Provider Instructions for Treatment How to access health informa tion online Indication:Encounter for general adult medical examination with abnormal findings Start:15-Jul-2018 Instruction Type:Patient Education How to access health informa tion online - Detail Indication:Encounter for general adult medical examination with abnormal findings Start:15-Jul-2018 Instruction Type:Patient Education Patient Instructions Indication:Encounter for general adult medical examination with abnormal findings Start:15-Jul-2018 Instruction Type:Provider Instructions for Treatment How to access health informa tion online Indication:Poison jack Start:01-Feb-2018 Instruction Type:Patient Education How to access health informa tion online - Detail Indication:Poison jack Start:01-Feb-2018 Instruction Type:Patient Education Patient Instructions Indication:Poison jack Start:01-Feb-2018 Instruction Type:Provider Instructions for Treatment How to access health informa tion online Indication:BMI 25.0-25.9,adult Start:16-Sep-2017 Instruction Type:Patient Education How to access health informa tion online - Detail Indication:BMI 25.0-25.9,adult Start:16-Sep-2017 Instruction Type:Patient Education Patient Instructions Indication:BMI 25.0-25.9,adult Start:16-Sep-2017 Instruction Type:Provider Instructions for Treatment How to access health informa tion online Indication:Current nonsmoker (Renamed from Current non-smoker) Start:09-Aug-2017 Instruction Type:Patient Education How to access health informa tion online - Detail Indication:Current nonsmoker (Renamed from Current non-smoker) Start:09-Aug-2017 Instruction Type:Patient Education Patient Instructions Indication:Current nonsmoker (Renamed from Current non-smoker) Start:09-Aug-2017 Instruction Type:Provider Instructions for Treatment How to access health informa tion online Indication:Encounter for general adult medical examination with abnormal findings Start:18-May-2017 Instruction Type:Patient Education How to access health informa tion online - Detail Indication:Encounter for general adult medical examination with abnormal findings Start:18-May-2017 Instruction Type:Patient Education Patient Instructions Indication:Encounter for general adult medical examination with abnormal findings Start:18-May-2017 Instruction Type:Provider Instructions for Treatment How to access health informa tion online Indication:Infected sebaceous cyst Start:29-Mar-2017 Instruction Type:Patient Education How to access health informa tion online - Detail Indication:Infected sebaceous cyst Start:29-Mar-2017 Instruction Type:Patient Education Patient Instructions Indication:Infected sebaceous cyst Start:29-Mar-2017 Instruction Type:Provider Instructions for Treatment How to access health informa tion online Indication:Infected sebaceous cyst Start:24-Mar-2017 Instruction Type:Patient Education How to access health informa tion online - Detail Indication:Infected sebaceous cyst Start:24-Mar-2017 Instruction Type:Patient Education Patient Instructions Indication:Infected sebaceous cyst Start:24-Mar-2017 Instruction Type:Provider Instructions for Treatment How to access health informa tion online Indication:BMI 23.0-23.9, adult Start:22-Mar-2017 Instruction Type:Patient Education How to access health informa tion online - Detail Indication:BMI 23.0-23.9, adult Start:22-Mar-2017 Instruction Type:Patient Education Patient Instructions Indication:BMI 23.0-23.9, adult Start:22-Mar-2017 Instruction Type:Provider Instructions for Treatment How to access health informa tion online Indication:Depression, controlled Start:18-May-2016 Instruction Type:Patient Education How to access health informa tion online - Detail Indication:Depression, controlled Start:18-May-2016 Instruction Type:Patient Education Patient Instructions Indication:Depression, controlled Start:18-May-2016 Instruction Type:Provider Instructions for Treatment How to access health informa tion online Indication:Sjogren's disease Start:24-Apr-2016 Instruction Type:Patient Education How to access health informa tion online - Detail Indication:Sjogren's disease Start:24-Apr-2016 Instruction Type:Patient Education Patient Instructions Indication:Sjogren's disease Start:24-Apr-2016 Instruction Type:Provider Instructions for Treatment How to access health informa tion online Indication:Hypercholesterolemia Start:01-Nov-2014 Instruction Type:Patient Education How to access health informa tion online - Detail Indication:Hypercholesterolemia Start:01-Nov-2014 Instruction Type:Patient Education Patient Instructions Indication:Hypercholesterolemia Start:01-Nov-2014 Instruction Type:Provider Instructions for Treatment How to access health informa tion online Indication:Hypercholesterolemia Start:13-Mar-2014 Instruction Type:Patient Education How to access health informa tion online - Detail Indication:Hypercholesterolemia Start:13-Mar-2014 Instruction Type:Patient Education Patient Instructions Indication:Hypercholesterolemia Start:13-Mar-2014 Instruction Type:Provider Instructions for Treatment Patient Instructions Indication:Hypercholesterolemia Start:20-Sep-2012 Instruction Type:Provider Instructions for Treatment Patient Instructions Indication:Muscle Spasm Start:08-Jun-2012 Instruction Type:Provider Instructions for Treatment Patient Instructions Indication:Hypercholesterolemia Start:03-Mar-2012 Instruction Type:Provider Instructions for Treatment [facility]; [facility] Work Phone: Instructions* Name Dates Details Patient Instructions Indication:Pain of molar Start:16-Jun-2021 Instruction Type:Provider Instructions for Treatment How to Access Health Informa tion Online using Patient Portal and [employer] Apps Indication:Current nonsmoker (Renamed from Current non-smoker) Start:22-Aug-2020 Instruction Type:Patient Education Patient Instructions Indication:Current nonsmoker (Renamed from Current non-smoker) Start:22-Aug-2020 Instruction Type:Provider Instructions for Treatment How to access health informa tion online Indication:Sjogren's disease Start:19-Mar-2020 Instruction Type:Patient Education How to access health informa tion online - Detail Indication:Sjogren's disease Start:19-Mar-2020 Instruction Type:Patient Education Patient Instructions Indication:Sjogren's disease Start:19-Mar-2020 Instruction Type:Provider Instructions for Treatment How to access health informa tion online Indication:Encounter for general adult medical examination with abnormal findings Start:18-Jul-2019 Instruction Type:Patient Education How to access health informa tion online - Detail Indication:Encounter for general adult medical examination with abnormal findings Start:18-Jul-2019 Instruction Type:Patient Education Patient Instructions Indication:Encounter for general adult medical examination with abnormal findings Start:18-Jul-2019 Instruction Type:Provider Instructions for Treatment How to access health informa tion online Indication:Current nonsmoker (Renamed from Current non-smoker) Start:14-Jul-2019 Instruction Type:Patient Education How to access health informa tion online - Detail Indication:Current nonsmoker (Renamed from Current non-smoker) Start:14-Jul-2019 Instruction Type:Patient Education Patient Instructions Indication:Current nonsmoker (Renamed from Current non-smoker) Start:14-Jul-2019 Instruction Type:Provider Instructions for Treatment How to access health informa tion online Indication:Current nonsmoker (Renamed from Current non-smoker) Start:07-Sep-2018 Instruction Type:Patient Education How to access health informa tion online - Detail Indication:Current nonsmoker (Renamed from Current non-smoker) Start:07-Sep-2018 Instruction Type:Patient Education Patient Instructions Indication:Current nonsmoker (Renamed from Current non-smoker) Start:07-Sep-2018 Instruction Type:Provider Instructions for Treatment How to access health informa tion online Indication:Encounter for general adult medical examination with abnormal findings Start:15-Jul-2018 Instruction Type:Patient Education How to access health informa tion online - Detail Indication:Encounter for general adult medical examination with abnormal findings Start:15-Jul-2018 Instruction Type:Patient Education Patient Instructions Indication:Encounter for general adult medical examination with abnormal findings Start:15-Jul-2018 Instruction Type:Provider Instructions for Treatment How to access health informa tion online Indication:Poison jack Start:01-Feb-2018 Instruction Type:Patient Education How to access health informa tion online - Detail Indication:Poison jack Start:01-Feb-2018 Instruction Type:Patient Education Patient Instructions Indication:Poison jack Start:01-Feb-2018 Instruction Type:Provider Instructions for Treatment How to access health informa tion online Indication:BMI 25.0-25.9,adult Start:16-Sep-2017 Instruction Type:Patient Education How to access health informa tion online - Detail Indication:BMI 25.0-25.9,adult Start:16-Sep-2017 Instruction Type:Patient Education Patient Instructions Indication:BMI 25.0-25.9,adult Start:16-Sep-2017 Instruction Type:Provider Instructions for Treatment How to access health informa tion online Indication:Current nonsmoker (Renamed from Current non-smoker) Start:09-Aug-2017 Instruction Type:Patient Education How to access health informa tion online - Detail Indication:Current nonsmoker (Renamed from Current non-smoker) Start:09-Aug-2017 Instruction Type:Patient Education Patient Instructions Indication:Current nonsmoker (Renamed from Current non-smoker) Start:09-Aug-2017 Instruction Type:Provider Instructions for Treatment How to access health informa tion online Indication:Encounter for general adult medical examination with abnormal findings Start:18-May-2017 Instruction Type:Patient Education How to access health informa tion online - Detail Indication:Encounter for general adult medical examination with abnormal findings Start:18-May-2017 Instruction Type:Patient Education Patient Instructions Indication:Encounter for general adult medical examination with abnormal findings Start:18-May-2017 Instruction Type:Provider Instructions for Treatment How to access health informa tion online Indication:Infected sebaceous cyst Start:29-Mar-2017 Instruction Type:Patient Education How to access health informa tion online - Detail Indication:Infected sebaceous cyst Start:29-Mar-2017 Instruction Type:Patient Education Patient Instructions Indication:Infected sebaceous cyst Start:29-Mar-2017 Instruction Type:Provider Instructions for Treatment How to access health informa tion online Indication:Infected sebaceous cyst Start:24-Mar-2017 Instruction Type:Patient Education How to access health informa tion online - Detail Indication:Infected sebaceous cyst Start:24-Mar-2017 Instruction Type:Patient Education Patient Instructions Indication:Infected sebaceous cyst Start:24-Mar-2017 Instruction Type:Provider Instructions for Treatment How to access health informa tion online Indication:BMI 23.0-23.9, adult Start:22-Mar-2017 Instruction Type:Patient Education How to access health informa tion online - Detail Indication:BMI 23.0-23.9, adult Start:22-Mar-2017 Instruction Type:Patient Education Patient Instructions Indication:BMI 23.0-23.9, adult Start:22-Mar-2017 Instruction Type:Provider Instructions for Treatment How to access health informa tion online Indication:Depression, controlled Start:18-May-2016 Instruction Type:Patient Education How to access health informa tion online - Detail Indication:Depression, controlled Start:18-May-2016 Instruction Type:Patient Education Patient Instructions Indication:Depression, controlled Start:18-May-2016 Instruction Type:Provider Instructions for Treatment How to access health informa tion online Indication:Sjogren's disease Start:24-Apr-2016 Instruction Type:Patient Education How to access health informa tion online - Detail Indication:Sjogren's disease Start:24-Apr-2016 Instruction Type:Patient Education Patient Instructions Indication:Sjogren's disease Start:24-Apr-2016 Instruction Type:Provider Instructions for Treatment How to access health informa tion online Indication:Hypercholesterolemia Start:01-Nov-2014 Instruction Type:Patient Education How to access health informa tion online - Detail Indication:Hypercholesterolemia Start:01-Nov-2014 Instruction Type:Patient Education Patient Instructions Indication:Hypercholesterolemia Start:01-Nov-2014 Instruction Type:Provider Instructions for Treatment How to access health informa tion online Indication:Hypercholesterolemia Start:13-Mar-2014 Instruction Type:Patient Education How to access health informa tion online - Detail Indication:Hypercholesterolemia Start:13-Mar-2014 Instruction Type:Patient Education Patient Instructions Indication:Hypercholesterolemia Start:13-Mar-2014 Instruction Type:Provider Instructions for Treatment Patient Instructions Indication:Hypercholesterolemia Start:20-Sep-2012 Instruction Type:Provider Instructions for Treatment Patient Instructions Indication:Muscle Spasm Start:08-Jun-2012 Instruction Type:Provider Instructions for Treatment Patient Instructions Indication:Hypercholesterolemia Start:03-Mar-2012 Instruction Type:Provider Instructions for Treatment [facility]; [facility] Work Phone: Instructions* Name Dates Details Patient Instructions Indication:Encounter for general adult medical examination with abnormal findings Start:25-Aug-2021 Instruction Type:Provider Instructions for Treatment How to Access Health Informa tion Online using Patient Portal and [employer] Apps Indication:Encounter for general adult medical examination with abnormal findings Start:25-Aug-2021 Instruction Type:Patient Education Patient Instructions Indication:Pain of molar Start:16-Jun-2021 Instruction Type:Provider Instructions for Treatment How to Access Health Informa tion Online using Patient Portal and [employer] Apps Indication:Current nonsmoker (Renamed from Current non-smoker) Start:22-Aug-2020 Instruction Type:Patient Education Patient Instructions Indication:Current nonsmoker (Renamed from Current non-smoker) Start:22-Aug-2020 Instruction Type:Provider Instructions for Treatment How to access health informa tion online Indication:Sjogren's disease Start:19-Mar-2020 Instruction Type:Patient Education How to access health informa tion online - Detail Indication:Sjogren's disease Start:19-Mar-2020 Instruction Type:Patient Education Patient Instructions Indication:Sjogren's disease Start:19-Mar-2020 Instruction Type:Provider Instructions for Treatment How to access health informa tion online Indication:Encounter for general adult medical examination with abnormal findings Start:18-Jul-2019 Instruction Type:Patient Education How to access health informa tion online - Detail Indication:Encounter for general adult medical examination with abnormal findings Start:18-Jul-2019 Instruction Type:Patient Education Patient Instructions Indication:Encounter for general adult medical examination with abnormal findings Start:18-Jul-2019 Instruction Type:Provider Instructions for Treatment How to access health informa tion online Indication:Current nonsmoker (Renamed from Current non-smoker) Start:14-Jul-2019 Instruction Type:Patient Education How to access health informa tion online - Detail Indication:Current nonsmoker (Renamed from Current non-smoker) Start:14-Jul-2019 Instruction Type:Patient Education Patient Instructions Indication:Current nonsmoker (Renamed from Current non-smoker) Start:14-Jul-2019 Instruction Type:Provider Instructions for Treatment How to access health informa tion online Indication:Current nonsmoker (Renamed from Current non-smoker) Start:07-Sep-2018 Instruction Type:Patient Education How to access health informa tion online - Detail Indication:Current nonsmoker (Renamed from Current non-smoker) Start:07-Sep-2018 Instruction Type:Patient Education Patient Instructions Indication:Current nonsmoker (Renamed from Current non-smoker) Start:07-Sep-2018 Instruction Type:Provider Instructions for Treatment How to access health informa tion online Indication:Encounter for general adult medical examination with abnormal findings Start:15-Jul-2018 Instruction Type:Patient Education How to access health informa tion online - Detail Indication:Encounter for general adult medical examination with abnormal findings Start:15-Jul-2018 Instruction Type:Patient Education Patient Instructions Indication:Encounter for general adult medical examination with abnormal findings Start:15-Jul-2018 Instruction Type:Provider Instructions for Treatment How to access health informa tion online Indication:Poison jack Start:01-Feb-2018 Instruction Type:Patient Education How to access health informa tion online - Detail Indication:Poison jack Start:01-Feb-2018 Instruction Type:Patient Education Patient Instructions Indication:Poison jack Start:01-Feb-2018 Instruction Type:Provider Instructions for Treatment How to access health informa tion online Indication:BMI 25.0-25.9,adult Start:16-Sep-2017 Instruction Type:Patient Education How to access health informa tion online - Detail Indication:BMI 25.0-25.9,adult Start:16-Sep-2017 Instruction Type:Patient Education Patient Instructions Indication:BMI 25.0-25.9,adult Start:16-Sep-2017 Instruction Type:Provider Instructions for Treatment How to access health informa tion online Indication:Current nonsmoker (Renamed from Current non-smoker) Start:09-Aug-2017 Instruction Type:Patient Education How to access health informa tion online - Detail Indication:Current nonsmoker (Renamed from Current non-smoker) Start:09-Aug-2017 Instruction Type:Patient Education Patient Instructions Indication:Current nonsmoker (Renamed from Current non-smoker) Start:09-Aug-2017 Instruction Type:Provider Instructions for Treatment How to access health informa tion online Indication:Encounter for general adult medical examination with abnormal findings Start:18-May-2017 Instruction Type:Patient Education How to access health informa tion online - Detail Indication:Encounter for general adult medical examination with abnormal findings Start:18-May-2017 Instruction Type:Patient Education Patient Instructions Indication:Encounter for general adult medical examination with abnormal findings Start:18-May-2017 Instruction Type:Provider Instructions for Treatment How to access health informa tion online Indication:Infected sebaceous cyst Start:29-Mar-2017 Instruction Type:Patient Education How to access health informa tion online - Detail Indication:Infected sebaceous cyst Start:29-Mar-2017 Instruction Type:Patient Education Patient Instructions Indication:Infected sebaceous cyst Start:29-Mar-2017 Instruction Type:Provider Instructions for Treatment How to access health informa tion online Indication:Infected sebaceous cyst Start:24-Mar-2017 Instruction Type:Patient Education How to access health informa tion online - Detail Indication:Infected sebaceous cyst Start:24-Mar-2017 Instruction Type:Patient Education Patient Instructions Indication:Infected sebaceous cyst Start:24-Mar-2017 Instruction Type:Provider Instructions for Treatment How to access health informa tion online Indication:BMI 23.0-23.9, adult Start:22-Mar-2017 Instruction Type:Patient Education How to access health informa tion online - Detail Indication:BMI 23.0-23.9, adult Start:22-Mar-2017 Instruction Type:Patient Education Patient Instructions Indication:BMI 23.0-23.9, adult Start:22-Mar-2017 Instruction Type:Provider Instructions for Treatment How to access health informa tion online Indication:Major depressive disorder, recurrent episode, mild Start:18-May-2016 Instruction Type:Patient Education How to access health informa tion online - Detail Indication:Major depressive disorder, recurrent episode, mild Start:18-May-2016 Instruction Type:Patient Education Patient Instructions Indication:Major depressive disorder, recurrent episode, mild Start:18-May-2016 Instruction Type:Provider Instructions for Treatment How to access health informa tion online Indication:Sjogren's disease Start:24-Apr-2016 Instruction Type:Patient Education How to access health informa tion online - Detail Indication:Sjogren's disease Start:24-Apr-2016 Instruction Type:Patient Education Patient Instructions Indication:Sjogren's disease Start:24-Apr-2016 Instruction Type:Provider Instructions for Treatment How to access health informa tion online Indication:Hypercholesterolemia Start:01-Nov-2014 Instruction Type:Patient Education How to access health informa tion online - Detail Indication:Hypercholesterolemia Start:01-Nov-2014 Instruction Type:Patient Education Patient Instructions Indication:Hypercholesterolemia Start:01-Nov-2014 Instruction Type:Provider Instructions for Treatment How to access health informa tion online Indication:Hypercholesterolemia Start:13-Mar-2014 Instruction Type:Patient Education How to access health informa tion online - Detail Indication:Hypercholesterolemia Start:13-Mar-2014 Instruction Type:Patient Education Patient Instructions Indication:Hypercholesterolemia Start:13-Mar-2014 Instruction Type:Provider Instructions for Treatment Patient Instructions Indication:Hypercholesterolemia Start:20-Sep-2012 Instruction Type:Provider Instructions for Treatment Patient Instructions Indication:Muscle Spasm Start:08-Jun-2012 Instruction Type:Provider Instructions for Treatment Patient Instructions Indication:Hypercholesterolemia Start:03-Mar-2012 Instruction Type:Provider Instructions for Treatment [facility]; [facility] Work Phone: Instructions* Name Dates Details Patient Instructions Indication:Encounter for general adult medical examination with abnormal findings Start:25-Aug-2021 Instruction Type:Provider Instructions for Treatment How to Access Health Informa tion Online using Patient Portal and [employer] Apps Indication:Encounter for general adult medical examination with abnormal findings Start:25-Aug-2021 Instruction Type:Patient Education Patient Instructions Indication:Pain of molar Start:16-Jun-2021 Instruction Type:Provider Instructions for Treatment How to Access Health Informa tion Online using Patient Portal and [employer] Apps Indication:Current nonsmoker (Renamed from Current non-smoker) Start:22-Aug-2020 Instruction Type:Patient Education Patient Instructions Indication:Current nonsmoker (Renamed from Current non-smoker) Start:22-Aug-2020 Instruction Type:Provider Instructions for Treatment How to access health informa tion online Indication:Sjogren's disease Start:19-Mar-2020 Instruction Type:Patient Education How to access health informa tion online - Detail Indication:Sjogren's disease Start:19-Mar-2020 Instruction Type:Patient Education Patient Instructions Indication:Sjogren's disease Start:19-Mar-2020 Instruction Type:Provider Instructions for Treatment How to access health informa tion online Indication:Encounter for general adult medical examination with abnormal findings Start:18-Jul-2019 Instruction Type:Patient Education How to access health informa tion online - Detail Indication:Encounter for general adult medical examination with abnormal findings Start:18-Jul-2019 Instruction Type:Patient Education Patient Instructions Indication:Encounter for general adult medical examination with abnormal findings Start:18-Jul-2019 Instruction Type:Provider Instructions for Treatment How to access health informa tion online Indication:Current nonsmoker (Renamed from Current non-smoker) Start:14-Jul-2019 Instruction Type:Patient Education How to access health informa tion online - Detail Indication:Current nonsmoker (Renamed from Current non-smoker) Start:14-Jul-2019 Instruction Type:Patient Education Patient Instructions Indication:Current nonsmoker (Renamed from Current non-smoker) Start:14-Jul-2019 Instruction Type:Provider Instructions for Treatment How to access health informa tion online Indication:Current nonsmoker (Renamed from Current non-smoker) Start:07-Sep-2018 Instruction Type:Patient Education How to access health informa tion online - Detail Indication:Current nonsmoker (Renamed from Current non-smoker) Start:07-Sep-2018 Instruction Type:Patient Education Patient Instructions Indication:Current nonsmoker (Renamed from Current non-smoker) Start:07-Sep-2018 Instruction Type:Provider Instructions for Treatment How to access health informa tion online Indication:Encounter for general adult medical examination with abnormal findings Start:15-Jul-2018 Instruction Type:Patient Education How to access health informa tion online - Detail Indication:Encounter for general adult medical examination with abnormal findings Start:15-Jul-2018 Instruction Type:Patient Education Patient Instructions Indication:Encounter for general adult medical examination with abnormal findings Start:15-Jul-2018 Instruction Type:Provider Instructions for Treatment How to access health informa tion online Indication:Poison jack Start:01-Feb-2018 Instruction Type:Patient Education How to access health informa tion online - Detail Indication:Poison jack Start:01-Feb-2018 Instruction Type:Patient Education Patient Instructions Indication:Poison jack Start:01-Feb-2018 Instruction Type:Provider Instructions for Treatment How to access health informa tion online Indication:BMI 25.0-25.9,adult Start:16-Sep-2017 Instruction Type:Patient Education How to access health informa tion online - Detail Indication:BMI 25.0-25.9,adult Start:16-Sep-2017 Instruction Type:Patient Education Patient Instructions Indication:BMI 25.0-25.9,adult Start:16-Sep-2017 Instruction Type:Provider Instructions for Treatment How to access health informa tion online Indication:Current nonsmoker (Renamed from Current non-smoker) Start:09-Aug-2017 Instruction Type:Patient Education How to access health informa tion online - Detail Indication:Current nonsmoker (Renamed from Current non-smoker) Start:09-Aug-2017 Instruction Type:Patient Education Patient Instructions Indication:Current nonsmoker (Renamed from Current non-smoker) Start:09-Aug-2017 Instruction Type:Provider Instructions for Treatment How to access health informa tion online Indication:Encounter for general adult medical examination with abnormal findings Start:18-May-2017 Instruction Type:Patient Education How to access health informa tion online - Detail Indication:Encounter for general adult medical examination with abnormal findings Start:18-May-2017 Instruction Type:Patient Education Patient Instructions Indication:Encounter for general adult medical examination with abnormal findings Start:18-May-2017 Instruction Type:Provider Instructions for Treatment How to access health informa tion online Indication:Infected sebaceous cyst Start:29-Mar-2017 Instruction Type:Patient Education How to access health informa tion online - Detail Indication:Infected sebaceous cyst Start:29-Mar-2017 Instruction Type:Patient Education Patient Instructions Indication:Infected sebaceous cyst Start:29-Mar-2017 Instruction Type:Provider Instructions for Treatment How to access health informa tion online Indication:Infected sebaceous cyst Start:24-Mar-2017 Instruction Type:Patient Education How to access health informa tion online - Detail Indication:Infected sebaceous cyst Start:24-Mar-2017 Instruction Type:Patient Education Patient Instructions Indication:Infected sebaceous cyst Start:24-Mar-2017 Instruction Type:Provider Instructions for Treatment How to access health informa tion online Indication:BMI 23.0-23.9, adult Start:22-Mar-2017 Instruction Type:Patient Education How to access health informa tion online - Detail Indication:BMI 23.0-23.9, adult Start:22-Mar-2017 Instruction Type:Patient Education Patient Instructions Indication:BMI 23.0-23.9, adult Start:22-Mar-2017 Instruction Type:Provider Instructions for Treatment How to access health informa tion online Indication:Major depressive disorder, recurrent episode, mild Start:18-May-2016 Instruction Type:Patient Education How to access health informa tion online - Detail Indication:Major depressive disorder, recurrent episode, mild Start:18-May-2016 Instruction Type:Patient Education Patient Instructions Indication:Major depressive disorder, recurrent episode, mild Start:18-May-2016 Instruction Type:Provider Instructions for Treatment How to access health informa tion online Indication:Sjogren's disease Start:24-Apr-2016 Instruction Type:Patient Education How to access health informa tion online - Detail Indication:Sjogren's disease Start:24-Apr-2016 Instruction Type:Patient Education Patient Instructions Indication:Sjogren's disease Start:24-Apr-2016 Instruction Type:Provider Instructions for Treatment How to access health informa tion online Indication:Hypercholesterolemia Start:01-Nov-2014 Instruction Type:Patient Education How to access health informa tion online - Detail Indication:Hypercholesterolemia Start:01-Nov-2014 Instruction Type:Patient Education Patient Instructions Indication:Hypercholesterolemia Start:01-Nov-2014 Instruction Type:Provider Instructions for Treatment How to access health informa tion online Indication:Hypercholesterolemia Start:13-Mar-2014 Instruction Type:Patient Education How to access health informa tion online - Detail Indication:Hypercholesterolemia Start:13-Mar-2014 Instruction Type:Patient Education Patient Instructions Indication:Hypercholesterolemia Start:13-Mar-2014 Instruction Type:Provider Instructions for Treatment Patient Instructions Indication:Hypercholesterolemia Start:20-Sep-2012 Instruction Type:Provider Instructions for Treatment Patient Instructions Indication:Muscle Spasm Start:08-Jun-2012 Instruction Type:Provider Instructions for Treatment Patient Instructions Indication:Hypercholesterolemia Start:03-Mar-2012 Instruction Type:Provider Instructions for Treatment [facility]; [facility] Work Phone: Instructions* Name Dates Details Patient Instructions Indication:Encounter for general adult medical examination with abnormal findings Start:25-Aug-2021 Instruction Type:Provider Instructions for Treatment How to Access Health Informa tion Online using Patient Portal and [employer] Apps Indication:Encounter for general adult medical examination with abnormal findings Start:25-Aug-2021 Instruction Type:Patient Education Patient Instructions Indication:Pain of molar Start:16-Jun-2021 Instruction Type:Provider Instructions for Treatment How to Access Health Informa tion Online using Patient Portal and [employer] Apps Indication:Current nonsmoker (Renamed from Current non-smoker) Start:22-Aug-2020 Instruction Type:Patient Education Patient Instructions Indication:Current nonsmoker (Renamed from Current non-smoker) Start:22-Aug-2020 Instruction Type:Provider Instructions for Treatment How to access health informa tion online Indication:Sjogren's disease Start:19-Mar-2020 Instruction Type:Patient Education How to access health informa tion online - Detail Indication:Sjogren's disease Start:19-Mar-2020 Instruction Type:Patient Education Patient Instructions Indication:Sjogren's disease Start:19-Mar-2020 Instruction Type:Provider Instructions for Treatment How to access health informa tion online Indication:Encounter for general adult medical examination with abnormal findings Start:18-Jul-2019 Instruction Type:Patient Education How to access health informa tion online - Detail Indication:Encounter for general adult medical examination with abnormal findings Start:18-Jul-2019 Instruction Type:Patient Education Patient Instructions Indication:Encounter for general adult medical examination with abnormal findings Start:18-Jul-2019 Instruction Type:Provider Instructions for Treatment How to access health informa tion online Indication:Current nonsmoker (Renamed from Current non-smoker) Start:14-Jul-2019 Instruction Type:Patient Education How to access health informa tion online - Detail Indication:Current nonsmoker (Renamed from Current non-smoker) Start:14-Jul-2019 Instruction Type:Patient Education Patient Instructions Indication:Current nonsmoker (Renamed from Current non-smoker) Start:14-Jul-2019 Instruction Type:Provider Instructions for Treatment How to access health informa tion online Indication:Current nonsmoker (Renamed from Current non-smoker) Start:07-Sep-2018 Instruction Type:Patient Education How to access health informa tion online - Detail Indication:Current nonsmoker (Renamed from Current non-smoker) Start:07-Sep-2018 Instruction Type:Patient Education Patient Instructions Indication:Current nonsmoker (Renamed from Current non-smoker) Start:07-Sep-2018 Instruction Type:Provider Instructions for Treatment How to access health informa tion online Indication:Encounter for general adult medical examination with abnormal findings Start:15-Jul-2018 Instruction Type:Patient Education How to access health informa tion online - Detail Indication:Encounter for general adult medical examination with abnormal findings Start:15-Jul-2018 Instruction Type:Patient Education Patient Instructions Indication:Encounter for general adult medical examination with abnormal findings Start:15-Jul-2018 Instruction Type:Provider Instructions for Treatment How to access health informa tion online Indication:Poison jack Start:01-Feb-2018 Instruction Type:Patient Education How to access health informa tion online - Detail Indication:Poison jack Start:01-Feb-2018 Instruction Type:Patient Education Patient Instructions Indication:Poison jack Start:01-Feb-2018 Instruction Type:Provider Instructions for Treatment How to access health informa tion online Indication:BMI 25.0-25.9,adult Start:16-Sep-2017 Instruction Type:Patient Education How to access health informa tion online - Detail Indication:BMI 25.0-25.9,adult Start:16-Sep-2017 Instruction Type:Patient Education Patient Instructions Indication:BMI 25.0-25.9,adult Start:16-Sep-2017 Instruction Type:Provider Instructions for Treatment How to access health informa tion online Indication:Current nonsmoker (Renamed from Current non-smoker) Start:09-Aug-2017 Instruction Type:Patient Education How to access health informa tion online - Detail Indication:Current nonsmoker (Renamed from Current non-smoker) Start:09-Aug-2017 Instruction Type:Patient Education Patient Instructions Indication:Current nonsmoker (Renamed from Current non-smoker) Start:09-Aug-2017 Instruction Type:Provider Instructions for Treatment How to access health informa tion online Indication:Encounter for general adult medical examination with abnormal findings Start:18-May-2017 Instruction Type:Patient Education How to access health informa tion online - Detail Indication:Encounter for general adult medical examination with abnormal findings Start:18-May-2017 Instruction Type:Patient Education Patient Instructions Indication:Encounter for general adult medical examination with abnormal findings Start:18-May-2017 Instruction Type:Provider Instructions for Treatment How to access health informa tion online Indication:Infected sebaceous cyst Start:29-Mar-2017 Instruction Type:Patient Education How to access health informa tion online - Detail Indication:Infected sebaceous cyst Start:29-Mar-2017 Instruction Type:Patient Education Patient Instructions Indication:Infected sebaceous cyst Start:29-Mar-2017 Instruction Type:Provider Instructions for Treatment How to access health informa tion online Indication:Infected sebaceous cyst Start:24-Mar-2017 Instruction Type:Patient Education How to access health informa tion online - Detail Indication:Infected sebaceous cyst Start:24-Mar-2017 Instruction Type:Patient Education Patient Instructions Indication:Infected sebaceous cyst Start:24-Mar-2017 Instruction Type:Provider Instructions for Treatment How to access health informa tion online Indication:BMI 23.0-23.9, adult Start:22-Mar-2017 Instruction Type:Patient Education How to access health informa tion online - Detail Indication:BMI 23.0-23.9, adult Start:22-Mar-2017 Instruction Type:Patient Education Patient Instructions Indication:BMI 23.0-23.9, adult Start:22-Mar-2017 Instruction Type:Provider Instructions for Treatment How to access health informa tion online Indication:Major depressive disorder, recurrent episode, mild Start:18-May-2016 Instruction Type:Patient Education How to access health informa tion online - Detail Indication:Major depressive disorder, recurrent episode, mild Start:18-May-2016 Instruction Type:Patient Education Patient Instructions Indication:Major depressive disorder, recurrent episode, mild Start:18-May-2016 Instruction Type:Provider Instructions for Treatment How to access health informa tion online Indication:Sjogren's disease Start:24-Apr-2016 Instruction Type:Patient Education How to access health informa tion online - Detail Indication:Sjogren's disease Start:24-Apr-2016 Instruction Type:Patient Education Patient Instructions Indication:Sjogren's disease Start:24-Apr-2016 Instruction Type:Provider Instructions for Treatment How to access health informa tion online Indication:Hypercholesterolemia Start:01-Nov-2014 Instruction Type:Patient Education How to access health informa tion online - Detail Indication:Hypercholesterolemia Start:01-Nov-2014 Instruction Type:Patient Education Patient Instructions Indication:Hypercholesterolemia Start:01-Nov-2014 Instruction Type:Provider Instructions for Treatment How to access health informa tion online Indication:Hypercholesterolemia Start:13-Mar-2014 Instruction Type:Patient Education How to access health informa tion online - Detail Indication:Hypercholesterolemia Start:13-Mar-2014 Instruction Type:Patient Education Patient Instructions Indication:Hypercholesterolemia Start:13-Mar-2014 Instruction Type:Provider Instructions for Treatment Patient Instructions Indication:Hypercholesterolemia Start:20-Sep-2012 Instruction Type:Provider Instructions for Treatment Patient Instructions Indication:Muscle Spasm Start:08-Jun-2012 Instruction Type:Provider Instructions for Treatment Patient Instructions Indication:Hypercholesterolemia Start:03-Mar-2012 Instruction Type:Provider Instructions for Treatment [facility]; [facility] Work Phone: Instructions* Name Dates Details Patient Instructions Indication:Encounter for general adult medical examination with abnormal findings Start:25-Aug-2021 Instruction Type:Provider Instructions for Treatment How to Access Health Informa tion Online using Patient Portal and [employer] Indication:Encounter for general adult medical examination with abnormal findings Start:25-Aug-2021 Instruction Type:Patient Education Patient Instructions Indication:Pain of molar Start:16-Jun-2021 Instruction Type:Provider Instructions for Treatment How to Access Health Informa tion Online using Patient Portal and [employer] Apps Indication:Current nonsmoker (Renamed from Current non-smoker) Start:22-Aug-2020 Instruction Type:Patient Education Patient Instructions Indication:Current nonsmoker (Renamed from Current non-smoker) Start:22-Aug-2020 Instruction Type:Provider Instructions for Treatment How to access health informa tion online Indication:Sjogren's disease Start:19-Mar-2020 Instruction Type:Patient Education How to access health informa tion online - Detail Indication:Sjogren's disease Start:19-Mar-2020 Instruction Type:Patient Education Patient Instructions Indication:Sjogren's disease Start:19-Mar-2020 Instruction Type:Provider Instructions for Treatment How to access health informa tion online Indication:Encounter for general adult medical examination with abnormal findings Start:18-Jul-2019 Instruction Type:Patient Education How to access health informa tion online - Detail Indication:Encounter for general adult medical examination with abnormal findings Start:18-Jul-2019 Instruction Type:Patient Education Patient Instructions Indication:Encounter for general adult medical examination with abnormal findings Start:18-Jul-2019 Instruction Type:Provider Instructions for Treatment How to access health informa tion online Indication:Current nonsmoker (Renamed from Current non-smoker) Start:14-Jul-2019 Instruction Type:Patient Education How to access health informa tion online - Detail Indication:Current nonsmoker (Renamed from Current non-smoker) Start:14-Jul-2019 Instruction Type:Patient Education Patient Instructions Indication:Current nonsmoker (Renamed from Current non-smoker) Start:14-Jul-2019 Instruction Type:Provider Instructions for Treatment How to access health informa tion online Indication:Current nonsmoker (Renamed from Current non-smoker) Start:07-Sep-2018 Instruction Type:Patient Education How to access health informa tion online - Detail Indication:Current nonsmoker (Renamed from Current non-smoker) Start:07-Sep-2018 Instruction Type:Patient Education Patient Instructions Indication:Current nonsmoker (Renamed from Current non-smoker) Start:07-Sep-2018 Instruction Type:Provider Instructions for Treatment How to access health informa tion online Indication:Encounter for general adult medical examination with abnormal findings Start:15-Jul-2018 Instruction Type:Patient Education How to access health informa tion online - Detail Indication:Encounter for general adult medical examination with abnormal findings Start:15-Jul-2018 Instruction Type:Patient Education Patient Instructions Indication:Encounter for general adult medical examination with abnormal findings Start:15-Jul-2018 Instruction Type:Provider Instructions for Treatment How to access health informa tion online Indication:Poison jack Start:01-Feb-2018 Instruction Type:Patient Education How to access health informa tion online - Detail Indication:Poison jack Start:01-Feb-2018 Instruction Type:Patient Education Patient Instructions Indication:Poison jack Start:01-Feb-2018 Instruction Type:Provider Instructions for Treatment How to access health informa tion online Indication:BMI 25.0-25.9,adult Start:16-Sep-2017 Instruction Type:Patient Education How to access health informa tion online - Detail Indication:BMI 25.0-25.9,adult Start:16-Sep-2017 Instruction Type:Patient Education Patient Instructions Indication:BMI 25.0-25.9,adult Start:16-Sep-2017 Instruction Type:Provider Instructions for Treatment How to access health informa tion online Indication:Current nonsmoker (Renamed from Current non-smoker) Start:09-Aug-2017 Instruction Type:Patient Education How to access health informa tion online - Detail Indication:Current nonsmoker (Renamed from Current non-smoker) Start:09-Aug-2017 Instruction Type:Patient Education Patient Instructions Indication:Current nonsmoker (Renamed from Current non-smoker) Start:09-Aug-2017 Instruction Type:Provider Instructions for Treatment How to access health informa tion online Indication:Encounter for general adult medical examination with abnormal findings Start:18-May-2017 Instruction Type:Patient Education How to access health informa tion online - Detail Indication:Encounter for general adult medical examination with abnormal findings Start:18-May-2017 Instruction Type:Patient Education Patient Instructions Indication:Encounter for general adult medical examination with abnormal findings Start:18-May-2017 Instruction Type:Provider Instructions for Treatment How to access health informa tion online Indication:Infected sebaceous cyst Start:29-Mar-2017 Instruction Type:Patient Education How to access health informa tion online - Detail Indication:Infected sebaceous cyst Start:29-Mar-2017 Instruction Type:Patient Education Patient Instructions Indication:Infected sebaceous cyst Start:29-Mar-2017 Instruction Type:Provider Instructions for Treatment How to access health informa tion online Indication:Infected sebaceous cyst Start:24-Mar-2017 Instruction Type:Patient Education How to access health informa tion online - Detail Indication:Infected sebaceous cyst Start:24-Mar-2017 Instruction Type:Patient Education Patient Instructions Indication:Infected sebaceous cyst Start:24-Mar-2017 Instruction Type:Provider Instructions for Treatment How to access health informa tion online Indication:BMI 23.0-23.9, adult Start:22-Mar-2017 Instruction Type:Patient Education How to access health informa tion online - Detail Indication:BMI 23.0-23.9, adult Start:22-Mar-2017 Instruction Type:Patient Education Patient Instructions Indication:BMI 23.0-23.9, adult Start:22-Mar-2017 Instruction Type:Provider Instructions for Treatment How to access health informa tion online Indication:Major depressive disorder, recurrent episode, mild Start:18-May-2016 Instruction Type:Patient Education How to access health informa tion online - Detail Indication:Major depressive disorder, recurrent episode, mild Start:18-May-2016 Instruction Type:Patient Education Patient Instructions Indication:Major depressive disorder, recurrent episode, mild Start:18-May-2016 Instruction Type:Provider Instructions for Treatment How to access health informa tion online Indication:Sjogren's disease Start:24-Apr-2016 Instruction Type:Patient Education How to access health informa tion online - Detail Indication:Sjogren's disease Start:24-Apr-2016 Instruction Type:Patient Education Patient Instructions Indication:Sjogren's disease Start:24-Apr-2016 Instruction Type:Provider Instructions for Treatment How to access health informa tion online Indication:Hypercholesterolemia Start:01-Nov-2014 Instruction Type:Patient Education How to access health informa tion online - Detail Indication:Hypercholesterolemia Start:01-Nov-2014 Instruction Type:Patient Education Patient Instructions Indication:Hypercholesterolemia Start:01-Nov-2014 Instruction Type:Provider Instructions for Treatment How to access health informa tion online Indication:Hypercholesterolemia Start:13-Mar-2014 Instruction Type:Patient Education How to access health informa tion online - Detail Indication:Hypercholesterolemia Start:13-Mar-2014 Instruction Type:Patient Education Patient Instructions Indication:Hypercholesterolemia Start:13-Mar-2014 Instruction Type:Provider Instructions for Treatment Patient Instructions Indication:Hypercholesterolemia Start:20-Sep-2012 Instruction Type:Provider Instructions for Treatment Patient Instructions Indication:Muscle Spasm Start:08-Jun-2012 Instruction Type:Provider Instructions for Treatment Patient Instructions Indication:Hypercholesterolemia Start:03-Mar-2012 Instruction Type:Provider Instructions for Treatment [facility]; [facility] Work Phone: Instructions* Name Dates Details Patient Instructions Indication:Encounter for general adult medical examination with abnormal findings Start:25-Aug-2021 Instruction Type:Provider Instructions for Treatment How to Access Health Informa tion Online using Patient Portal and [employer] Apps Indication:Encounter for general adult medical examination with abnormal findings Start:25-Aug-2021 Instruction Type:Patient Education Patient Instructions Indication:Pain of molar Start:16-Jun-2021 Instruction Type:Provider Instructions for Treatment How to Access Health Informa tion Online using Patient Portal and [employer] Apps Indication:Current nonsmoker (Renamed from Current non-smoker) Start:22-Aug-2020 Instruction Type:Patient Education Patient Instructions Indication:Current nonsmoker (Renamed from Current non-smoker) Start:22-Aug-2020 Instruction Type:Provider Instructions for Treatment How to access health informa tion online Indication:Sjogren's disease Start:19-Mar-2020 Instruction Type:Patient Education How to access health informa tion online - Detail Indication:Sjogren's disease Start:19-Mar-2020 Instruction Type:Patient Education Patient Instructions Indication:Sjogren's disease Start:19-Mar-2020 Instruction Type:Provider Instructions for Treatment How to access health informa tion online Indication:Encounter for general adult medical examination with abnormal findings Start:18-Jul-2019 Instruction Type:Patient Education How to access health informa tion online - Detail Indication:Encounter for general adult medical examination with abnormal findings Start:18-Jul-2019 Instruction Type:Patient Education Patient Instructions Indication:Encounter for general adult medical examination with abnormal findings Start:18-Jul-2019 Instruction Type:Provider Instructions for Treatment How to access health informa tion online Indication:Current nonsmoker (Renamed from Current non-smoker) Start:14-Jul-2019 Instruction Type:Patient Education How to access health informa tion online - Detail Indication:Current nonsmoker (Renamed from Current non-smoker) Start:14-Jul-2019 Instruction Type:Patient Education Patient Instructions Indication:Current nonsmoker (Renamed from Current non-smoker) Start:14-Jul-2019 Instruction Type:Provider Instructions for Treatment How to access health informa tion online Indication:Current nonsmoker (Renamed from Current non-smoker) Start:07-Sep-2018 Instruction Type:Patient Education How to access health informa tion online - Detail Indication:Current nonsmoker (Renamed from Current non-smoker) Start:07-Sep-2018 Instruction Type:Patient Education Patient Instructions Indication:Current nonsmoker (Renamed from Current non-smoker) Start:07-Sep-2018 Instruction Type:Provider Instructions for Treatment How to access health informa tion online Indication:Encounter for general adult medical examination with abnormal findings Start:15-Jul-2018 Instruction Type:Patient Education How to access health informa tion online - Detail Indication:Encounter for general adult medical examination with abnormal findings Start:15-Jul-2018 Instruction Type:Patient Education Patient Instructions Indication:Encounter for general adult medical examination with abnormal findings Start:15-Jul-2018 Instruction Type:Provider Instructions for Treatment How to access health informa tion online Indication:Poison jack Start:01-Feb-2018 Instruction Type:Patient Education How to access health informa tion online - Detail Indication:Poison jack Start:01-Feb-2018 Instruction Type:Patient Education Patient Instructions Indication:Poison jack Start:01-Feb-2018 Instruction Type:Provider Instructions for Treatment How to access health informa tion online Indication:BMI 25.0-25.9,adult Start:16-Sep-2017 Instruction Type:Patient Education How to access health informa tion online - Detail Indication:BMI 25.0-25.9,adult Start:16-Sep-2017 Instruction Type:Patient Education Patient Instructions Indication:BMI 25.0-25.9,adult Start:16-Sep-2017 Instruction Type:Provider Instructions for Treatment How to access health informa tion online Indication:Current nonsmoker (Renamed from Current non-smoker) Start:09-Aug-2017 Instruction Type:Patient Education How to access health informa tion online - Detail Indication:Current nonsmoker (Renamed from Current non-smoker) Start:09-Aug-2017 Instruction Type:Patient Education Patient Instructions Indication:Current nonsmoker (Renamed from Current non-smoker) Start:09-Aug-2017 Instruction Type:Provider Instructions for Treatment How to access health informa tion online Indication:Encounter for general adult medical examination with abnormal findings Start:18-May-2017 Instruction Type:Patient Education How to access health informa tion online - Detail Indication:Encounter for general adult medical examination with abnormal findings Start:18-May-2017 Instruction Type:Patient Education Patient Instructions Indication:Encounter for general adult medical examination with abnormal findings Start:18-May-2017 Instruction Type:Provider Instructions for Treatment How to access health informa tion online Indication:Infected sebaceous cyst Start:29-Mar-2017 Instruction Type:Patient Education How to access health informa tion online - Detail Indication:Infected sebaceous cyst Start:29-Mar-2017 Instruction Type:Patient Education Patient Instructions Indication:Infected sebaceous cyst Start:29-Mar-2017 Instruction Type:Provider Instructions for Treatment How to access health informa tion online Indication:Infected sebaceous cyst Start:24-Mar-2017 Instruction Type:Patient Education How to access health informa tion online - Detail Indication:Infected sebaceous cyst Start:24-Mar-2017 Instruction Type:Patient Education Patient Instructions Indication:Infected sebaceous cyst Start:24-Mar-2017 Instruction Type:Provider Instructions for Treatment How to access health informa tion online Indication:BMI 23.0-23.9, adult Start:22-Mar-2017 Instruction Type:Patient Education How to access health informa tion online - Detail Indication:BMI 23.0-23.9, adult Start:22-Mar-2017 Instruction Type:Patient Education Patient Instructions Indication:BMI 23.0-23.9, adult Start:22-Mar-2017 Instruction Type:Provider Instructions for Treatment How to access health informa tion online Indication:Major depressive disorder, recurrent episode, mild Start:18-May-2016 Instruction Type:Patient Education How to access health informa tion online - Detail Indication:Major depressive disorder, recurrent episode, mild Start:18-May-2016 Instruction Type:Patient Education Patient Instructions Indication:Major depressive disorder, recurrent episode, mild Start:18-May-2016 Instruction Type:Provider Instructions for Treatment How to access health informa tion online Indication:Sjogren's disease Start:24-Apr-2016 Instruction Type:Patient Education How to access health informa tion online - Detail Indication:Sjogren's disease Start:24-Apr-2016 Instruction Type:Patient Education Patient Instructions Indication:Sjogren's disease Start:24-Apr-2016 Instruction Type:Provider Instructions for Treatment How to access health informa tion online Indication:Hypercholesterolemia Start:01-Nov-2014 Instruction Type:Patient Education How to access health informa tion online - Detail Indication:Hypercholesterolemia Start:01-Nov-2014 Instruction Type:Patient Education Patient Instructions Indication:Hypercholesterolemia Start:01-Nov-2014 Instruction Type:Provider Instructions for Treatment How to access health informa tion online Indication:Hypercholesterolemia Start:13-Mar-2014 Instruction Type:Patient Education How to access health informa tion online - Detail Indication:Hypercholesterolemia Start:13-Mar-2014 Instruction Type:Patient Education Patient Instructions Indication:Hypercholesterolemia Start:13-Mar-2014 Instruction Type:Provider Instructions for Treatment Patient Instructions Indication:Hypercholesterolemia Start:20-Sep-2012 Instruction Type:Provider Instructions for Treatment Patient Instructions Indication:Muscle Spasm Start:08-Jun-2012 Instruction Type:Provider Instructions for Treatment Patient Instructions Indication:Hypercholesterolemia Start:03-Mar-2012 Instruction Type:Provider Instructions for Treatment [facility]; [facility] Work Phone: Instructions* Name Dates Details Patient Instructions Indication:Encounter for general adult medical examination with abnormal findings Start:25-Aug-2021 Instruction Type:Provider Instructions for Treatment How to Access Health Informa tion Online using Patient Portal and [employer] Apps Indication:Encounter for general adult medical examination with abnormal findings Start:25-Aug-2021 Instruction Type:Patient Education Patient Instructions Indication:Pain of molar Start:16-Jun-2021 Instruction Type:Provider Instructions for Treatment How to Access Health Informa tion Online using Patient Portal and [employer] Apps Indication:Current nonsmoker (Renamed from Current non-smoker) Start:22-Aug-2020 Instruction Type:Patient Education Patient Instructions Indication:Current nonsmoker (Renamed from Current non-smoker) Start:22-Aug-2020 Instruction Type:Provider Instructions for Treatment How to access health informa tion online Indication:Sjogren's disease Start:19-Mar-2020 Instruction Type:Patient Education How to access health informa tion online - Detail Indication:Sjogren's disease Start:19-Mar-2020 Instruction Type:Patient Education Patient Instructions Indication:Sjogren's disease Start:19-Mar-2020 Instruction Type:Provider Instructions for Treatment How to access health informa tion online Indication:Encounter for general adult medical examination with abnormal findings Start:18-Jul-2019 Instruction Type:Patient Education How to access health informa tion online - Detail Indication:Encounter for general adult medical examination with abnormal findings Start:18-Jul-2019 Instruction Type:Patient Education Patient Instructions Indication:Encounter for general adult medical examination with abnormal findings Start:18-Jul-2019 Instruction Type:Provider Instructions for Treatment How to access health informa tion online Indication:Current nonsmoker (Renamed from Current non-smoker) Start:14-Jul-2019 Instruction Type:Patient Education How to access health informa tion online - Detail Indication:Current nonsmoker (Renamed from Current non-smoker) Start:14-Jul-2019 Instruction Type:Patient Education Patient Instructions Indication:Current nonsmoker (Renamed from Current non-smoker) Start:14-Jul-2019 Instruction Type:Provider Instructions for Treatment How to access health informa tion online Indication:Current nonsmoker (Renamed from Current non-smoker) Start:07-Sep-2018 Instruction Type:Patient Education How to access health informa tion online - Detail Indication:Current nonsmoker (Renamed from Current non-smoker) Start:07-Sep-2018 Instruction Type:Patient Education Patient Instructions Indication:Current nonsmoker (Renamed from Current non-smoker) Start:07-Sep-2018 Instruction Type:Provider Instructions for Treatment How to access health informa tion online Indication:Encounter for general adult medical examination with abnormal findings Start:15-Jul-2018 Instruction Type:Patient Education How to access health informa tion online - Detail Indication:Encounter for general adult medical examination with abnormal findings Start:15-Jul-2018 Instruction Type:Patient Education Patient Instructions Indication:Encounter for general adult medical examination with abnormal findings Start:15-Jul-2018 Instruction Type:Provider Instructions for Treatment How to access health informa tion online Indication:Poison jack Start:01-Feb-2018 Instruction Type:Patient Education How to access health informa tion online - Detail Indication:Poison jack Start:01-Feb-2018 Instruction Type:Patient Education Patient Instructions Indication:Poison jack Start:01-Feb-2018 Instruction Type:Provider Instructions for Treatment How to access health informa tion online Indication:BMI 25.0-25.9,adult Start:16-Sep-2017 Instruction Type:Patient Education How to access health informa tion online - Detail Indication:BMI 25.0-25.9,adult Start:16-Sep-2017 Instruction Type:Patient Education Patient Instructions Indication:BMI 25.0-25.9,adult Start:16-Sep-2017 Instruction Type:Provider Instructions for Treatment How to access health informa tion online Indication:Current nonsmoker (Renamed from Current non-smoker) Start:09-Aug-2017 Instruction Type:Patient Education How to access health informa tion online - Detail Indication:Current nonsmoker (Renamed from Current non-smoker) Start:09-Aug-2017 Instruction Type:Patient Education Patient Instructions Indication:Current nonsmoker (Renamed from Current non-smoker) Start:09-Aug-2017 Instruction Type:Provider Instructions for Treatment How to access health informa tion online Indication:Encounter for general adult medical examination with abnormal findings Start:18-May-2017 Instruction Type:Patient Education How to access health informa tion online - Detail Indication:Encounter for general adult medical examination with abnormal findings Start:18-May-2017 Instruction Type:Patient Education Patient Instructions Indication:Encounter for general adult medical examination with abnormal findings Start:18-May-2017 Instruction Type:Provider Instructions for Treatment How to access health informa tion online Indication:Infected sebaceous cyst Start:29-Mar-2017 Instruction Type:Patient Education How to access health informa tion online - Detail Indication:Infected sebaceous cyst Start:29-Mar-2017 Instruction Type:Patient Education Patient Instructions Indication:Infected sebaceous cyst Start:29-Mar-2017 Instruction Type:Provider Instructions for Treatment How to access health informa tion online Indication:Infected sebaceous cyst Start:24-Mar-2017 Instruction Type:Patient Education How to access health informa tion online - Detail Indication:Infected sebaceous cyst Start:24-Mar-2017 Instruction Type:Patient Education Patient Instructions Indication:Infected sebaceous cyst Start:24-Mar-2017 Instruction Type:Provider Instructions for Treatment How to access health informa tion online Indication:BMI 23.0-23.9, adult Start:22-Mar-2017 Instruction Type:Patient Education How to access health informa tion online - Detail Indication:BMI 23.0-23.9, adult Start:22-Mar-2017 Instruction Type:Patient Education Patient Instructions Indication:BMI 23.0-23.9, adult Start:22-Mar-2017 Instruction Type:Provider Instructions for Treatment How to access health informa tion online Indication:Major depressive disorder, recurrent episode, mild Start:18-May-2016 Instruction Type:Patient Education How to access health informa tion online - Detail Indication:Major depressive disorder, recurrent episode, mild Start:18-May-2016 Instruction Type:Patient Education Patient Instructions Indication:Major depressive disorder, recurrent episode, mild Start:18-May-2016 Instruction Type:Provider Instructions for Treatment How to access health informa tion online Indication:Sjogren's disease Start:24-Apr-2016 Instruction Type:Patient Education How to access health informa tion online - Detail Indication:Sjogren's disease Start:24-Apr-2016 Instruction Type:Patient Education Patient Instructions Indication:Sjogren's disease Start:24-Apr-2016 Instruction Type:Provider Instructions for Treatment How to access health informa tion online Indication:Hypercholesterolemia Start:01-Nov-2014 Instruction Type:Patient Education How to access health informa tion online - Detail Indication:Hypercholesterolemia Start:01-Nov-2014 Instruction Type:Patient Education Patient Instructions Indication:Hypercholesterolemia Start:01-Nov-2014 Instruction Type:Provider Instructions for Treatment How to access health informa tion online Indication:Hypercholesterolemia Start:13-Mar-2014 Instruction Type:Patient Education How to access health informa tion online - Detail Indication:Hypercholesterolemia Start:13-Mar-2014 Instruction Type:Patient Education Patient Instructions Indication:Hypercholesterolemia Start:13-Mar-2014 Instruction Type:Provider Instructions for Treatment Patient Instructions Indication:Hypercholesterolemia Start:20-Sep-2012 Instruction Type:Provider Instructions for Treatment Patient Instructions Indication:Muscle Spasm Start:08-Jun-2012 Instruction Type:Provider Instructions for Treatment Patient Instructions Indication:Hypercholesterolemia Start:03-Mar-2012 Instruction Type:Provider Instructions for Treatment [facility]; [facility] Work Phone: Instructions* Name Dates Details Patient Instructions Indication:Encounter for general adult medical examination with abnormal findings Start:25-Aug-2021 Instruction Type:Provider Instructions for Treatment How to Access Health Informa tion Online using Patient Portal and [employer] Apps Indication:Encounter for general adult medical examination with abnormal findings Start:25-Aug-2021 Instruction Type:Patient Education Patient Instructions Indication:Pain of molar Start:16-Jun-2021 Instruction Type:Provider Instructions for Treatment How to Access Health Informa tion Online using Patient Portal and [employer] Apps Indication:Current nonsmoker (Renamed from Current non-smoker) Start:22-Aug-2020 Instruction Type:Patient Education Patient Instructions Indication:Current nonsmoker (Renamed from Current non-smoker) Start:22-Aug-2020 Instruction Type:Provider Instructions for Treatment How to access health informa tion online Indication:Sjogren's disease Start:19-Mar-2020 Instruction Type:Patient Education How to access health informa tion online - Detail Indication:Sjogren's disease Start:19-Mar-2020 Instruction Type:Patient Education Patient Instructions Indication:Sjogren's disease Start:19-Mar-2020 Instruction Type:Provider Instructions for Treatment How to access health informa tion online Indication:Encounter for general adult medical examination with abnormal findings Start:18-Jul-2019 Instruction Type:Patient Education How to access health informa tion online - Detail Indication:Encounter for general adult medical examination with abnormal findings Start:18-Jul-2019 Instruction Type:Patient Education Patient Instructions Indication:Encounter for general adult medical examination with abnormal findings Start:18-Jul-2019 Instruction Type:Provider Instructions for Treatment How to access health informa tion online Indication:Current nonsmoker (Renamed from Current non-smoker) Start:14-Jul-2019 Instruction Type:Patient Education How to access health informa tion online - Detail Indication:Current nonsmoker (Renamed from Current non-smoker) Start:14-Jul-2019 Instruction Type:Patient Education Patient Instructions Indication:Current nonsmoker (Renamed from Current non-smoker) Start:14-Jul-2019 Instruction Type:Provider Instructions for Treatment How to access health informa tion online Indication:Current nonsmoker (Renamed from Current non-smoker) Start:07-Sep-2018 Instruction Type:Patient Education How to access health informa tion online - Detail Indication:Current nonsmoker (Renamed from Current non-smoker) Start:07-Sep-2018 Instruction Type:Patient Education Patient Instructions Indication:Current nonsmoker (Renamed from Current non-smoker) Start:07-Sep-2018 Instruction Type:Provider Instructions for Treatment How to access health informa tion online Indication:Encounter for general adult medical examination with abnormal findings Start:15-Jul-2018 Instruction Type:Patient Education How to access health informa tion online - Detail Indication:Encounter for general adult medical examination with abnormal findings Start:15-Jul-2018 Instruction Type:Patient Education Patient Instructions Indication:Encounter for general adult medical examination with abnormal findings Start:15-Jul-2018 Instruction Type:Provider Instructions for Treatment How to access health informa tion online Indication:Poison jack Start:01-Feb-2018 Instruction Type:Patient Education How to access health informa tion online - Detail Indication:Poison jack Start:01-Feb-2018 Instruction Type:Patient Education Patient Instructions Indication:Poison jack Start:01-Feb-2018 Instruction Type:Provider Instructions for Treatment How to access health informa tion online Indication:BMI 25.0-25.9,adult Start:16-Sep-2017 Instruction Type:Patient Education How to access health informa tion online - Detail Indication:BMI 25.0-25.9,adult Start:16-Sep-2017 Instruction Type:Patient Education Patient Instructions Indication:BMI 25.0-25.9,adult Start:16-Sep-2017 Instruction Type:Provider Instructions for Treatment How to access health informa tion online Indication:Current nonsmoker (Renamed from Current non-smoker) Start:09-Aug-2017 Instruction Type:Patient Education How to access health informa tion online - Detail Indication:Current nonsmoker (Renamed from Current non-smoker) Start:09-Aug-2017 Instruction Type:Patient Education Patient Instructions Indication:Current nonsmoker (Renamed from Current non-smoker) Start:09-Aug-2017 Instruction Type:Provider Instructions for Treatment How to access health informa tion online Indication:Encounter for general adult medical examination with abnormal findings Start:18-May-2017 Instruction Type:Patient Education How to access health informa tion online - Detail Indication:Encounter for general adult medical examination with abnormal findings Start:18-May-2017 Instruction Type:Patient Education Patient Instructions Indication:Encounter for general adult medical examination with abnormal findings Start:18-May-2017 Instruction Type:Provider Instructions for Treatment How to access health informa tion online Indication:Infected sebaceous cyst Start:29-Mar-2017 Instruction Type:Patient Education How to access health informa tion online - Detail Indication:Infected sebaceous cyst Start:29-Mar-2017 Instruction Type:Patient Education Patient Instructions Indication:Infected sebaceous cyst Start:29-Mar-2017 Instruction Type:Provider Instructions for Treatment How to access health informa tion online Indication:Infected sebaceous cyst Start:24-Mar-2017 Instruction Type:Patient Education How to access health informa tion online - Detail Indication:Infected sebaceous cyst Start:24-Mar-2017 Instruction Type:Patient Education Patient Instructions Indication:Infected sebaceous cyst Start:24-Mar-2017 Instruction Type:Provider Instructions for Treatment How to access health informa tion online Indication:BMI 23.0-23.9, adult Start:22-Mar-2017 Instruction Type:Patient Education How to access health informa tion online - Detail Indication:BMI 23.0-23.9, adult Start:22-Mar-2017 Instruction Type:Patient Education Patient Instructions Indication:BMI 23.0-23.9, adult Start:22-Mar-2017 Instruction Type:Provider Instructions for Treatment How to access health informa tion online Indication:Major depressive disorder, recurrent episode, mild Start:18-May-2016 Instruction Type:Patient Education How to access health informa tion online - Detail Indication:Major depressive disorder, recurrent episode, mild Start:18-May-2016 Instruction Type:Patient Education Patient Instructions Indication:Major depressive disorder, recurrent episode, mild Start:18-May-2016 Instruction Type:Provider Instructions for Treatment How to access health informa tion online Indication:Sjogren's disease Start:24-Apr-2016 Instruction Type:Patient Education How to access health informa tion online - Detail Indication:Sjogren's disease Start:24-Apr-2016 Instruction Type:Patient Education Patient Instructions Indication:Sjogren's disease Start:24-Apr-2016 Instruction Type:Provider Instructions for Treatment How to access health informa tion online Indication:Hypercholesterolemia Start:01-Nov-2014 Instruction Type:Patient Education How to access health informa tion online - Detail Indication:Hypercholesterolemia Start:01-Nov-2014 Instruction Type:Patient Education Patient Instructions Indication:Hypercholesterolemia Start:01-Nov-2014 Instruction Type:Provider Instructions for Treatment How to access health informa tion online Indication:Hypercholesterolemia Start:13-Mar-2014 Instruction Type:Patient Education How to access health informa tion online - Detail Indication:Hypercholesterolemia Start:13-Mar-2014 Instruction Type:Patient Education Patient Instructions Indication:Hypercholesterolemia Start:13-Mar-2014 Instruction Type:Provider Instructions for Treatment Patient Instructions Indication:Hypercholesterolemia Start:20-Sep-2012 Instruction Type:Provider Instructions for Treatment Patient Instructions Indication:Muscle Spasm Start:08-Jun-2012 Instruction Type:Provider Instructions for Treatment Patient Instructions Indication:Hypercholesterolemia Start:03-Mar-2012 Instruction Type:Provider Instructions for Treatment [facility]; [facility] Work Phone: Instructions* Name Dates Details Patient Instructions Indication:Encounter for general adult medical examination with abnormal findings Start:25-Aug-2021 Instruction Type:Provider Instructions for Treatment How to Access Health Informa tion Online using Patient Portal and [employer] Apps Indication:Encounter for general adult medical examination with abnormal findings Start:25-Aug-2021 Instruction Type:Patient Education Patient Instructions Indication:Pain of molar Start:16-Jun-2021 Instruction Type:Provider Instructions for Treatment How to Access Health Informa tion Online using Patient Portal and [employer] Apps Indication:Current nonsmoker (Renamed from Current non-smoker) Start:22-Aug-2020 Instruction Type:Patient Education Patient Instructions Indication:Current nonsmoker (Renamed from Current non-smoker) Start:22-Aug-2020 Instruction Type:Provider Instructions for Treatment How to access health informa tion online Indication:Sjogren's disease Start:19-Mar-2020 Instruction Type:Patient Education How to access health informa tion online - Detail Indication:Sjogren's disease Start:19-Mar-2020 Instruction Type:Patient Education Patient Instructions Indication:Sjogren's disease Start:19-Mar-2020 Instruction Type:Provider Instructions for Treatment How to access health informa tion online Indication:Encounter for general adult medical examination with abnormal findings Start:18-Jul-2019 Instruction Type:Patient Education How to access health informa tion online - Detail Indication:Encounter for general adult medical examination with abnormal findings Start:18-Jul-2019 Instruction Type:Patient Education Patient Instructions Indication:Encounter for general adult medical examination with abnormal findings Start:18-Jul-2019 Instruction Type:Provider Instructions for Treatment How to access health informa tion online Indication:Current nonsmoker (Renamed from Current non-smoker) Start:14-Jul-2019 Instruction Type:Patient Education How to access health informa tion online - Detail Indication:Current nonsmoker (Renamed from Current non-smoker) Start:14-Jul-2019 Instruction Type:Patient Education Patient Instructions Indication:Current nonsmoker (Renamed from Current non-smoker) Start:14-Jul-2019 Instruction Type:Provider Instructions for Treatment How to access health informa tion online Indication:Current nonsmoker (Renamed from Current non-smoker) Start:07-Sep-2018 Instruction Type:Patient Education How to access health informa tion online - Detail Indication:Current nonsmoker (Renamed from Current non-smoker) Start:07-Sep-2018 Instruction Type:Patient Education Patient Instructions Indication:Current nonsmoker (Renamed from Current non-smoker) Start:07-Sep-2018 Instruction Type:Provider Instructions for Treatment How to access health informa tion online Indication:Encounter for general adult medical examination with abnormal findings Start:15-Jul-2018 Instruction Type:Patient Education How to access health informa tion online - Detail Indication:Encounter for general adult medical examination with abnormal findings Start:15-Jul-2018 Instruction Type:Patient Education Patient Instructions Indication:Encounter for general adult medical examination with abnormal findings Start:15-Jul-2018 Instruction Type:Provider Instructions for Treatment How to access health informa tion online Indication:Poison jack Start:01-Feb-2018 Instruction Type:Patient Education How to access health informa tion online - Detail Indication:Poison jack Start:01-Feb-2018 Instruction Type:Patient Education Patient Instructions Indication:Poison jack Start:01-Feb-2018 Instruction Type:Provider Instructions for Treatment How to access health informa tion online Indication:BMI 25.0-25.9,adult Start:16-Sep-2017 Instruction Type:Patient Education How to access health informa tion online - Detail Indication:BMI 25.0-25.9,adult Start:16-Sep-2017 Instruction Type:Patient Education Patient Instructions Indication:BMI 25.0-25.9,adult Start:16-Sep-2017 Instruction Type:Provider Instructions for Treatment How to access health informa tion online Indication:Current nonsmoker (Renamed from Current non-smoker) Start:09-Aug-2017 Instruction Type:Patient Education How to access health informa tion online - Detail Indication:Current nonsmoker (Renamed from Current non-smoker) Start:09-Aug-2017 Instruction Type:Patient Education Patient Instructions Indication:Current nonsmoker (Renamed from Current non-smoker) Start:09-Aug-2017 Instruction Type:Provider Instructions for Treatment How to access health informa tion online Indication:Encounter for general adult medical examination with abnormal findings Start:18-May-2017 Instruction Type:Patient Education How to access health informa tion online - Detail Indication:Encounter for general adult medical examination with abnormal findings Start:18-May-2017 Instruction Type:Patient Education Patient Instructions Indication:Encounter for general adult medical examination with abnormal findings Start:18-May-2017 Instruction Type:Provider Instructions for Treatment How to access health informa tion online Indication:Infected sebaceous cyst Start:29-Mar-2017 Instruction Type:Patient Education How to access health informa tion online - Detail Indication:Infected sebaceous cyst Start:29-Mar-2017 Instruction Type:Patient Education Patient Instructions Indication:Infected sebaceous cyst Start:29-Mar-2017 Instruction Type:Provider Instructions for Treatment How to access health informa tion online Indication:Infected sebaceous cyst Start:24-Mar-2017 Instruction Type:Patient Education How to access health informa tion online - Detail Indication:Infected sebaceous cyst Start:24-Mar-2017 Instruction Type:Patient Education Patient Instructions Indication:Infected sebaceous cyst Start:24-Mar-2017 Instruction Type:Provider Instructions for Treatment How to access health informa tion online Indication:BMI 23.0-23.9, adult Start:22-Mar-2017 Instruction Type:Patient Education How to access health informa tion online - Detail Indication:BMI 23.0-23.9, adult Start:22-Mar-2017 Instruction Type:Patient Education Patient Instructions Indication:BMI 23.0-23.9, adult Start:22-Mar-2017 Instruction Type:Provider Instructions for Treatment How to access health informa tion online Indication:Major depressive disorder, recurrent episode, mild Start:18-May-2016 Instruction Type:Patient Education How to access health informa tion online - Detail Indication:Major depressive disorder, recurrent episode, mild Start:18-May-2016 Instruction Type:Patient Education Patient Instructions Indication:Major depressive disorder, recurrent episode, mild Start:18-May-2016 Instruction Type:Provider Instructions for Treatment How to access health informa tion online Indication:Sjogren's disease Start:24-Apr-2016 Instruction Type:Patient Education How to access health informa tion online - Detail Indication:Sjogren's disease Start:24-Apr-2016 Instruction Type:Patient Education Patient Instructions Indication:Sjogren's disease Start:24-Apr-2016 Instruction Type:Provider Instructions for Treatment How to access health informa tion online Indication:Hypercholesterolemia Start:01-Nov-2014 Instruction Type:Patient Education How to access health informa tion online - Detail Indication:Hypercholesterolemia Start:01-Nov-2014 Instruction Type:Patient Education Patient Instructions Indication:Hypercholesterolemia Start:01-Nov-2014 Instruction Type:Provider Instructions for Treatment How to access health informa tion online Indication:Hypercholesterolemia Start:13-Mar-2014 Instruction Type:Patient Education How to access health informa tion online - Detail Indication:Hypercholesterolemia Start:13-Mar-2014 Instruction Type:Patient Education Patient Instructions Indication:Hypercholesterolemia Start:13-Mar-2014 Instruction Type:Provider Instructions for Treatment Patient Instructions Indication:Hypercholesterolemia Start:20-Sep-2012 Instruction Type:Provider Instructions for Treatment Patient Instructions Indication:Muscle Spasm Start:08-Jun-2012 Instruction Type:Provider Instructions for Treatment Patient Instructions Indication:Hypercholesterolemia Start:03-Mar-2012 Instruction Type:Provider Instructions for Treatment [facility]; [facility] Work Phone: Instructions* Name Dates Details Patient Instructions Indication:Encounter for general adult medical examination with abnormal findings Start:25-Aug-2021 Instruction Type:Provider Instructions for Treatment How to Access Health Informa tion Online using Patient Portal and [employer] Interactive Indication:Encounter for general adult medical examination with abnormal findings Start:25-Aug-2021 Instruction Type:Patient Education Patient Instructions Indication:Pain of molar Start:16-Jun-2021 Instruction Type:Provider Instructions for Treatment How to Access Health Informa tion Online using Patient Portal and [employer] Apps Indication:Current nonsmoker (Renamed from Current non-smoker) Start:22-Aug-2020 Instruction Type:Patient Education Patient Instructions Indication:Current nonsmoker (Renamed from Current non-smoker) Start:22-Aug-2020 Instruction Type:Provider Instructions for Treatment How to access health informa tion online Indication:Sjogren's disease Start:19-Mar-2020 Instruction Type:Patient Education How to access health informa tion online - Detail Indication:Sjogren's disease Start:19-Mar-2020 Instruction Type:Patient Education Patient Instructions Indication:Sjogren's disease Start:19-Mar-2020 Instruction Type:Provider Instructions for Treatment How to access health informa tion online Indication:Encounter for general adult medical examination with abnormal findings Start:18-Jul-2019 Instruction Type:Patient Education How to access health informa tion online - Detail Indication:Encounter for general adult medical examination with abnormal findings Start:18-Jul-2019 Instruction Type:Patient Education Patient Instructions Indication:Encounter for general adult medical examination with abnormal findings Start:18-Jul-2019 Instruction Type:Provider Instructions for Treatment How to access health informa tion online Indication:Current nonsmoker (Renamed from Current non-smoker) Start:14-Jul-2019 Instruction Type:Patient Education How to access health informa tion online - Detail Indication:Current nonsmoker (Renamed from Current non-smoker) Start:14-Jul-2019 Instruction Type:Patient Education Patient Instructions Indication:Current nonsmoker (Renamed from Current non-smoker) Start:14-Jul-2019 Instruction Type:Provider Instructions for Treatment How to access health informa tion online Indication:Current nonsmoker (Renamed from Current non-smoker) Start:07-Sep-2018 Instruction Type:Patient Education How to access health informa tion online - Detail Indication:Current nonsmoker (Renamed from Current non-smoker) Start:07-Sep-2018 Instruction Type:Patient Education Patient Instructions Indication:Current nonsmoker (Renamed from Current non-smoker) Start:07-Sep-2018 Instruction Type:Provider Instructions for Treatment How to access health informa tion online Indication:Encounter for general adult medical examination with abnormal findings Start:15-Jul-2018 Instruction Type:Patient Education How to access health informa tion online - Detail Indication:Encounter for general adult medical examination with abnormal findings Start:15-Jul-2018 Instruction Type:Patient Education Patient Instructions Indication:Encounter for general adult medical examination with abnormal findings Start:15-Jul-2018 Instruction Type:Provider Instructions for Treatment How to access health informa tion online Indication:Poison jack Start:01-Feb-2018 Instruction Type:Patient Education How to access health informa tion online - Detail Indication:Poison jack Start:01-Feb-2018 Instruction Type:Patient Education Patient Instructions Indication:Poison jack Start:01-Feb-2018 Instruction Type:Provider Instructions for Treatment How to access health informa tion online Indication:BMI 25.0-25.9,adult Start:16-Sep-2017 Instruction Type:Patient Education How to access health informa tion online - Detail Indication:BMI 25.0-25.9,adult Start:16-Sep-2017 Instruction Type:Patient Education Patient Instructions Indication:BMI 25.0-25.9,adult Start:16-Sep-2017 Instruction Type:Provider Instructions for Treatment How to access health informa tion online Indication:Current nonsmoker (Renamed from Current non-smoker) Start:09-Aug-2017 Instruction Type:Patient Education How to access health informa tion online - Detail Indication:Current nonsmoker (Renamed from Current non-smoker) Start:09-Aug-2017 Instruction Type:Patient Education Patient Instructions Indication:Current nonsmoker (Renamed from Current non-smoker) Start:09-Aug-2017 Instruction Type:Provider Instructions for Treatment How to access health informa tion online Indication:Encounter for general adult medical examination with abnormal findings Start:18-May-2017 Instruction Type:Patient Education How to access health informa tion online - Detail Indication:Encounter for general adult medical examination with abnormal findings Start:18-May-2017 Instruction Type:Patient Education Patient Instructions Indication:Encounter for general adult medical examination with abnormal findings Start:18-May-2017 Instruction Type:Provider Instructions for Treatment How to access health informa tion online Indication:Infected sebaceous cyst Start:29-Mar-2017 Instruction Type:Patient Education How to access health informa tion online - Detail Indication:Infected sebaceous cyst Start:29-Mar-2017 Instruction Type:Patient Education Patient Instructions Indication:Infected sebaceous cyst Start:29-Mar-2017 Instruction Type:Provider Instructions for Treatment How to access health informa tion online Indication:Infected sebaceous cyst Start:24-Mar-2017 Instruction Type:Patient Education How to access health informa tion online - Detail Indication:Infected sebaceous cyst Start:24-Mar-2017 Instruction Type:Patient Education Patient Instructions Indication:Infected sebaceous cyst Start:24-Mar-2017 Instruction Type:Provider Instructions for Treatment How to access health informa tion online Indication:BMI 23.0-23.9, adult Start:22-Mar-2017 Instruction Type:Patient Education How to access health informa tion online - Detail Indication:BMI 23.0-23.9, adult Start:22-Mar-2017 Instruction Type:Patient Education Patient Instructions Indication:BMI 23.0-23.9, adult Start:22-Mar-2017 Instruction Type:Provider Instructions for Treatment How to access health informa tion online Indication:Major depressive disorder, recurrent episode, mild Start:18-May-2016 Instruction Type:Patient Education How to access health informa tion online - Detail Indication:Major depressive disorder, recurrent episode, mild Start:18-May-2016 Instruction Type:Patient Education Patient Instructions Indication:Major depressive disorder, recurrent episode, mild Start:18-May-2016 Instruction Type:Provider Instructions for Treatment How to access health informa tion online Indication:Sjogren's disease Start:24-Apr-2016 Instruction Type:Patient Education How to access health informa tion online - Detail Indication:Sjogren's disease Start:24-Apr-2016 Instruction Type:Patient Education Patient Instructions Indication:Sjogren's disease Start:24-Apr-2016 Instruction Type:Provider Instructions for Treatment How to access health informa tion online Indication:Hypercholesterolemia Start:01-Nov-2014 Instruction Type:Patient Education How to access health informa tion online - Detail Indication:Hypercholesterolemia Start:01-Nov-2014 Instruction Type:Patient Education Patient Instructions Indication:Hypercholesterolemia Start:01-Nov-2014 Instruction Type:Provider Instructions for Treatment How to access health informa tion online Indication:Hypercholesterolemia Start:13-Mar-2014 Instruction Type:Patient Education How to access health informa tion online - Detail Indication:Hypercholesterolemia Start:13-Mar-2014 Instruction Type:Patient Education Patient Instructions Indication:Hypercholesterolemia Start:13-Mar-2014 Instruction Type:Provider Instructions for Treatment Patient Instructions Indication:Hypercholesterolemia Start:20-Sep-2012 Instruction Type:Provider Instructions for Treatment Patient Instructions Indication:Muscle Spasm Start:08-Jun-2012 Instruction Type:Provider Instructions for Treatment Patient Instructions Indication:Hypercholesterolemia Start:03-Mar-2012 Instruction Type:Provider Instructions for Treatment [facility]; [facility] Work Phone: Instructions* Name Dates Details Patient Instructions Indication:Encounter for general adult medical examination with abnormal findings Start:25-Aug-2021 Instruction Type:Provider Instructions for Treatment How to Access Health Informa tion Online using Patient Portal and [employer] Apps Indication:Encounter for general adult medical examination with abnormal findings Start:25-Aug-2021 Instruction Type:Patient Education Patient Instructions Indication:Pain of molar Start:16-Jun-2021 Instruction Type:Provider Instructions for Treatment How to Access Health Informa tion Online using Patient Portal and [employer] Apps Indication:Current nonsmoker (Renamed from Current non-smoker) Start:22-Aug-2020 Instruction Type:Patient Education Patient Instructions Indication:Current nonsmoker (Renamed from Current non-smoker) Start:22-Aug-2020 Instruction Type:Provider Instructions for Treatment How to access health informa tion online Indication:Sjogren's disease Start:19-Mar-2020 Instruction Type:Patient Education How to access health informa tion online - Detail Indication:Sjogren's disease Start:19-Mar-2020 Instruction Type:Patient Education Patient Instructions Indication:Sjogren's disease Start:19-Mar-2020 Instruction Type:Provider Instructions for Treatment How to access health informa tion online Indication:Encounter for general adult medical examination with abnormal findings Start:18-Jul-2019 Instruction Type:Patient Education How to access health informa tion online - Detail Indication:Encounter for general adult medical examination with abnormal findings Start:18-Jul-2019 Instruction Type:Patient Education Patient Instructions Indication:Encounter for general adult medical examination with abnormal findings Start:18-Jul-2019 Instruction Type:Provider Instructions for Treatment How to access health informa tion online Indication:Current nonsmoker (Renamed from Current non-smoker) Start:14-Jul-2019 Instruction Type:Patient Education How to access health informa tion online - Detail Indication:Current nonsmoker (Renamed from Current non-smoker) Start:14-Jul-2019 Instruction Type:Patient Education Patient Instructions Indication:Current nonsmoker (Renamed from Current non-smoker) Start:14-Jul-2019 Instruction Type:Provider Instructions for Treatment How to access health informa tion online Indication:Current nonsmoker (Renamed from Current non-smoker) Start:07-Sep-2018 Instruction Type:Patient Education How to access health informa tion online - Detail Indication:Current nonsmoker (Renamed from Current non-smoker) Start:07-Sep-2018 Instruction Type:Patient Education Patient Instructions Indication:Current nonsmoker (Renamed from Current non-smoker) Start:07-Sep-2018 Instruction Type:Provider Instructions for Treatment How to access health informa tion online Indication:Encounter for general adult medical examination with abnormal findings Start:15-Jul-2018 Instruction Type:Patient Education How to access health informa tion online - Detail Indication:Encounter for general adult medical examination with abnormal findings Start:15-Jul-2018 Instruction Type:Patient Education Patient Instructions Indication:Encounter for general adult medical examination with abnormal findings Start:15-Jul-2018 Instruction Type:Provider Instructions for Treatment How to access health informa tion online Indication:Poison jack Start:01-Feb-2018 Instruction Type:Patient Education How to access health informa tion online - Detail Indication:Poison jack Start:01-Feb-2018 Instruction Type:Patient Education Patient Instructions Indication:Poison jack Start:01-Feb-2018 Instruction Type:Provider Instructions for Treatment How to access health informa tion online Indication:BMI 25.0-25.9,adult Start:16-Sep-2017 Instruction Type:Patient Education How to access health informa tion online - Detail Indication:BMI 25.0-25.9,adult Start:16-Sep-2017 Instruction Type:Patient Education Patient Instructions Indication:BMI 25.0-25.9,adult Start:16-Sep-2017 Instruction Type:Provider Instructions for Treatment How to access health informa tion online Indication:Current nonsmoker (Renamed from Current non-smoker) Start:09-Aug-2017 Instruction Type:Patient Education How to access health informa tion online - Detail Indication:Current nonsmoker (Renamed from Current non-smoker) Start:09-Aug-2017 Instruction Type:Patient Education Patient Instructions Indication:Current nonsmoker (Renamed from Current non-smoker) Start:09-Aug-2017 Instruction Type:Provider Instructions for Treatment How to access health informa tion online Indication:Encounter for general adult medical examination with abnormal findings Start:18-May-2017 Instruction Type:Patient Education How to access health informa tion online - Detail Indication:Encounter for general adult medical examination with abnormal findings Start:18-May-2017 Instruction Type:Patient Education Patient Instructions Indication:Encounter for general adult medical examination with abnormal findings Start:18-May-2017 Instruction Type:Provider Instructions for Treatment How to access health informa tion online Indication:Infected sebaceous cyst Start:29-Mar-2017 Instruction Type:Patient Education How to access health informa tion online - Detail Indication:Infected sebaceous cyst Start:29-Mar-2017 Instruction Type:Patient Education Patient Instructions Indication:Infected sebaceous cyst Start:29-Mar-2017 Instruction Type:Provider Instructions for Treatment How to access health informa tion online Indication:Infected sebaceous cyst Start:24-Mar-2017 Instruction Type:Patient Education How to access health informa tion online - Detail Indication:Infected sebaceous cyst Start:24-Mar-2017 Instruction Type:Patient Education Patient Instructions Indication:Infected sebaceous cyst Start:24-Mar-2017 Instruction Type:Provider Instructions for Treatment How to access health informa tion online Indication:BMI 23.0-23.9, adult Start:22-Mar-2017 Instruction Type:Patient Education How to access health informa tion online - Detail Indication:BMI 23.0-23.9, adult Start:22-Mar-2017 Instruction Type:Patient Education Patient Instructions Indication:BMI 23.0-23.9, adult Start:22-Mar-2017 Instruction Type:Provider Instructions for Treatment How to access health informa tion online Indication:Major depressive disorder, recurrent episode, mild Start:18-May-2016 Instruction Type:Patient Education How to access health informa tion online - Detail Indication:Major depressive disorder, recurrent episode, mild Start:18-May-2016 Instruction Type:Patient Education Patient Instructions Indication:Major depressive disorder, recurrent episode, mild Start:18-May-2016 Instruction Type:Provider Instructions for Treatment How to access health informa tion online Indication:Sjogren's disease Start:24-Apr-2016 Instruction Type:Patient Education How to access health informa tion online - Detail Indication:Sjogren's disease Start:24-Apr-2016 Instruction Type:Patient Education Patient Instructions Indication:Sjogren's disease Start:24-Apr-2016 Instruction Type:Provider Instructions for Treatment How to access health informa tion online Indication:Hypercholesterolemia Start:01-Nov-2014 Instruction Type:Patient Education How to access health informa tion online - Detail Indication:Hypercholesterolemia Start:01-Nov-2014 Instruction Type:Patient Education Patient Instructions Indication:Hypercholesterolemia Start:01-Nov-2014 Instruction Type:Provider Instructions for Treatment How to access health informa tion online Indication:Hypercholesterolemia Start:13-Mar-2014 Instruction Type:Patient Education How to access health informa tion online - Detail Indication:Hypercholesterolemia Start:13-Mar-2014 Instruction Type:Patient Education Patient Instructions Indication:Hypercholesterolemia Start:13-Mar-2014 Instruction Type:Provider Instructions for Treatment Patient Instructions Indication:Hypercholesterolemia Start:20-Sep-2012 Instruction Type:Provider Instructions for Treatment Patient Instructions Indication:Muscle Spasm Start:08-Jun-2012 Instruction Type:Provider Instructions for Treatment Patient Instructions Indication:Hypercholesterolemia Start:03-Mar-2012 Instruction Type:Provider Instructions for Treatment [facility]; [facility] Work Phone: Instructions* Name Dates Details Patient Instructions Indication:BMI 23.0-23.9, adult Start:26-Oct-2022 Instruction Type:Provider Instructions for Treatment How to Access Health Informa tion Online using Patient Portal and [employer] Apps Indication:BMI 23.0-23.9, adult Start:26-Oct-2022 Instruction Type:Patient Education Patient Instructions Indication:Encounter for general adult medical examination with abnormal findings Start:25-Aug-2021 Instruction Type:Provider Instructions for Treatment How to Access Health Informa tion Online using Patient Portal and [employer] Apps Indication:Encounter for general adult medical examination with abnormal findings Start:25-Aug-2021 Instruction Type:Patient Education Patient Instructions Indication:Pain of molar Start:16-Jun-2021 Instruction Type:Provider Instructions for Treatment How to Access Health Informa tion Online using Patient Portal and [employer] Apps Indication:Current nonsmoker (Renamed from Current non-smoker) Start:22-Aug-2020 Instruction Type:Patient Education Patient Instructions Indication:Current nonsmoker (Renamed from Current non-smoker) Start:22-Aug-2020 Instruction Type:Provider Instructions for Treatment How to access health informa tion online Indication:Sjogren's disease Start:19-Mar-2020 Instruction Type:Patient Education How to access health informa tion online - Detail Indication:Sjogren's disease Start:19-Mar-2020 Instruction Type:Patient Education Patient Instructions Indication:Sjogren's disease Start:19-Mar-2020 Instruction Type:Provider Instructions for Treatment How to access health informa tion online Indication:Encounter for general adult medical examination with abnormal findings Start:18-Jul-2019 Instruction Type:Patient Education How to access health informa tion online - Detail Indication:Encounter for general adult medical examination with abnormal findings Start:18-Jul-2019 Instruction Type:Patient Education Patient Instructions Indication:Encounter for general adult medical examination with abnormal findings Start:18-Jul-2019 Instruction Type:Provider Instructions for Treatment How to access health informa tion online Indication:Current nonsmoker (Renamed from Current non-smoker) Start:14-Jul-2019 Instruction Type:Patient Education How to access health informa tion online - Detail Indication:Current nonsmoker (Renamed from Current non-smoker) Start:14-Jul-2019 Instruction Type:Patient Education Patient Instructions Indication:Current nonsmoker (Renamed from Current non-smoker) Start:14-Jul-2019 Instruction Type:Provider Instructions for Treatment How to access health informa tion online Indication:Current nonsmoker (Renamed from Current non-smoker) Start:07-Sep-2018 Instruction Type:Patient Education How to access health informa tion online - Detail Indication:Current nonsmoker (Renamed from Current non-smoker) Start:07-Sep-2018 Instruction Type:Patient Education Patient Instructions Indication:Current nonsmoker (Renamed from Current non-smoker) Start:07-Sep-2018 Instruction Type:Provider Instructions for Treatment How to access health informa tion online Indication:Encounter for general adult medical examination with abnormal findings Start:15-Jul-2018 Instruction Type:Patient Education How to access health informa tion online - Detail Indication:Encounter for general adult medical examination with abnormal findings Start:15-Jul-2018 Instruction Type:Patient Education Patient Instructions Indication:Encounter for general adult medical examination with abnormal findings Start:15-Jul-2018 Instruction Type:Provider Instructions for Treatment How to access health informa tion online Indication:Poison jack Start:01-Feb-2018 Instruction Type:Patient Education How to access health informa tion online - Detail Indication:Poison jack Start:01-Feb-2018 Instruction Type:Patient Education Patient Instructions Indication:Poison jack Start:01-Feb-2018 Instruction Type:Provider Instructions for Treatment How to access health informa tion online Indication:BMI 25.0-25.9,adult Start:16-Sep-2017 Instruction Type:Patient Education How to access health informa tion online - Detail Indication:BMI 25.0-25.9,adult Start:16-Sep-2017 Instruction Type:Patient Education Patient Instructions Indication:BMI 25.0-25.9,adult Start:16-Sep-2017 Instruction Type:Provider Instructions for Treatment How to access health informa tion online Indication:Current nonsmoker (Renamed from Current non-smoker) Start:09-Aug-2017 Instruction Type:Patient Education How to access health informa tion online - Detail Indication:Current nonsmoker (Renamed from Current non-smoker) Start:09-Aug-2017 Instruction Type:Patient Education Patient Instructions Indication:Current nonsmoker (Renamed from Current non-smoker) Start:09-Aug-2017 Instruction Type:Provider Instructions for Treatment How to access health informa tion online Indication:Encounter for general adult medical examination with abnormal findings Start:18-May-2017 Instruction Type:Patient Education How to access health informa tion online - Detail Indication:Encounter for general adult medical examination with abnormal findings Start:18-May-2017 Instruction Type:Patient Education Patient Instructions Indication:Encounter for general adult medical examination with abnormal findings Start:18-May-2017 Instruction Type:Provider Instructions for Treatment How to access health informa tion online Indication:Infected sebaceous cyst Start:29-Mar-2017 Instruction Type:Patient Education How to access health informa tion online - Detail Indication:Infected sebaceous cyst Start:29-Mar-2017 Instruction Type:Patient Education Patient Instructions Indication:Infected sebaceous cyst Start:29-Mar-2017 Instruction Type:Provider Instructions for Treatment How to access health informa tion online Indication:Infected sebaceous cyst Start:24-Mar-2017 Instruction Type:Patient Education How to access health informa tion online - Detail Indication:Infected sebaceous cyst Start:24-Mar-2017 Instruction Type:Patient Education Patient Instructions Indication:Infected sebaceous cyst Start:24-Mar-2017 Instruction Type:Provider Instructions for Treatment How to access health informa tion online Indication:BMI 23.0-23.9, adult Start:22-Mar-2017 Instruction Type:Patient Education How to access health informa tion online - Detail Indication:BMI 23.0-23.9, adult Start:22-Mar-2017 Instruction Type:Patient Education Patient Instructions Indication:BMI 23.0-23.9, adult Start:22-Mar-2017 Instruction Type:Provider Instructions for Treatment How to access health informa tion online Indication:Major depressive disorder, recurrent episode, mild Start:18-May-2016 Instruction Type:Patient Education How to access health informa tion online - Detail Indication:Major depressive disorder, recurrent episode, mild Start:18-May-2016 Instruction Type:Patient Education Patient Instructions Indication:Major depressive disorder, recurrent episode, mild Start:18-May-2016 Instruction Type:Provider Instructions for Treatment How to access health informa tion online Indication:Sjogren's disease Start:24-Apr-2016 Instruction Type:Patient Education How to access health informa tion online - Detail Indication:Sjogren's disease Start:24-Apr-2016 Instruction Type:Patient Education Patient Instructions Indication:Sjogren's disease Start:24-Apr-2016 Instruction Type:Provider Instructions for Treatment How to access health informa tion online Indication:Hypercholesterolemia Start:01-Nov-2014 Instruction Type:Patient Education How to access health informa tion online - Detail Indication:Hypercholesterolemia Start:01-Nov-2014 Instruction Type:Patient Education Patient Instructions Indication:Hypercholesterolemia Start:01-Nov-2014 Instruction Type:Provider Instructions for Treatment How to access health informa tion online Indication:Hypercholesterolemia Start:13-Mar-2014 Instruction Type:Patient Education How to access health informa tion online - Detail Indication:Hypercholesterolemia Start:13-Mar-2014 Instruction Type:Patient Education Patient Instructions Indication:Hypercholesterolemia Start:13-Mar-2014 Instruction Type:Provider Instructions for Treatment Patient Instructions Indication:Hypercholesterolemia Start:20-Sep-2012 Instruction Type:Provider Instructions for Treatment Patient Instructions Indication:Muscle Spasm Start:08-Jun-2012 Instruction Type:Provider Instructions for Treatment Patient Instructions Indication:Hypercholesterolemia Start:03-Mar-2012 Instruction Type:Provider Instructions for Treatment [facility]; [facility] Work Phone: Instructions* Name Dates Details Patient Instructions Indication:BMI 23.0-23.9, adult Start:26-Oct-2022 Instruction Type:Provider Instructions for Treatment How to Access Health Informa tion Online using Patient Portal and [employer] Apps Indication:BMI 23.0-23.9, adult Start:26-Oct-2022 Instruction Type:Patient Education Patient Instructions Indication:Encounter for general adult medical examination with abnormal findings Start:25-Aug-2021 Instruction Type:Provider Instructions for Treatment How to Access Health Informa tion Online using Patient Portal and [employer]rd [employer] Apps Indication:Encounter for general adult medical examination with abnormal findings Start:25-Aug-2021 Instruction Type:Patient Education Patient Instructions Indication:Pain of molar Start:16-Jun-2021 Instruction Type:Provider Instructions for Treatment How to Access Health Informa tion Online using Patient Portal and [employer] Apps Indication:Current nonsmoker (Renamed from Current non-smoker) Start:22-Aug-2020 Instruction Type:Patient Education Patient Instructions Indication:Current nonsmoker (Renamed from Current non-smoker) Start:22-Aug-2020 Instruction Type:Provider Instructions for Treatment How to access health informa tion online Indication:Sjogren's disease Start:19-Mar-2020 Instruction Type:Patient Education How to access health informa tion online - Detail Indication:Sjogren's disease Start:19-Mar-2020 Instruction Type:Patient Education Patient Instructions Indication:Sjogren's disease Start:19-Mar-2020 Instruction Type:Provider Instructions for Treatment How to access health informa tion online Indication:Encounter for general adult medical examination with abnormal findings Start:18-Jul-2019 Instruction Type:Patient Education How to access health informa tion online - Detail Indication:Encounter for general adult medical examination with abnormal findings Start:18-Jul-2019 Instruction Type:Patient Education Patient Instructions Indication:Encounter for general adult medical examination with abnormal findings Start:18-Jul-2019 Instruction Type:Provider Instructions for Treatment How to access health informa tion online Indication:Current nonsmoker (Renamed from Current non-smoker) Start:14-Jul-2019 Instruction Type:Patient Education How to access health informa tion online - Detail Indication:Current nonsmoker (Renamed from Current non-smoker) Start:14-Jul-2019 Instruction Type:Patient Education Patient Instructions Indication:Current nonsmoker (Renamed from Current non-smoker) Start:14-Jul-2019 Instruction Type:Provider Instructions for Treatment How to access health informa tion online Indication:Current nonsmoker (Renamed from Current non-smoker) Start:07-Sep-2018 Instruction Type:Patient Education How to access health informa tion online - Detail Indication:Current nonsmoker (Renamed from Current non-smoker) Start:07-Sep-2018 Instruction Type:Patient Education Patient Instructions Indication:Current nonsmoker (Renamed from Current non-smoker) Start:07-Sep-2018 Instruction Type:Provider Instructions for Treatment How to access health informa tion online Indication:Encounter for general adult medical examination with abnormal findings Start:15-Jul-2018 Instruction Type:Patient Education How to access health informa tion online - Detail Indication:Encounter for general adult medical examination with abnormal findings Start:15-Jul-2018 Instruction Type:Patient Education Patient Instructions Indication:Encounter for general adult medical examination with abnormal findings Start:15-Jul-2018 Instruction Type:Provider Instructions for Treatment How to access health informa tion online Indication:Poison jack Start:01-Feb-2018 Instruction Type:Patient Education How to access health informa tion online - Detail Indication:Poison jack Start:01-Feb-2018 Instruction Type:Patient Education Patient Instructions Indication:Poison jack Start:01-Feb-2018 Instruction Type:Provider Instructions for Treatment How to access health informa tion online Indication:BMI 25.0-25.9,adult Start:16-Sep-2017 Instruction Type:Patient Education How to access health informa tion online - Detail Indication:BMI 25.0-25.9,adult Start:16-Sep-2017 Instruction Type:Patient Education Patient Instructions Indication:BMI 25.0-25.9,adult Start:16-Sep-2017 Instruction Type:Provider Instructions for Treatment How to access health informa tion online Indication:Current nonsmoker (Renamed from Current non-smoker) Start:09-Aug-2017 Instruction Type:Patient Education How to access health informa tion online - Detail Indication:Current nonsmoker (Renamed from Current non-smoker) Start:09-Aug-2017 Instruction Type:Patient Education Patient Instructions Indication:Current nonsmoker (Renamed from Current non-smoker) Start:09-Aug-2017 Instruction Type:Provider Instructions for Treatment How to access health informa tion online Indication:Encounter for general adult medical examination with abnormal findings Start:18-May-2017 Instruction Type:Patient Education How to access health informa tion online - Detail Indication:Encounter for general adult medical examination with abnormal findings Start:18-May-2017 Instruction Type:Patient Education Patient Instructions Indication:Encounter for general adult medical examination with abnormal findings Start:18-May-2017 Instruction Type:Provider Instructions for Treatment How to access health informa tion online Indication:Infected sebaceous cyst Start:29-Mar-2017 Instruction Type:Patient Education How to access health informa tion online - Detail Indication:Infected sebaceous cyst Start:29-Mar-2017 Instruction Type:Patient Education Patient Instructions Indication:Infected sebaceous cyst Start:29-Mar-2017 Instruction Type:Provider Instructions for Treatment How to access health informa tion online Indication:Infected sebaceous cyst Start:24-Mar-2017 Instruction Type:Patient Education How to access health informa tion online - Detail Indication:Infected sebaceous cyst Start:24-Mar-2017 Instruction Type:Patient Education Patient Instructions Indication:Infected sebaceous cyst Start:24-Mar-2017 Instruction Type:Provider Instructions for Treatment How to access health informa tion online Indication:BMI 23.0-23.9, adult Start:22-Mar-2017 Instruction Type:Patient Education How to access health informa tion online - Detail Indication:BMI 23.0-23.9, adult Start:22-Mar-2017 Instruction Type:Patient Education Patient Instructions Indication:BMI 23.0-23.9, adult Start:22-Mar-2017 Instruction Type:Provider Instructions for Treatment How to access health informa tion online Indication:Major depressive disorder, recurrent episode, mild Start:18-May-2016 Instruction Type:Patient Education How to access health informa tion online - Detail Indication:Major depressive disorder, recurrent episode, mild Start:18-May-2016 Instruction Type:Patient Education Patient Instructions Indication:Major depressive disorder, recurrent episode, mild Start:18-May-2016 Instruction Type:Provider Instructions for Treatment How to access health informa tion online Indication:Sjogren's disease Start:24-Apr-2016 Instruction Type:Patient Education How to access health informa tion online - Detail Indication:Sjogren's disease Start:24-Apr-2016 Instruction Type:Patient Education Patient Instructions Indication:Sjogren's disease Start:24-Apr-2016 Instruction Type:Provider Instructions for Treatment How to access health informa tion online Indication:Hypercholesterolemia Start:01-Nov-2014 Instruction Type:Patient Education How to access health informa tion online - Detail Indication:Hypercholesterolemia Start:01-Nov-2014 Instruction Type:Patient Education Patient Instructions Indication:Hypercholesterolemia Start:01-Nov-2014 Instruction Type:Provider Instructions for Treatment How to access health informa tion online Indication:Hypercholesterolemia Start:13-Mar-2014 Instruction Type:Patient Education How to access health informa tion online - Detail Indication:Hypercholesterolemia Start:13-Mar-2014 Instruction Type:Patient Education Patient Instructions Indication:Hypercholesterolemia Start:13-Mar-2014 Instruction Type:Provider Instructions for Treatment Patient Instructions Indication:Hypercholesterolemia Start:20-Sep-2012 Instruction Type:Provider Instructions for Treatment Patient Instructions Indication:Muscle Spasm Start:08-Jun-2012 Instruction Type:Provider Instructions for Treatment Patient Instructions Indication:Hypercholesterolemia Start:03-Mar-2012 Instruction Type:Provider Instructions for Treatment [facility]; [facility] Work Phone: Instructions* Name Dates Details Patient Instructions Indication:BMI 23.0-23.9, adult Start:26-Oct-2022 Instruction Type:Provider Instructions for Treatment How to Access Health Informa tion Online using Patient Portal and [employer] Indication:BMI 23.0-23.9, adult Start:26-Oct-2022 Instruction Type:Patient Education Patient Instructions Indication:Encounter for general adult medical examination with abnormal findings Start:25-Aug-2021 Instruction Type:Provider Instructions for Treatment How to Access Health Informa tion Online using Patient Portal and [employer] Apps Indication:Encounter for general adult medical examination with abnormal findings Start:25-Aug-2021 Instruction Type:Patient Education Patient Instructions Indication:Pain of molar Start:16-Jun-2021 Instruction Type:Provider Instructions for Treatment How to Access Health Informa tion Online using Patient Portal and [employer] Apps Indication:Current nonsmoker (Renamed from Current non-smoker) Start:22-Aug-2020 Instruction Type:Patient Education Patient Instructions Indication:Current nonsmoker (Renamed from Current non-smoker) Start:22-Aug-2020 Instruction Type:Provider Instructions for Treatment How to access health informa tion online Indication:Sjogren's disease Start:19-Mar-2020 Instruction Type:Patient Education How to access health informa tion online - Detail Indication:Sjogren's disease Start:19-Mar-2020 Instruction Type:Patient Education Patient Instructions Indication:Sjogren's disease Start:19-Mar-2020 Instruction Type:Provider Instructions for Treatment How to access health informa tion online Indication:Encounter for general adult medical examination with abnormal findings Start:18-Jul-2019 Instruction Type:Patient Education How to access health informa tion online - Detail Indication:Encounter for general adult medical examination with abnormal findings Start:18-Jul-2019 Instruction Type:Patient Education Patient Instructions Indication:Encounter for general adult medical examination with abnormal findings Start:18-Jul-2019 Instruction Type:Provider Instructions for Treatment How to access health informa tion online Indication:Current nonsmoker (Renamed from Current non-smoker) Start:14-Jul-2019 Instruction Type:Patient Education How to access health informa tion online - Detail Indication:Current nonsmoker (Renamed from Current non-smoker) Start:14-Jul-2019 Instruction Type:Patient Education Patient Instructions Indication:Current nonsmoker (Renamed from Current non-smoker) Start:14-Jul-2019 Instruction Type:Provider Instructions for Treatment How to access health informa tion online Indication:Current nonsmoker (Renamed from Current non-smoker) Start:07-Sep-2018 Instruction Type:Patient Education How to access health informa tion online - Detail Indication:Current nonsmoker (Renamed from Current non-smoker) Start:07-Sep-2018 Instruction Type:Patient Education Patient Instructions Indication:Current nonsmoker (Renamed from Current non-smoker) Start:07-Sep-2018 Instruction Type:Provider Instructions for Treatment How to access health informa tion online Indication:Encounter for general adult medical examination with abnormal findings Start:15-Jul-2018 Instruction Type:Patient Education How to access health informa tion online - Detail Indication:Encounter for general adult medical examination with abnormal findings Start:15-Jul-2018 Instruction Type:Patient Education Patient Instructions Indication:Encounter for general adult medical examination with abnormal findings Start:15-Jul-2018 Instruction Type:Provider Instructions for Treatment How to access health informa tion online Indication:Poison jack Start:01-Feb-2018 Instruction Type:Patient Education How to access health informa tion online - Detail Indication:Poison jack Start:01-Feb-2018 Instruction Type:Patient Education Patient Instructions Indication:Poison jack Start:01-Feb-2018 Instruction Type:Provider Instructions for Treatment How to access health informa tion online Indication:BMI 25.0-25.9,adult Start:16-Sep-2017 Instruction Type:Patient Education How to access health informa tion online - Detail Indication:BMI 25.0-25.9,adult Start:16-Sep-2017 Instruction Type:Patient Education Patient Instructions Indication:BMI 25.0-25.9,adult Start:16-Sep-2017 Instruction Type:Provider Instructions for Treatment How to access health informa tion online Indication:Current nonsmoker (Renamed from Current non-smoker) Start:09-Aug-2017 Instruction Type:Patient Education How to access health informa tion online - Detail Indication:Current nonsmoker (Renamed from Current non-smoker) Start:09-Aug-2017 Instruction Type:Patient Education Patient Instructions Indication:Current nonsmoker (Renamed from Current non-smoker) Start:09-Aug-2017 Instruction Type:Provider Instructions for Treatment How to access health informa tion online Indication:Encounter for general adult medical examination with abnormal findings Start:18-May-2017 Instruction Type:Patient Education How to access health informa tion online - Detail Indication:Encounter for general adult medical examination with abnormal findings Start:18-May-2017 Instruction Type:Patient Education Patient Instructions Indication:Encounter for general adult medical examination with abnormal findings Start:18-May-2017 Instruction Type:Provider Instructions for Treatment How to access health informa tion online Indication:Infected sebaceous cyst Start:29-Mar-2017 Instruction Type:Patient Education How to access health informa tion online - Detail Indication:Infected sebaceous cyst Start:29-Mar-2017 Instruction Type:Patient Education Patient Instructions Indication:Infected sebaceous cyst Start:29-Mar-2017 Instruction Type:Provider Instructions for Treatment How to access health informa tion online Indication:Infected sebaceous cyst Start:24-Mar-2017 Instruction Type:Patient Education How to access health informa tion online - Detail Indication:Infected sebaceous cyst Start:24-Mar-2017 Instruction Type:Patient Education Patient Instructions Indication:Infected sebaceous cyst Start:24-Mar-2017 Instruction Type:Provider Instructions for Treatment How to access health informa tion online Indication:BMI 23.0-23.9, adult Start:22-Mar-2017 Instruction Type:Patient Education How to access health informa tion online - Detail Indication:BMI 23.0-23.9, adult Start:22-Mar-2017 Instruction Type:Patient Education Patient Instructions Indication:BMI 23.0-23.9, adult Start:22-Mar-2017 Instruction Type:Provider Instructions for Treatment How to access health informa tion online Indication:Major depressive disorder, recurrent episode, mild Start:18-May-2016 Instruction Type:Patient Education How to access health informa tion online - Detail Indication:Major depressive disorder, recurrent episode, mild Start:18-May-2016 Instruction Type:Patient Education Patient Instructions Indication:Major depressive disorder, recurrent episode, mild Start:18-May-2016 Instruction Type:Provider Instructions for Treatment How to access health informa tion online Indication:Sjogren's disease Start:24-Apr-2016 Instruction Type:Patient Education How to access health informa tion online - Detail Indication:Sjogren's disease Start:24-Apr-2016 Instruction Type:Patient Education Patient Instructions Indication:Sjogren's disease Start:24-Apr-2016 Instruction Type:Provider Instructions for Treatment How to access health informa tion online Indication:Hypercholesterolemia Start:01-Nov-2014 Instruction Type:Patient Education How to access health informa tion online - Detail Indication:Hypercholesterolemia Start:01-Nov-2014 Instruction Type:Patient Education Patient Instructions Indication:Hypercholesterolemia Start:01-Nov-2014 Instruction Type:Provider Instructions for Treatment How to access health informa tion online Indication:Hypercholesterolemia Start:13-Mar-2014 Instruction Type:Patient Education How to access health informa tion online - Detail Indication:Hypercholesterolemia Start:13-Mar-2014 Instruction Type:Patient Education Patient Instructions Indication:Hypercholesterolemia Start:13-Mar-2014 Instruction Type:Provider Instructions for Treatment Patient Instructions Indication:Hypercholesterolemia Start:20-Sep-2012 Instruction Type:Provider Instructions for Treatment Patient Instructions Indication:Muscle Spasm Start:08-Jun-2012 Instruction Type:Provider Instructions for Treatment Patient Instructions Indication:Hypercholesterolemia Start:03-Mar-2012 Instruction Type:Provider Instructions for Treatment [facility] Work Phone: reason for referral (narrative)No reason for [facility]: Family History Unknown Family Member Name Dates Details Daughter 1 Comments:healthy Status:Active Family Members In General Comments:heart disease Status:Active Father Comments:CAD started in late 60's,hx By-pass, HTN, heart failure, smoking history- Status:Active Mother Comments:Diabetes, arthritis Status:Active sister glioblastoma Comments: ? PE or cardia c Status:Active Son 1 Comments:healthy Status:Active Unknown Family Member Name Dates Details Daughter 1 Comments:healthy Status:Active Family Members In General Comments:heart disease Status:Active Father Comments:CAD started in late 60's,hx By-pass, HTN, heart failure, smoking history- Status:Active Mother Comments:Diabetes, arthritis Status:Active sister glioblastoma Comments: ? PE or cardia c Status:Active Son 1 Comments:healthy Status:Active Unknown Family Member Name Dates Details Daughter 1 Comments:healthy Status:Active Family Members In General Comments:heart disease Status:Active Father Comments:CAD started in late 60's,hx By-pass, HTN, heart failure, smoking history- Status:Active Mother Comments:Diabetes, arthritis Status:Active sister glioblastoma Comments: ? PE or cardia c Status:Active Son 1 Comments:healthy Status:Active Unknown Family Member Name Dates Details Daughter 1 Comments:healthy Status:Active Family Members In General Comments:heart disease Status:Active Father Comments:CAD started in late 60's,hx By-pass, HTN, heart failure, smoking history- Status:Active Mother Comments:Diabetes, arthritis Status:Active sister glioblastoma Comments: ? PE or cardia c Status:Active Son 1 Comments:healthy Status:Active Unknown Family Member Name Dates Details Daughter 1 Comments:healthy Status:Active Family Members In General Comments:heart disease Status:Active Father Comments:CAD started in late 60's,hx By-pass, HTN, heart failure, smoking history- Status:Active Mother Comments:Diabetes, arthritis Status:Active sister glioblastoma Comments: ? PE or cardia c Status:Active Son 1 Comments:healthy Status:Active Unknown Family Member Name Dates Details Daughter 1 Comments:healthy Status:Active Family Members In General Comments:heart disease Status:Active Father Comments:CAD started in late 60's,hx By-pass, HTN, heart failure, smoking history- Status:Active Mother Comments:Diabetes, arthritis Status:Active sister glioblastoma Comments: ? PE or cardia c Status:Active Son 1 Comments:healthy Status:Active Unknown Family Member Name Dates Details Daughter 1 Comments:healthy Status:Active Family Members In General Comments:heart disease Status:Active Father Comments:CAD started in late 60's,hx By-pass, HTN, heart failure, smoking history- Status:Active Mother Comments:Diabetes, arthritis Status:Active sister glioblastoma Comments: ? PE or cardia c Status:Active Son 1 Comments:healthy Status:Active Unknown Family Member Name Dates Details Daughter 1 Comments:healthy Status:Active Family Members In General Comments:heart disease Status:Active Father Comments:CAD started in late 60's,hx By-pass, HTN, heart failure, smoking history- Status:Active Mother Comments:Diabetes, arthritis Status:Active sister glioblastoma Comments: ? PE or cardia c Status:Active Son 1 Comments:healthy Status:Active Unknown Family Member Name Dates Details Daughter 1 Comments:healthy Status:Active Family Members In General Comments:heart disease Status:Active Father Comments:CAD started in late 60's,hx By-pass, HTN, heart failure, smoking history- Status:Active Mother Comments:Diabetes, arthritis Status:Active sister glioblastoma Comments: ? PE or cardia c Status:Active Son 1 Comments:healthy Status:Active Unknown Family Member Name Dates Details Daughter 1 Comments:healthy Status:Active Family Members In General Comments:heart disease Status:Active Father Comments:CAD started in late 60's,hx By-pass, HTN, heart failure, smoking history- Status:Active Mother Comments:Diabetes, arthritis Status:Active sister glioblastoma Comments: ? PE or cardia c Status:Active Son 1 Comments:healthy Status:Active Unknown Family Member Name Dates Details Daughter 1 Comments:healthy Status:Active Family Members In General Comments:heart disease Status:Active Father Comments:CAD started in late 60's,hx By-pass, HTN, heart failure, smoking history- Status:Active Mother Comments:Diabetes, arthritis Status:Active sister glioblastoma Comments: ? PE or cardia c Status:Active Son 1 Comments:healthy Status:Active Unknown Family Member Name Dates Details Daughter 1 Comments:healthy Status:Active Family Members In General Comments:heart disease Status:Active Father Comments:CAD started in late 60's,hx By-pass, HTN, heart failure, smoking history- Status:Active Mother Comments:Diabetes, arthritis Status:Active sister glioblastoma Comments: ? PE or cardia c Status:Active Son 1 Comments:healthy Status:Active Unknown Family Member Name Dates Details Daughter 1 Comments:healthy Status:Active Family Members In General Comments:heart disease Status:Active Father Comments:CAD started in late 60's,hx By-pass, HTN, heart failure, smoking history- Status:Active Mother Comments:Diabetes, arthritis Status:Active sister glioblastoma Comments: ? PE or cardia c Status:Active Son 1 Comments:healthy Status:Active Unknown Family Member Name Dates Details Daughter 1 Comments:healthy Status:Active Family Members In General Comments:heart disease Status:Active Father Comments:CAD started in late 60's,hx By-pass, HTN, heart failure, smoking history- Status:Active Mother Comments:Diabetes, arthritis Status:Active sister glioblastoma Comments: ? PE or cardia c Status:Active Son 1 Comments:healthy Status:Active Unknown Family Member Name Dates Details Daughter 1 Comments:healthy Status:Active Family Members In General Comments:heart disease Status:Active Father Comments:CAD started in late 60's,hx By-pass, HTN, heart failure, smoking history- Status:Active Mother Comments:Diabetes, arthritis Status:Active sister glioblastoma Comments: ? PE or cardia c Status:Active Son 1 Comments:healthy Status:Active Unknown Family Member Name Dates Details Daughter 1 Comments:healthy Status:Active Family Members In General Comments:heart disease Status:Active Father Comments:CAD started in late 60's,hx By-pass, HTN, heart failure, smoking history- Status:Active Mother Comments:Diabetes, arthritis Status:Active sister glioblastoma Comments: ? PE or cardia c Status:Active Son 1 Comments:healthy Status:Active Unknown Family Member Name Dates Details Daughter 1 Comments:healthy Status:Active Family Members In General Comments:heart disease Status:Active Father Comments:CAD started in late 60's,hx By-pass, HTN, heart failure, smoking history- Status:Active Mother Comments:Diabetes, arthritis Status:Active sister glioblastoma Comments: ? PE or cardia c Status:Active Son 1 Comments:healthy Status:Active Unknown Family Member Name Dates Details Daughter 1 Comments:healthy Status:Active Family Members In General Comments:heart disease Status:Active Father Comments:CAD started in late 60's,hx By-pass, HTN, heart failure, smoking history- Status:Active Mother Comments:Diabetes, arthritis Status:Active sister glioblastoma Comments: ? PE or cardia c Status:Active Son 1 Comments:healthy Status:Active Unknown Family Member Name Dates Details Daughter 1 Comments:healthy Status:Active Family Members In General Comments:heart disease Status:Active Father Comments:CAD started in late 60's,hx By-pass, HTN, heart failure, smoking history- Status:Active Mother Comments:Diabetes, arthritis Status:Active sister glioblastoma Comments: ? PE or cardia c Status:Active Son 1 Comments:healthy Status:Active Unknown Family Member Name Dates Details Daughter 1 Comments:healthy Status:Active Family Members In General Comments:heart disease Status:Active Father Comments:CAD started in late 60's,hx By-pass, HTN, heart failure, smoking history- Status:Active Mother Comments:Diabetes, arthritis Status:Active sister glioblastoma Comments: ? PE or cardia c Status:Active Son 1 Comments:healthy Status:Active Unknown Family Member Name Dates Details Daughter 1 Comments:healthy Status:Active Family Members In General Comments:heart disease Status:Active Father Comments:CAD started in late 60's,hx By-pass, HTN, heart failure, smoking history- Status:Active Mother Comments:Diabetes, arthritis Status:Active sister glioblastoma Comments: ? PE or cardia c Status:Active Son 1 Comments:healthy Status:Active Unknown Family Member Name Dates Details Daughter 1 Comments:healthy Status:Active Family Members In General Comments:heart disease Status:Active Father Comments:CAD started in late 60's,hx By-pass, HTN, heart failure, smoking history- Status:Active Mother Comments:Diabetes, arthritis Status:Active sister glioblastoma Comments: ? PE or cardia c Status:Active Son 1 Comments:healthy Status:Active Unknown Family Member Name Dates Details Daughter 1 Comments:healthy Status:Active Family Members In General Comments:heart disease Status:Active Father Comments:CAD started in late 60's,hx By-pass, HTN, heart failure, smoking history- Status:Active Mother Comments:Diabetes, arthritis Status:Active sister glioblastoma Comments: ? PE or cardia c Status:Active Son 1 Comments:healthy Status:Active Unknown Family Member Name Dates Details Daughter 1 Comments:healthy Status:Active Family Members In General Comments:heart disease Status:Active Father Comments:CAD started in late 60's,hx By-pass, HTN, heart failure, smoking history- Status:Active Mother Comments:Diabetes, arthritis Status:Active sister glioblastoma Comments: ? PE or cardia c Status:Active Son 1 Comments:healthy Status:Active Unknown Family Member Name Dates Details Daughter 1 Comments:healthy Status:Active Family Members In General Comments:heart disease Status:Active Father Comments:CAD started in late 60's,hx By-pass, HTN, heart failure, smoking history- Status:Active Mother Comments:Diabetes, arthritis Status:Active sister glioblastoma Comments: ? PE or cardia c Status:Active Son 1 Comments:healthy Status:Active Unknown Family Member Name Dates Details Daughter 1 Comments:healthy Status:Active Family Members In General Comments:heart disease Status:Active Father Comments:CAD started in late 60's,hx By-pass, HTN, heart failure, smoking history- Status:Active Mother Comments:Diabetes, arthritis Status:Active sister glioblastoma Comments: ? PE or cardia c Status:Active Son 1 Comments:healthy Status:Active Unknown Family Member Name Dates Details Daughter 1 Comments:healthy Status:Active Family Members In General Comments:heart disease Status:Active Father Comments:CAD started in late 60's,hx By-pass, HTN, heart failure, smoking history- Status:Active Mother Comments:Diabetes, arthritis Status:Active sister glioblastoma Comments: ? PE or cardia c Status:Active Son 1 Comments:healthy Status:Active Unknown Family Member Name Dates Details Daughter 1 Comments:healthy Status:Active Family Members In General Comments:heart disease Status:Active Father Comments:CAD started in late 60's,hx By-pass, HTN, heart failure, smoking history- Status:Active Mother Comments:Diabetes, arthritis Status:Active sister glioblastoma Comments: ? PE or cardia c Status:Active Son 1 Comments:healthy Status:Active Unknown Family Member Name Dates Details Daughter 1 Comments:healthy Status:Active Family Members In General Comments:heart disease Status:Active Father Comments:CAD started in late 60's,hx By-pass, HTN, heart failure, smoking history- Status:Active Mother Comments:Diabetes, arthritis Status:Active sister glioblastoma Comments: ? PE or cardia c Status:Active Son 1 Comments:healthy Status:Active Unknown Family Member Name Dates Details Daughter 1 Comments:healthy Status:Active Family Members In General Comments:heart disease Status:Active Father Comments:CAD started in late 60's,hx By-pass, HTN, heart failure, smoking history- Status:Active CO in paternal uncle Status:Active Mother Comments:Diabetes, arthritis Status:Active Paternal Grandfather Comments:had CAD /CO Status:Active Paternal Grandmother Comments:had CO early on Status:Active sister glioblastoma Comments: ? PE or cardia c Status:Active Son 1 Comments:healthy Status:Active Unknown Family Member Name Dates Details Daughter 1 Comments:healthy Status:Active Family Members In General Comments:heart disease Status:Active Father Comments:CAD started in late 60's,hx By-pass, HTN, heart failure, smoking history- Status:Active CO in paternal uncle Status:Active Mother Comments:Diabetes, arthritis Status:Active Paternal Grandfather Comments:had CAD /CO Status:Active Paternal Grandmother Comments:had CO early on Status:Active sister glioblastoma Comments: ? PE or cardia c Status:Active Son 1 Comments:healthy Status:Active Unknown Family Member Name Dates Details Daughter 1 Comments:healthy Status:Active Family Members In General Comments:heart disease Status:Active Father Comments:CAD started in late 60's,hx By-pass, HTN, heart failure, smoking history- Status:Active CO in paternal uncle Status:Active Mother Comments:Diabetes, arthritis Status:Active Paternal Grandfather Comments:had CAD /CO Status:Active Paternal Grandmother Comments:had CO early on Status:Active sister glioblastoma Comments: ? PE or cardia c Status:Active Son 1 Comments:healthy Status:Active Relationship Condition Age at Onset Recorded Date/T brianna sister Neoplasm of brain Unknown Unknown Family Member Name Dates Details Daughter 1 Comments:healthy Status:Active Family Members In General Comments:heart disease Status:Active Father Comments:CAD started in late 60's,hx By-pass, HTN, heart failure, smoking history- Status:Active CO in paternal uncle Status:Active Mother Comments:Diabetes, arthritis Status:Active Paternal Grandfather Comments:had CAD /CO Status:Active Paternal Grandmother Comments:had CO early on Status:Active sister glioblastoma Comments: ? PE or cardia c Status:Active Son 1 Comments:healthy Status:Active Unknown Family Member Name Dates Details Daughter 1 Comments:healthy Status:Active Family Members In General Comments:heart disease Status:Active Father Comments:CAD started in late 60's,hx By-pass, HTN, heart failure, smoking history- Status:Active CO in paternal uncle Status:Active Mother Comments:Diabetes, arthritis Status:Active Paternal Grandfather Comments:had CAD /CO Status:Active Paternal Grandmother Comments:had CO early on Status:Active sister glioblastoma Comments: ? PE or cardia c Status:Active Son 1 Comments:healthy Status:Active Unknown Family Member Name Dates Details Daughter 1 Comments:healthy Status:Active Family Members In General Comments:heart disease Status:Active Father Comments:CAD started in late 60's,hx By-pass, HTN, heart failure, smoking history- Status:Active CO in paternal uncle Status:Active Mother Comments:Diabetes, arthritis Status:Active Paternal Grandfather Comments:had CAD /CO Status:Active Paternal Grandmother Comments:had CO early on Status:Active sister glioblastoma Comments: ? PE or cardia c Status:Active Son 1 Comments:healthy Status:Active Unknown Family Member Name Dates Details Daughter 1 Comments:healthy Status:Active Family Members In General Comments:heart disease Status:Active Father Comments:CAD started in late 60's,hx By-pass, HTN, heart failure, smoking history- Status:Active CO in paternal uncle Status:Active Mother Comments:Diabetes, arthritis Status:Active Paternal Grandfather Comments:had CAD /CO Status:Active Paternal Grandmother Comments:had CO early on Status:Active sister glioblastoma Comments: ? PE or cardia c Status:Active Son 1 Comments:healthy Status:Active Unknown Family Member Name Dates Details Daughter 1 Comments:healthy Status:Active Family Members In General Comments:heart disease Status:Active Father Comments:CAD started in late 60's,hx By-pass, HTN, heart failure, smoking history- Status:Active CO in paternal uncle Status:Active Mother Comments:Diabetes, arthritis Status:Active Paternal Grandfather Comments:had CAD /CO Status:Active Paternal Grandmother Comments:had CO early on Status:Active sister glioblastoma Comments: ? PE or cardia c Status:Active Son 1 Comments:healthy Status:Active Unknown Family Member Name Dates Details Daughter 1 Comments:healthy Status:Active Family Members In General Comments:heart disease Status:Active Father Comments:CAD started in late 60's,hx By-pass, HTN, heart failure, smoking history- Status:Active CO in paternal uncle Status:Active Mother Comments:Diabetes, arthritis Status:Active Paternal Grandfather Comments:had CAD /CO Status:Active Paternal Grandmother Comments:had CO early on Status:Active sister glioblastoma Comments: ? PE or cardia c Status:Active Son 1 Comments:healthy Status:Active Unknown Family Member Name Dates Details Daughter 1 Comments:healthy Status:Active Family Members In General Comments:heart disease Status:Active Father Comments:CAD started in late 60's,hx By-pass, HTN, heart failure, smoking history- Status:Active CO in paternal uncle Status:Active Mother Comments:Diabetes, arthritis Status:Active Paternal Grandfather Comments:had CAD /CO Status:Active Paternal Grandmother Comments:had CO early on Status:Active sister glioblastoma Comments: ? PE or cardia c Status:Active Son 1 Comments:healthy Status:Active Unknown Family Member Name Dates Details Daughter 1 Comments:healthy Status:Active Family Members In General Comments:heart disease Status:Active Father Comments:CAD started in late 60's,hx By-pass, HTN, heart failure, smoking history- Status:Active CO in paternal uncle Status:Active Mother Comments:Diabetes, arthritis Status:Active Paternal Grandfather Comments:had CAD /CO Status:Active Paternal Grandmother Comments:had CO early on Status:Active sister glioblastoma Comments: ? PE or cardia c Status:Active Son 1 Comments:healthy Status:Active Unknown Family Member Name Dates Details Daughter 1 Comments:healthy Status:Active Family Members In General Comments:heart disease Status:Active Father Comments:CAD started in late 60's,hx By-pass, pacer, aortic valve issue. HTN, heart failure, smoking history- Status:Active CO in paternal uncle Status:Active Mother Comments:Diabetes, arthritis Status:Active Paternal Grandfather Comments:had CAD /CO Status:Active Paternal Grandmother Comments:had CO early on Status:Active sister glioblastoma Comments: ? PE or cardia c Status:Active Son 1 Comments:healthy Status:Active Unknown Family Member Name Dates Details Daughter 1 Comments:healthy Status:Active Family Members In General Comments:heart disease Status:Active Father Comments:CAD started in late 60's,hx By-pass, pacer, aortic valve issue. HTN, heart failure, smoking history- Status:Active CO in paternal uncle Status:Active Mother Comments:Diabetes, arthritis Status:Active Paternal Grandfather Comments:had CAD /CO Status:Active Paternal Grandmother Comments:had CO early on Status:Active sister glioblastoma Comments: ? PE or cardia c Status:Active Son 1 Comments:healthy Status:Active Instructions Name Dates Details Poison jack : How to access h ealth information online Indication:Poison jack Poison jack : How to access h ealth information online - Detail Indication:Poison jack Poison jack : Patient Instruc tions Indication:Poison jack BMI 25.0-25.9,adult : How to access health information online Indication:BMI 25.0-25.9,adult BMI 25.0-25.9,adult : How to access health information online - Detail Indication:BMI 25.0-25.9,adult BMI 25.0-25.9,adult : Patien t Instructions Indication:BMI 25.0-25.9,adult Current nonsmoker (Renamed f rom Current non-smoker) : How to access health information online Indication:Current nonsmoker (Renamed from Current non-smoker) Current nonsmoker (Renamed f rom Current non-smoker) : How to access health information online - Detail Indication:Current nonsmoker (Renamed from Current non-smoker) Current nonsmoker (Renamed f rom Current non-smoker) : Patient Instructions Indication:Current nonsmoker (Renamed from Current non-smoker) Encounter for general adult medical examination with abnormal findings : How to access health information online Indication:Encounter for general adult medical examination with abnormal findings Encounter for general adult medical examination with abnormal findings : How to access health information online - Detail Indication:Encounter for general adult medical examination with abnormal findings Encounter for general adult medical examination with abnormal findings : Patient Instructions Indication:Encounter for general adult medical examination with abnormal findings Infected sebaceous cyst : Ho w to access health information online Indication:Infected sebaceous cyst Infected sebaceous cyst : Ho w to access health information online - Detail Indication:Infected sebaceous cyst Infected sebaceous cyst : Dequan watkins Instructions Indication:Infected sebaceous cyst BMI 23.0-23.9, adult : How t o access health information online Indication:BMI 23.0-23.9, adult BMI 23.0-23.9, adult : How t o access health information online - Detail Indication:BMI 23.0-23.9, adult BMI 23.0-23.9, adult : Patie nt Instructions Indication:BMI 23.0-23.9, adult Depression, controlled : How to access health information online Indication:Depression, controlled Depression, controlled : How to access health information online - Detail Indication:Depression, controlled Depression, controlled : Pat ient Instructions Indication:Depression, controlled Sjogren's disease : How to a ccess health information online Indication:Sjogren's disease Sjogren's disease : How to a ccess health information online - Detail Indication:Sjogren's disease Sjogren's disease : Patient Instructions Indication:Sjogren's disease Hypercholesterolemia : How t o access health information online Indication:Hypercholesterolemia Hypercholesterolemia : How t o access health information online - Detail Indication:Hypercholesterolemia Hypercholesterolemia : Patie nt Instructions Indication:Hypercholesterolemia Muscle Spasm : Patient Instr uctions Indication:Muscle Spasm Name Dates Details Poison jack : How to access h ealth information online Indication:Poison jack Poison jack : How to access h ealth information online - Detail Indication:Poison jack Poison jack : Patient Instruc tions Indication:Poison jack BMI 25.0-25.9,adult : How to access health information online Indication:BMI 25.0-25.9,adult BMI 25.0-25.9,adult : How to access health information online - Detail Indication:BMI 25.0-25.9,adult BMI 25.0-25.9,adult : Patien t Instructions Indication:BMI 25.0-25.9,adult Current nonsmoker (Renamed f rom Current non-smoker) : How to access health information online Indication:Current nonsmoker (Renamed from Current non-smoker) Current nonsmoker (Renamed f rom Current non-smoker) : How to access health information online - Detail Indication:Current nonsmoker (Renamed from Current non-smoker) Current nonsmoker (Renamed f rom Current non-smoker) : Patient Instructions Indication:Current nonsmoker (Renamed from Current non-smoker) Encounter for general adult medical examination with abnormal findings : How to access health information online Indication:Encounter for general adult medical examination with abnormal findings Encounter for general adult medical examination with abnormal findings : How to access health information online - Detail Indication:Encounter for general adult medical examination with abnormal findings Encounter for general adult medical examination with abnormal findings : Patient Instructions Indication:Encounter for general adult medical examination with abnormal findings Infected sebaceous cyst : Ho w to access health information online Indication:Infected sebaceous cyst Infected sebaceous cyst : Ho w to access health information online - Detail Indication:Infected sebaceous cyst Infected sebaceous cyst : Dequan watkins Instructions Indication:Infected sebaceous cyst BMI 23.0-23.9, adult : How t o access health information online Indication:BMI 23.0-23.9, adult BMI 23.0-23.9, adult : How t o access health information online - Detail Indication:BMI 23.0-23.9, adult BMI 23.0-23.9, adult : Patie nt Instructions Indication:BMI 23.0-23.9, adult Depression, controlled : How to access health information online Indication:Depression, controlled Depression, controlled : How to access health information online - Detail Indication:Depression, controlled Depression, controlled : Pat ient Instructions Indication:Depression, controlled Sjogren's disease : How to a ccess health information online Indication:Sjogren's disease Sjogren's disease : How to a ccess health information online - Detail Indication:Sjogren's disease Sjogren's disease : Patient Instructions Indication:Sjogren's disease Hypercholesterolemia : How t o access health information online Indication:Hypercholesterolemia Hypercholesterolemia : How t o access health information online - Detail Indication:Hypercholesterolemia Hypercholesterolemia : Alonzo nt Instructions Indication:Hypercholesterolemia Muscle Spasm : Patient Instr uctions Indication:Muscle Spasm Name Dates Details Poison jack : How to access h ealth information online Indication:Poison jack Poison jack : How to access h ealth information online - Detail Indication:Poison jack Poison jack : Patient Instruc tions Indication:Poison jack BMI 25.0-25.9,adult : How to access health information online Indication:BMI 25.0-25.9,adult BMI 25.0-25.9,adult : How to access health information online - Detail Indication:BMI 25.0-25.9,adult BMI 25.0-25.9,adult : Patien t Instructions Indication:BMI 25.0-25.9,adult Current nonsmoker (Renamed f rom Current non-smoker) : How to access health information online Indication:Current nonsmoker (Renamed from Current non-smoker) Current nonsmoker (Renamed f rom Current non-smoker) : How to access health information online - Detail Indication:Current nonsmoker (Renamed from Current non-smoker) Current nonsmoker (Renamed f rom Current non-smoker) : Patient Instructions Indication:Current nonsmoker (Renamed from Current non-smoker) Encounter for general adult medical examination with abnormal findings : How to access health information online Indication:Encounter for general adult medical examination with abnormal findings Encounter for general adult medical examination with abnormal findings : How to access health information online - Detail Indication:Encounter for general adult medical examination with abnormal findings Encounter for general adult medical examination with abnormal findings : Patient Instructions Indication:Encounter for general adult medical examination with abnormal findings Infected sebaceous cyst : Ho w to access health information online Indication:Infected sebaceous cyst Infected sebaceous cyst : Ho w to access health information online - Detail Indication:Infected sebaceous cyst Infected sebaceous cyst : Dequan watkins Instructions Indication:Infected sebaceous cyst BMI 23.0-23.9, adult : How t o access health information online Indication:BMI 23.0-23.9, adult BMI 23.0-23.9, adult : How t o access health information online - Detail Indication:BMI 23.0-23.9, adult BMI 23.0-23.9, adult : Patie nt Instructions Indication:BMI 23.0-23.9, adult Depression, controlled : How to access health information online Indication:Depression, controlled Depression, controlled : How to access health information online - Detail Indication:Depression, controlled Depression, controlled : Pat ient Instructions Indication:Depression, controlled Sjogren's disease : How to a ccess health information online Indication:Sjogren's disease Sjogren's disease : How to a ccess health information online - Detail Indication:Sjogren's disease Sjogren's disease : Patient Instructions Indication:Sjogren's disease Hypercholesterolemia : How t o access health information online Indication:Hypercholesterolemia Hypercholesterolemia : How t o access health information online - Detail Indication:Hypercholesterolemia Hypercholesterolemia : Patie nt Instructions Indication:Hypercholesterolemia Muscle Spasm : Patient Instr uctions Indication:Muscle Spasm Name Dates Details Poison jack : How to access h ealth information online Indication:Poison jack Poison jack : How to access h ealth information online - Detail Indication:Poison jack Poison jack : Patient Instruc tions Indication:Poison jack BMI 25.0-25.9,adult : How to access health information online Indication:BMI 25.0-25.9,adult BMI 25.0-25.9,adult : How to access health information online - Detail Indication:BMI 25.0-25.9,adult BMI 25.0-25.9,adult : Patien t Instructions Indication:BMI 25.0-25.9,adult Current nonsmoker (Renamed f rom Current non-smoker) : How to access health information online Indication:Current nonsmoker (Renamed from Current non-smoker) Current nonsmoker (Renamed f rom Current non-smoker) : How to access health information online - Detail Indication:Current nonsmoker (Renamed from Current non-smoker) Current nonsmoker (Renamed f rom Current non-smoker) : Patient Instructions Indication:Current nonsmoker (Renamed from Current non-smoker) Encounter for general adult medical examination with abnormal findings : How to access health information online Indication:Encounter for general adult medical examination with abnormal findings Encounter for general adult medical examination with abnormal findings : How to access health information online - Detail Indication:Encounter for general adult medical examination with abnormal findings Encounter for general adult medical examination with abnormal findings : Patient Instructions Indication:Encounter for general adult medical examination with abnormal findings Infected sebaceous cyst : Ho w to access health information online Indication:Infected sebaceous cyst Infected sebaceous cyst : Ho w to access health information online - Detail Indication:Infected sebaceous cyst Infected sebaceous cyst : Dequan watkins Instructions Indication:Infected sebaceous cyst BMI 23.0-23.9, adult : How t o access health information online Indication:BMI 23.0-23.9, adult BMI 23.0-23.9, adult : How t o access health information online - Detail Indication:BMI 23.0-23.9, adult BMI 23.0-23.9, adult : Patie nt Instructions Indication:BMI 23.0-23.9, adult Depression, controlled : How to access health information online Indication:Depression, controlled Depression, controlled : How to access health information online - Detail Indication:Depression, controlled Depression, controlled : Pat ient Instructions Indication:Depression, controlled Sjogren's disease : How to a ccess health information online Indication:Sjogren's disease Sjogren's disease : How to a ccess health information online - Detail Indication:Sjogren's disease Sjogren's disease : Patient Instructions Indication:Sjogren's disease Hypercholesterolemia : How t o access health information online Indication:Hypercholesterolemia Hypercholesterolemia : How t o access health information online - Detail Indication:Hypercholesterolemia Hypercholesterolemia : Patie nt Instructions Indication:Hypercholesterolemia Muscle Spasm : Patient Instr uctions Indication:Muscle Spasm Name Dates Details Poison jack : How to access h ealth information online Indication:Poison jack Poison jack : How to access h ealth information online - Detail Indication:Poison jack Poison jack : Patient Instruc tions Indication:Poison jack BMI 25.0-25.9,adult : How to access health information online Indication:BMI 25.0-25.9,adult BMI 25.0-25.9,adult : How to access health information online - Detail Indication:BMI 25.0-25.9,adult BMI 25.0-25.9,adult : Patien t Instructions Indication:BMI 25.0-25.9,adult Current nonsmoker (Renamed f rom Current non-smoker) : How to access health information online Indication:Current nonsmoker (Renamed from Current non-smoker) Current nonsmoker (Renamed f rom Current non-smoker) : How to access health information online - Detail Indication:Current nonsmoker (Renamed from Current non-smoker) Current nonsmoker (Renamed f rom Current non-smoker) : Patient Instructions Indication:Current nonsmoker (Renamed from Current non-smoker) Encounter for general adult medical examination with abnormal findings : How to access health information online Indication:Encounter for general adult medical examination with abnormal findings Encounter for general adult medical examination with abnormal findings : How to access health information online - Detail Indication:Encounter for general adult medical examination with abnormal findings Encounter for general adult medical examination with abnormal findings : Patient Instructions Indication:Encounter for general adult medical examination with abnormal findings Infected sebaceous cyst : Ho w to access health information online Indication:Infected sebaceous cyst Infected sebaceous cyst : Ho w to access health information online - Detail Indication:Infected sebaceous cyst Infected sebaceous cyst : Dequan watkins Instructions Indication:Infected sebaceous cyst BMI 23.0-23.9, adult : How t o access health information online Indication:BMI 23.0-23.9, adult BMI 23.0-23.9, adult : How t o access health information online - Detail Indication:BMI 23.0-23.9, adult BMI 23.0-23.9, adult : Patie nt Instructions Indication:BMI 23.0-23.9, adult Depression, controlled : How to access health information online Indication:Depression, controlled Depression, controlled : How to access health information online - Detail Indication:Depression, controlled Depression, controlled : Pat ient Instructions Indication:Depression, controlled Sjogren's disease : How to a ccess health information online Indication:Sjogren's disease Sjogren's disease : How to a ccess health information online - Detail Indication:Sjogren's disease Sjogren's disease : Patient Instructions Indication:Sjogren's disease Hypercholesterolemia : How t o access health information online Indication:Hypercholesterolemia Hypercholesterolemia : How t o access health information online - Detail Indication:Hypercholesterolemia Hypercholesterolemia : Patie nt Instructions Indication:Hypercholesterolemia Muscle Spasm : Patient Instr uctions Indication:Muscle Spasm Name Dates Details Poison jack : How to access h ealth information online Indication:Poison jack Poison jack : How to access h ealth information online - Detail Indication:Poison jack Poison jack : Patient Instruc tions Indication:Poison jack BMI 25.0-25.9,adult : How to access health information online Indication:BMI 25.0-25.9,adult BMI 25.0-25.9,adult : How to access health information online - Detail Indication:BMI 25.0-25.9,adult BMI 25.0-25.9,adult : Patien t Instructions Indication:BMI 25.0-25.9,adult Current nonsmoker (Renamed f rom Current non-smoker) : How to access health information online Indication:Current nonsmoker (Renamed from Current non-smoker) Current nonsmoker (Renamed f rom Current non-smoker) : How to access health information online - Detail Indication:Current nonsmoker (Renamed from Current non-smoker) Current nonsmoker (Renamed f rom Current non-smoker) : Patient Instructions Indication:Current nonsmoker (Renamed from Current non-smoker) Encounter for general adult medical examination with abnormal findings : How to access health information online Indication:Encounter for general adult medical examination with abnormal findings Encounter for general adult medical examination with abnormal findings : How to access health information online - Detail Indication:Encounter for general adult medical examination with abnormal findings Encounter for general adult medical examination with abnormal findings : Patient Instructions Indication:Encounter for general adult medical examination with abnormal findings Infected sebaceous cyst : Mohan w to access health information online Indication:Infected sebaceous cyst Infected sebaceous cyst : Mohan w to access health information online - Detail Indication:Infected sebaceous cyst Infected sebaceous cyst : Dequan watkins Instructions Indication:Infected sebaceous cyst BMI 23.0-23.9, adult : How t o access health information online Indication:BMI 23.0-23.9, adult BMI 23.0-23.9, adult : How t o access health information online - Detail Indication:BMI 23.0-23.9, adult BMI 23.0-23.9, adult : Patie nt Instructions Indication:BMI 23.0-23.9, adult Depression, controlled : How to access health information online Indication:Depression, controlled Depression, controlled : How to access health information online - Detail Indication:Depression, controlled Depression, controlled : Pat ient Instructions Indication:Depression, controlled Sjogren's disease : How to a ccess health information online Indication:Sjogren's disease Sjogren's disease : How to a ccess health information online - Detail Indication:Sjogren's disease Sjogren's disease : Patient Instructions Indication:Sjogren's disease Hypercholesterolemia : How t o access health information online Indication:Hypercholesterolemia Hypercholesterolemia : How t o access health information online - Detail Indication:Hypercholesterolemia Hypercholesterolemia : Patie nt Instructions Indication:Hypercholesterolemia Muscle Spasm : Patient Instr uctions Indication:Muscle Spasm Name Dates Details Poison jack : How to access h ealth information online Indication:Poison jack Poison jack : How to access h ealth information online - Detail Indication:Poison jack Poison jack : Patient Instruc tions Indication:Poison jack BMI 25.0-25.9,adult : How to access health information online Indication:BMI 25.0-25.9,adult BMI 25.0-25.9,adult : How to access health information online - Detail Indication:BMI 25.0-25.9,adult BMI 25.0-25.9,adult : Patien t Instructions Indication:BMI 25.0-25.9,adult Current nonsmoker (Renamed f rom Current non-smoker) : How to access health information online Indication:Current nonsmoker (Renamed from Current non-smoker) Current nonsmoker (Renamed f rom Current non-smoker) : How to access health information online - Detail Indication:Current nonsmoker (Renamed from Current non-smoker) Current nonsmoker (Renamed f rom Current non-smoker) : Patient Instructions Indication:Current nonsmoker (Renamed from Current non-smoker) Encounter for general adult medical examination with abnormal findings : How to access health information online Indication:Encounter for general adult medical examination with abnormal findings Encounter for general adult medical examination with abnormal findings : How to access health information online - Detail Indication:Encounter for general adult medical examination with abnormal findings Encounter for general adult medical examination with abnormal findings : Patient Instructions Indication:Encounter for general adult medical examination with abnormal findings Infected sebaceous cyst : Mohan w to access health information online Indication:Infected sebaceous cyst Infected sebaceous cyst : Mohan w to access health information online - Detail Indication:Infected sebaceous cyst Infected sebaceous cyst : Pa tient Instructions Indication:Infected sebaceous cyst BMI 23.0-23.9, adult : How t o access health information online Indication:BMI 23.0-23.9, adult BMI 23.0-23.9, adult : How t o access health information online - Detail Indication:BMI 23.0-23.9, adult BMI 23.0-23.9, adult : Patie nt Instructions Indication:BMI 23.0-23.9, adult Depression, controlled : How to access health information online Indication:Depression, controlled Depression, controlled : How to access health information online - Detail Indication:Depression, controlled Depression, controlled : Pat ient Instructions Indication:Depression, controlled Sjogren's disease : How to a ccess health information online Indication:Sjogren's disease Sjogren's disease : How to a ccess health information online - Detail Indication:Sjogren's disease Sjogren's disease : Patient Instructions Indication:Sjogren's disease Hypercholesterolemia : How t o access health information online Indication:Hypercholesterolemia Hypercholesterolemia : How t o access health information online - Detail Indication:Hypercholesterolemia Hypercholesterolemia : Patie nt Instructions Indication:Hypercholesterolemia Muscle Spasm : Patient Instr uctions Indication:Muscle Spasm Name Dates Details Encounter for general adult medical examination with abnormal findings : How to access health information online Indication:Encounter for general adult medical examination with abnormal findings Encounter for general adult medical examination with abnormal findings : How to access health information online - Detail Indication:Encounter for general adult medical examination with abnormal findings Encounter for general adult medical examination with abnormal findings : Patient Instructions Indication:Encounter for general adult medical examination with abnormal findings Poison jack : How to access h ealth information online Indication:Poison jack Poison jack : How to access h ealth information online - Detail Indication:Poison jack Poison jack : Patient Instruc tions Indication:Poison jack BMI 25.0-25.9,adult : How to access health information online Indication:BMI 25.0-25.9,adult BMI 25.0-25.9,adult : How to access health information online - Detail Indication:BMI 25.0-25.9,adult BMI 25.0-25.9,adult : Patien t Instructions Indication:BMI 25.0-25.9,adult Current nonsmoker (Renamed f rom Current non-smoker) : How to access health information online Indication:Current nonsmoker (Renamed from Current non-smoker) Current nonsmoker (Renamed f rom Current non-smoker) : How to access health information online - Detail Indication:Current nonsmoker (Renamed from Current non-smoker) Current nonsmoker (Renamed f rom Current non-smoker) : Patient Instructions Indication:Current nonsmoker (Renamed from Current non-smoker) Infected sebaceous cyst : Ho w to access health information online Indication:Infected sebaceous cyst Infected sebaceous cyst : Mohan w to access health information online - Detail Indication:Infected sebaceous cyst Infected sebaceous cyst : Dequan watkins Instructions Indication:Infected sebaceous cyst BMI 23.0-23.9, adult : How t o access health information online Indication:BMI 23.0-23.9, adult BMI 23.0-23.9, adult : How t o access health information online - Detail Indication:BMI 23.0-23.9, adult BMI 23.0-23.9, adult : Patie nt Instructions Indication:BMI 23.0-23.9, adult Depression, controlled : How to access health information online Indication:Depression, controlled Depression, controlled : How to access health information online - Detail Indication:Depression, controlled Depression, controlled : Pat ient Instructions Indication:Depression, controlled Sjogren's disease : How to a ccess health information online Indication:Sjogren's disease Sjogren's disease : How to a ccess health information online - Detail Indication:Sjogren's disease Sjogren's disease : Patient Instructions Indication:Sjogren's disease Hypercholesterolemia : How t o access health information online Indication:Hypercholesterolemia Hypercholesterolemia : How t o access health information online - Detail Indication:Hypercholesterolemia Hypercholesterolemia : Patie nt Instructions Indication:Hypercholesterolemia Muscle Spasm : Patient Instr uctions Indication:Muscle Spasm Name Dates Details Encounter for general adult medical examination with abnormal findings : How to access health information online Indication:Encounter for general adult medical examination with abnormal findings Encounter for general adult medical examination with abnormal findings : How to access health information online - Detail Indication:Encounter for general adult medical examination with abnormal findings Encounter for general adult medical examination with abnormal findings : Patient Instructions Indication:Encounter for general adult medical examination with abnormal findings Poison jack : How to access h ealth information online Indication:Poison jack Poison jack : How to access h ealth information online - Detail Indication:Poison jack Poison jack : Patient Instruc tions Indication:Poison jack BMI 25.0-25.9,adult : How to access health information online Indication:BMI 25.0-25.9,adult BMI 25.0-25.9,adult : How to access health information online - Detail Indication:BMI 25.0-25.9,adult BMI 25.0-25.9,adult : Patien t Instructions Indication:BMI 25.0-25.9,adult Current nonsmoker (Renamed f rom Current non-smoker) : How to access health information online Indication:Current nonsmoker (Renamed from Current non-smoker) Current nonsmoker (Renamed f rom Current non-smoker) : How to access health information online - Detail Indication:Current nonsmoker (Renamed from Current non-smoker) Current nonsmoker (Renamed f rom Current non-smoker) : Patient Instructions Indication:Current nonsmoker (Renamed from Current non-smoker) Infected sebaceous cyst : Ho w to access health information online Indication:Infected sebaceous cyst Infected sebaceous cyst : Mohan w to access health information online - Detail Indication:Infected sebaceous cyst Infected sebaceous cyst : Dequan watkins Instructions Indication:Infected sebaceous cyst BMI 23.0-23.9, adult : How t o access health information online Indication:BMI 23.0-23.9, adult BMI 23.0-23.9, adult : How t o access health information online - Detail Indication:BMI 23.0-23.9, adult BMI 23.0-23.9, adult : Patie nt Instructions Indication:BMI 23.0-23.9, adult Depression, controlled : How to access health information online Indication:Depression, controlled Depression, controlled : How to access health information online - Detail Indication:Depression, controlled Depression, controlled : Pat ient Instructions Indication:Depression, controlled Sjogren's disease : How to a ccess health information online Indication:Sjogren's disease Sjogren's disease : How to a ccess health information online - Detail Indication:Sjogren's disease Sjogren's disease : Patient Instructions Indication:Sjogren's disease Hypercholesterolemia : How t o access health information online Indication:Hypercholesterolemia Hypercholesterolemia : How t o access health information online - Detail Indication:Hypercholesterolemia Hypercholesterolemia : Patie nt Instructions Indication:Hypercholesterolemia Muscle Spasm : Patient Instr uctions Indication:Muscle Spasm Name Dates Details Encounter for general adult medical examination with abnormal findings : How to access health information online Indication:Encounter for general adult medical examination with abnormal findings Encounter for general adult medical examination with abnormal findings : How to access health information online - Detail Indication:Encounter for general adult medical examination with abnormal findings Encounter for general adult medical examination with abnormal findings : Patient Instructions Indication:Encounter for general adult medical examination with abnormal findings Poison jack : How to access h ealth information online Indication:Poison jack Poison jack : How to access h ealth information online - Detail Indication:Poison jack Poison jack : Patient Instruc tions Indication:Poison jack BMI 25.0-25.9,adult : How to access health information online Indication:BMI 25.0-25.9,adult BMI 25.0-25.9,adult : How to access health information online - Detail Indication:BMI 25.0-25.9,adult BMI 25.0-25.9,adult : Patien t Instructions Indication:BMI 25.0-25.9,adult Current nonsmoker (Renamed f rom Current non-smoker) : How to access health information online Indication:Current nonsmoker (Renamed from Current non-smoker) Current nonsmoker (Renamed f rom Current non-smoker) : How to access health information online - Detail Indication:Current nonsmoker (Renamed from Current non-smoker) Current nonsmoker (Renamed f rom Current non-smoker) : Patient Instructions Indication:Current nonsmoker (Renamed from Current non-smoker) Infected sebaceous cyst : Ho w to access health information online Indication:Infected sebaceous cyst Infected sebaceous cyst : Mohan dias to access health information online - Detail Indication:Infected sebaceous cyst Infected sebaceous cyst : Dequan watkins Instructions Indication:Infected sebaceous cyst BMI 23.0-23.9, adult : How t o access health information online Indication:BMI 23.0-23.9, adult BMI 23.0-23.9, adult : How t o access health information online - Detail Indication:BMI 23.0-23.9, adult BMI 23.0-23.9, adult : Patie nt Instructions Indication:BMI 23.0-23.9, adult Depression, controlled : How to access health information online Indication:Depression, controlled Depression, controlled : How to access health information online - Detail Indication:Depression, controlled Depression, controlled : Pat ient Instructions Indication:Depression, controlled Sjogren's disease : How to a ccess health information online Indication:Sjogren's disease Sjogren's disease : How to a ccess health information online - Detail Indication:Sjogren's disease Sjogren's disease : Patient Instructions Indication:Sjogren's disease Hypercholesterolemia : How t o access health information online Indication:Hypercholesterolemia Hypercholesterolemia : How t o access health information online - Detail Indication:Hypercholesterolemia Hypercholesterolemia : Patie nt Instructions Indication:Hypercholesterolemia Muscle Spasm : Patient Instr uctions Indication:Muscle Spasm Name Dates Details How to access health informa tion online Indication:Encounter for general adult medical examination with abnormal findings Start:15-Jul-2018 Instruction Type:Patient Education How to access health informa tion online - Detail Indication:Encounter for general adult medical examination with abnormal findings Start:15-Jul-2018 Instruction Type:Patient Education Patient Instructions Indication:Encounter for general adult medical examination with abnormal findings Start:15-Jul-2018 Instruction Type:Provider Instructions for Treatment How to access health informa tion online Indication:Poison jack Start:01-Feb-2018 Instruction Type:Patient Education How to access health informa tion online - Detail Indication:Poison jack Start:01-Feb-2018 Instruction Type:Patient Education Patient Instructions Indication:Poison jack Start:01-Feb-2018 Instruction Type:Provider Instructions for Treatment How to access health informa tion online Indication:BMI 25.0-25.9,adult Start:16-Sep-2017 Instruction Type:Patient Education How to access health informa tion online - Detail Indication:BMI 25.0-25.9,adult Start:16-Sep-2017 Instruction Type:Patient Education Patient Instructions Indication:BMI 25.0-25.9,adult Start:16-Sep-2017 Instruction Type:Provider Instructions for Treatment How to access health informa tion online Indication:Current nonsmoker (Renamed from Current non-smoker) Start:09-Aug-2017 Instruction Type:Patient Education How to access health informa tion online - Detail Indication:Current nonsmoker (Renamed from Current non-smoker) Start:09-Aug-2017 Instruction Type:Patient Education Patient Instructions Indication:Current nonsmoker (Renamed from Current non-smoker) Start:09-Aug-2017 Instruction Type:Provider Instructions for Treatment How to access health informa tion online Indication:Encounter for general adult medical examination with abnormal findings Start:18-May-2017 Instruction Type:Patient Education How to access health informa tion online - Detail Indication:Encounter for general adult medical examination with abnormal findings Start:18-May-2017 Instruction Type:Patient Education Patient Instructions Indication:Encounter for general adult medical examination with abnormal findings Start:18-May-2017 Instruction Type:Provider Instructions for Treatment How to access health informa tion online Indication:Infected sebaceous cyst Start:29-Mar-2017 Instruction Type:Patient Education How to access health informa tion online - Detail Indication:Infected sebaceous cyst Start:29-Mar-2017 Instruction Type:Patient Education Patient Instructions Indication:Infected sebaceous cyst Start:29-Mar-2017 Instruction Type:Provider Instructions for Treatment How to access health informa tion online Indication:Infected sebaceous cyst Start:24-Mar-2017 Instruction Type:Patient Education How to access health informa tion online - Detail Indication:Infected sebaceous cyst Start:24-Mar-2017 Instruction Type:Patient Education Patient Instructions Indication:Infected sebaceous cyst Start:24-Mar-2017 Instruction Type:Provider Instructions for Treatment How to access health informa tion online Indication:BMI 23.0-23.9, adult Start:22-Mar-2017 Instruction Type:Patient Education How to access health informa tion online - Detail Indication:BMI 23.0-23.9, adult Start:22-Mar-2017 Instruction Type:Patient Education Patient Instructions Indication:BMI 23.0-23.9, adult Start:22-Mar-2017 Instruction Type:Provider Instructions for Treatment How to access health informa tion online Indication:Depression, controlled Start:18-May-2016 Instruction Type:Patient Education How to access health informa tion online - Detail Indication:Depression, controlled Start:18-May-2016 Instruction Type:Patient Education Patient Instructions Indication:Depression, controlled Start:18-May-2016 Instruction Type:Provider Instructions for Treatment How to access health informa tion online Indication:Sjogren's disease Start:24-Apr-2016 Instruction Type:Patient Education How to access health informa tion online - Detail Indication:Sjogren's disease Start:24-Apr-2016 Instruction Type:Patient Education Patient Instructions Indication:Sjogren's disease Start:24-Apr-2016 Instruction Type:Provider Instructions for Treatment How to access health informa tion online Indication:Hypercholesterolemia Start:01-Nov-2014 Instruction Type:Patient Education How to access health informa tion online - Detail Indication:Hypercholesterolemia Start:01-Nov-2014 Instruction Type:Patient Education Patient Instructions Indication:Hypercholesterolemia Start:01-Nov-2014 Instruction Type:Provider Instructions for Treatment How to access health informa tion online Indication:Hypercholesterolemia Start:13-Mar-2014 Instruction Type:Patient Education How to access health informa tion online - Detail Indication:Hypercholesterolemia Start:13-Mar-2014 Instruction Type:Patient Education Patient Instructions Indication:Hypercholesterolemia Start:13-Mar-2014 Instruction Type:Provider Instructions for Treatment Patient Instructions Indication:Hypercholesterolemia Start:20-Sep-2012 Instruction Type:Provider Instructions for Treatment Patient Instructions Indication:Muscle Spasm Start:08-Jun-2012 Instruction Type:Provider Instructions for Treatment Patient Instructions Indication:Hypercholesterolemia Start:03-Mar-2012 Instruction Type:Provider Instructions for Treatment Name Dates Details How to access health informa tion online Indication:Current nonsmoker (Renamed from Current non-smoker) Start:07-Sep-2018 Instruction Type:Patient Education How to access health informa tion online - Detail Indication:Current nonsmoker (Renamed from Current non-smoker) Start:07-Sep-2018 Instruction Type:Patient Education Patient Instructions Indication:Current nonsmoker (Renamed from Current non-smoker) Start:07-Sep-2018 Instruction Type:Provider Instructions for Treatment How to access health informa tion online Indication:Encounter for general adult medical examination with abnormal findings Start:15-Jul-2018 Instruction Type:Patient Education How to access health informa tion online - Detail Indication:Encounter for general adult medical examination with abnormal findings Start:15-Jul-2018 Instruction Type:Patient Education Patient Instructions Indication:Encounter for general adult medical examination with abnormal findings Start:15-Jul-2018 Instruction Type:Provider Instructions for Treatment How to access health informa tion online Indication:Poison jack Start:01-Feb-2018 Instruction Type:Patient Education How to access health informa tion online - Detail Indication:Poison jack Start:01-Feb-2018 Instruction Type:Patient Education Patient Instructions Indication:Poison jack Start:01-Feb-2018 Instruction Type:Provider Instructions for Treatment How to access health informa tion online Indication:BMI 25.0-25.9,adult Start:16-Sep-2017 Instruction Type:Patient Education How to access health informa tion online - Detail Indication:BMI 25.0-25.9,adult Start:16-Sep-2017 Instruction Type:Patient Education Patient Instructions Indication:BMI 25.0-25.9,adult Start:16-Sep-2017 Instruction Type:Provider Instructions for Treatment How to access health informa tion online Indication:Current nonsmoker (Renamed from Current non-smoker) Start:09-Aug-2017 Instruction Type:Patient Education How to access health informa tion online - Detail Indication:Current nonsmoker (Renamed from Current non-smoker) Start:09-Aug-2017 Instruction Type:Patient Education Patient Instructions Indication:Current nonsmoker (Renamed from Current non-smoker) Start:09-Aug-2017 Instruction Type:Provider Instructions for Treatment How to access health informa tion online Indication:Encounter for general adult medical examination with abnormal findings Start:18-May-2017 Instruction Type:Patient Education How to access health informa tion online - Detail Indication:Encounter for general adult medical examination with abnormal findings Start:18-May-2017 Instruction Type:Patient Education Patient Instructions Indication:Encounter for general adult medical examination with abnormal findings Start:18-May-2017 Instruction Type:Provider Instructions for Treatment How to access health informa tion online Indication:Infected sebaceous cyst Start:29-Mar-2017 Instruction Type:Patient Education How to access health informa tion online - Detail Indication:Infected sebaceous cyst Start:29-Mar-2017 Instruction Type:Patient Education Patient Instructions Indication:Infected sebaceous cyst Start:29-Mar-2017 Instruction Type:Provider Instructions for Treatment How to access health informa tion online Indication:Infected sebaceous cyst Start:24-Mar-2017 Instruction Type:Patient Education How to access health informa tion online - Detail Indication:Infected sebaceous cyst Start:24-Mar-2017 Instruction Type:Patient Education Patient Instructions Indication:Infected sebaceous cyst Start:24-Mar-2017 Instruction Type:Provider Instructions for Treatment How to access health informa tion online Indication:BMI 23.0-23.9, adult Start:22-Mar-2017 Instruction Type:Patient Education How to access health informa tion online - Detail Indication:BMI 23.0-23.9, adult Start:22-Mar-2017 Instruction Type:Patient Education Patient Instructions Indication:BMI 23.0-23.9, adult Start:22-Mar-2017 Instruction Type:Provider Instructions for Treatment How to access health informa tion online Indication:Depression, controlled Start:18-May-2016 Instruction Type:Patient Education How to access health informa tion online - Detail Indication:Depression, controlled Start:18-May-2016 Instruction Type:Patient Education Patient Instructions Indication:Depression, controlled Start:18-May-2016 Instruction Type:Provider Instructions for Treatment How to access health informa tion online Indication:Sjogren's disease Start:24-Apr-2016 Instruction Type:Patient Education How to access health informa tion online - Detail Indication:Sjogren's disease Start:24-Apr-2016 Instruction Type:Patient Education Patient Instructions Indication:Sjogren's disease Start:24-Apr-2016 Instruction Type:Provider Instructions for Treatment How to access health informa tion online Indication:Hypercholesterolemia Start:01-Nov-2014 Instruction Type:Patient Education How to access health informa tion online - Detail Indication:Hypercholesterolemia Start:01-Nov-2014 Instruction Type:Patient Education Patient Instructions Indication:Hypercholesterolemia Start:01-Nov-2014 Instruction Type:Provider Instructions for Treatment How to access health informa tion online Indication:Hypercholesterolemia Start:13-Mar-2014 Instruction Type:Patient Education How to access health informa tion online - Detail Indication:Hypercholesterolemia Start:13-Mar-2014 Instruction Type:Patient Education Patient Instructions Indication:Hypercholesterolemia Start:13-Mar-2014 Instruction Type:Provider Instructions for Treatment Patient Instructions Indication:Hypercholesterolemia Start:20-Sep-2012 Instruction Type:Provider Instructions for Treatment Patient Instructions Indication:Muscle Spasm Start:08-Jun-2012 Instruction Type:Provider Instructions for Treatment Patient Instructions Indication:Hypercholesterolemia Start:03-Mar-2012 Instruction Type:Provider Instructions for Treatment Name Dates Details How to access health informa tion online Indication:Current nonsmoker (Renamed from Current non-smoker) Start:07-Sep-2018 Instruction Type:Patient Education How to access health informa tion online - Detail Indication:Current nonsmoker (Renamed from Current non-smoker) Start:07-Sep-2018 Instruction Type:Patient Education Patient Instructions Indication:Current nonsmoker (Renamed from Current non-smoker) Start:07-Sep-2018 Instruction Type:Provider Instructions for Treatment How to access health informa tion online Indication:Encounter for general adult medical examination with abnormal findings Start:15-Jul-2018 Instruction Type:Patient Education How to access health informa tion online - Detail Indication:Encounter for general adult medical examination with abnormal findings Start:15-Jul-2018 Instruction Type:Patient Education Patient Instructions Indication:Encounter for general adult medical examination with abnormal findings Start:15-Jul-2018 Instruction Type:Provider Instructions for Treatment How to access health informa tion online Indication:Poison jack Start:01-Feb-2018 Instruction Type:Patient Education How to access health informa tion online - Detail Indication:Poison jack Start:01-Feb-2018 Instruction Type:Patient Education Patient Instructions Indication:Poison jack Start:01-Feb-2018 Instruction Type:Provider Instructions for Treatment How to access health informa tion online Indication:BMI 25.0-25.9,adult Start:16-Sep-2017 Instruction Type:Patient Education How to access health informa tion online - Detail Indication:BMI 25.0-25.9,adult Start:16-Sep-2017 Instruction Type:Patient Education Patient Instructions Indication:BMI 25.0-25.9,adult Start:16-Sep-2017 Instruction Type:Provider Instructions for Treatment How to access health informa tion online Indication:Current nonsmoker (Renamed from Current non-smoker) Start:09-Aug-2017 Instruction Type:Patient Education How to access health informa tion online - Detail Indication:Current nonsmoker (Renamed from Current non-smoker) Start:09-Aug-2017 Instruction Type:Patient Education Patient Instructions Indication:Current nonsmoker (Renamed from Current non-smoker) Start:09-Aug-2017 Instruction Type:Provider Instructions for Treatment How to access health informa tion online Indication:Encounter for general adult medical examination with abnormal findings Start:18-May-2017 Instruction Type:Patient Education How to access health informa tion online - Detail Indication:Encounter for general adult medical examination with abnormal findings Start:18-May-2017 Instruction Type:Patient Education Patient Instructions Indication:Encounter for general adult medical examination with abnormal findings Start:18-May-2017 Instruction Type:Provider Instructions for Treatment How to access health informa tion online Indication:Infected sebaceous cyst Start:29-Mar-2017 Instruction Type:Patient Education How to access health informa tion online - Detail Indication:Infected sebaceous cyst Start:29-Mar-2017 Instruction Type:Patient Education Patient Instructions Indication:Infected sebaceous cyst Start:29-Mar-2017 Instruction Type:Provider Instructions for Treatment How to access health informa tion online Indication:Infected sebaceous cyst Start:24-Mar-2017 Instruction Type:Patient Education How to access health informa tion online - Detail Indication:Infected sebaceous cyst Start:24-Mar-2017 Instruction Type:Patient Education Patient Instructions Indication:Infected sebaceous cyst Start:24-Mar-2017 Instruction Type:Provider Instructions for Treatment How to access health informa tion online Indication:BMI 23.0-23.9, adult Start:22-Mar-2017 Instruction Type:Patient Education How to access health informa tion online - Detail Indication:BMI 23.0-23.9, adult Start:22-Mar-2017 Instruction Type:Patient Education Patient Instructions Indication:BMI 23.0-23.9, adult Start:22-Mar-2017 Instruction Type:Provider Instructions for Treatment How to access health informa tion online Indication:Depression, controlled Start:18-May-2016 Instruction Type:Patient Education How to access health informa tion online - Detail Indication:Depression, controlled Start:18-May-2016 Instruction Type:Patient Education Patient Instructions Indication:Depression, controlled Start:18-May-2016 Instruction Type:Provider Instructions for Treatment How to access health informa tion online Indication:Sjogren's disease Start:24-Apr-2016 Instruction Type:Patient Education How to access health informa tion online - Detail Indication:Sjogren's disease Start:24-Apr-2016 Instruction Type:Patient Education Patient Instructions Indication:Sjogren's disease Start:24-Apr-2016 Instruction Type:Provider Instructions for Treatment How to access health informa tion online Indication:Hypercholesterolemia Start:01-Nov-2014 Instruction Type:Patient Education How to access health informa tion online - Detail Indication:Hypercholesterolemia Start:01-Nov-2014 Instruction Type:Patient Education Patient Instructions Indication:Hypercholesterolemia Start:01-Nov-2014 Instruction Type:Provider Instructions for Treatment How to access health informa tion online Indication:Hypercholesterolemia Start:13-Mar-2014 Instruction Type:Patient Education How to access health informa tion online - Detail Indication:Hypercholesterolemia Start:13-Mar-2014 Instruction Type:Patient Education Patient Instructions Indication:Hypercholesterolemia Start:13-Mar-2014 Instruction Type:Provider Instructions for Treatment Patient Instructions Indication:Hypercholesterolemia Start:20-Sep-2012 Instruction Type:Provider Instructions for Treatment Patient Instructions Indication:Muscle Spasm Start:08-Jun-2012 Instruction Type:Provider Instructions for Treatment Patient Instructions Indication:Hypercholesterolemia Start:03-Mar-2012 Instruction Type:Provider Instructions for Treatment Name Dates Details How to access health informa tion online Indication:Current nonsmoker (Renamed from Current non-smoker) Start:07-Sep-2018 Instruction Type:Patient Education How to access health informa tion online - Detail Indication:Current nonsmoker (Renamed from Current non-smoker) Start:07-Sep-2018 Instruction Type:Patient Education Patient Instructions Indication:Current nonsmoker (Renamed from Current non-smoker) Start:07-Sep-2018 Instruction Type:Provider Instructions for Treatment How to access health informa tion online Indication:Encounter for general adult medical examination with abnormal findings Start:15-Jul-2018 Instruction Type:Patient Education How to access health informa tion online - Detail Indication:Encounter for general adult medical examination with abnormal findings Start:15-Jul-2018 Instruction Type:Patient Education Patient Instructions Indication:Encounter for general adult medical examination with abnormal findings Start:15-Jul-2018 Instruction Type:Provider Instructions for Treatment How to access health informa tion online Indication:Poison jack Start:01-Feb-2018 Instruction Type:Patient Education How to access health informa tion online - Detail Indication:Poison jack Start:01-Feb-2018 Instruction Type:Patient Education Patient Instructions Indication:Poison jack Start:01-Feb-2018 Instruction Type:Provider Instructions for Treatment How to access health informa tion online Indication:BMI 25.0-25.9,adult Start:16-Sep-2017 Instruction Type:Patient Education How to access health informa tion online - Detail Indication:BMI 25.0-25.9,adult Start:16-Sep-2017 Instruction Type:Patient Education Patient Instructions Indication:BMI 25.0-25.9,adult Start:16-Sep-2017 Instruction Type:Provider Instructions for Treatment How to access health informa tion online Indication:Current nonsmoker (Renamed from Current non-smoker) Start:09-Aug-2017 Instruction Type:Patient Education How to access health informa tion online - Detail Indication:Current nonsmoker (Renamed from Current non-smoker) Start:09-Aug-2017 Instruction Type:Patient Education Patient Instructions Indication:Current nonsmoker (Renamed from Current non-smoker) Start:09-Aug-2017 Instruction Type:Provider Instructions for Treatment How to access health informa tion online Indication:Encounter for general adult medical examination with abnormal findings Start:18-May-2017 Instruction Type:Patient Education How to access health informa tion online - Detail Indication:Encounter for general adult medical examination with abnormal findings Start:18-May-2017 Instruction Type:Patient Education Patient Instructions Indication:Encounter for general adult medical examination with abnormal findings Start:18-May-2017 Instruction Type:Provider Instructions for Treatment How to access health informa tion online Indication:Infected sebaceous cyst Start:29-Mar-2017 Instruction Type:Patient Education How to access health informa tion online - Detail Indication:Infected sebaceous cyst Start:29-Mar-2017 Instruction Type:Patient Education Patient Instructions Indication:Infected sebaceous cyst Start:29-Mar-2017 Instruction Type:Provider Instructions for Treatment How to access health informa tion online Indication:Infected sebaceous cyst Start:24-Mar-2017 Instruction Type:Patient Education How to access health informa tion online - Detail Indication:Infected sebaceous cyst Start:24-Mar-2017 Instruction Type:Patient Education Patient Instructions Indication:Infected sebaceous cyst Start:24-Mar-2017 Instruction Type:Provider Instructions for Treatment How to access health informa tion online Indication:BMI 23.0-23.9, adult Start:22-Mar-2017 Instruction Type:Patient Education How to access health informa tion online - Detail Indication:BMI 23.0-23.9, adult Start:22-Mar-2017 Instruction Type:Patient Education Patient Instructions Indication:BMI 23.0-23.9, adult Start:22-Mar-2017 Instruction Type:Provider Instructions for Treatment How to access health informa tion online Indication:Depression, controlled Start:18-May-2016 Instruction Type:Patient Education How to access health informa tion online - Detail Indication:Depression, controlled Start:18-May-2016 Instruction Type:Patient Education Patient Instructions Indication:Depression, controlled Start:18-May-2016 Instruction Type:Provider Instructions for Treatment How to access health informa tion online Indication:Sjogren's disease Start:24-Apr-2016 Instruction Type:Patient Education How to access health informa tion online - Detail Indication:Sjogren's disease Start:24-Apr-2016 Instruction Type:Patient Education Patient Instructions Indication:Sjogren's disease Start:24-Apr-2016 Instruction Type:Provider Instructions for Treatment How to access health informa tion online Indication:Hypercholesterolemia Start:01-Nov-2014 Instruction Type:Patient Education How to access health informa tion online - Detail Indication:Hypercholesterolemia Start:01-Nov-2014 Instruction Type:Patient Education Patient Instructions Indication:Hypercholesterolemia Start:01-Nov-2014 Instruction Type:Provider Instructions for Treatment How to access health informa tion online Indication:Hypercholesterolemia Start:13-Mar-2014 Instruction Type:Patient Education How to access health informa tion online - Detail Indication:Hypercholesterolemia Start:13-Mar-2014 Instruction Type:Patient Education Patient Instructions Indication:Hypercholesterolemia Start:13-Mar-2014 Instruction Type:Provider Instructions for Treatment Patient Instructions Indication:Hypercholesterolemia Start:20-Sep-2012 Instruction Type:Provider Instructions for Treatment Patient Instructions Indication:Muscle Spasm Start:08-Jun-2012 Instruction Type:Provider Instructions for Treatment Patient Instructions Indication:Hypercholesterolemia Start:03-Mar-2012 Instruction Type:Provider Instructions for Treatment Name Dates Details How to access health informa tion online Indication:Encounter for general adult medical examination with abnormal findings Start:18-Jul-2019 Instruction Type:Patient Education How to access health informa tion online - Detail Indication:Encounter for general adult medical examination with abnormal findings Start:18-Jul-2019 Instruction Type:Patient Education Patient Instructions Indication:Encounter for general adult medical examination with abnormal findings Start:18-Jul-2019 Instruction Type:Provider Instructions for Treatment How to access health informa tion online Indication:Current nonsmoker (Renamed from Current non-smoker) Start:14-Jul-2019 Instruction Type:Patient Education How to access health informa tion online - Detail Indication:Current nonsmoker (Renamed from Current non-smoker) Start:14-Jul-2019 Instruction Type:Patient Education Patient Instructions Indication:Current nonsmoker (Renamed from Current non-smoker) Start:14-Jul-2019 Instruction Type:Provider Instructions for Treatment How to access health informa tion online Indication:Current nonsmoker (Renamed from Current non-smoker) Start:07-Sep-2018 Instruction Type:Patient Education How to access health informa tion online - Detail Indication:Current nonsmoker (Renamed from Current non-smoker) Start:07-Sep-2018 Instruction Type:Patient Education Patient Instructions Indication:Current nonsmoker (Renamed from Current non-smoker) Start:07-Sep-2018 Instruction Type:Provider Instructions for Treatment How to access health informa tion online Indication:Encounter for general adult medical examination with abnormal findings Start:15-Jul-2018 Instruction Type:Patient Education How to access health informa tion online - Detail Indication:Encounter for general adult medical examination with abnormal findings Start:15-Jul-2018 Instruction Type:Patient Education Patient Instructions Indication:Encounter for general adult medical examination with abnormal findings Start:15-Jul-2018 Instruction Type:Provider Instructions for Treatment How to access health informa tion online Indication:Poison jack Start:01-Feb-2018 Instruction Type:Patient Education How to access health informa tion online - Detail Indication:Poison jack Start:01-Feb-2018 Instruction Type:Patient Education Patient Instructions Indication:Poison jack Start:01-Feb-2018 Instruction Type:Provider Instructions for Treatment How to access health informa tion online Indication:BMI 25.0-25.9,adult Start:16-Sep-2017 Instruction Type:Patient Education How to access health informa tion online - Detail Indication:BMI 25.0-25.9,adult Start:16-Sep-2017 Instruction Type:Patient Education Patient Instructions Indication:BMI 25.0-25.9,adult Start:16-Sep-2017 Instruction Type:Provider Instructions for Treatment How to access health informa tion online Indication:Current nonsmoker (Renamed from Current non-smoker) Start:09-Aug-2017 Instruction Type:Patient Education How to access health informa tion online - Detail Indication:Current nonsmoker (Renamed from Current non-smoker) Start:09-Aug-2017 Instruction Type:Patient Education Patient Instructions Indication:Current nonsmoker (Renamed from Current non-smoker) Start:09-Aug-2017 Instruction Type:Provider Instructions for Treatment How to access health informa tion online Indication:Encounter for general adult medical examination with abnormal findings Start:18-May-2017 Instruction Type:Patient Education How to access health informa tion online - Detail Indication:Encounter for general adult medical examination with abnormal findings Start:18-May-2017 Instruction Type:Patient Education Patient Instructions Indication:Encounter for general adult medical examination with abnormal findings Start:18-May-2017 Instruction Type:Provider Instructions for Treatment How to access health informa tion online Indication:Infected sebaceous cyst Start:29-Mar-2017 Instruction Type:Patient Education How to access health informa tion online - Detail Indication:Infected sebaceous cyst Start:29-Mar-2017 Instruction Type:Patient Education Patient Instructions Indication:Infected sebaceous cyst Start:29-Mar-2017 Instruction Type:Provider Instructions for Treatment How to access health informa tion online Indication:Infected sebaceous cyst Start:24-Mar-2017 Instruction Type:Patient Education How to access health informa tion online - Detail Indication:Infected sebaceous cyst Start:24-Mar-2017 Instruction Type:Patient Education Patient Instructions Indication:Infected sebaceous cyst Start:24-Mar-2017 Instruction Type:Provider Instructions for Treatment How to access health informa tion online Indication:BMI 23.0-23.9, adult Start:22-Mar-2017 Instruction Type:Patient Education How to access health informa tion online - Detail Indication:BMI 23.0-23.9, adult Start:22-Mar-2017 Instruction Type:Patient Education Patient Instructions Indication:BMI 23.0-23.9, adult Start:22-Mar-2017 Instruction Type:Provider Instructions for Treatment How to access health informa tion online Indication:Depression, controlled Start:18-May-2016 Instruction Type:Patient Education How to access health informa tion online - Detail Indication:Depression, controlled Start:18-May-2016 Instruction Type:Patient Education Patient Instructions Indication:Depression, controlled Start:18-May-2016 Instruction Type:Provider Instructions for Treatment How to access health informa tion online Indication:Sjogren's disease Start:24-Apr-2016 Instruction Type:Patient Education How to access health informa tion online - Detail Indication:Sjogren's disease Start:24-Apr-2016 Instruction Type:Patient Education Patient Instructions Indication:Sjogren's disease Start:24-Apr-2016 Instruction Type:Provider Instructions for Treatment How to access health informa tion online Indication:Hypercholesterolemia Start:01-Nov-2014 Instruction Type:Patient Education How to access health informa tion online - Detail Indication:Hypercholesterolemia Start:01-Nov-2014 Instruction Type:Patient Education Patient Instructions Indication:Hypercholesterolemia Start:01-Nov-2014 Instruction Type:Provider Instructions for Treatment How to access health informa tion online Indication:Hypercholesterolemia Start:13-Mar-2014 Instruction Type:Patient Education How to access health informa tion online - Detail Indication:Hypercholesterolemia Start:13-Mar-2014 Instruction Type:Patient Education Patient Instructions Indication:Hypercholesterolemia Start:13-Mar-2014 Instruction Type:Provider Instructions for Treatment Patient Instructions Indication:Hypercholesterolemia Start:20-Sep-2012 Instruction Type:Provider Instructions for Treatment Patient Instructions Indication:Muscle Spasm Start:08-Jun-2012 Instruction Type:Provider Instructions for Treatment Patient Instructions Indication:Hypercholesterolemia Start:03-Mar-2012 Instruction Type:Provider Instructions for Treatment Name Dates Details How to access health informa tion online Indication:Encounter for general adult medical examination with abnormal findings Start:18-Jul-2019 Instruction Type:Patient Education How to access health informa tion online - Detail Indication:Encounter for general adult medical examination with abnormal findings Start:18-Jul-2019 Instruction Type:Patient Education Patient Instructions Indication:Encounter for general adult medical examination with abnormal findings Start:18-Jul-2019 Instruction Type:Provider Instructions for Treatment How to access health informa tion online Indication:Current nonsmoker (Renamed from Current non-smoker) Start:14-Jul-2019 Instruction Type:Patient Education How to access health informa tion online - Detail Indication:Current nonsmoker (Renamed from Current non-smoker) Start:14-Jul-2019 Instruction Type:Patient Education Patient Instructions Indication:Current nonsmoker (Renamed from Current non-smoker) Start:14-Jul-2019 Instruction Type:Provider Instructions for Treatment How to access health informa tion online Indication:Current nonsmoker (Renamed from Current non-smoker) Start:07-Sep-2018 Instruction Type:Patient Education How to access health informa tion online - Detail Indication:Current nonsmoker (Renamed from Current non-smoker) Start:07-Sep-2018 Instruction Type:Patient Education Patient Instructions Indication:Current nonsmoker (Renamed from Current non-smoker) Start:07-Sep-2018 Instruction Type:Provider Instructions for Treatment How to access health informa tion online Indication:Encounter for general adult medical examination with abnormal findings Start:15-Jul-2018 Instruction Type:Patient Education How to access health informa tion online - Detail Indication:Encounter for general adult medical examination with abnormal findings Start:15-Jul-2018 Instruction Type:Patient Education Patient Instructions Indication:Encounter for general adult medical examination with abnormal findings Start:15-Jul-2018 Instruction Type:Provider Instructions for Treatment How to access health informa tion online Indication:Poison jack Start:01-Feb-2018 Instruction Type:Patient Education How to access health informa tion online - Detail Indication:Poison jack Start:01-Feb-2018 Instruction Type:Patient Education Patient Instructions Indication:Poison jack Start:01-Feb-2018 Instruction Type:Provider Instructions for Treatment How to access health informa tion online Indication:BMI 25.0-25.9,adult Start:16-Sep-2017 Instruction Type:Patient Education How to access health informa tion online - Detail Indication:BMI 25.0-25.9,adult Start:16-Sep-2017 Instruction Type:Patient Education Patient Instructions Indication:BMI 25.0-25.9,adult Start:16-Sep-2017 Instruction Type:Provider Instructions for Treatment How to access health informa tion online Indication:Current nonsmoker (Renamed from Current non-smoker) Start:09-Aug-2017 Instruction Type:Patient Education How to access health informa tion online - Detail Indication:Current nonsmoker (Renamed from Current non-smoker) Start:09-Aug-2017 Instruction Type:Patient Education Patient Instructions Indication:Current nonsmoker (Renamed from Current non-smoker) Start:09-Aug-2017 Instruction Type:Provider Instructions for Treatment How to access health informa tion online Indication:Encounter for general adult medical examination with abnormal findings Start:18-May-2017 Instruction Type:Patient Education How to access health informa tion online - Detail Indication:Encounter for general adult medical examination with abnormal findings Start:18-May-2017 Instruction Type:Patient Education Patient Instructions Indication:Encounter for general adult medical examination with abnormal findings Start:18-May-2017 Instruction Type:Provider Instructions for Treatment How to access health informa tion online Indication:Infected sebaceous cyst Start:29-Mar-2017 Instruction Type:Patient Education How to access health informa tion online - Detail Indication:Infected sebaceous cyst Start:29-Mar-2017 Instruction Type:Patient Education Patient Instructions Indication:Infected sebaceous cyst Start:29-Mar-2017 Instruction Type:Provider Instructions for Treatment How to access health informa tion online Indication:Infected sebaceous cyst Start:24-Mar-2017 Instruction Type:Patient Education How to access health informa tion online - Detail Indication:Infected sebaceous cyst Start:24-Mar-2017 Instruction Type:Patient Education Patient Instructions Indication:Infected sebaceous cyst Start:24-Mar-2017 Instruction Type:Provider Instructions for Treatment How to access health informa tion online Indication:BMI 23.0-23.9, adult Start:22-Mar-2017 Instruction Type:Patient Education How to access health informa tion online - Detail Indication:BMI 23.0-23.9, adult Start:22-Mar-2017 Instruction Type:Patient Education Patient Instructions Indication:BMI 23.0-23.9, adult Start:22-Mar-2017 Instruction Type:Provider Instructions for Treatment How to access health informa tion online Indication:Depression, controlled Start:18-May-2016 Instruction Type:Patient Education How to access health informa tion online - Detail Indication:Depression, controlled Start:18-May-2016 Instruction Type:Patient Education Patient Instructions Indication:Depression, controlled Start:18-May-2016 Instruction Type:Provider Instructions for Treatment How to access health informa tion online Indication:Sjogren's disease Start:24-Apr-2016 Instruction Type:Patient Education How to access health informa tion online - Detail Indication:Sjogren's disease Start:24-Apr-2016 Instruction Type:Patient Education Patient Instructions Indication:Sjogren's disease Start:24-Apr-2016 Instruction Type:Provider Instructions for Treatment How to access health informa tion online Indication:Hypercholesterolemia Start:01-Nov-2014 Instruction Type:Patient Education How to access health informa tion online - Detail Indication:Hypercholesterolemia Start:01-Nov-2014 Instruction Type:Patient Education Patient Instructions Indication:Hypercholesterolemia Start:01-Nov-2014 Instruction Type:Provider Instructions for Treatment How to access health informa tion online Indication:Hypercholesterolemia Start:13-Mar-2014 Instruction Type:Patient Education How to access health informa tion online - Detail Indication:Hypercholesterolemia Start:13-Mar-2014 Instruction Type:Patient Education Patient Instructions Indication:Hypercholesterolemia Start:13-Mar-2014 Instruction Type:Provider Instructions for Treatment Patient Instructions Indication:Hypercholesterolemia Start:20-Sep-2012 Instruction Type:Provider Instructions for Treatment Patient Instructions Indication:Muscle Spasm Start:08-Jun-2012 Instruction Type:Provider Instructions for Treatment Patient Instructions Indication:Hypercholesterolemia Start:03-Mar-2012 Instruction Type:Provider Instructions for Treatment Name Dates Details How to access health informa tion online Indication:Encounter for general adult medical examination with abnormal findings Start:18-Jul-2019 Instruction Type:Patient Education How to access health informa tion online - Detail Indication:Encounter for general adult medical examination with abnormal findings Start:18-Jul-2019 Instruction Type:Patient Education Patient Instructions Indication:Encounter for general adult medical examination with abnormal findings Start:18-Jul-2019 Instruction Type:Provider Instructions for Treatment How to access health informa tion online Indication:Current nonsmoker (Renamed from Current non-smoker) Start:14-Jul-2019 Instruction Type:Patient Education How to access health informa tion online - Detail Indication:Current nonsmoker (Renamed from Current non-smoker) Start:14-Jul-2019 Instruction Type:Patient Education Patient Instructions Indication:Current nonsmoker (Renamed from Current non-smoker) Start:14-Jul-2019 Instruction Type:Provider Instructions for Treatment How to access health informa tion online Indication:Current nonsmoker (Renamed from Current non-smoker) Start:07-Sep-2018 Instruction Type:Patient Education How to access health informa tion online - Detail Indication:Current nonsmoker (Renamed from Current non-smoker) Start:07-Sep-2018 Instruction Type:Patient Education Patient Instructions Indication:Current nonsmoker (Renamed from Current non-smoker) Start:07-Sep-2018 Instruction Type:Provider Instructions for Treatment How to access health informa tion online Indication:Encounter for general adult medical examination with abnormal findings Start:15-Jul-2018 Instruction Type:Patient Education How to access health informa tion online - Detail Indication:Encounter for general adult medical examination with abnormal findings Start:15-Jul-2018 Instruction Type:Patient Education Patient Instructions Indication:Encounter for general adult medical examination with abnormal findings Start:15-Jul-2018 Instruction Type:Provider Instructions for Treatment How to access health informa tion online Indication:Poison jack Start:01-Feb-2018 Instruction Type:Patient Education How to access health informa tion online - Detail Indication:Poison jack Start:01-Feb-2018 Instruction Type:Patient Education Patient Instructions Indication:Poison jack Start:01-Feb-2018 Instruction Type:Provider Instructions for Treatment How to access health informa tion online Indication:BMI 25.0-25.9,adult Start:16-Sep-2017 Instruction Type:Patient Education How to access health informa tion online - Detail Indication:BMI 25.0-25.9,adult Start:16-Sep-2017 Instruction Type:Patient Education Patient Instructions Indication:BMI 25.0-25.9,adult Start:16-Sep-2017 Instruction Type:Provider Instructions for Treatment How to access health informa tion online Indication:Current nonsmoker (Renamed from Current non-smoker) Start:09-Aug-2017 Instruction Type:Patient Education How to access health informa tion online - Detail Indication:Current nonsmoker (Renamed from Current non-smoker) Start:09-Aug-2017 Instruction Type:Patient Education Patient Instructions Indication:Current nonsmoker (Renamed from Current non-smoker) Start:09-Aug-2017 Instruction Type:Provider Instructions for Treatment How to access health informa tion online Indication:Encounter for general adult medical examination with abnormal findings Start:18-May-2017 Instruction Type:Patient Education How to access health informa tion online - Detail Indication:Encounter for general adult medical examination with abnormal findings Start:18-May-2017 Instruction Type:Patient Education Patient Instructions Indication:Encounter for general adult medical examination with abnormal findings Start:18-May-2017 Instruction Type:Provider Instructions for Treatment How to access health informa tion online Indication:Infected sebaceous cyst Start:29-Mar-2017 Instruction Type:Patient Education How to access health informa tion online - Detail Indication:Infected sebaceous cyst Start:29-Mar-2017 Instruction Type:Patient Education Patient Instructions Indication:Infected sebaceous cyst Start:29-Mar-2017 Instruction Type:Provider Instructions for Treatment How to access health informa tion online Indication:Infected sebaceous cyst Start:24-Mar-2017 Instruction Type:Patient Education How to access health informa tion online - Detail Indication:Infected sebaceous cyst Start:24-Mar-2017 Instruction Type:Patient Education Patient Instructions Indication:Infected sebaceous cyst Start:24-Mar-2017 Instruction Type:Provider Instructions for Treatment How to access health informa tion online Indication:BMI 23.0-23.9, adult Start:22-Mar-2017 Instruction Type:Patient Education How to access health informa tion online - Detail Indication:BMI 23.0-23.9, adult Start:22-Mar-2017 Instruction Type:Patient Education Patient Instructions Indication:BMI 23.0-23.9, adult Start:22-Mar-2017 Instruction Type:Provider Instructions for Treatment How to access health informa tion online Indication:Depression, controlled Start:18-May-2016 Instruction Type:Patient Education How to access health informa tion online - Detail Indication:Depression, controlled Start:18-May-2016 Instruction Type:Patient Education Patient Instructions Indication:Depression, controlled Start:18-May-2016 Instruction Type:Provider Instructions for Treatment How to access health informa tion online Indication:Sjogren's disease Start:24-Apr-2016 Instruction Type:Patient Education How to access health informa tion online - Detail Indication:Sjogren's disease Start:24-Apr-2016 Instruction Type:Patient Education Patient Instructions Indication:Sjogren's disease Start:24-Apr-2016 Instruction Type:Provider Instructions for Treatment How to access health informa tion online Indication:Hypercholesterolemia Start:01-Nov-2014 Instruction Type:Patient Education How to access health informa tion online - Detail Indication:Hypercholesterolemia Start:01-Nov-2014 Instruction Type:Patient Education Patient Instructions Indication:Hypercholesterolemia Start:01-Nov-2014 Instruction Type:Provider Instructions for Treatment How to access health informa tion online Indication:Hypercholesterolemia Start:13-Mar-2014 Instruction Type:Patient Education How to access health informa tion online - Detail Indication:Hypercholesterolemia Start:13-Mar-2014 Instruction Type:Patient Education Patient Instructions Indication:Hypercholesterolemia Start:13-Mar-2014 Instruction Type:Provider Instructions for Treatment Patient Instructions Indication:Hypercholesterolemia Start:20-Sep-2012 Instruction Type:Provider Instructions for Treatment Patient Instructions Indication:Muscle Spasm Start:08-Jun-2012 Instruction Type:Provider Instructions for Treatment Patient Instructions Indication:Hypercholesterolemia Start:03-Mar-2012 Instruction Type:Provider Instructions for Treatment Name Dates Details How to access health informa tion online Indication:Encounter for general adult medical examination with abnormal findings Start:18-Jul-2019 Instruction Type:Patient Education How to access health informa tion online - Detail Indication:Encounter for general adult medical examination with abnormal findings Start:18-Jul-2019 Instruction Type:Patient Education Patient Instructions Indication:Encounter for general adult medical examination with abnormal findings Start:18-Jul-2019 Instruction Type:Provider Instructions for Treatment How to access health informa tion online Indication:Current nonsmoker (Renamed from Current non-smoker) Start:14-Jul-2019 Instruction Type:Patient Education How to access health informa tion online - Detail Indication:Current nonsmoker (Renamed from Current non-smoker) Start:14-Jul-2019 Instruction Type:Patient Education Patient Instructions Indication:Current nonsmoker (Renamed from Current non-smoker) Start:14-Jul-2019 Instruction Type:Provider Instructions for Treatment How to access health informa tion online Indication:Current nonsmoker (Renamed from Current non-smoker) Start:07-Sep-2018 Instruction Type:Patient Education How to access health informa tion online - Detail Indication:Current nonsmoker (Renamed from Current non-smoker) Start:07-Sep-2018 Instruction Type:Patient Education Patient Instructions Indication:Current nonsmoker (Renamed from Current non-smoker) Start:07-Sep-2018 Instruction Type:Provider Instructions for Treatment How to access health informa tion online Indication:Encounter for general adult medical examination with abnormal findings Start:15-Jul-2018 Instruction Type:Patient Education How to access health informa tion online - Detail Indication:Encounter for general adult medical examination with abnormal findings Start:15-Jul-2018 Instruction Type:Patient Education Patient Instructions Indication:Encounter for general adult medical examination with abnormal findings Start:15-Jul-2018 Instruction Type:Provider Instructions for Treatment How to access health informa tion online Indication:Poison jack Start:01-Feb-2018 Instruction Type:Patient Education How to access health informa tion online - Detail Indication:Poison jack Start:01-Feb-2018 Instruction Type:Patient Education Patient Instructions Indication:Poison jack Start:01-Feb-2018 Instruction Type:Provider Instructions for Treatment How to access health informa tion online Indication:BMI 25.0-25.9,adult Start:16-Sep-2017 Instruction Type:Patient Education How to access health informa tion online - Detail Indication:BMI 25.0-25.9,adult Start:16-Sep-2017 Instruction Type:Patient Education Patient Instructions Indication:BMI 25.0-25.9,adult Start:16-Sep-2017 Instruction Type:Provider Instructions for Treatment How to access health informa tion online Indication:Current nonsmoker (Renamed from Current non-smoker) Start:09-Aug-2017 Instruction Type:Patient Education How to access health informa tion online - Detail Indication:Current nonsmoker (Renamed from Current non-smoker) Start:09-Aug-2017 Instruction Type:Patient Education Patient Instructions Indication:Current nonsmoker (Renamed from Current non-smoker) Start:09-Aug-2017 Instruction Type:Provider Instructions for Treatment How to access health informa tion online Indication:Encounter for general adult medical examination with abnormal findings Start:18-May-2017 Instruction Type:Patient Education How to access health informa tion online - Detail Indication:Encounter for general adult medical examination with abnormal findings Start:18-May-2017 Instruction Type:Patient Education Patient Instructions Indication:Encounter for general adult medical examination with abnormal findings Start:18-May-2017 Instruction Type:Provider Instructions for Treatment How to access health informa tion online Indication:Infected sebaceous cyst Start:29-Mar-2017 Instruction Type:Patient Education How to access health informa tion online - Detail Indication:Infected sebaceous cyst Start:29-Mar-2017 Instruction Type:Patient Education Patient Instructions Indication:Infected sebaceous cyst Start:29-Mar-2017 Instruction Type:Provider Instructions for Treatment How to access health informa tion online Indication:Infected sebaceous cyst Start:24-Mar-2017 Instruction Type:Patient Education How to access health informa tion online - Detail Indication:Infected sebaceous cyst Start:24-Mar-2017 Instruction Type:Patient Education Patient Instructions Indication:Infected sebaceous cyst Start:24-Mar-2017 Instruction Type:Provider Instructions for Treatment How to access health informa tion online Indication:BMI 23.0-23.9, adult Start:22-Mar-2017 Instruction Type:Patient Education How to access health informa tion online - Detail Indication:BMI 23.0-23.9, adult Start:22-Mar-2017 Instruction Type:Patient Education Patient Instructions Indication:BMI 23.0-23.9, adult Start:22-Mar-2017 Instruction Type:Provider Instructions for Treatment How to access health informa tion online Indication:Depression, controlled Start:18-May-2016 Instruction Type:Patient Education How to access health informa tion online - Detail Indication:Depression, controlled Start:18-May-2016 Instruction Type:Patient Education Patient Instructions Indication:Depression, controlled Start:18-May-2016 Instruction Type:Provider Instructions for Treatment How to access health informa tion online Indication:Sjogren's disease Start:24-Apr-2016 Instruction Type:Patient Education How to access health informa tion online - Detail Indication:Sjogren's disease Start:24-Apr-2016 Instruction Type:Patient Education Patient Instructions Indication:Sjogren's disease Start:24-Apr-2016 Instruction Type:Provider Instructions for Treatment How to access health informa tion online Indication:Hypercholesterolemia Start:01-Nov-2014 Instruction Type:Patient Education How to access health informa tion online - Detail Indication:Hypercholesterolemia Start:01-Nov-2014 Instruction Type:Patient Education Patient Instructions Indication:Hypercholesterolemia Start:01-Nov-2014 Instruction Type:Provider Instructions for Treatment How to access health informa tion online Indication:Hypercholesterolemia Start:13-Mar-2014 Instruction Type:Patient Education How to access health informa tion online - Detail Indication:Hypercholesterolemia Start:13-Mar-2014 Instruction Type:Patient Education Patient Instructions Indication:Hypercholesterolemia Start:13-Mar-2014 Instruction Type:Provider Instructions for Treatment Patient Instructions Indication:Hypercholesterolemia Start:20-Sep-2012 Instruction Type:Provider Instructions for Treatment Patient Instructions Indication:Muscle Spasm Start:08-Jun-2012 Instruction Type:Provider Instructions for Treatment Patient Instructions Indication:Hypercholesterolemia Start:03-Mar-2012 Instruction Type:Provider Instructions for Treatment Name Dates Details How to access health informa tion online Indication:Encounter for general adult medical examination with abnormal findings Start:18-Jul-2019 Instruction Type:Patient Education How to access health informa tion online - Detail Indication:Encounter for general adult medical examination with abnormal findings Start:18-Jul-2019 Instruction Type:Patient Education Patient Instructions Indication:Encounter for general adult medical examination with abnormal findings Start:18-Jul-2019 Instruction Type:Provider Instructions for Treatment How to access health informa tion online Indication:Current nonsmoker (Renamed from Current non-smoker) Start:14-Jul-2019 Instruction Type:Patient Education How to access health informa tion online - Detail Indication:Current nonsmoker (Renamed from Current non-smoker) Start:14-Jul-2019 Instruction Type:Patient Education Patient Instructions Indication:Current nonsmoker (Renamed from Current non-smoker) Start:14-Jul-2019 Instruction Type:Provider Instructions for Treatment How to access health informa tion online Indication:Current nonsmoker (Renamed from Current non-smoker) Start:07-Sep-2018 Instruction Type:Patient Education How to access health informa tion online - Detail Indication:Current nonsmoker (Renamed from Current non-smoker) Start:07-Sep-2018 Instruction Type:Patient Education Patient Instructions Indication:Current nonsmoker (Renamed from Current non-smoker) Start:07-Sep-2018 Instruction Type:Provider Instructions for Treatment How to access health informa tion online Indication:Encounter for general adult medical examination with abnormal findings Start:15-Jul-2018 Instruction Type:Patient Education How to access health informa tion online - Detail Indication:Encounter for general adult medical examination with abnormal findings Start:15-Jul-2018 Instruction Type:Patient Education Patient Instructions Indication:Encounter for general adult medical examination with abnormal findings Start:15-Jul-2018 Instruction Type:Provider Instructions for Treatment How to access health informa tion online Indication:Poison jack Start:01-Feb-2018 Instruction Type:Patient Education How to access health informa tion online - Detail Indication:Poison jack Start:01-Feb-2018 Instruction Type:Patient Education Patient Instructions Indication:Poison jack Start:01-Feb-2018 Instruction Type:Provider Instructions for Treatment How to access health informa tion online Indication:BMI 25.0-25.9,adult Start:16-Sep-2017 Instruction Type:Patient Education How to access health informa tion online - Detail Indication:BMI 25.0-25.9,adult Start:16-Sep-2017 Instruction Type:Patient Education Patient Instructions Indication:BMI 25.0-25.9,adult Start:16-Sep-2017 Instruction Type:Provider Instructions for Treatment How to access health informa tion online Indication:Current nonsmoker (Renamed from Current non-smoker) Start:09-Aug-2017 Instruction Type:Patient Education How to access health informa tion online - Detail Indication:Current nonsmoker (Renamed from Current non-smoker) Start:09-Aug-2017 Instruction Type:Patient Education Patient Instructions Indication:Current nonsmoker (Renamed from Current non-smoker) Start:09-Aug-2017 Instruction Type:Provider Instructions for Treatment How to access health informa tion online Indication:Encounter for general adult medical examination with abnormal findings Start:18-May-2017 Instruction Type:Patient Education How to access health informa tion online - Detail Indication:Encounter for general adult medical examination with abnormal findings Start:18-May-2017 Instruction Type:Patient Education Patient Instructions Indication:Encounter for general adult medical examination with abnormal findings Start:18-May-2017 Instruction Type:Provider Instructions for Treatment How to access health informa tion online Indication:Infected sebaceous cyst Start:29-Mar-2017 Instruction Type:Patient Education How to access health informa tion online - Detail Indication:Infected sebaceous cyst Start:29-Mar-2017 Instruction Type:Patient Education Patient Instructions Indication:Infected sebaceous cyst Start:29-Mar-2017 Instruction Type:Provider Instructions for Treatment How to access health informa tion online Indication:Infected sebaceous cyst Start:24-Mar-2017 Instruction Type:Patient Education How to access health informa tion online - Detail Indication:Infected sebaceous cyst Start:24-Mar-2017 Instruction Type:Patient Education Patient Instructions Indication:Infected sebaceous cyst Start:24-Mar-2017 Instruction Type:Provider Instructions for Treatment How to access health informa tion online Indication:BMI 23.0-23.9, adult Start:22-Mar-2017 Instruction Type:Patient Education How to access health informa tion online - Detail Indication:BMI 23.0-23.9, adult Start:22-Mar-2017 Instruction Type:Patient Education Patient Instructions Indication:BMI 23.0-23.9, adult Start:22-Mar-2017 Instruction Type:Provider Instructions for Treatment How to access health informa tion online Indication:Depression, controlled Start:18-May-2016 Instruction Type:Patient Education How to access health informa tion online - Detail Indication:Depression, controlled Start:18-May-2016 Instruction Type:Patient Education Patient Instructions Indication:Depression, controlled Start:18-May-2016 Instruction Type:Provider Instructions for Treatment How to access health informa tion online Indication:Sjogren's disease Start:24-Apr-2016 Instruction Type:Patient Education How to access health informa tion online - Detail Indication:Sjogren's disease Start:24-Apr-2016 Instruction Type:Patient Education Patient Instructions Indication:Sjogren's disease Start:24-Apr-2016 Instruction Type:Provider Instructions for Treatment How to access health informa tion online Indication:Hypercholesterolemia Start:01-Nov-2014 Instruction Type:Patient Education How to access health informa tion online - Detail Indication:Hypercholesterolemia Start:01-Nov-2014 Instruction Type:Patient Education Patient Instructions Indication:Hypercholesterolemia Start:01-Nov-2014 Instruction Type:Provider Instructions for Treatment How to access health informa tion online Indication:Hypercholesterolemia Start:13-Mar-2014 Instruction Type:Patient Education How to access health informa tion online - Detail Indication:Hypercholesterolemia Start:13-Mar-2014 Instruction Type:Patient Education Patient Instructions Indication:Hypercholesterolemia Start:13-Mar-2014 Instruction Type:Provider Instructions for Treatment Patient Instructions Indication:Hypercholesterolemia Start:20-Sep-2012 Instruction Type:Provider Instructions for Treatment Patient Instructions Indication:Muscle Spasm Start:08-Jun-2012 Instruction Type:Provider Instructions for Treatment Patient Instructions Indication:Hypercholesterolemia Start:03-Mar-2012 Instruction Type:Provider Instructions for Treatment Name Dates Details How to access health informa tion online Indication:Sjogren's disease Start:19-Mar-2020 Instruction Type:Patient Education How to access health informa tion online - Detail Indication:Sjogren's disease Start:19-Mar-2020 Instruction Type:Patient Education Patient Instructions Indication:Sjogren's disease Start:19-Mar-2020 Instruction Type:Provider Instructions for Treatment How to access health informa tion online Indication:Encounter for general adult medical examination with abnormal findings Start:18-Jul-2019 Instruction Type:Patient Education How to access health informa tion online - Detail Indication:Encounter for general adult medical examination with abnormal findings Start:18-Jul-2019 Instruction Type:Patient Education Patient Instructions Indication:Encounter for general adult medical examination with abnormal findings Start:18-Jul-2019 Instruction Type:Provider Instructions for Treatment How to access health informa tion online Indication:Current nonsmoker (Renamed from Current non-smoker) Start:14-Jul-2019 Instruction Type:Patient Education How to access health informa tion online - Detail Indication:Current nonsmoker (Renamed from Current non-smoker) Start:14-Jul-2019 Instruction Type:Patient Education Patient Instructions Indication:Current nonsmoker (Renamed from Current non-smoker) Start:14-Jul-2019 Instruction Type:Provider Instructions for Treatment How to access health informa tion online Indication:Current nonsmoker (Renamed from Current non-smoker) Start:07-Sep-2018 Instruction Type:Patient Education How to access health informa tion online - Detail Indication:Current nonsmoker (Renamed from Current non-smoker) Start:07-Sep-2018 Instruction Type:Patient Education Patient Instructions Indication:Current nonsmoker (Renamed from Current non-smoker) Start:07-Sep-2018 Instruction Type:Provider Instructions for Treatment How to access health informa tion online Indication:Encounter for general adult medical examination with abnormal findings Start:15-Jul-2018 Instruction Type:Patient Education How to access health informa tion online - Detail Indication:Encounter for general adult medical examination with abnormal findings Start:15-Jul-2018 Instruction Type:Patient Education Patient Instructions Indication:Encounter for general adult medical examination with abnormal findings Start:15-Jul-2018 Instruction Type:Provider Instructions for Treatment How to access health informa tion online Indication:Poison jack Start:01-Feb-2018 Instruction Type:Patient Education How to access health informa tion online - Detail Indication:Poison jack Start:01-Feb-2018 Instruction Type:Patient Education Patient Instructions Indication:Poison jack Start:01-Feb-2018 Instruction Type:Provider Instructions for Treatment How to access health informa tion online Indication:BMI 25.0-25.9,adult Start:16-Sep-2017 Instruction Type:Patient Education How to access health informa tion online - Detail Indication:BMI 25.0-25.9,adult Start:16-Sep-2017 Instruction Type:Patient Education Patient Instructions Indication:BMI 25.0-25.9,adult Start:16-Sep-2017 Instruction Type:Provider Instructions for Treatment How to access health informa tion online Indication:Current nonsmoker (Renamed from Current non-smoker) Start:09-Aug-2017 Instruction Type:Patient Education How to access health informa tion online - Detail Indication:Current nonsmoker (Renamed from Current non-smoker) Start:09-Aug-2017 Instruction Type:Patient Education Patient Instructions Indication:Current nonsmoker (Renamed from Current non-smoker) Start:09-Aug-2017 Instruction Type:Provider Instructions for Treatment How to access health informa tion online Indication:Encounter for general adult medical examination with abnormal findings Start:18-May-2017 Instruction Type:Patient Education How to access health informa tion online - Detail Indication:Encounter for general adult medical examination with abnormal findings Start:18-May-2017 Instruction Type:Patient Education Patient Instructions Indication:Encounter for general adult medical examination with abnormal findings Start:18-May-2017 Instruction Type:Provider Instructions for Treatment How to access health informa tion online Indication:Infected sebaceous cyst Start:29-Mar-2017 Instruction Type:Patient Education How to access health informa tion online - Detail Indication:Infected sebaceous cyst Start:29-Mar-2017 Instruction Type:Patient Education Patient Instructions Indication:Infected sebaceous cyst Start:29-Mar-2017 Instruction Type:Provider Instructions for Treatment How to access health informa tion online Indication:Infected sebaceous cyst Start:24-Mar-2017 Instruction Type:Patient Education How to access health informa tion online - Detail Indication:Infected sebaceous cyst Start:24-Mar-2017 Instruction Type:Patient Education Patient Instructions Indication:Infected sebaceous cyst Start:24-Mar-2017 Instruction Type:Provider Instructions for Treatment How to access health informa tion online Indication:BMI 23.0-23.9, adult Start:22-Mar-2017 Instruction Type:Patient Education How to access health informa tion online - Detail Indication:BMI 23.0-23.9, adult Start:22-Mar-2017 Instruction Type:Patient Education Patient Instructions Indication:BMI 23.0-23.9, adult Start:22-Mar-2017 Instruction Type:Provider Instructions for Treatment How to access health informa tion online Indication:Depression, controlled Start:18-May-2016 Instruction Type:Patient Education How to access health informa tion online - Detail Indication:Depression, controlled Start:18-May-2016 Instruction Type:Patient Education Patient Instructions Indication:Depression, controlled Start:18-May-2016 Instruction Type:Provider Instructions for Treatment How to access health informa tion online Indication:Sjogren's disease Start:24-Apr-2016 Instruction Type:Patient Education How to access health informa tion online - Detail Indication:Sjogren's disease Start:24-Apr-2016 Instruction Type:Patient Education Patient Instructions Indication:Sjogren's disease Start:24-Apr-2016 Instruction Type:Provider Instructions for Treatment How to access health informa tion online Indication:Hypercholesterolemia Start:01-Nov-2014 Instruction Type:Patient Education How to access health informa tion online - Detail Indication:Hypercholesterolemia Start:01-Nov-2014 Instruction Type:Patient Education Patient Instructions Indication:Hypercholesterolemia Start:01-Nov-2014 Instruction Type:Provider Instructions for Treatment How to access health informa tion online Indication:Hypercholesterolemia Start:13-Mar-2014 Instruction Type:Patient Education How to access health informa tion online - Detail Indication:Hypercholesterolemia Start:13-Mar-2014 Instruction Type:Patient Education Patient Instructions Indication:Hypercholesterolemia Start:13-Mar-2014 Instruction Type:Provider Instructions for Treatment Patient Instructions Indication:Hypercholesterolemia Start:20-Sep-2012 Instruction Type:Provider Instructions for Treatment Patient Instructions Indication:Muscle Spasm Start:08-Jun-2012 Instruction Type:Provider Instructions for Treatment Patient Instructions Indication:Hypercholesterolemia Start:03-Mar-2012 Instruction Type:Provider Instructions for Treatment Name Dates Details How to access health informa tion online Indication:Sjogren's disease Start:19-Mar-2020 Instruction Type:Patient Education How to access health informa tion online - Detail Indication:Sjogren's disease Start:19-Mar-2020 Instruction Type:Patient Education Patient Instructions Indication:Sjogren's disease Start:19-Mar-2020 Instruction Type:Provider Instructions for Treatment How to access health informa tion online Indication:Encounter for general adult medical examination with abnormal findings Start:18-Jul-2019 Instruction Type:Patient Education How to access health informa tion online - Detail Indication:Encounter for general adult medical examination with abnormal findings Start:18-Jul-2019 Instruction Type:Patient Education Patient Instructions Indication:Encounter for general adult medical examination with abnormal findings Start:18-Jul-2019 Instruction Type:Provider Instructions for Treatment How to access health informa tion online Indication:Current nonsmoker (Renamed from Current non-smoker) Start:14-Jul-2019 Instruction Type:Patient Education How to access health informa tion online - Detail Indication:Current nonsmoker (Renamed from Current non-smoker) Start:14-Jul-2019 Instruction Type:Patient Education Patient Instructions Indication:Current nonsmoker (Renamed from Current non-smoker) Start:14-Jul-2019 Instruction Type:Provider Instructions for Treatment How to access health informa tion online Indication:Current nonsmoker (Renamed from Current non-smoker) Start:07-Sep-2018 Instruction Type:Patient Education How to access health informa tion online - Detail Indication:Current nonsmoker (Renamed from Current non-smoker) Start:07-Sep-2018 Instruction Type:Patient Education Patient Instructions Indication:Current nonsmoker (Renamed from Current non-smoker) Start:07-Sep-2018 Instruction Type:Provider Instructions for Treatment How to access health informa tion online Indication:Encounter for general adult medical examination with abnormal findings Start:15-Jul-2018 Instruction Type:Patient Education How to access health informa tion online - Detail Indication:Encounter for general adult medical examination with abnormal findings Start:15-Jul-2018 Instruction Type:Patient Education Patient Instructions Indication:Encounter for general adult medical examination with abnormal findings Start:15-Jul-2018 Instruction Type:Provider Instructions for Treatment How to access health informa tion online Indication:Poison jack Start:01-Feb-2018 Instruction Type:Patient Education How to access health informa tion online - Detail Indication:Poison jack Start:01-Feb-2018 Instruction Type:Patient Education Patient Instructions Indication:Poison jack Start:01-Feb-2018 Instruction Type:Provider Instructions for Treatment How to access health informa tion online Indication:BMI 25.0-25.9,adult Start:16-Sep-2017 Instruction Type:Patient Education How to access health informa tion online - Detail Indication:BMI 25.0-25.9,adult Start:16-Sep-2017 Instruction Type:Patient Education Patient Instructions Indication:BMI 25.0-25.9,adult Start:16-Sep-2017 Instruction Type:Provider Instructions for Treatment How to access health informa tion online Indication:Current nonsmoker (Renamed from Current non-smoker) Start:09-Aug-2017 Instruction Type:Patient Education How to access health informa tion online - Detail Indication:Current nonsmoker (Renamed from Current non-smoker) Start:09-Aug-2017 Instruction Type:Patient Education Patient Instructions Indication:Current nonsmoker (Renamed from Current non-smoker) Start:09-Aug-2017 Instruction Type:Provider Instructions for Treatment How to access health informa tion online Indication:Encounter for general adult medical examination with abnormal findings Start:18-May-2017 Instruction Type:Patient Education How to access health informa tion online - Detail Indication:Encounter for general adult medical examination with abnormal findings Start:18-May-2017 Instruction Type:Patient Education Patient Instructions Indication:Encounter for general adult medical examination with abnormal findings Start:18-May-2017 Instruction Type:Provider Instructions for Treatment How to access health informa tion online Indication:Infected sebaceous cyst Start:29-Mar-2017 Instruction Type:Patient Education How to access health informa tion online - Detail Indication:Infected sebaceous cyst Start:29-Mar-2017 Instruction Type:Patient Education Patient Instructions Indication:Infected sebaceous cyst Start:29-Mar-2017 Instruction Type:Provider Instructions for Treatment How to access health informa tion online Indication:Infected sebaceous cyst Start:24-Mar-2017 Instruction Type:Patient Education How to access health informa tion online - Detail Indication:Infected sebaceous cyst Start:24-Mar-2017 Instruction Type:Patient Education Patient Instructions Indication:Infected sebaceous cyst Start:24-Mar-2017 Instruction Type:Provider Instructions for Treatment How to access health informa tion online Indication:BMI 23.0-23.9, adult Start:22-Mar-2017 Instruction Type:Patient Education How to access health informa tion online - Detail Indication:BMI 23.0-23.9, adult Start:22-Mar-2017 Instruction Type:Patient Education Patient Instructions Indication:BMI 23.0-23.9, adult Start:22-Mar-2017 Instruction Type:Provider Instructions for Treatment How to access health informa tion online Indication:Depression, controlled Start:18-May-2016 Instruction Type:Patient Education How to access health informa tion online - Detail Indication:Depression, controlled Start:18-May-2016 Instruction Type:Patient Education Patient Instructions Indication:Depression, controlled Start:18-May-2016 Instruction Type:Provider Instructions for Treatment How to access health informa tion online Indication:Sjogren's disease Start:24-Apr-2016 Instruction Type:Patient Education How to access health informa tion online - Detail Indication:Sjogren's disease Start:24-Apr-2016 Instruction Type:Patient Education Patient Instructions Indication:Sjogren's disease Start:24-Apr-2016 Instruction Type:Provider Instructions for Treatment How to access health informa tion online Indication:Hypercholesterolemia Start:01-Nov-2014 Instruction Type:Patient Education How to access health informa tion online - Detail Indication:Hypercholesterolemia Start:01-Nov-2014 Instruction Type:Patient Education Patient Instructions Indication:Hypercholesterolemia Start:01-Nov-2014 Instruction Type:Provider Instructions for Treatment How to access health informa tion online Indication:Hypercholesterolemia Start:13-Mar-2014 Instruction Type:Patient Education How to access health informa tion online - Detail Indication:Hypercholesterolemia Start:13-Mar-2014 Instruction Type:Patient Education Patient Instructions Indication:Hypercholesterolemia Start:13-Mar-2014 Instruction Type:Provider Instructions for Treatment Patient Instructions Indication:Hypercholesterolemia Start:20-Sep-2012 Instruction Type:Provider Instructions for Treatment Patient Instructions Indication:Muscle Spasm Start:08-Jun-2012 Instruction Type:Provider Instructions for Treatment Patient Instructions Indication:Hypercholesterolemia Start:03-Mar-2012 Instruction Type:Provider Instructions for Treatment Name Dates Details How to access health informa tion online Indication:Sjogren's disease Start:19-Mar-2020 Instruction Type:Patient Education How to access health informa tion online - Detail Indication:Sjogren's disease Start:19-Mar-2020 Instruction Type:Patient Education Patient Instructions Indication:Sjogren's disease Start:19-Mar-2020 Instruction Type:Provider Instructions for Treatment How to access health informa tion online Indication:Encounter for general adult medical examination with abnormal findings Start:18-Jul-2019 Instruction Type:Patient Education How to access health informa tion online - Detail Indication:Encounter for general adult medical examination with abnormal findings Start:18-Jul-2019 Instruction Type:Patient Education Patient Instructions Indication:Encounter for general adult medical examination with abnormal findings Start:18-Jul-2019 Instruction Type:Provider Instructions for Treatment How to access health informa tion online Indication:Current nonsmoker (Renamed from Current non-smoker) Start:14-Jul-2019 Instruction Type:Patient Education How to access health informa tion online - Detail Indication:Current nonsmoker (Renamed from Current non-smoker) Start:14-Jul-2019 Instruction Type:Patient Education Patient Instructions Indication:Current nonsmoker (Renamed from Current non-smoker) Start:14-Jul-2019 Instruction Type:Provider Instructions for Treatment How to access health informa tion online Indication:Current nonsmoker (Renamed from Current non-smoker) Start:07-Sep-2018 Instruction Type:Patient Education How to access health informa tion online - Detail Indication:Current nonsmoker (Renamed from Current non-smoker) Start:07-Sep-2018 Instruction Type:Patient Education Patient Instructions Indication:Current nonsmoker (Renamed from Current non-smoker) Start:07-Sep-2018 Instruction Type:Provider Instructions for Treatment How to access health informa tion online Indication:Encounter for general adult medical examination with abnormal findings Start:15-Jul-2018 Instruction Type:Patient Education How to access health informa tion online - Detail Indication:Encounter for general adult medical examination with abnormal findings Start:15-Jul-2018 Instruction Type:Patient Education Patient Instructions Indication:Encounter for general adult medical examination with abnormal findings Start:15-Jul-2018 Instruction Type:Provider Instructions for Treatment How to access health informa tion online Indication:Poison jack Start:01-Feb-2018 Instruction Type:Patient Education How to access health informa tion online - Detail Indication:Poison jack Start:01-Feb-2018 Instruction Type:Patient Education Patient Instructions Indication:Poison jack Start:01-Feb-2018 Instruction Type:Provider Instructions for Treatment How to access health informa tion online Indication:BMI 25.0-25.9,adult Start:16-Sep-2017 Instruction Type:Patient Education How to access health informa tion online - Detail Indication:BMI 25.0-25.9,adult Start:16-Sep-2017 Instruction Type:Patient Education Patient Instructions Indication:BMI 25.0-25.9,adult Start:16-Sep-2017 Instruction Type:Provider Instructions for Treatment How to access health informa tion online Indication:Current nonsmoker (Renamed from Current non-smoker) Start:09-Aug-2017 Instruction Type:Patient Education How to access health informa tion online - Detail Indication:Current nonsmoker (Renamed from Current non-smoker) Start:09-Aug-2017 Instruction Type:Patient Education Patient Instructions Indication:Current nonsmoker (Renamed from Current non-smoker) Start:09-Aug-2017 Instruction Type:Provider Instructions for Treatment How to access health informa tion online Indication:Encounter for general adult medical examination with abnormal findings Start:18-May-2017 Instruction Type:Patient Education How to access health informa tion online - Detail Indication:Encounter for general adult medical examination with abnormal findings Start:18-May-2017 Instruction Type:Patient Education Patient Instructions Indication:Encounter for general adult medical examination with abnormal findings Start:18-May-2017 Instruction Type:Provider Instructions for Treatment How to access health informa tion online Indication:Infected sebaceous cyst Start:29-Mar-2017 Instruction Type:Patient Education How to access health informa tion online - Detail Indication:Infected sebaceous cyst Start:29-Mar-2017 Instruction Type:Patient Education Patient Instructions Indication:Infected sebaceous cyst Start:29-Mar-2017 Instruction Type:Provider Instructions for Treatment How to access health informa tion online Indication:Infected sebaceous cyst Start:24-Mar-2017 Instruction Type:Patient Education How to access health informa tion online - Detail Indication:Infected sebaceous cyst Start:24-Mar-2017 Instruction Type:Patient Education Patient Instructions Indication:Infected sebaceous cyst Start:24-Mar-2017 Instruction Type:Provider Instructions for Treatment How to access health informa tion online Indication:BMI 23.0-23.9, adult Start:22-Mar-2017 Instruction Type:Patient Education How to access health informa tion online - Detail Indication:BMI 23.0-23.9, adult Start:22-Mar-2017 Instruction Type:Patient Education Patient Instructions Indication:BMI 23.0-23.9, adult Start:22-Mar-2017 Instruction Type:Provider Instructions for Treatment How to access health informa tion online Indication:Depression, controlled Start:18-May-2016 Instruction Type:Patient Education How to access health informa tion online - Detail Indication:Depression, controlled Start:18-May-2016 Instruction Type:Patient Education Patient Instructions Indication:Depression, controlled Start:18-May-2016 Instruction Type:Provider Instructions for Treatment How to access health informa tion online Indication:Sjogren's disease Start:24-Apr-2016 Instruction Type:Patient Education How to access health informa tion online - Detail Indication:Sjogren's disease Start:24-Apr-2016 Instruction Type:Patient Education Patient Instructions Indication:Sjogren's disease Start:24-Apr-2016 Instruction Type:Provider Instructions for Treatment How to access health informa tion online Indication:Hypercholesterolemia Start:01-Nov-2014 Instruction Type:Patient Education How to access health informa tion online - Detail Indication:Hypercholesterolemia Start:01-Nov-2014 Instruction Type:Patient Education Patient Instructions Indication:Hypercholesterolemia Start:01-Nov-2014 Instruction Type:Provider Instructions for Treatment How to access health informa tion online Indication:Hypercholesterolemia Start:13-Mar-2014 Instruction Type:Patient Education How to access health informa tion online - Detail Indication:Hypercholesterolemia Start:13-Mar-2014 Instruction Type:Patient Education Patient Instructions Indication:Hypercholesterolemia Start:13-Mar-2014 Instruction Type:Provider Instructions for Treatment Patient Instructions Indication:Hypercholesterolemia Start:20-Sep-2012 Instruction Type:Provider Instructions for Treatment Patient Instructions Indication:Muscle Spasm Start:08-Jun-2012 Instruction Type:Provider Instructions for Treatment Patient Instructions Indication:Hypercholesterolemia Start:03-Mar-2012 Instruction Type:Provider Instructions for Treatment Name Dates Details How to access health informa tion online Indication:Sjogren's disease Start:19-Mar-2020 Instruction Type:Patient Education How to access health informa tion online - Detail Indication:Sjogren's disease Start:19-Mar-2020 Instruction Type:Patient Education Patient Instructions Indication:Sjogren's disease Start:19-Mar-2020 Instruction Type:Provider Instructions for Treatment How to access health informa tion online Indication:Encounter for general adult medical examination with abnormal findings Start:18-Jul-2019 Instruction Type:Patient Education How to access health informa tion online - Detail Indication:Encounter for general adult medical examination with abnormal findings Start:18-Jul-2019 Instruction Type:Patient Education Patient Instructions Indication:Encounter for general adult medical examination with abnormal findings Start:18-Jul-2019 Instruction Type:Provider Instructions for Treatment How to access health informa tion online Indication:Current nonsmoker (Renamed from Current non-smoker) Start:14-Jul-2019 Instruction Type:Patient Education How to access health informa tion online - Detail Indication:Current nonsmoker (Renamed from Current non-smoker) Start:14-Jul-2019 Instruction Type:Patient Education Patient Instructions Indication:Current nonsmoker (Renamed from Current non-smoker) Start:14-Jul-2019 Instruction Type:Provider Instructions for Treatment How to access health informa tion online Indication:Current nonsmoker (Renamed from Current non-smoker) Start:07-Sep-2018 Instruction Type:Patient Education How to access health informa tion online - Detail Indication:Current nonsmoker (Renamed from Current non-smoker) Start:07-Sep-2018 Instruction Type:Patient Education Patient Instructions Indication:Current nonsmoker (Renamed from Current non-smoker) Start:07-Sep-2018 Instruction Type:Provider Instructions for Treatment How to access health informa tion online Indication:Encounter for general adult medical examination with abnormal findings Start:15-Jul-2018 Instruction Type:Patient Education How to access health informa tion online - Detail Indication:Encounter for general adult medical examination with abnormal findings Start:15-Jul-2018 Instruction Type:Patient Education Patient Instructions Indication:Encounter for general adult medical examination with abnormal findings Start:15-Jul-2018 Instruction Type:Provider Instructions for Treatment How to access health informa tion online Indication:Poison jack Start:01-Feb-2018 Instruction Type:Patient Education How to access health informa tion online - Detail Indication:Poison jack Start:01-Feb-2018 Instruction Type:Patient Education Patient Instructions Indication:Poison jack Start:01-Feb-2018 Instruction Type:Provider Instructions for Treatment How to access health informa tion online Indication:BMI 25.0-25.9,adult Start:16-Sep-2017 Instruction Type:Patient Education How to access health informa tion online - Detail Indication:BMI 25.0-25.9,adult Start:16-Sep-2017 Instruction Type:Patient Education Patient Instructions Indication:BMI 25.0-25.9,adult Start:16-Sep-2017 Instruction Type:Provider Instructions for Treatment How to access health informa tion online Indication:Current nonsmoker (Renamed from Current non-smoker) Start:09-Aug-2017 Instruction Type:Patient Education How to access health informa tion online - Detail Indication:Current nonsmoker (Renamed from Current non-smoker) Start:09-Aug-2017 Instruction Type:Patient Education Patient Instructions Indication:Current nonsmoker (Renamed from Current non-smoker) Start:09-Aug-2017 Instruction Type:Provider Instructions for Treatment How to access health informa tion online Indication:Encounter for general adult medical examination with abnormal findings Start:18-May-2017 Instruction Type:Patient Education How to access health informa tion online - Detail Indication:Encounter for general adult medical examination with abnormal findings Start:18-May-2017 Instruction Type:Patient Education Patient Instructions Indication:Encounter for general adult medical examination with abnormal findings Start:18-May-2017 Instruction Type:Provider Instructions for Treatment How to access health informa tion online Indication:Infected sebaceous cyst Start:29-Mar-2017 Instruction Type:Patient Education How to access health informa tion online - Detail Indication:Infected sebaceous cyst Start:29-Mar-2017 Instruction Type:Patient Education Patient Instructions Indication:Infected sebaceous cyst Start:29-Mar-2017 Instruction Type:Provider Instructions for Treatment How to access health informa tion online Indication:Infected sebaceous cyst Start:24-Mar-2017 Instruction Type:Patient Education How to access health informa tion online - Detail Indication:Infected sebaceous cyst Start:24-Mar-2017 Instruction Type:Patient Education Patient Instructions Indication:Infected sebaceous cyst Start:24-Mar-2017 Instruction Type:Provider Instructions for Treatment How to access health informa tion online Indication:BMI 23.0-23.9, adult Start:22-Mar-2017 Instruction Type:Patient Education How to access health informa tion online - Detail Indication:BMI 23.0-23.9, adult Start:22-Mar-2017 Instruction Type:Patient Education Patient Instructions Indication:BMI 23.0-23.9, adult Start:22-Mar-2017 Instruction Type:Provider Instructions for Treatment How to access health informa tion online Indication:Depression, controlled Start:18-May-2016 Instruction Type:Patient Education How to access health informa tion online - Detail Indication:Depression, controlled Start:18-May-2016 Instruction Type:Patient Education Patient Instructions Indication:Depression, controlled Start:18-May-2016 Instruction Type:Provider Instructions for Treatment How to access health informa tion online Indication:Sjogren's disease Start:24-Apr-2016 Instruction Type:Patient Education How to access health informa tion online - Detail Indication:Sjogren's disease Start:24-Apr-2016 Instruction Type:Patient Education Patient Instructions Indication:Sjogren's disease Start:24-Apr-2016 Instruction Type:Provider Instructions for Treatment How to access health informa tion online Indication:Hypercholesterolemia Start:01-Nov-2014 Instruction Type:Patient Education How to access health informa tion online - Detail Indication:Hypercholesterolemia Start:01-Nov-2014 Instruction Type:Patient Education Patient Instructions Indication:Hypercholesterolemia Start:01-Nov-2014 Instruction Type:Provider Instructions for Treatment How to access health informa tion online Indication:Hypercholesterolemia Start:13-Mar-2014 Instruction Type:Patient Education How to access health informa tion online - Detail Indication:Hypercholesterolemia Start:13-Mar-2014 Instruction Type:Patient Education Patient Instructions Indication:Hypercholesterolemia Start:13-Mar-2014 Instruction Type:Provider Instructions for Treatment Patient Instructions Indication:Hypercholesterolemia Start:20-Sep-2012 Instruction Type:Provider Instructions for Treatment Patient Instructions Indication:Muscle Spasm Start:08-Jun-2012 Instruction Type:Provider Instructions for Treatment Patient Instructions Indication:Hypercholesterolemia Start:03-Mar-2012 Instruction Type:Provider Instructions for Treatment Name Dates Details How to access health informa tion online Indication:Sjogren's disease Start:19-Mar-2020 Instruction Type:Patient Education How to access health informa tion online - Detail Indication:Sjogren's disease Start:19-Mar-2020 Instruction Type:Patient Education Patient Instructions Indication:Sjogren's disease Start:19-Mar-2020 Instruction Type:Provider Instructions for Treatment How to access health informa tion online Indication:Encounter for general adult medical examination with abnormal findings Start:18-Jul-2019 Instruction Type:Patient Education How to access health informa tion online - Detail Indication:Encounter for general adult medical examination with abnormal findings Start:18-Jul-2019 Instruction Type:Patient Education Patient Instructions Indication:Encounter for general adult medical examination with abnormal findings Start:18-Jul-2019 Instruction Type:Provider Instructions for Treatment How to access health informa tion online Indication:Current nonsmoker (Renamed from Current non-smoker) Start:14-Jul-2019 Instruction Type:Patient Education How to access health informa tion online - Detail Indication:Current nonsmoker (Renamed from Current non-smoker) Start:14-Jul-2019 Instruction Type:Patient Education Patient Instructions Indication:Current nonsmoker (Renamed from Current non-smoker) Start:14-Jul-2019 Instruction Type:Provider Instructions for Treatment How to access health informa tion online Indication:Current nonsmoker (Renamed from Current non-smoker) Start:07-Sep-2018 Instruction Type:Patient Education How to access health informa tion online - Detail Indication:Current nonsmoker (Renamed from Current non-smoker) Start:07-Sep-2018 Instruction Type:Patient Education Patient Instructions Indication:Current nonsmoker (Renamed from Current non-smoker) Start:07-Sep-2018 Instruction Type:Provider Instructions for Treatment How to access health informa tion online Indication:Encounter for general adult medical examination with abnormal findings Start:15-Jul-2018 Instruction Type:Patient Education How to access health informa tion online - Detail Indication:Encounter for general adult medical examination with abnormal findings Start:15-Jul-2018 Instruction Type:Patient Education Patient Instructions Indication:Encounter for general adult medical examination with abnormal findings Start:15-Jul-2018 Instruction Type:Provider Instructions for Treatment How to access health informa tion online Indication:Poison jack Start:01-Feb-2018 Instruction Type:Patient Education How to access health informa tion online - Detail Indication:Poison jack Start:01-Feb-2018 Instruction Type:Patient Education Patient Instructions Indication:Poison jack Start:01-Feb-2018 Instruction Type:Provider Instructions for Treatment How to access health informa tion online Indication:BMI 25.0-25.9,adult Start:16-Sep-2017 Instruction Type:Patient Education How to access health informa tion online - Detail Indication:BMI 25.0-25.9,adult Start:16-Sep-2017 Instruction Type:Patient Education Patient Instructions Indication:BMI 25.0-25.9,adult Start:16-Sep-2017 Instruction Type:Provider Instructions for Treatment How to access health informa tion online Indication:Current nonsmoker (Renamed from Current non-smoker) Start:09-Aug-2017 Instruction Type:Patient Education How to access health informa tion online - Detail Indication:Current nonsmoker (Renamed from Current non-smoker) Start:09-Aug-2017 Instruction Type:Patient Education Patient Instructions Indication:Current nonsmoker (Renamed from Current non-smoker) Start:09-Aug-2017 Instruction Type:Provider Instructions for Treatment How to access health informa tion online Indication:Encounter for general adult medical examination with abnormal findings Start:18-May-2017 Instruction Type:Patient Education How to access health informa tion online - Detail Indication:Encounter for general adult medical examination with abnormal findings Start:18-May-2017 Instruction Type:Patient Education Patient Instructions Indication:Encounter for general adult medical examination with abnormal findings Start:18-May-2017 Instruction Type:Provider Instructions for Treatment How to access health informa tion online Indication:Infected sebaceous cyst Start:29-Mar-2017 Instruction Type:Patient Education How to access health informa tion online - Detail Indication:Infected sebaceous cyst Start:29-Mar-2017 Instruction Type:Patient Education Patient Instructions Indication:Infected sebaceous cyst Start:29-Mar-2017 Instruction Type:Provider Instructions for Treatment How to access health informa tion online Indication:Infected sebaceous cyst Start:24-Mar-2017 Instruction Type:Patient Education How to access health informa tion online - Detail Indication:Infected sebaceous cyst Start:24-Mar-2017 Instruction Type:Patient Education Patient Instructions Indication:Infected sebaceous cyst Start:24-Mar-2017 Instruction Type:Provider Instructions for Treatment How to access health informa tion online Indication:BMI 23.0-23.9, adult Start:22-Mar-2017 Instruction Type:Patient Education How to access health informa tion online - Detail Indication:BMI 23.0-23.9, adult Start:22-Mar-2017 Instruction Type:Patient Education Patient Instructions Indication:BMI 23.0-23.9, adult Start:22-Mar-2017 Instruction Type:Provider Instructions for Treatment How to access health informa tion online Indication:Depression, controlled Start:18-May-2016 Instruction Type:Patient Education How to access health informa tion online - Detail Indication:Depression, controlled Start:18-May-2016 Instruction Type:Patient Education Patient Instructions Indication:Depression, controlled Start:18-May-2016 Instruction Type:Provider Instructions for Treatment How to access health informa tion online Indication:Sjogren's disease Start:24-Apr-2016 Instruction Type:Patient Education How to access health informa tion online - Detail Indication:Sjogren's disease Start:24-Apr-2016 Instruction Type:Patient Education Patient Instructions Indication:Sjogren's disease Start:24-Apr-2016 Instruction Type:Provider Instructions for Treatment How to access health informa tion online Indication:Hypercholesterolemia Start:01-Nov-2014 Instruction Type:Patient Education How to access health informa tion online - Detail Indication:Hypercholesterolemia Start:01-Nov-2014 Instruction Type:Patient Education Patient Instructions Indication:Hypercholesterolemia Start:01-Nov-2014 Instruction Type:Provider Instructions for Treatment How to access health informa tion online Indication:Hypercholesterolemia Start:13-Mar-2014 Instruction Type:Patient Education How to access health informa tion online - Detail Indication:Hypercholesterolemia Start:13-Mar-2014 Instruction Type:Patient Education Patient Instructions Indication:Hypercholesterolemia Start:13-Mar-2014 Instruction Type:Provider Instructions for Treatment Patient Instructions Indication:Hypercholesterolemia Start:20-Sep-2012 Instruction Type:Provider Instructions for Treatment Patient Instructions Indication:Muscle Spasm Start:08-Jun-2012 Instruction Type:Provider Instructions for Treatment Patient Instructions Indication:Hypercholesterolemia Start:03-Mar-2012 Instruction Type:Provider Instructions for Treatment Name Dates Details How to access health informa tion online Indication:Sjogren's disease Start:19-Mar-2020 Instruction Type:Patient Education How to access health informa tion online - Detail Indication:Sjogren's disease Start:19-Mar-2020 Instruction Type:Patient Education Patient Instructions Indication:Sjogren's disease Start:19-Mar-2020 Instruction Type:Provider Instructions for Treatment How to access health informa tion online Indication:Encounter for general adult medical examination with abnormal findings Start:18-Jul-2019 Instruction Type:Patient Education How to access health informa tion online - Detail Indication:Encounter for general adult medical examination with abnormal findings Start:18-Jul-2019 Instruction Type:Patient Education Patient Instructions Indication:Encounter for general adult medical examination with abnormal findings Start:18-Jul-2019 Instruction Type:Provider Instructions for Treatment How to access health informa tion online Indication:Current nonsmoker (Renamed from Current non-smoker) Start:14-Jul-2019 Instruction Type:Patient Education How to access health informa tion online - Detail Indication:Current nonsmoker (Renamed from Current non-smoker) Start:14-Jul-2019 Instruction Type:Patient Education Patient Instructions Indication:Current nonsmoker (Renamed from Current non-smoker) Start:14-Jul-2019 Instruction Type:Provider Instructions for Treatment How to access health informa tion online Indication:Current nonsmoker (Renamed from Current non-smoker) Start:07-Sep-2018 Instruction Type:Patient Education How to access health informa tion online - Detail Indication:Current nonsmoker (Renamed from Current non-smoker) Start:07-Sep-2018 Instruction Type:Patient Education Patient Instructions Indication:Current nonsmoker (Renamed from Current non-smoker) Start:07-Sep-2018 Instruction Type:Provider Instructions for Treatment How to access health informa tion online Indication:Encounter for general adult medical examination with abnormal findings Start:15-Jul-2018 Instruction Type:Patient Education How to access health informa tion online - Detail Indication:Encounter for general adult medical examination with abnormal findings Start:15-Jul-2018 Instruction Type:Patient Education Patient Instructions Indication:Encounter for general adult medical examination with abnormal findings Start:15-Jul-2018 Instruction Type:Provider Instructions for Treatment How to access health informa tion online Indication:Poison jack Start:01-Feb-2018 Instruction Type:Patient Education How to access health informa tion online - Detail Indication:Poison jack Start:01-Feb-2018 Instruction Type:Patient Education Patient Instructions Indication:Poison jack Start:01-Feb-2018 Instruction Type:Provider Instructions for Treatment How to access health informa tion online Indication:BMI 25.0-25.9,adult Start:16-Sep-2017 Instruction Type:Patient Education How to access health informa tion online - Detail Indication:BMI 25.0-25.9,adult Start:16-Sep-2017 Instruction Type:Patient Education Patient Instructions Indication:BMI 25.0-25.9,adult Start:16-Sep-2017 Instruction Type:Provider Instructions for Treatment How to access health informa tion online Indication:Current nonsmoker (Renamed from Current non-smoker) Start:09-Aug-2017 Instruction Type:Patient Education How to access health informa tion online - Detail Indication:Current nonsmoker (Renamed from Current non-smoker) Start:09-Aug-2017 Instruction Type:Patient Education Patient Instructions Indication:Current nonsmoker (Renamed from Current non-smoker) Start:09-Aug-2017 Instruction Type:Provider Instructions for Treatment How to access health informa tion online Indication:Encounter for general adult medical examination with abnormal findings Start:18-May-2017 Instruction Type:Patient Education How to access health informa tion online - Detail Indication:Encounter for general adult medical examination with abnormal findings Start:18-May-2017 Instruction Type:Patient Education Patient Instructions Indication:Encounter for general adult medical examination with abnormal findings Start:18-May-2017 Instruction Type:Provider Instructions for Treatment How to access health informa tion online Indication:Infected sebaceous cyst Start:29-Mar-2017 Instruction Type:Patient Education How to access health informa tion online - Detail Indication:Infected sebaceous cyst Start:29-Mar-2017 Instruction Type:Patient Education Patient Instructions Indication:Infected sebaceous cyst Start:29-Mar-2017 Instruction Type:Provider Instructions for Treatment How to access health informa tion online Indication:Infected sebaceous cyst Start:24-Mar-2017 Instruction Type:Patient Education How to access health informa tion online - Detail Indication:Infected sebaceous cyst Start:24-Mar-2017 Instruction Type:Patient Education Patient Instructions Indication:Infected sebaceous cyst Start:24-Mar-2017 Instruction Type:Provider Instructions for Treatment How to access health informa tion online Indication:BMI 23.0-23.9, adult Start:22-Mar-2017 Instruction Type:Patient Education How to access health informa tion online - Detail Indication:BMI 23.0-23.9, adult Start:22-Mar-2017 Instruction Type:Patient Education Patient Instructions Indication:BMI 23.0-23.9, adult Start:22-Mar-2017 Instruction Type:Provider Instructions for Treatment How to access health informa tion online Indication:Depression, controlled Start:18-May-2016 Instruction Type:Patient Education How to access health informa tion online - Detail Indication:Depression, controlled Start:18-May-2016 Instruction Type:Patient Education Patient Instructions Indication:Depression, controlled Start:18-May-2016 Instruction Type:Provider Instructions for Treatment How to access health informa tion online Indication:Sjogren's disease Start:24-Apr-2016 Instruction Type:Patient Education How to access health informa tion online - Detail Indication:Sjogren's disease Start:24-Apr-2016 Instruction Type:Patient Education Patient Instructions Indication:Sjogren's disease Start:24-Apr-2016 Instruction Type:Provider Instructions for Treatment How to access health informa tion online Indication:Hypercholesterolemia Start:01-Nov-2014 Instruction Type:Patient Education How to access health informa tion online - Detail Indication:Hypercholesterolemia Start:01-Nov-2014 Instruction Type:Patient Education Patient Instructions Indication:Hypercholesterolemia Start:01-Nov-2014 Instruction Type:Provider Instructions for Treatment How to access health informa tion online Indication:Hypercholesterolemia Start:13-Mar-2014 Instruction Type:Patient Education How to access health informa tion online - Detail Indication:Hypercholesterolemia Start:13-Mar-2014 Instruction Type:Patient Education Patient Instructions Indication:Hypercholesterolemia Start:13-Mar-2014 Instruction Type:Provider Instructions for Treatment Patient Instructions Indication:Hypercholesterolemia Start:20-Sep-2012 Instruction Type:Provider Instructions for Treatment Patient Instructions Indication:Muscle Spasm Start:08-Jun-2012 Instruction Type:Provider Instructions for Treatment Patient Instructions Indication:Hypercholesterolemia Start:03-Mar-2012 Instruction Type:Provider Instructions for Treatment Advance Directives Name Dates Details Immunization Registry [place] - Effective on 07/22/2020. Expiration date unspecified Effective:22-Jul-2020 Name Dates Details Immunization Registry [place] - Effective on 07/22/2020. Expiration date unspecified Effective:22-Jul-2020 Name Dates Details Immunization Registry [place] - Effective on 07/22/2020. Expiration date unspecified Effective:22-Jul-2020 Name Dates Details Immunization Registry [place] - Effective on 07/22/2020. Expiration date unspecified Effective:22-Jul-2020 Name Dates Details Immunization Registry [place] - Effective on 07/22/2020. Expiration date unspecified Effective:22-Jul-2020 Name Dates Details Immunization Registry [place] - Effective on 07/22/2020. Expiration date unspecified Effective:22-Jul-2020 Name Dates Details Immunization Registry [place] - Effective on 08/25/2021. Expiration date unspecified Effective:25-Aug-2021 Name Dates Details Immunization Registry [place] - Effective on 08/25/2021. Expiration date unspecified Effective:25-Aug-2021 Name Dates Details Immunization Registry [place] - Effective on 08/25/2021. Expiration date unspecified Effective:25-Aug-2021 Advance Directive Response Recorded Date/ Time Living Will Yes November 21, 2017 5:55pm Power of Tank Builder Helper Yes November 21 5:55pm Name Dates Details Immunization Registry [place] - Effective on 08/25/2021. Expiration date unspecified Effective:25-Aug-2021 Name Dates Details Immunization Registry [place] - Effective on 08/25/2021. Expiration date unspecified Effective:25-Aug-2021 Name Dates Details Immunization Registry [place] - Effective on 08/25/2021. Expiration date unspecified Effective:25-Aug-2021 Name Dates Details Immunization Registry [place] - Effective on 08/25/2021. Expiration date unspecified Effective:25-Aug-2021 Name Dates Details Immunization Registry [place] - Effective on 08/25/2021. Expiration date unspecified Effective:25-Aug-2021 Name Dates Details Immunization Registry [place] - Effective on 08/25/2021. Expiration date unspecified Effective:25-Aug-2021 Name Dates Details Immunization Registry [place] - Effective on 08/25/2021. Expiration date unspecified Effective:25-Aug-2021 Name Dates Details Immunization Registry [place] - Effective on 08/25/2021. Expiration date unspecified Effective:25-Aug-2021 Name Dates Details Immunization Registry [place] - Effective on 08/25/2021. Expiration date unspecified Effective:25-Aug-2021 Advance Directive Response Recorded Date/ Time Living Will Yes November 21, 2017 4:55pm Power of Tank Builder Helper Yes November 21 4:55pm Advance Directive Response Recorded Date/ Time Name of Medical Power of Tank Builder Helper chandler sunshine April 11, 2023 3:33am Living Will Yes April 11 023 3:33am Power of Tank Builder Helper Yes April 11, 2023 3:33am Chief Complaint and Reason for Visit Chief Complaint RUQ PAIN PANCREATIC CYST Chief Complaint RUQ PAIN PANCREATIC CYST ABN CT ABD Chief Complaint SCREENING Chief Complaint HEART MURMUR Chief Complaint HEART MURMUR SCREENING Annual (ETL LEAD) PAP Reason for Visit Encounter for routin e gynecological examination Chief Complaint SCREENING Annual (ETL LEAD) PAP neck pain Reason for Visit Encounter for routin e gynecological examination Summary Purpose Additional Source Comments Goals (unrecognized section and content) Goals may be documented in a n alternate sectionGoals may be documented in an alternate sectionGoals may be documented in an alternate sectionGoals may be documented in an alternate sectionGoals may be documented in an alternate sectionGoals may be documented in an alternate sectionGoals may be documented in an alternate sectionGoals may be documented in an alternate sectionGoals may be documented in an alternate section INFORMATION SOURCE (unrecogn ized section and content) DATE CREATED AUTHOR 09/03/2022 [facility] DATE CREATED AUTHOR AUTHOR'S ORGANIZ ATION 10/30/2023 [facility] DATE CREATED AUTHOR AUTHOR'S ORGANIZ ATION 01/13/2025 [facility] Care Teams (unrecognized sec tion and content) Team Status: Active Member Role Status Dates Dr. Julia Brown MD Family Provider Active Dr. Julia Brown MD Primary Care Provider Active Team Status: Active Member Role Status Dates Dr. Julia Brown MD Primary Care Provider Active Dr. Sebastian Chin MD Attending Provider Active Team Status: Inactive Member Role Status Dates Dr. Julia Brown MD Primary Care Provi don, Attending Provider, Referring Provider Active Team Status: Inactive Member Role Status Dates Dr. Julia Brown MD Primary Care Provider, Referring Provider Active Dr. Susie Muir MD Attending Provider Active Team Status: Active Member Role Status Dates Dr. Julia Brown MD Primary Care Provider Active Dr. Susie Muir MD Attending Provider Active Team Status: Inactive Member Role Status Dates Dr. Julia Brown MD Primary Care Provider Active Dr. Susie Muir MD Attending Provider Active Assistant Financial Accountant Relationship Specialty Start Date End Date Julia Brown MD PCP - General Internal Medicine 11/10/11 Team Status: Inactive Member Role Status Dates Dr. Julia Brown MD Primary Care Provider Active Dr. Daniel Marcelo DO Emergency Provider Active Team Status: Active Member Role/Relationship Status Dates Dr. Julia Brown MD Primary care physician Active Team Status: Inactive Member Role/Relationship Status Dates Dr. Julia Brown MD Primary care physician Active Start: December 22, 2024 End: December 22, 2024 Dr. Julia Brown MD Attending physician Active Start: December 22, 2024 End: December 22, 2024 Dr. Julia Brown MD Referring Provider Active Start: December 22, 2024 End: December 22, 2024 Source Comments (unrecognize d section and content) In the event this informatio n is protected by the Federal Confidentiality of Alcohol and Drug Abuse Patient Records regulations: The Federal rules restrict any use of the information to criminally investigate or prosecute any alcohol or drug abuse patient.[facility] Reason for Visit (unrecogniz ed section and content) Reason Comments Cough Congestion x2 weeks FOR RECORDS PERTAINING TO PATIENTS WHO ARE OR HAVE BEEN ENROLLED IN A CHEMICAL DEPENDENCY/SUBSTANCEABUSE PROGRAM, SOME INFORMATION MAY BE OMITTED. This clinical summary was aggregated from multiple sources. Caution should be exercised in using it in the provision of clinical care. This summary normalizes information from multiple sources, and as a consequence, information in this document may materially change the coding, format and clinical context of patient data. In addition, data may be omitted in some cases. CLINICAL DECISIONS SHOULD BE BASED ON THE PRIMARY CLINICAL RECORDS. [employer] [facility]. provides no warranty or guarantee of the accuracy or completeness of information in this document.
--- NOTE | 2025-03-24 11:15 | CM.ED ---
Social Work Date of referral: 03/24/25 Reason for referral: Advanced Care Directives (ACD's) not on file Referred by: Social Work Identification Patient provided consent for social work visit. Administrative Underwriter requested copy of ACD's which patient agreed to bring in. No other assistance is needed at this time. Amy Centeno, [employer], WILDLIFE BIOLOGIST
[2025-03-24 11:25] VITALS: BP 117/73; PULSE 63; RESP 16; TEMP 36.9; O2SAT 99
== END 2025-03-24 11:27 | disposition home or self-care (01) ==
PROVIDERS: Emergency Provider Student in an Organized Health Care Education/Training Program; PCP Internal Medicine; Visit Provider Student in an Organized Health Care Education/Training Program
DX: R07.89 Other chest pain (principal); M25.512 Pain in left shoulder; E78.5 Hyperlipidemia, unspecified; W01.0XXA Fall on same level from slipping, tripping and stumbling without subsequent striking against object, initial encounter; Y93.K1 Activity, walking an animal; Y92.89 Other specified places as the place of occurrence of the external cause; F41.9 Anxiety disorder, unspecified; Z79.899 Other long term (current) drug therapy
CPT/HCPCS: 71046; 73030; 99283

== ENCOUNTER → 2025-04-04 | Outpatient (CLI) | payer MEDICARE, BC, SELFPAY ==
--- NOTE | 2025-04-04 10:15 | BI_ITS ---
EXAM: SCRN MAMM (CAD)W/KATIE BILAT DATE: 04/04/2025 CLINICAL HISTORY: F, Age 64 y/o , SCREEN FOR BREAST CANCER No family history. TECHNIQUE: Procedure Code: [id number] Modality: MG Procedure: SCRN MAMM (CAD)W/KATIE BILAT COMPARISON: Prior exam(s) dated April 03, 2024.. FINDINGS: TISSUE DENSITY: There are scattered areas of fibroglandular density. Bilateral Breast Mammographic Findings: No significant masses, calcifications or other abnormalities are identified. Stable small benign-appearing bilateral axillary lymph nodes. No suspicious masses, areas of developing architectural distortion, or suspicious calcifications. There has been no significant interval change. BI/SCRN MAMM (CAD)W/KATIE BILAT IMPRESSION: Stable bilateral screening mammogram. OVERALL FINAL ASSESSMENT BI-RADS 2: BENIGN RECOMMENDATION: Routine annual follow-up in 1 Year Additional Recommendation none A letter with findings and recommendations will be mailed to the patient. Reading Location: [place] [id number]
== END | disposition home or self-care (01) ==
LOC: OPBI 10:04
PROVIDERS: PCP Internal Medicine; Referring Provider Obstetrics & Gynecology; Visit Provider Obstetrics & Gynecology
DX: Z12.31 Encounter for screening mammogram for malignant neoplasm of breast (principal)
CPT/HCPCS: 77063; 77067